=== PATIENT | female | born 1940 | race Hispanic/Latino ===

== ENCOUNTER 2017-06-11 18:11 | Inpatient (IN) | payer MEDICARE ==
[2017-06-11 18:55] LABS: #Lymphocytes 1.4 thou/uL (1.20-3.40); #Monocytes 0.9 thou/uL (0.11-0.59); #Neutrophils 16.3 thou/uL (1.40-6.50); %Eosinophils 0.1 % (0.0-10.0); %Lymphocytes 7.7 % (21.0-51.0); %Monocytes 4.8 % (0.0-10.0); Hematocrit 37.1 % (36.0-47.0); Mean Platelet Volume 7.3 fL (7.4-10.4); Red Blood Cell (RBC) Count 4.29 mill/uL (4.20-5.40); White Blood Cell (WBC) Count 18.6 thou/uL (4.8-10.8)
[2017-06-11 19:15] LABS: Bilirubin Negative (Negative); Blood, Urine Large (Negative); Glucose, Urine (Dipstick) Negative (Negative); Ketone, Urine 80 mg/dL (Negative); Nitrite Negative (Negative); Protein, Urine (Dipstick) 300 mg/dL (Neg-Trace)
[2017-06-11 19:15] LABS: ALT (SGPT) 15 U/L (8-55); AST (SGOT) 26 U/L (5-34); Alkaline Phosphatase 97 U/L (40-150); Anion Gap 20 mmol/L (10-20); BUN (Urea Nitrogen) 8 mg/dL (9.8-20.1); Bilirubin, Total 1.3 mg/dL (0.2-1.2); CK (CPK) 471 U/L (29-168); Calc. Creatinine Clearance 0 mL/min (70-130); Calcium 8.9 mg/dL (7.8-10.44); Carbon Dioxide 22 mmol/L (23-31); Chloride 80 mmol/L (98-107); Estimated GFR-MDRD Greater than 90; Globulin 3.6 g/dL (2.4-3.5); Protein, Total 7.6 g/dL (6.0-8.3)
[2017-06-11 19:18] LABS: Bacteria/HPF None Seen HPF (None Seen); Hyaline Casts/LPF 0-3 HYALINE CAST LPF (0-3 Hyaline); RBC/HPF GREATER THAN 50-TNTC HPF (0-3); Squamous Epithelial 0-3 HPF (0-3)
[2017-06-11 19:20] LABS: Renal Epithelial None Seen HPF (0-3); Transitional Epithelial NONE SEEN HPF (0-3)
[2017-06-11 19:22] LABS: Troponin I 0.015 ng/mL (< 0.028)
[2017-06-11] MEDS ORDERED: Ondansetron HCl/PF 4 MG/2 ML Vial ONE (19:48)
[2017-06-11 19:54] LABS: Osmolality, Serum 247 mOsm/kg (280-295)
--- NOTE | 2017-06-11 20:24 | RAD ---
ONE VIEW CHEST: History: Altered mental status. Comparison: 08-06-14 FINDINGS: Atherosclerosis of the aorta. Normal cardiac silhouette. The pulmonary vessels are slightly prominen t. Costophrenic angles are clear. No masses or consolidation. No pneumothorax or osseous abnormality . IMPRESSION: 1. Atherosclerosis. 2. Prominent pulmonary vasculature. Correlate for volume overload. POS: [facility]
[2017-06-11] MEDS ORDERED: HYDROcodone/Acetaminophen 5/325 mg Tablet ONE (21:04)
[2017-06-11 21:11] LABS: Anion Gap 15 mmol/L (10-20); BUN (Urea Nitrogen) 7 mg/dL (9.8-20.1); Calc. Creatinine Clearance 0 mL/min (70-130); Carbon Dioxide 20 mmol/L (23-31); Chloride 86 mmol/L (98-107); Estimated GFR-MDRD Greater than 90; Magnesium 1.7 mg/dL (1.6-2.6)
[2017-06-11] MEDS ORDERED: Gabapentin 300 MG CAP PO SCH (21:15)
--- NOTE | 2017-06-11 21:39 | CT ---
NONCONTRAST HEAD CT: History: Altered mental status. Comparison: 08-06-14 Technique: Noncontrast head CT is performed from skull base to skull vertex. FINDINGS: No parenchymal hemorrhage. No extraaxial hematoma. No midline shift. Basilar cisterns are patent. Ag e appropriate atrophy. Cortical powers white matter differentiation is preserved. Hypodensity in the right and left thalamus due to a remote lacunar infarct noted. Chronic small vess el ischemic change of the white matter identified. Hypoattenuation of the right lui radiata is al so unchanged. Calvarium is intact. Mucosal thickening of the paranasal sinuses is noted. Inferior right mastoid ai r cells are partially opacified. IMPRESSION: No acute intracranial process. POS: [facility]
[2017-06-11] MEDS ORDERED: Sodium Chloride 0.9% 1,000 ML IV SCH (21:45)
[2017-06-11] MEDS ORDERED: Dextrose 50% Abboject 50 ML SYRINGE SLOW IVP PRN (22:03)
[2017-06-11] MEDS ORDERED: Dextrose 5% in Water 1,000 ML IV PRN (22:03)
[2017-06-11] MEDS ORDERED: Loperamide HCl 2 MG CAP PO PRN (22:03)
[2017-06-11] MEDS ORDERED: Ondansetron ODT 4 MG TAB PO PRN (22:03)
[2017-06-11] MEDS ORDERED: Acetaminophen 325 MG TAB PO PRN (22:03)
--- NOTE | 2017-06-11 22:22 | HP ---
DATE OF ADMISSION/OBSERVATION: 06/11/2017 PRIMARY CARE PHYSICIAN: Fabien. CHIEF COMPLAINT: Altered mental status. HISTORY OF PRESENT ILLNESS: Ms. Manzano is a 77-year-old [place] female with history of per ipheral vascular disease, status post right AKA and left BKA, hypertension, diabetes, hyperlipidemia , and hypothyroidism who has had 1 week history of anorexia, nausea and vomiting that seemed to wors en over the last couple of days. Today and yesterday, she became incontinent of bowel and bladder. She seemed to be more forgetful a nd not her normal self and today just seemed outright more confused. She was brought to the Emergency Department for evaluation. They denied her having any fevers or ch ills. She had no chest pain and no complaints of shortness of breath. In the Emergency Department, she is somnolent, but arousable. She seems to be oriented x3 at presen t. Workup in the ER showed labs to be fairly normal except for electrolytes being low with a sodium of 119, potassium 3.0, chloride 80 and a bicarbonate of 22. CBC showed a white count of 18,600, but ot herwise CBC was normal. The patient has had problems like this before, but had UTI, on her urinalysis. No evidence of activ e UTI present. We were called for evaluation due to the hyponatremia. PAST MEDICAL HISTORY: 1. Diabetes mellitus type 2, on insulin. 2. Hyperlipidemia. 3. Peripheral vascular disease, status post bilateral amputations. 4. Hypertension. 5. Hypothyroidism. 6. Peripheral vascular disease. PAST SURGICAL HISTORY: Includes; 1. Bladder sling. 2. Right AKA. 3. Left BKA. HOME MEDICATIONS: (No actual list was given, no medicines). This is taken from the son's recollect ion. 1. Clonidine t.i.d., assuming 0.1 mg. 2. Amlodipine. He thinks 5 mg daily. 3. Metformin 500 mg b.i.d. 4. Lisinopril 10 mg daily. 5. Gabapentin, dose unknown. 6. Levothyroxine, dose unknown. 7. Glimepiride, dose unknown. 8. Zocor, dose unknown. 9. Hydrocodone as needed, but rarely takes. ALLERGIES: NKDA. FAMILY HISTORY: Negative for clotting or bleeding disorder. No immune dysfunction. SOCIAL HISTORY: Significant tobacco occasionally; will have a cigarette or two. A pack will last w ell over a month. No alcohol or drug use. She lives with family, including her son and [id number]. REVIEW OF SYSTEMS: A 10-point review of systems was performed. Negative for all systems except as stated as per HPI. Specifically, denies any diarrhea. Though her family states that she has had wa abiola stools today. PHYSICAL EXAMINATION: VITAL SIGNS: Temperature 98.3, pulse 83, blood pressure 171/98, respiratory rate 17 and satting 96% on room air. GENERAL: She is awake. She is alert. She is oriented x3. She knows she is in the hospital, knows her name, knows the year and the president. She appears sleepy, but in no acute distress. HEENT: Normocephalic, atraumatic. Her pupils are equal and round bilaterally, mucous membranes are moist. She has no visible lesions or thrush. She does have some conjunctival injection to the rig ht eye with some watering, but not to the left. NECK: Supple. There is no lymphadenopathy, no JVD, no thyromegaly. LUNGS: Clear to auscultation bilaterally. She has adequate air movement and symmetrical chest excu rsion. There is no prolonged expiratory phase and no wheezes. CARDIOVASCULAR: She has normal S1 and S2. She has no S3 or S4. I do not appreciate any murmurs. ABDOMEN: Soft, it is nontender and nondistended. She has normoactive bowel sounds present in all 4 quadrants. EXTREMITIES: Show no cyanosis or clubbing. She has no edema. She does have a right AKA and left B KA. Her stumps are intact. NEUROLOGIC: Her cranial nerves are II-XII to be grossly intact. Strength in the arms is 5/5. She has normal speech, though she mostly speaks in [place]. She has no focal deficits. Obviously, luciano ot test her lower extremity strength. Hip flexors appear to have normal strength. MUSCULOSKELETAL: Hips, shoulders, elbows appear normal to inspection. She has no inflammation and no palpable effusions. LABORATORY DATA: CMP shows a sodium of 119, potassium 3.0, chloride 80, bicarbonate 22, BUN 8, crea tinine 0.61 and glucose of 199 with a calcium of 8.7. Liver function normal except for a total bili galindo of 1.3. White blood cell count 18.6 with a normal differential, hemoglobin 13.2, hematocrit 3 7.1 and platelet count of 373,000. Urinalysis showed greater than 50 red cells, 4-6 white cells, no bacteria, negative nitrite, negative leukocyte esterase. X-RAY FINDINGS: Chest x-ray showed no acute cardiopulmonary disease. There is some mild opacificat ion of the bilateral bases that could be infiltrate, but recommend serial exams. ASSESSMENT AND PLAN: 1. Altered mental status: The patient is oriented x3, but somnolent. Certainly could be related t o electrolyte abnormalities. 2. Hyponatremia: Last labs here were 2 years ago with a normal sodium. She is currently at 119. We will start on normal saline, as she does not look hypervolemic. We will recheck her sodium in th e morning. 3. Hyperkalemia: A stat redraw was requested. She got a dose in the ER. We will continue to repl bridgette. 4. Diabetes mellitus type 2: She does take long-acting insulin, looks like Lantus maybe 50 units d aily; however, hold that for now. She is not eating well. We will use sliding scale insulin, Humal og. 5. Hyperlipidemia, on Zocor. We will hold for now. 6. Hypertension, on clonidine, lisinopril and amlodipine. The blood pressure is elevated right now . We will restart her home medications as we can best guess them. 7. Hypothyroidism, on levothyroxine. We will hold for today. Place the patient in observation with telemetry. We will reevaluate in the morning.
[2017-06-11] MEDS ORDERED: cloNIDine 0.2 MG TAB PO SCH (23:15)
[2017-06-11] MEDS ORDERED: cloNIDine 0.1 MG TAB PO PRN (23:17)
[2017-06-11] MEDS ORDERED: Sodium Chloride 0.9% 10 ML ONE (23:29)
[2017-06-11] MEDS ORDERED: Simvastatin 20 MG TAB PO SCH (23:30)
[2017-06-11] MEDS: Potassium Chloride 20 MEQ TAB PO SCH ×2 (23:32→23:34)
[2017-06-11] MEDS: Famotidine 20 MG TAB PO SCH (23:34)
[2017-06-11] MEDS: Sodium Chloride 0.9% 1,000 ML IV SCH (23:40)
[2017-06-12 03:00] VITALS: BMI 30.2
[2017-06-12] MEDS ORDERED: Potassium Chloride 20 MEQ TAB PO SCH (04:00)
[2017-06-12 05:46] LABS: #Basophils 0.1 thou/uL (0.0-0.2); #Lymphocytes 3.3 thou/uL (1.20-3.40); #Monocytes 1.6 thou/uL (0.11-0.59); #Neutrophils 10.6 thou/uL (1.40-6.50); %Basophils 0.3 % (0.0-1.0); %Eosinophils 0.1 % (0.0-10.0); %Monocytes 10.4 % (0.0-10.0); Hematocrit 37.5 % (36.0-47.0); Mean Platelet Volume 7.4 fL (7.4-10.4); Red Blood Cell (RBC) Count 4.29 mill/uL (4.20-5.40); White Blood Cell (WBC) Count 15.6 thou/uL (4.8-10.8)
[2017-06-12] MEDS: HYDROcodone/Acetaminophen 10/325 mg Tablet PO PRN (06:02)
[2017-06-12 06:06] LABS: Anion Gap 13 mmol/L (10-20); BUN (Urea Nitrogen) 7 mg/dL (9.8-20.1); Calc. Creatinine Clearance 80 mL/min (70-130); Calcium 8.5 mg/dL (7.8-10.44); Carbon Dioxide 25 mmol/L (23-31); Chloride 87 mmol/L (98-107); Estimated GFR-MDRD Greater than 90
[2017-06-12] MEDS ORDERED: cloNIDine 0.2 MG TAB PO SCH (09:00)
[2017-06-12] MEDS: Erythromycin Base 0.5% Oint 1 GM TUBE EA EYE SCH ×4 (09:14→21:00)
--- NOTE | 2017-06-12 11:47 | PDOC.PN ---
- Subjective Encounter Start Date: 06/12/17 Encounter Start Time: 10:15 Pt sleeping soundly. No acute events overnight. Still incontinent of urine, cassidy placed, complaints of bladder spasms. Son at bedside, reports MS still off but a little better today. No F/c, no N/V/ D/c, no CP, no SOB 10 point ROs performed and neg for all except as per HPI and the following: continues to feel globally weak - Objective Resuscitation Status: Resuscitation Status FULL:Full Resuscitation MAR Reviewed: Yes Vital Signs & Weight: Vital Signs (12 hours) Temp Pulse Resp BP BP Pulse Ox 06/12/17 09:14 150/65 H 06/12/17 08:00 98.6 F 80 18 150/65 H 93 L 06/12/17 04:00 98.8 F 71 16 153/69 H 92 L 06/12/17 00:57 97.9 F 74 20 133/56 L 94 L Weight Weight 139 lb 9.6 oz I&O: 06/11/17 06/12/17 06/13/17 06:59 06:59 06:59 Intake Total 1535 Output Total 2024 Balance -490 Result Diagrams: 06/12/17 04:39 06/12/17 04:39 Additional Labs: Accuchecks 06/12/17 06:54 POC Glucose 95 Radiology Reviewed by me: Yes EKG Reviewed by me: Yes Phys Exam - Physical Examination Constitutional: NAD HEENT: PERRLA, moist MMs, sclera anicteric, oral pharynx no lesions Neck: no nodes, no JVD, supple, full ROM Respiratory: no wheezing, no rales, no rhonchi, clear to auscultation bilateral Cardiovascular: RRR, no significant murmur, no rub Gastrointestinal: soft, non-tender, no distention, positive bowel sounds stumps intact, no stump edema Neurological: non-focal, normal sensation, moves all 4 limbs 4/5 strength. CN II-XII intact Lymphatic: no nodes Psychiatric: normal affect, A&O x 3 Deviation from normal: sleepy Skin: no rash, normal turgor, cap refill <2 seconds Dx/Plan (1) Metabolic encephalopathy Code(s): G93.41 - METABOLIC ENCEPHALOPATHY Status: Acute Comment: improved a little with increased sodium. monitor (2) Hyponatremia Code(s): E87.1 - HYPO-OSMOLALITY AND HYPONATREMIA Status: Acute Comment: slightly better overnight. continue NS, will add NaCl tabs tomorrow (3) Hypokalemia Code(s): E87.6 - HYPOKALEMIA Status: Resolved Comment: replaced orally overnight. repeat in ER better. watch due to shifts with fluids and sodium (4) DM2 (diabetes mellitus, type 2) Status: Chronic Qualifiers: Diabetes mellitus complication status: with circulatory complication Diabetes mellitus complication detail: with other circulatory complications Diabetes mellitus half-way insulin use: with half-way use Qualified Code(s) : E11.59 - Type 2 diabetes mellitus with other circulatory complications; Z79.4 - painter plate (current) use of insulin; Z79.4 - painter plate (current) use of insulin ; Z79.4 - painter plate (current) use of insulin; Z79.4 - long-term (current) use of insulin Comment: sigars okay. restart long acting when po intake stable (5) HLD (hyperlipidemia) Code(s): E78.5 - HYPERLIPIDEMIA, UNSPECIFIED Status: Chronic Qualifiers: Hyperlipidemia type: unspecified Qualified Code(s): E78.5 - Hyperlipidemia , unspecified (6) PVD (peripheral vascular disease) Code(s): I73.9 - PERIPHERAL VASCULAR DISEASE, UNSPECIFIED Status: Chronic (7) Hypothyroidism Code(s): E03.9 - HYPOTHYROIDISM, UNSPECIFIED Status: Chronic Qualifiers: Hypothyroidism type: acquired Qualified Code(s): E03.9 - Hypothyroidism, unspecified Comment: contoinue synthroid when son gets us the dose - Plan cont current plan of care, plan discussed w/ family, PT/OT * .
[2017-06-12] MEDS: HYDROcodone/Acetaminophen 5/325 mg Tablet PO PRN (12:03)
[2017-06-12] MEDS: Famotidine 20 MG TAB PO SCH ×2 (12:04→21:00)
[2017-06-12] MEDS: HumaLOG 300 UNITS/3 ML VIAL SC PRN ×2 (12:16→16:39)
[2017-06-12] MEDS: cloNIDine 0.2 MG TAB PO SCH ×2 (15:09→20:59)
[2017-06-12] MEDS: Simvastatin 20 MG TAB PO SCH (20:59)
[2017-06-12] MEDS: Sodium Chloride 0.9% 1,000 ML IV SCH (20:59)
[2017-06-12] MEDS: Gabapentin 300 MG CAP PO SCH (21:00)
[2017-06-12] MEDS ORDERED: Simvastatin 20 MG TAB PO SCH (21:00)
[2017-06-13 05:16] LABS: #Lymphocytes 2.3 thou/uL (1.20-3.40); #Monocytes 1.5 thou/uL (0.11-0.59); #Neutrophils 9.2 thou/uL (1.40-6.50); %Basophils 0.1 % (0.0-1.0); %Eosinophils 0.1 % (0.0-10.0); %Lymphocytes 17.7 % (21.0-51.0); %Monocytes 11.7 % (0.0-10.0); Hematocrit 38.9 % (36.0-47.0); Red Blood Cell (RBC) Count 4.33 mill/uL (4.20-5.40); White Blood Cell (WBC) Count 13.1 thou/uL (4.8-10.8)
[2017-06-13 05:35] LABS: Anion Gap 10 mmol/L (10-20); BUN (Urea Nitrogen) 6 mg/dL (9.8-20.1); Calc. Creatinine Clearance 69 mL/min (70-130); Calcium 8.5 mg/dL (7.8-10.44); Carbon Dioxide 23 mmol/L (23-31); Chloride 101 mmol/L (98-107); Estimated GFR-MDRD Greater than 90; Magnesium 1.9 mg/dL (1.6-2.6)
[2017-06-13] MEDS: Levothyroxine Sodium 100 MCG TAB PO SCH (05:48)
[2017-06-13] MEDS: Amlodipine 10 MG TAB PO SCH (08:16)
[2017-06-13] MEDS: Erythromycin Base 0.5% Oint 1 GM TUBE EA EYE SCH ×4 (08:16→20:52)
[2017-06-13] MEDS: Lisinopril 20 MG TAB PO SCH (08:16)
[2017-06-13] MEDS: Famotidine 20 MG TAB PO SCH ×2 (08:16→20:51)
[2017-06-13] MEDS: cloNIDine 0.2 MG TAB PO SCH ×3 (08:17→20:51)
[2017-06-13] MEDS ORDERED: guaiFENesin 100 MG/5 ML UDCUP PO PRN (10:23)
[2017-06-13] MEDS: HYDROcodone/Acetaminophen 5/325 mg Tablet PO PRN (11:14)
[2017-06-13] MEDS: Diabetic Tussin 200 MG/10 ML UDCUP PO PRN (11:15)
[2017-06-13] MEDS: Sodium Chloride 0.9% 1,000 ML IV SCH (11:27)
--- NOTE | 2017-06-13 14:05 | PDOC.PN ---
- Subjective Encounter Start Date: 06/13/17 Encounter Start Time: 13:55 Subjective: f/u encephalopathy from hyponatremia. Minimal improvement per daughter. -: No N/V. Appetite improving. BP labile per nsg. - Objective MAR Reviewed: Yes Vital Signs & Weight: Vital Signs (12 hours) Temp Pulse Resp BP BP BP Pulse Ox 06/13/17 13:49 197/80 H 06/13/17 10:50 98 F 89 14 180/73 H 96 06/13/17 08:16 87 203/84 H 06/13/17 08:00 97.8 F 87 18 98 06/13/17 04:00 97.8 F 67 18 164/71 H 93 L Weight Weight 131 lb 14.4 oz I&O: 06/12/17 06/13/17 06/14/17 06:59 06:59 06:59 Intake Total 2218 Output Total 4200 Result Diagrams: 06/13/17 04:18 06/13/17 04:18 Additional Labs: Accuchecks 06/13/17 06/13/17 06/12/17 10:54 06:00 20:50 POC Glucose 184 H 158 H 139 H 06/12/17 06/12/17 18:40 16:16 POC Glucose 202 H 285 H Microbiology 06/11/17 19:00 Urine Straight Catheter Urine Culture - Preliminary NO GROWTH AT 12 HOURS Laboratory Tests 06/11/17 06/11/17 06/11/17 18:46 18:46 20:46 WBC 18.6 H Plt Count Sodium 119 L* 117 L* Magnesium 06/12/17 06/12/17 06/13/17 04:39 04:39 04:18 WBC 15.6 H Plt Count 415 H Sodium 121 L Magnesium 1.9 Radiology Reviewed by me: Yes (PCXR - prominent pulm vasc) EKG Reviewed by me: Yes (Tele: SR in 70's) Phys Exam - Physical Examination Constitutional: NAD HEENT: PERRLA, oral pharynx no lesions Neck: no JVD, supple Respiratory: no wheezing Cardiovascular: RRR Gastrointestinal: soft, non-tender, no distention, positive bowel sounds Musculoskeletal: no edema, pulses present Neurological: normal sensation, moves all 4 limbs Skin: normal turgor, cap refill <2 seconds Dx/Plan (1) Hyponatremia Code(s): E87.1 - HYPO-OSMOLALITY AND HYPONATREMIA Status: Acute Comment: slightly better overnight. continue NS, will add NaCl tabs tomorrow (2) Metabolic encephalopathy Code(s): G93.41 - METABOLIC ENCEPHALOPATHY Status: Acute Comment: Minimal improvement, serial monitoring, contributing underlying dementia (3) DM2 (diabetes mellitus, type 2) Status: Chronic Qualifiers: Diabetes mellitus complication status: with circulatory complication Diabetes mellitus complication detail: with other circulatory complications Diabetes mellitus terminal block assembler insulin use: with terminal block assembler use Qualified Code(s) : E11.59 - Type 2 diabetes mellitus with other circulatory complications; Z79.4 - long term care phlebotomist (current) use of insulin; Z79.4 - long term care phlebotomist (current) use of insulin ; Z79.4 - intermediate (current) use of insulin; Z79.4 - long term care phlebotomist (current) use of insulin Comment: Restart Glargine and Amaryl, ISS, accuchecks (4) PVD (peripheral vascular disease) Code(s): I73.9 - PERIPHERAL VASCULAR DISEASE, UNSPECIFIED Status: Chronic (5) Hypokalemia Code(s): E87.6 - HYPOKALEMIA Status: Resolved Comment: replaced orally overnight. repeat in ER better. watch due to shifts with fluids and sodium (6) Nausea and vomiting Code(s): R11.2 - NAUSEA WITH VOMITING, UNSPECIFIED Status: Acute Comment: Resolved - Plan plan discussed w/ family, PT/OT, psychologist social Stable overall -: Continue low-volume IVF NS 50ml/h -: Resume Glargine and Amaryl -: Monitor BP trend, suspect component of elevation due to IVF's -: AM lab: BMP, Mg++ * Likely home in 24-48h
[2017-06-13] MEDS: Gabapentin 300 MG CAP PO SCH (20:51)
[2017-06-13] MEDS: Simvastatin 20 MG TAB PO SCH (20:51)
[2017-06-13] MEDS ORDERED: HumaLOG 300 UNITS/3 ML VIAL SC PRN (21:05)
[2017-06-13] MEDS: HYDROcodone/Acetaminophen 10/325 mg Tablet PO PRN (21:20)
[2017-06-13] MEDS: HumaLOG 300 UNITS/3 ML VIAL SC PRN (21:21)
[2017-06-13] MEDS: hydrALAZINE 20 MG/ML VIAL SLOW IVP PRN (22:38)
[2017-06-13] MEDS: Estrogens, Conjugated 30 GM TUBE VAG SCH (22:42)
[2017-06-14 05:08] LABS: #Basophils 0.1 thou/uL (0.0-0.2); #Eosinphils 0.1 thou/uL (0.0-0.7); #Lymphocytes 2.9 thou/uL (1.20-3.40); #Monocytes 1.4 thou/uL (0.11-0.59); #Neutrophils 9.5 thou/uL (1.40-6.50); %Basophils 0.5 % (0.0-1.0); %Eosinophils 0.9 % (0.0-10.0); %Lymphocytes 20.4 % (21.0-51.0); %Monocytes 10.3 % (0.0-10.0); Hematocrit 38.1 % (36.0-47.0); Mean Platelet Volume 6.7 fL (7.4-10.4); Red Blood Cell (RBC) Count 4.25 mill/uL (4.20-5.40)
[2017-06-14 05:33] LABS: Anion Gap 12 mmol/L (10-20); BUN (Urea Nitrogen) 5 mg/dL (9.8-20.1); Calc. Creatinine Clearance 72 mL/min (70-130); Calcium 8.4 mg/dL (7.8-10.44); Carbon Dioxide 23 mmol/L (23-31); Chloride 99 mmol/L (98-107); Estimated GFR-MDRD Greater than 90; Magnesium 1.9 mg/dL (1.6-2.6)
[2017-06-14] MEDS: Levothyroxine Sodium 100 MCG TAB PO SCH (05:35)
--- NOTE | 2017-06-14 06:17 | CON ---
DATE OF HOSPITAL ADMISSION: 06/11/2017 DATE OF CONSULTATION REQUEST AND REPORT: 06/13/2017 REASON FOR CONSULTATION: 1. Urinary retention. 2. Gross hematuria. 3. Postmenopausal, low estrogen status. HISTORY OF PRESENT ILLNESS: Ms. Shahana Manzano is a very pleasant 77-year-old [place]-speaking female with a history of diabetes mellitus and resulting peripheral vascular disease. She is status post a right above-knee amputation and a left below-knee amputation. She has hypertension , diabetes, hyperlipidemia, and hypothyroidism. Patient states she was admitted on 06/11/2017 with altered mental status, nausea, vomiting, as well as anorexia. Patient became incontinent of urine a nd stool, and was brought in through the emergency room secondary to altered mental status. She has very good support in family members at home. The patient had not had fever or chills, and had no c hest pain complaints or shortness of breath. The patient was evaluated in the emergency room, which did undergo straight catheterization there which did result in some blood. Patient's urine was rec overed. She did have an abnormal urinalysis with just a few white cells in it and too numerous to c ount red cells. The patient was admitted to the hospital and did undergo an on-floor catheter place ment after redevelopment of lower abdominal fullness. In this situation, a Cho catheter was place d and there was immediate return of about 1300 mL of urine and about 2 liters of fluid was recovered in the first hour or two. The patient has an indwelling Cho catheter at the present time. Ms. Manzano had altered mental status, but she is able to answer questions today. She reports that she has had some issues with 2 or 3 days' worth of constipation that has occurred in the past. She does not think constipation as part of her picture on this admission, however, but she has not had a bowel movement since Monday, which was almost 3 days ago at this point. She has full use of her b ilateral hands and has adequate manual dexterity to perform intermittent catheterization if needed a s well as performed estrogen application if needed. PAST MEDICAL HISTORY: 1. Diabetes mellitus type 2, currently on insulin. 2. Hyperlipidemia. 3. Peripheral vascular disease, status post bilateral amputations, right AKA and left BKA. 4. Hypertension. 5. Hypothyroidism. 6. Chronic pain secondary to peripheral vascular disease, neuropathic issues. PAST SURGICAL HISTORY: 1. History of suburethral sling, operation for a bladder, which is a potential obstruction in her s ystem. 2. Right above-knee operation. 3. Left below-knee amputation. HOME MEDICATION: Includes; 1. Clonidine 0.1 mg t.i.d. 2. Amlodipine 5 mg per day. 3. Metformin 500 mg twice daily. 4. Lisinopril 10 mg per day. 5. Gabapentin. 6. Levothyroxine. 7. Glyburide. 8. Zocor. 9. Hydrocodone is taken on a p.r.n. basis. ALLERGIES: No known drug allergies. FAMILY MEDICAL HISTORY: No history of disorders. SOCIAL HISTORY: The patient is currently an occasional tobacco smoker. She has a long-term history of cigarette smoking, however. Conservatively speaking, the patient has about 50 pack years worth of cigarette smoking consumption in her lifetime. The patient resides with family including her son and [id number] and her son who acts as a historian and is appears to be providing good care fo r her. REVIEW OF SYSTEMS: Negative x12 systems except for mental status which was altered at admission and genitourinary which includes apparent urinary retention episodes and hematuria. PHYSICAL EXAMINATION: VITAL SIGNS: Pulse is 79. The patient has normal sinus rhythm on cardiac monitoring. Blood pressu re is hypertensive with a current blood pressure of 193/74, respirations are 20, and O2 saturation i s 95%. HEAD, EYES, EARS, NOSE, AND THROAT: Extraocular movements are intact. Sclerae are anicteric. Orop harynx is clear. NECK: Supple. LUNGS: Clear to auscultation bilaterally. CARDIAC: There is a regular rate and rhythm. It appears to have a cardiac murmur, which is diastol ic in nature. ABDOMEN: Soft and nontender. It is not distended. There are no surgical scars present. PELVIC: The patient has low estrogen status with periurethral pallor and redness the urethral meatu s itself. A Cho catheter is in place. Urine which is draining appears relatively clear and appea rs to be of low gravity. I do not palpate any masses. I do not see evidence of current sling erosi on. There is no vaginal discharge. EXTREMITIES: Patient has a left below-knee amputation and right knee amputation. Stumps are intact . There are no bedsores present on those. NEUROLOGIC: Cranial nerves III through XI appear to be grossly intact. The patient has normal spee ch. She does speak in [place] and is capable, apparently, of speaking [place]uran as well. LABORATORY AND X-RAY FINDINGS: A urine culture is negative at 36 hours. A urinalysis obtained at a dmission showed 300 mg per deciliter protein, high ketones, large amount of blood, greater than 50 r ed cells per high power field and 4-6 white cells per high power field. There were no bacteria seen on the urinalysis. Serum chemistries on admission show hyperglycemia with a glucose of 199, a low serum potassium of 3, very low chloride level of 80 with a sodium level of 119 consistent with hypon atremia. The patient's CK-MB was elevated at 7. Most of these values have normalized over the mindi ent's hospitalization with current sodium of 130, potassium of 4.2, carbon dioxide of 23, blood urea nitrogen of 6 and creatinine of 0.62. Estimated GFR is currently at 90. Glucose remains elevated currently by a point of care testing at 298 and was 174 this morning. Hematologic profile shows the patient's white count decreasing from 18.6 to 13.1 this morning. Plat elet count has risen apparently with hemoconcentration. Patient's hematocrit is slightly increased over that time period as well. The previous left shift has resolved. ASSESSMENT AND PLAN: 1. Low estrogen state. Plan will be to proceed with Premarin cream application on the patient's ur ethra on a daily basis. The risk factors which would contraindicate application of Estrace or Etelvina rin cream, which has essentially no systemic absorption. This would decrease the risk for ascending urinary tract infection and ascending infection is not found in this setting. The patient has some periurethral bleeding, which would probably secondary to urethral caruncle and low estrogen status. The patient's incomplete bladder emptying is another issue which may be affected by normal urethra l estrogenization. 2. Urinary retention, most likely secondary to urethral cause. Low estrogen status is a primary co ntributor and probably urethral stricture disease, this could need to be established in clinic. Cheli braga has a history of a suburethral sling, sometimes release of a suburethral sling may allow better bladder emptying. At the present time, it is not clear which type of treatment the patient needs. I do note that she does have adequate manual dexterity could probably learn how to perform self-int ermittent catheterization on a rate of about 5 times per day, which will allow for adequate bladder emptying at home. At the present time, a voiding trial may be considered after use of estrogen crea m. With the patient's constant retention, self-intermittent catheterization would be an option. Al ternatively, the patient may need to undergo suburethral sling release in the future. 3. Hematuria. The patient is a current and long-term cigarette smoker. She has significant periph eral vascular disease which is probably likely due to combination of cigarette smoking and her diabe michelle mellitus and hypertension. At present time, patient should undergo lower urinary tract evaluati on, which would include cystoscopic assessment. Her renal function is adequate to allow for a CT-IV P study to be performed. Due to the patient's current illness I am not recommending that be perform ed right away. The patient has not had abdominal imaging during this hospitalization. 4. Concerns for urinary tract infection. Current urine culture does not support UTI as the cause o f the patient's presentation. Other infectious source should be considered. Over 80 minutes of initial consultation time was spent on evaluation and assessment for this patient today exclusive of any procedures performed.
[2017-06-14] MEDS: Insulin Detemir 100 UNITS/ML 50 UNITS in Pre-Filled Syringe 1 EACH SC SCH (08:48)
[2017-06-14] MEDS: Famotidine 20 MG TAB PO SCH ×2 (08:49→20:53)
[2017-06-14] MEDS: Sodium Chloride 0.9% 1,000 ML IV SCH (08:49)
[2017-06-14] MEDS: cloNIDine 0.2 MG TAB PO SCH ×3 (08:49→20:52)
[2017-06-14] MEDS: Glimepiride 2 MG TAB PO SCH (08:49)
[2017-06-14] MEDS: Amlodipine 10 MG TAB PO SCH (08:49)
[2017-06-14] MEDS: Lisinopril 20 MG TAB PO SCH (08:49)
[2017-06-14] MEDS: Erythromycin Base 0.5% Oint 1 GM TUBE EA EYE SCH ×4 (08:51→20:55)
[2017-06-14] MEDS ORDERED: INSULIN GLARGINE 50 UNIT SC SCH (09:00)
[2017-06-14] MEDS ORDERED: Sodium Chloride 0.9% 1,000 ML IV SCH (14:52)
--- NOTE | 2017-06-14 14:56 | PDOC.PN ---
- Subjective Encounter Start Date: 06/14/17 Encounter Start Time: 14:40 Subjective: f/u for hyponatremia and encephalopathy. Mentation improved but still -: has some confusion. Eating ok. Voiding currently after removal of Cho -: catheter. - Objective MAR Reviewed: Yes Vital Signs & Weight: Vital Signs (12 hours) Temp Pulse Resp BP Pulse Ox 06/14/17 12:00 98.3 F 84 18 156/70 H 94 L 06/14/17 08:49 82 06/14/17 08:00 98.4 F 82 18 94 L 06/14/17 07:43 98.4 F 82 18 183/77 H 94 L 06/14/17 04:00 97.8 F 77 18 159/70 H 95 Weight Weight 130 lb I&O: 06/13/17 06/14/17 06/15/17 06:59 06:59 06:59 Intake Total 2218 2110 Output Total 4200 4675 1100 Balance -1982 -2565 -1100 Result Diagrams: 06/14/17 04:24 06/14/17 04:24 Additional Labs: Accuchecks 06/14/17 06/14/17 06/13/17 12:04 06:03 20:45 POC Glucose 291 H 190 H 298 H 06/13/17 16:28 POC Glucose 265 H Microbiology 06/11/17 19:00 Urine Straight Catheter Urine Culture - Preliminary NO GROWTH AT 12 HOURS Laboratory Tests 06/11/17 06/11/17 06/11/17 18:46 18:46 20:46 WBC 18.6 H Plt Count Sodium 119 L* 117 L* Magnesium 06/12/17 06/12/17 06/13/17 04:39 04:39 04:18 WBC 15.6 H Plt Count 415 H Sodium 121 L 130 L Magnesium 1.9 EKG Reviewed by me: Yes (Tele - SR in 80's) Phys Exam - Physical Examination Constitutional: NAD HEENT: PERRLA, oral pharynx no lesions Neck: no JVD, supple Respiratory: no wheezing Cardiovascular: RRR Gastrointestinal: soft, non-tender, no distention, positive bowel sounds Musculoskeletal: no edema, pulses present Neurological: normal sensation, moves all 4 limbs Psychiatric: A&O x 3 Skin: normal turgor, cap refill <2 seconds Dx/Plan (1) Hyponatremia Code(s): E87.1 - HYPO-OSMOLALITY AND HYPONATREMIA Status: Acute Comment: slightly better overnight. continue NS at 30ml/h, will add NaCl tabs tomorrow (2) Metabolic encephalopathy Code(s): G93.41 - METABOLIC ENCEPHALOPATHY Status: Acute Comment: Mild improvement, serial monitoring, contributing underlying dementia (3) DM2 (diabetes mellitus, type 2) Status: Chronic Qualifiers: Diabetes mellitus complication status: with circulatory complication Diabetes mellitus complication detail: with other circulatory complications Diabetes mellitus skilled nursing insulin use: with extermination inspector use Qualified Code(s) : E11.59 - Type 2 diabetes mellitus with other circulatory complications; Z79.4 - halfway (current) use of insulin; Z79.4 - halfway (current) use of insulin ; Z79.4 - halfway (current) use of insulin; Z79.4 - continuous churn buttermaker (current) use of insulin Comment: Restart Glargine and Amaryl, ISS, accuchecks (4) PVD (peripheral vascular disease) Code(s): I73.9 - PERIPHERAL VASCULAR DISEASE, UNSPECIFIED Status: Chronic (5) Hypokalemia Code(s): E87.6 - HYPOKALEMIA Status: Resolved Comment: replaced orally overnight. repeat in ER better. watch due to shifts with fluids and sodium (6) Nausea and vomiting Code(s): R11.2 - NAUSEA WITH VOMITING, UNSPECIFIED Status: Acute Comment: Resolved - Plan plan discussed w/ family, PT/OT, social media developer Stable overall -: Continue IVF NS 30ml/h -: Premarin vaginal crm AAA HS -: D/C Cho -: AM lab: BMP, CBC * Likely home in 24h *
[2017-06-14] MEDS: Diabetic Tussin 200 MG/10 ML UDCUP PO PRN (15:23)
[2017-06-14] MEDS: Simvastatin 20 MG TAB PO SCH (20:53)
[2017-06-14] MEDS: Estrogens, Conjugated 30 GM TUBE VAG SCH (20:53)
[2017-06-14] MEDS: Gabapentin 300 MG CAP PO SCH (20:53)
[2017-06-14] MEDS: HumaLOG 300 UNITS/3 ML VIAL SC PRN (20:54)
[2017-06-15 04:09] VITALS: TEMP 98.5
[2017-06-15 04:58] LABS: #Basophils 0.1 thou/uL (0.0-0.2); #Eosinphils 0.3 thou/uL (0.0-0.7); #Monocytes 1.3 thou/uL (0.11-0.59); #Neutrophils 11.8 thou/uL (1.40-6.50); %Basophils 0.4 % (0.0-1.0); %Eosinophils 1.6 % (0.0-10.0); %Lymphocytes 18.3 % (21.0-51.0); Mean Platelet Volume 6.5 fL (7.4-10.4); Red Blood Cell (RBC) Count 4.11 mill/uL (4.20-5.40); White Blood Cell (WBC) Count 16.4 thou/uL (4.8-10.8)
[2017-06-15 05:20] LABS: Anion Gap 9 mmol/L (10-20); BUN (Urea Nitrogen) 5 mg/dL (9.8-20.1); Calc. Creatinine Clearance 65 mL/min (70-130); Calcium 8.6 mg/dL (7.8-10.44); Carbon Dioxide 26 mmol/L (23-31); Chloride 100 mmol/L (98-107); Estimated GFR-MDRD 88; Magnesium 1.8 mg/dL (1.6-2.6)
[2017-06-15] MEDS: Levothyroxine Sodium 100 MCG TAB PO SCH (06:34)
[2017-06-15] MEDS: Insulin Detemir 100 UNITS/ML 50 UNITS in Pre-Filled Syringe 1 EACH SC SCH (08:20)
[2017-06-15] MEDS: Glimepiride 2 MG TAB PO SCH (08:21)
[2017-06-15] MEDS: Famotidine 20 MG TAB PO SCH (08:21)
[2017-06-15] MEDS: Lisinopril 20 MG TAB PO SCH (08:21)
[2017-06-15] MEDS: Amlodipine 10 MG TAB PO SCH (08:21)
[2017-06-15] MEDS: cloNIDine 0.2 MG TAB PO SCH (08:21)
[2017-06-15] MEDS: Erythromycin Base 0.5% Oint 1 GM TUBE EA EYE SCH (08:21)
[2017-06-15] MEDS: hydrALAZINE 20 MG/ML VIAL SLOW IVP PRN (10:54)
[2017-06-15 10:55] VITALS: BP 188/77
[2017-06-15] MEDS: HumaLOG 300 UNITS/3 ML VIAL SC PRN (11:40)
--- NOTE | 2017-06-15 13:10 | DIS ---
DISCHARGE DIAGNOSES: 1. Acute metabolic encephalopathy secondarily to hyponatremia, improved. 2. Hyponatremia, multifactorial, improved. 3. Acute bronchitis. 4. Hypertension, labile. 5. Diabetes mellitus type 2, insulin requiring. 6. Hypokalemia, resolved. 7. Nausea and vomiting, resolved. 8. Urinary retention with hematuria secondarily to low estrogen state. CONSULTATIONS: Dr. Sparks with Urology Service. PERTINENT LAB AND X-RAY FINDINGS: Sodium ranged between 117-131, creatinine ranged between 0.57-0.65 , calcium 8.4, magnesium 1.9, albumin 4.0. TSH 0.57. CBC showed a white blood cell count ranging be tween 13.1-18.6, hemoglobin 12, hematocrit 37, platelet count ranged between 393-471. Urine culture dated 06/11/2017 showed no growth at 36 hours. Portable chest x-ray dated 06/11/2017 showed prominen t pulmonary vasculature. CT of the brain without contrast dated 06/11/2017 showed no acute intracran ial process. HOSPITAL COURSE: The patient was admitted to the telemetry unit after initially presenting with alte red mental status in the context of diabetes mellitus type 2, peripheral vascular disease, hypertensi on, and hypothyroidism. The patient was evaluated with metabolic survey showing severe hyponatremia with initial level of 117. The patient was given intravenous normal saline as well as potassium supp lementation for hypokalemia. The patient's presentation likely multifactorial due to poor p.o. intak e, nausea and vomiting. The patient clinically stabilized in the first 48 hours with slow return of sodium values to near normal levels by the time of discharge. The patient was evaluated after experi encing urinary retention by the Urology Service. The patient initially had a Cho catheter inserted which was subsequently removed. The patient was placed on Premarin vaginal preparation at bedtime. Overall the patient remained clinically stable through the remainder the hospital course, tolerating regular oral intake. The patient ready for discharge on 06/15/2017. DISCHARGE MEDICATIONS: 1. Omnicef 300 mg 1 tab p.o. b.i.d. x7 days. 2. Mucinex DM 600/30 mg 1 tab p.o. b.i.d. 3. Hydralazine 25 mg p.o. t.i.d. 4. Amlodipine 10 mg 1 tab p.o. daily. 5. Clonidine 0.2 mg p.o. t.i.d. 6. Erythromycin ointment applied to affected area q.i.d. p.r.n. 7. Premarin vaginal cream 1.5 grams vaginally at bedtime. 8. Neurontin 300 mg p.o. at bedtime. 9. Humalog 4-8 units subcutaneously t.i.d. with meals. 10. Lantus 50 units subcutaneously daily. 11. Levothyroxine 100 mcg p.o. daily. 12. Lisinopril 40 mg p.o. daily. 13. Metformin 1000 mg p.o. daily. 14. Zocor 20 mg p.o. at bedtime. FOLLOWUP: The patient will follow up with her primary care provider, Dr. Fierro within 7 days of discha rge. CONDITION ON DISCHARGE: Stable. ACTIVITY: Ad jeanne. DIET: ADA. CODE STATUS: Full. DISPOSITION: Home on 06/15/2017. Total time preparing and coordinating discharge is 35 minutes.
== END 2017-06-15 12:12 | disposition home or self-care (01) | DRG 640 ==
LOC: ERS 18:11 → 2NO 20:15 → OBSVTOIN 06-12 11:44
PROVIDERS: ADMIT Internal Medicine Infectious Disease; ATTEND Internal Medicine Infectious Disease
DX: E87.1 Hypo-osmolality and hyponatremia (principal); G93.41 Metabolic encephalopathy; E11.51 Type 2 diabetes mellitus with diabetic peripheral angiopathy without gangrene; Z89.611 Acquired absence of right leg above knee; J20.9 Acute bronchitis, unspecified; Z79.4 Long term (current) use of insulin; F17.210 Nicotine dependence, cigarettes, uncomplicated; E78.5 Hyperlipidemia, unspecified; E03.9 Hypothyroidism, unspecified; I10 Essential (primary) hypertension; Z89.512 Acquired absence of left leg below knee; R33.9 Retention of urine, unspecified; E87.6 Hypokalemia; R31.9 Hematuria, unspecified; Z78.0 Asymptomatic menopausal state; R32 Unspecified urinary incontinence; N32.89 Other specified disorders of bladder
CPT/HCPCS: 36415; 36416; 51701; 70450; 71010; 80048; 80053; 81003; 81015; 82553; 83735; 83930; 83935; 84300; 84443; 84484; 85025; 87086; 93005; 96361; 96374; A4216; A4353; J0360; J1815; J2405

== ENCOUNTER 2017-12-05 13:35 | Emergency (ER) | payer MEDICARE ==
--- NOTE | 2017-12-05 15:48 | RAD ---
FOUR VIEWS LEFT KNEE: 12/05/17 HISTORY: Patient had slow fall on the left knee yesterday evening. FINDINGS: There is a amputation of the distal left lower extremity at the level of the knee joint. There is a m ildly comminuted fracture involving the distal left femoral metaphysis with slight separation of frac ture fragments. There is diffuse osteopenia. There is vascular stents overlying the expected location of the superficial femoral and most proximal popliteal arteries. Surgical clips are seen medial to l eft knee. IMPRESSION: Mildly comminuted and slightly fracture involving the distal left femoral metaphysis and me tadiaphysis. POS: MARTI
== END 2017-12-05 15:12 | disposition home or self-care (01) ==
LOC: ERS 13:35
DX: S72.492A Other fracture of lower end of left femur, initial encounter for closed fracture (principal); E11.9 Type 2 diabetes mellitus without complications; E78.5 Hyperlipidemia, unspecified; E03.9 Hypothyroidism, unspecified; I10 Essential (primary) hypertension; F17.210 Nicotine dependence, cigarettes, uncomplicated; Z79.899 Other long term (current) drug therapy; Z79.4 Long term (current) use of insulin; W17.89XA Other fall from one level to another, initial encounter

== ENCOUNTER 2017-12-07 22:14 | Inpatient (IN) | payer MEDICARE ==
[2017-12-07 22:49] LABS: #Basophils 0.1 thou/uL (0.0-0.2); #Lymphocytes 2.8 thou/uL (1.20-3.40); #Monocytes 1.4 thou/uL (0.11-0.59); #Neutrophils 13.2 thou/uL (1.40-6.50); %Basophils 0.5 % (0.0-1.0); %Eosinophils 0.2 % (0.0-10.0); %Lymphocytes 15.9 % (21.0-51.0); %Monocytes 7.9 % (0.0-10.0); %Neutrophils 75.5 % (42.0-75.0); Hemoglobin 11.5 g/dL (12.0-16.0); Mean Corpuscular HGB CONC 35.6 g/dL (32.0-36.0); Mean Corpuscular Hemoglobin 30.6 pg (27.0-31.0); Mean Platelet Volume 6.9 fL (7.4-10.4); Platelet Count 342 thou/uL (130-400); RBC Distribution Width 12.2 % (11.5-14.5); Red Blood Cell (RBC) Count 3.75 mill/uL (4.20-5.40); White Blood Cell (WBC) Count 17.5 thou/uL (4.8-10.8)
[2017-12-07 23:09] LABS: Bilirubin Negative (Negative); Blood, Urine Trace (Negative); Clarity CLEAR (Clear); Glucose, Urine (Dipstick) Negative (Negative); Leukocyte Negative (Negative); Nitrite Negative (Negative); Protein, Urine (Dipstick) Trace mg/dL (Neg-Trace); Specific Gravity, Urine 1.006 (1.002-1.036)
[2017-12-07 23:10] LABS: ALT (SGPT) 20 U/L (8-55); AST (SGOT) 35 U/L (5-34); Albumin 3.8 g/dL (3.4-4.8); Alkaline Phosphatase 75 U/L (40-150); Anion Gap 15 mmol/L (10-20); BUN (Urea Nitrogen) 9 mg/dL (9.8-20.1); Bilirubin, Total 1.1 mg/dL (0.2-1.2); Calc. Creatinine Clearance 0 mL/min (70-130); Calcium 8.5 mg/dL (7.8-10.44); Carbon Dioxide 19 mmol/L (23-31); Chloride 84 mmol/L (98-107); Estimated GFR-MDRD Greater than 90; Globulin 3.2 g/dL (2.4-3.5); Glucose 98 mg/dL (83-110); Potassium 3.9 mmol/L (3.5-5.1)
[2017-12-07 23:11] LABS: Bacteria/HPF None Seen HPF (None Seen); Hyaline Casts/LPF 0-3 HYALINE CAST LPF (0-3 Hyaline); Pathc Cast-AUWi Flag 0.87 (0-2.49); Squamous Epithelial 0-3 HPF (0-3); WBC/HPF None Seen HPF (0-3)
[2017-12-07 23:15] LABS: Troponin I Less than 0.010 ng/mL (< 0.028)
[2017-12-07 23:16] LABS: Sodium 114 mmol/L (136-145)
[2017-12-07 23:18] LABS: CKMB 9.3 ng/mL (0-6.6)
[2017-12-07] MEDS ORDERED: Ondansetron ODT 4 MG TAB ONE (23:31)
[2017-12-08 00:22] LABS: Osmolality, Serum 241 mOsm/kg (280-295)
[2017-12-08] MEDS ORDERED: HYDROcodone/Acetaminophen 5/325 mg Tablet ONE (00:35)
[2017-12-08 00:39] LABS: Magnesium 1.9 mg/dL (1.6-2.6)
[2017-12-08 00:48] LABS: Phosphorus 1.9 mg/dL (2.3-4.7)
[2017-12-08] MEDS ORDERED: Ondansetron ODT 8 MG TAB ONE (02:03)
[2017-12-08] MEDS ORDERED: Sodium Chloride 0.9% 1,000 ML IV SCH ×2 (02:30→08:49)
[2017-12-08] MEDS ORDERED: Ondansetron HCl/PF 4 MG/2 ML Vial IVP SCH (04:00)
[2017-12-08 04:49] LABS: Anion Gap 16 mmol/L (10-20); BUN (Urea Nitrogen) 8 mg/dL (9.8-20.1); Calc. Creatinine Clearance 78 mL/min (70-130); Calcium 8.4 mg/dL (7.8-10.44); Carbon Dioxide 16 mmol/L (23-31); Chloride 83 mmol/L (98-107); Estimated GFR-MDRD Greater than 90; Glucose 131 mg/dL (83-110); Potassium 4.3 mmol/L (3.5-5.1); Sodium 111 mmol/L (136-145)
[2017-12-08] MEDS ORDERED: hydrALAZINE 20 MG/ML VIAL SLOW IVP PRN (08:49)
[2017-12-08] MEDS ORDERED: HumaLOG 300 UNITS/3 ML VIAL SC PRN (08:49)
[2017-12-08] MEDS ORDERED: Dextrose 5% in Water 1,000 ML IV PRN (08:49)
[2017-12-08] MEDS ORDERED: cloNIDine 0.1 MG TAB PO PRN (08:49)
[2017-12-08] MEDS ORDERED: Ondansetron ODT 4 MG TAB PO PRN (08:49)
[2017-12-08] MEDS ORDERED: Ondansetron HCl/PF 4 MG/2 ML Vial IVP PRN (08:49)
[2017-12-08] MEDS ORDERED: Dextrose 50% Abboject 50 ML SYRINGE SLOW IVP PRN (08:49)
[2017-12-08 08:55] LABS: Anion Gap 18 mmol/L (10-20); BUN (Urea Nitrogen) 8 mg/dL (9.8-20.1); Calc. Creatinine Clearance 84 mL/min (70-130); Calcium 8.6 mg/dL (7.8-10.44); Carbon Dioxide 14 mmol/L (23-31); Chloride 83 mmol/L (98-107); Estimated GFR-MDRD Greater than 90; Glucose 133 mg/dL (83-110); Potassium 3.7 mmol/L (3.5-5.1)
[2017-12-08] MEDS ORDERED: Prevnar 13-Val Conj/PF 0.5 ML SYRINGE IM ONE (09:00)
[2017-12-08 09:04] LABS: Sodium 111 mmol/L (136-145)
[2017-12-08] MEDS ORDERED: cefTRIAXone\\ROCEPHIN 1 GM in Sodium Chloride 0.9% 100 ML IVPB SCH (09:30)
--- NOTE | 2017-12-08 09:41 | HP ---
DATE OF ADMISSION: 12/08/2017 PRIMARY CARE PROVIDER: Dr. Girish Fierro. CHIEF COMPLAINT: Left knee pain and vomiting. HISTORY OF PRESENT ILLNESS: This is a 77-year-old female who presented to [facility] Emergency Department complaining of left knee pain as well as decreased oral intake, nausea and vo miting. History is obtained after review of electronic medical record from the emergency room as wel l as review of the patient's previous admission in 05/2017 as the patient presents with altered menta l status and there is no family available to interview regarding presentation. The patient had repor yamini as well as family members reported in the emergency room that patient had been noncompliant with taking some of her pain medications. The patient apparently sustained a fracture of her left femur p reviously undergoing radiographic analysis on 12/05/2017 confirming a mildly comminuted and slightly fracture of the distal left femoral metaphysis. The patient is nonambulatory status post l eft below the knee amputation as well as right [id number]-[id number] amputation. The patient requires adilene tance with all activities of daily living. The patient apparently had been exhibiting some nausea an d vomiting as well as decreased oral intake over the last several days prior to admission. Family re ports some symptoms similar in the past when she was experiencing urinary tract infection. No specif ic history of travel, sick contact exposure, recent fall or documented fever. In the emergency room, patient underwent evaluation including metabolic screening showing evidence of severe hyponatremia w ith initial sodium of 114 with repeat level of 111. The patient notably had similar presentation in 05/2017 with initial sodium of 117. The patient had multifactorial hyponatremia in the past treated with IV fluids as well as resumption of regular diet. In the emergency room, patient received Zofran and [place] and was placed on intravenous normal saline at 75 mL per hour. PAST MEDICAL HISTORY: 1. Recurrent hyponatremia, multifactorial. 2. Diabetes mellitus type 2, insulin requiring. 3. Hyperlipidemia. 4. Peripheral vascular disease, status post bilateral lower extremity amputations. 5. Hypertension. 6. Hypothyroidism. 7. Metabolic encephalopathy secondarily to electrolyte abnormalities. 8. Tobacco use. PAST SURGICAL HISTORY: 1. Status post bladder suspension. 2. Status post right fhuur-kfd-jjln amputation. 3. Status post left ymfkq-dol-mant amputation. CURRENT MEDICATIONS: Based on previous admission in 05/2017; 1. Amlodipine 10 mg 1 tab p.o. daily. 2. Clonidine 0.2 mg p.o. t.i.d. 3. Premarin vaginal cream 1.5 grams vaginally at bedtime. 4. Gabapentin 300 mg p.o. at bedtime. 5. Hydralazine 25 mg p.o. t.i.d. 6. [place] 5/325 mg 1 tab p.o. q.6 hours p.r.n. 7. Glargine insulin 50 units subcutaneously daily. 8. Levothyroxine 100 mcg 1 tab p.o. daily. 9. Lisinopril 40 mg 1 tab p.o. daily. 10. Metformin 1000 mg p.o. daily. 11. Zocor 20 mg p.o. at bedtime. List will need to be confirmed with family members. ALLERGIES: No known drug allergies. FAMILY HISTORY: No inheritable diseases. SOCIAL HISTORY: Patient resides in [place], [place] with her son and [id number]. Nonambulatory st atus. Smokes up to one to two cigarettes daily. No alcohol or illicit drug use. REVIEW OF SYSTEMS: Unobtainable due to patient's altered mental status and encephalopathy. PHYSICAL EXAMINATION: VITAL SIGNS: On admission, blood pressure 183/78, pulse 92, respiratory rate 18, temperature 97.9 de grees Fahrenheit and O2 saturation 99% on room air. GENERAL APPEARANCE: This is a 77-year-old female, alert and oriented x1, confused, and agit ated. HEENT: Pupils are equal, round, and reactive to light and accommodation. Extraocular muscles are in tact. No scleral icterus. Nares patent. OP with dry oral mucosa. NECK: Supple, no cervical adenopathy, no thyromegaly, no carotid bruits, no JVD noted. No meningeal signs appreciated. Cervical spine with full active and passive range of motion. CHEST: Lungs are clear to auscultation bilaterally. No rhonchi or wheezing. CARDIOVASCULAR: S1 and S2 without noted murmur, rub or gallop. ABDOMEN: Rounded, soft, nontender, and nondistended. Bowel sounds are positive in all four quadrant s. There is no hepatosplenomegaly, no rebound or guarding noted. No palpable mass. EXTREMITIES: Left xpbis-ulr-bcrf amputation noted with stump intact. Mild tenderness to palpation a t the distal femur. No asymmetric edema noted. Right vvnnz-thc-[id number] amputation noted. Stump intact . NEUROLOGIC: Alert and oriented x1 to person. Agitated. Somnolent. Answers questions briefly with 1-2 word phrases. PERTINENT LABORATORY DATA AND X-RAY FINDINGS: Initial basic metabolic profile; sodium 114, potassium 3.9, chloride 84, CO2 of 19, BUN 90, creatinine 0.59, glucose 98, calcium 8.5, AST 35, ALT 20, alkal ine phosphatase 75, CK 469. Troponin less than 0.010. Repeat sodium 12/08/2017, 111. Serum osmolal ity 241. Phosphorous 1.9, magnesium 1.9. CBC showed white blood cell count of 17.5, hemoglobin 12, hematocrit 32, platelet count of 342 with 76% neutrophils. Urine sodium 76. Four views of the left knee dated 12/05/2017 showed a mildly comminuted slightly fracture of the distal left femor al metaphysis and metadiaphysis. EKG dated 12/07/2017 by my interpretation shows a sinus mechanism w ith heart rate in the 80s. Normal R-wave progression noted in the precordial leads. Normal axis. N o acute ST-T wave changes noted. ASSESSMENT AND PLAN: 1. Acute metabolic encephalopathy. Suspect multifactorial including metabolic derangement with hypo natremia. We will continue general supportive measures and treat underlying hyponatremia. Continue general supportive care with sitter for 1 on [address] imaging of the brain to rule o ut acute intracranial process. 2. Severe hyponatremia. Multifactorial including poor p.o. intake, dehydration, and hyperglycemia. We will continue intravenous normal saline at 50 mL per hour and monitor serial sodium values. Slow ed correction to avoid complications. 3. Leukocytosis with neutrophilia. Exact etiology unclear. No focal evidence of infectious process . Questionable cystitis versus urinary tract infection. We will institute Rocephin 1 gram IV q.24 h ours and pending final urine culture results. 4. Distal left femur fracture. Questionable acute versus subacute versus chronic. Continue pain co ntrol as clinically indicated. Patient nonambulatory at baseline. 5. Diabetes mellitus type 2, insulin requiring. Insulin sliding scale for reflexive coverage. Hold long-acting insulin regimen due to poor p.o. intake. Serial Accu-Cheks before meals and at bedtime. ADA diet. 6. Nausea and vomiting. Suspect multifactorial. Continue intravenous normal saline as stated previ ously. Antiemetics with Zofran. 7. Prophylaxis. Heparin 5000 units subcutaneously b.i.d., Pepcid 20 mg p.o. b.i.d. General fall pr ecautions. 8. Code status is FULL. Surrogate medical decision maker is patient's son.
[2017-12-08] MEDS ORDERED: cefTRIAXone\\ROCEPHIN 1 GM, Syringe 0.4 ML in Sterile Water 9.6 ML SLOW IVP SCH (10:00)
[2017-12-08] MEDS: Acetaminophen 500 MG TAB PO PRN ×2 (11:39→17:12)
[2017-12-08] MEDS: Heparin 5,000 UNITS/ML VIAL SC SCH ×2 (11:39→22:34)
[2017-12-08] MEDS: Famotidine 20 MG TAB PO SCH ×2 (11:39→22:54)
--- NOTE | 2017-12-08 11:40 | CON ---
DATE OF CONSULTATION: 12/08/2017 NEPHROLOGY CONSULTATION REASON FOR CONSULTATION: Hyponatremia. HISTORY OF PRESENT ILLNESS: This is a 77-year-old female who presented to the hospital and was noted to have a sodium of 111, so I was consulted. The patient can give no further history. PAST MEDICAL HISTORY: Hyponatremia, diabetes mellitus, peripheral vascular disease, hypertension, hy pothyroidism, hyponatremia, metabolic encephalopathy, tobacco abuse, history of bladder suspension, r ight diecv-sru-mhqz amputation, and left below knee amputation. HOME MEDICATIONS: List reviewed. HOSPITAL MEDICATIONS: List reviewed. ALLERGIES: Reviewed. REVIEW OF SYSTEMS: Unobtainable. PHYSICAL EXAMINATION: GENERAL: Patient is resting. VITAL SIGNS: Afebrile, pulse 75, breathing 16, blood pressure 163/53. GENERAL APPEARANCE AND MENTAL STATUS: Fair. HEAD/NECK: Normocephalic. Atraumatic. EYES: EOMI. No deformity. EARS: Clear. No ulcers. NOSE: Intact. No lesions. MOUTH: Clear. No discharge. THROAT: Clear. No exudate. LUNGS: Clear. No crackles. CARDIAC: S1, S2. No rub. ABDOMEN: Benign. BS+. GENITALIA/RECTUM: Cho absent. BACK/EXTREMITIES: Edema 0+ Ulcer- NEUROLOGICAL: Alert and motor intact. SKIN: Rash- Bruise- LYMPHATICS: Edema- Ulcer- LABORATORY: Sodium 111, potassium 4.3, bicarbonate 14. ASSESSMENT AND RECOMMENDATIONS: 1. Hyponatremia, most likely because of syndrome of inappropriate antidiuretic hormone secretion. W e would recommend 800 mL fluid restriction. If the sodium does not improve, we will consider hyperto kenneth saline. No family member was available. Overall, prognosis is very poor because the patient has low protein intake that also causes exacerbation of the hyponatremia. 2. Metabolic acidosis. I would recommend a blood gas. 3. Anemia, stable. 4. Hypophosphatemia. Recommend high phosphorus diet. Once again, overall prognosis is very poor. I would recommend palliative care evaluation.
[2017-12-08 12:24] LABS: Sodium 113 mmol/L (136-145)
[2017-12-08] MEDS: Sodium Chloride 3% 500 ML IVPB SCH (13:23)
--- NOTE | 2017-12-08 13:31 | CT ---
CT OF BRAIN PERFORMED WITHOUT CONTRAST ENHANCEMENT: HISTORY: Altered mental status. The patient is combative. COMPARISON: 06/11/17 study. FINDINGS: There is generalized ventricular no active disease sulcal prominence with decreased attenuation of th e periventricular white matter consistent with chronic ischemic white matter change. There are no si gns of intracerebral hemorrhage or extraaxial fluid collections. 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 IMPRESSION: No acute intracranial abnormalities. POS: LYNNE
[2017-12-08 16:11] LABS: Sodium 114 mmol/L (136-145)
[2017-12-08] MEDS ORDERED: Lorazepam 2 MG/ML VIAL SLOW IVP PRN (17:03)
[2017-12-08] MEDS: Gabapentin 300 MG CAP PO SCH (17:27)
[2017-12-08] MEDS ORDERED: diphenhydrAMINE 50 MG/ML VIAL IVP PRN (18:10)
[2017-12-08 18:23] LABS: Sodium 115 mmol/L (136-145)
[2017-12-08] MEDS: HumaLOG 300 UNITS/3 ML VIAL SC PRN (19:03)
[2017-12-08 20:30] LABS: Sodium 120 mmol/L (136-145)
[2017-12-08] MEDS: cloNIDine 0.2 MG TAB PO SCH (22:34)
[2017-12-09] MEDS: Sodium Chloride 3% 500 ML IVPB SCH (00:53)
[2017-12-09 04:52] LABS: Band 8 % (5-11); Hemoglobin 11.5 g/dL (12.0-16.0); Lymphocytes 20 % (21-51); MDiff Complete? YES; Mean Corpuscular HGB CONC 35.7 g/dL (32.0-36.0); Mean Corpuscular Hemoglobin 30.8 pg (27.0-31.0); Mean Corpuscular Volume 86.2 fl (81.0-99.0); Mean Platelet Volume 6.6 fL (7.4-10.4); Monocytes 9 % (0-10); Neutrophil 61 % (42-75); Platelet Count 418 thou/uL (130-400); RBC Distribution Width 12.6 % (11.5-14.5); Red Blood Cell (RBC) Count 3.74 mill/uL (4.20-5.40)
[2017-12-09 05:06] LABS: BUN (Urea Nitrogen) 9 mg/dL (9.8-20.1); Calc. Creatinine Clearance 78 mL/min (70-130); Calcium 8.7 mg/dL (7.8-10.44); Carbon Dioxide 19 mmol/L (23-31); Chloride 93 mmol/L (98-107); Estimated GFR-MDRD Greater than 90; Glucose 138 mg/dL (83-110); Magnesium 1.8 mg/dL (1.6-2.6); Sodium 122 mmol/L (136-145)
[2017-12-09 05:09] LABS: Anion Gap 13 mmol/L (10-20)
[2017-12-09] MEDS: HumaLOG 300 UNITS/3 ML VIAL SC PRN ×3 (07:22→17:33)
[2017-12-09] MEDS: Heparin 5,000 UNITS/ML VIAL SC SCH ×2 (08:54→21:26)
[2017-12-09] MEDS: cloNIDine 0.2 MG TAB PO SCH ×3 (08:54→21:25)
[2017-12-09] MEDS: Famotidine 20 MG TAB PO SCH ×2 (08:54→21:25)
[2017-12-09] MEDS: cefTRIAXone\\ROCEPHIN 1 GM in Sodium Chloride 0.9% 100 ML IVPB SCH (08:55)
[2017-12-09] MEDS ORDERED: Lisinopril 20 MG TAB PO SCH (09:00)
[2017-12-09] MEDS ORDERED: Amlodipine 10 MG TAB PO SCH (09:00)
[2017-12-09 09:11] LABS: Sodium 121 mmol/L (136-145)
[2017-12-09] MEDS: Acetaminophen 500 MG TAB PO PRN (13:54)
[2017-12-09 13:56] LABS: Sodium 122 mmol/L (136-145)
--- NOTE | 2017-12-09 15:08 | PRG ---
DATE OF SERVICE: 12/09/2017 SUBJECTIVE: A 77-year-old female being seen for hyponatremia. The patient denies any nausea, vomiti ng, or chest pain. OBJECTIVE: See above. GENERAL: Patient is awake and alert. VITAL SIGNS: Afebrile, pulse 75, breathing at 16, blood pressure 150/58. GENERAL APPEARANCE AND MENTAL STATUS: Fair. HEAD/NECK: Normocephalic. Atraumatic. EYES: EOMI. No deformity. EARS: Clear. No ulcers. NOSE: Intact. No lesions. MOUTH: Clear. No discharge. THROAT: Clear. No exudate. LUNGS: Clear. No crackles. CARDIAC: S1, S2. No rub. ABDOMEN: Benign. BS+. GENITALIA/RECTUM: Cho absent. BACK/EXTREMITIES: Edema 0+, ulcer. NEUROLOGICAL: Alert and motor intact. SKIN: Rash - bruise. LYMPHATICS: Edema - ulcer. LABORATORY DATA: Labs show hemoglobin is 11.5, sodium 121. ASSESSMENT AND RECOMMENDATIONS: 1. Hyponatremia, most likely because of syndrome of inappropriate antidiuretic hormone secretion. C ontinue 1000 mL fluid restriction. 2. Hypertension. 3. Anemia, stable. 4. Medication list and glomerular filtration rate are appropriate.
[2017-12-09] MEDS: Levothyroxine Sodium 88 MCG TAB PO SCH (17:30)
[2017-12-09 18:03] LABS: Sodium 121 mmol/L (136-145)
[2017-12-09] MEDS: Gabapentin 300 MG CAP PO SCH (21:25)
--- NOTE | 2017-12-09 22:27 | PDOC.PN ---
- Subjective Encounter Start Date: 12/09/17 Encounter Start Time: 18:30 Patient seen and examined for Encephalopathy/Hyponatremia. No new complaints. No overnight events - Objective Resuscitation Status: Resuscitation Status FULL:Full Resuscitation MAR Reviewed: Yes Vital Signs & Weight: Vital Signs (12 hours) Temp Pulse Resp BP BP Pulse Ox 12/09/17 21:25 149/60 H 12/09/17 19:59 98.7 F 86 16 149/60 H 96 12/09/17 16:00 97.8 F 91 14 154/50 H 98 12/09/17 12:00 98.6 F 85 16 153/58 H 97 Weight Admit Weight 139 lb 1.6 oz Weight 140 lb 1.6 oz I&O: 12/08/17 12/09/17 12/10/17 06:59 06:59 06:59 Intake Total 170 820 Output Total 1100 Balance -930 820 Result Diagrams: 12/09/17 04:20 12/10/17 04:29 Additional Labs: Accuchecks 12/09/17 12/09/17 12/09/17 21:50 17:01 10:57 POC Glucose 189 H 237 H 211 H 12/09/17 06:19 POC Glucose 151 H EKG Reviewed by me: Yes (Tele SR) Phys Exam - Physical Examination Constitutional: NAD Neck: no nodes, no JVD, supple Respiratory: no wheezing, no rales, no rhonchi Cardiovascular: RRR, no rub no heaves, pulsations, S1S2 + Gastrointestinal: soft, non-tender, no distention, positive bowel sounds Musculoskeletal: no edema, pulses present Neurological: moves all 4 limbs On and off confusion, Detailed Neuro/Psych cannot done due to confusion Skin: no rash, normal turgor Dx/Plan (1) Metabolic encephalopathy Code(s): G93.41 - METABOLIC ENCEPHALOPATHY Status: Acute Plan: Mentation slowly improving (2) Hyponatremia Code(s): E87.1 - HYPO-OSMOLALITY AND HYPONATREMIA Status: Acute Plan: Monitor Sodium Q6h, Consider Tolvaptan (3) Hypophosphatemia Code(s): E83.39 - OTHER DISORDERS OF PHOSPHORUS METABOLISM Status: Acute Plan: Will replace (4) Hypokalemia Code(s): E87.6 - HYPOKALEMIA Status: Acute Plan: Will replace (5) HTN (hypertension) Code(s): I10 - ESSENTIAL (PRIMARY) HYPERTENSION Status: Chronic Plan: Add Holding parameters. Reduce Lisinopril dose. Cont Amlodipine/Clonidine (6) DM2 (diabetes mellitus, type 2) Status: Chronic Plan: Cont sliding scale. Levemir on hold due to poor appetite (7) HLD (hyperlipidemia) Code(s): E78.5 - HYPERLIPIDEMIA, UNSPECIFIED Status: Chronic Plan: cont Statins (8) Hypothyroidism Code(s): E03.9 - HYPOTHYROIDISM, UNSPECIFIED Status: Chronic Plan: Cont Levothyroxine - Plan plan discussed w/ family, DVT proph w/heparin, DVT proph w/SCDs Review of Systems - Review of Systems Other: Cannot reliably obtain due to current mentation - Medications/Allergies Allergies/Adverse Reactions: Allergies Allergy/AdvReac Type Severity Reaction Status Date / Time No Known Allergies Allergy Verified 06/11/17 22:56 Medications: Current Medications Acetaminophen (Tylenol) 1,000 mg PO Q6H PRN PRN Reason: Headache/Fever or Mild Pain Last Admin: 12/09/17 13:54 Dose: 1,000 mg Hydrocodone Bitart/Acetaminophen ([place] 5/325) 1 tab PO Q4HR PRN PRN Reason: Pain Amlodipine Besylate (Norvasc) 10 mg PO DAILY [facility] Last Admin: 12/09/17 08:49 Dose: 10 mg Clonidine (Catapres) 0.1 mg PO Q4H PRN PRN Reason: Systolic BP > 180 Last Admin: 12/08/17 17:12 Dose: 0.1 mg Clonidine (Catapres) 0.2 mg PO TID [facility] Last Admin: 12/09/17 21:25 Dose: 0.2 mg Dextrose/Water (Dextrose 50%) 25 gm SLOW IVP PRN PRN PRN Reason: Hypoglycemia Diphenhydramine HCl (Benadryl) 25 mg IVP Q6H PRN PRN Reason: Itching & Insomnia Last Admin: 12/08/17 19:03 Dose: 25 mg Famotidine (Pepcid) 20 mg PO BID [facility] Last Admin: 12/09/17 21:25 Dose: 20 mg Gabapentin (Neurontin) 300 mg PO HS [facility] Last Admin: 12/09/17 21:25 Dose: 300 mg Glucagon (Glucagon) 1 mg IM PRN PRN PRN Reason: Hypoglycemia Heparin Sodium (Porcine) (Heparin) 5,000 units SC BID [facility] Last Admin: 12/09/17 21:26 Dose: 5,000 units Hydralazine HCl (Apresoline) 10 mg SLOW IVP Q4H PRN PRN Reason: Systolic BP > 180 Dextrose/Water (D5w) 1,000 mls @ 0 mls/hr IV .Q0M PRN; As Directed PRN Reason: Hypoglycemia Ceftriaxone Sodium 1 gm/ (Sodium Chloride) 100 mls @ 200 mls/hr IVPB 1000 [facility] Last Admin: 12/09/17 08:55 Dose: 100 mls Insulin Human Lispro (Humalog) 0 units SC .MILD SLIDING SCALE PRN PRN Reason: Mild Correctional Scale Last Admin: 12/09/17 17:33 Dose: 3 unit Insulin Human Lispro (Humalog) 0 units SC .BEDTIME SLIDING SC PRN PRN Reason: Bedtime Correctional Scale Levothyroxine Sodium (Synthroid) 88 mcg PO 1700 [facility] Last Admin: 12/09/17 17:30 Dose: 88 mcg Lisinopril (Zestril) 40 mg PO DAILY [facility] Last Admin: 12/09/17 08:53 Dose: 40 mg Lorazepam (Ativan) 1 mg SLOW IVP Q6H PRN PRN Reason: Anxiety/Agitation Last Admin: 12/08/17 17:27 Dose: 1 mg Ondansetron HCl (Zofran Odt) 4 mg PO Q6H PRN PRN Reason: Nausea/Vomiting Ondansetron HCl (Zofran) 4 mg IVP Q6H PRN PRN Reason: Nausea/Vomiting Sodium Chloride (Flush - Normal Saline) 10 ml IVF Q12HR [facility] Last Admin: 12/09/17 21:26 Dose: 10 ml Sodium Chloride (Flush - Normal Saline) 10 ml IVF PRN PRN PRN Reason: Saline Flush
[2017-12-10 06:14] LABS: Anion Gap 11 mmol/L (10-20); BUN (Urea Nitrogen) 8 mg/dL (9.8-20.1); Calc. Creatinine Clearance 72 mL/min (70-130); Calcium 8.9 mg/dL (7.8-10.44); Carbon Dioxide 20 mmol/L (23-31); Chloride 94 mmol/L (98-107); Estimated GFR-MDRD 90; Glucose 243 mg/dL (83-110); Magnesium 1.9 mg/dL (1.6-2.6); Potassium 3.9 mmol/L (3.5-5.1)
[2017-12-10 06:18] LABS: Phosphorus 1.6 mg/dL (2.3-4.7); Sodium 121 mmol/L (136-145)
[2017-12-10] MEDS: HumaLOG 300 UNITS/3 ML VIAL SC PRN ×3 (06:20→17:11)
[2017-12-10] MEDS: Famotidine 20 MG TAB PO SCH ×2 (07:59→22:11)
[2017-12-10] MEDS: cloNIDine 0.2 MG TAB PO SCH ×3 (07:59→22:12)
[2017-12-10] MEDS: Lisinopril 10 MG TAB PO SCH ×2 (08:00→22:12)
[2017-12-10] MEDS: Amlodipine 5 MG TAB PO SCH ×2 (08:00→22:12)
[2017-12-10] MEDS: Heparin 5,000 UNITS/ML VIAL SC SCH ×2 (08:00→22:12)
[2017-12-10] MEDS: Senokot S 8.6-50 MG TAB PO SCH ×2 (08:05→22:12)
[2017-12-10] MEDS: Polyethylene Glycol 3350 17 GM Packet PO SCH (08:05)
[2017-12-10] MEDS: Acetaminophen 500 MG TAB PO PRN (08:19)
[2017-12-10] MEDS: cefTRIAXone\\ROCEPHIN 1 GM in Sodium Chloride 0.9% 100 ML IVPB SCH (10:07)
[2017-12-10] MEDS: K-Phos Neutral 250 MG TAB PO SCH ×2 (10:07→15:12)
--- NOTE | 2017-12-10 11:01 | RAD ---
CHEST 1 VIEW: History Shortness of breath. Pneumonia. COMPARISON: 06/11/17. FINDINGS: Normal cardiac silhouette. Pulmonary vessels and hilum are normal. Minimal blunting of the left cos tophrenic angle. Minimal parenchymal changes in the left lung base. Adequate aeration of the upper lungs. No pneumothorax. IMPRESSION: Parenchymal changes in the left lung base. Findings are presumed to be chronic; however, an infiltra te cannot be excluded. Continued surveillance. POS: [facility]
[2017-12-10 11:28] LABS: Sodium 119 mmol/L (136-145)
[2017-12-10] MEDS ORDERED: NPH, Human Insulin Isophane 300 UNIT/3 ML VIAL SC SCH (12:15)
[2017-12-10] MEDS ORDERED: Mag-Al Plus 1200 MG/1200 MG/120 MG/30 ML UDCUP PO PRN (12:58)
[2017-12-10] MEDS ORDERED: Simethicone Chewable 80 MG TAB PO PRN (12:58)
[2017-12-10] MEDS ORDERED: Calcium Carbonate 500 MG ChewTAB PO PRN (12:58)
--- NOTE | 2017-12-10 13:13 | PRG ---
DATE OF SERVICE: 12/10/2017 SUBJECTIVE: This is a 77-year-old female being seen for hyponatremia. The patient denies any nausea , vomiting or chest pain. PHYSICAL EXAMINATION: GENERAL: Patient is awake, alert. VITAL SIGNS: Afebrile, pulse 82, breathing at 16, blood pressure 149/60. GENERAL APPEARANCE AND MENTAL STATUS: Fair. HEAD/NECK: Normocephalic, atraumatic. EYES: EOMI. No deformity. EARS: Clear. No ulcers. NOSE: Intact. No lesions. MOUTH: Clear. No discharge. THROAT: Clear. No exudate. LUNGS: Clear. No crackles. CARDIAC: S1, S2. No rub. ABDOMEN: Benign. BS+. GENITALIA/RECTUM: Cho absent. BACK/EXTREMITIES: Edema 0+ Ulcer-. NEUROLOGICAL: Alert and motor intact. SKIN: Rash- Bruise- LYMPHATICS: Edema- Ulcer-. LABORATORY DATA: Show hemoglobin 11.5, sodium is 121. ASSESSMENT AND RECOMMENDATIONS: 1. Hyponatremia, most likely because of syndrome of inappropriate antidiuretic hormone secretion and low protein intake. I would recommend 800 mL fluid restriction. Recheck sodium at 5:00 p.m. 2. Hypophosphatemia. Recommend high phosphorus diet. 3. Anemia, stable. 4. Medication based on glomerular filtration rate are appropriate.
[2017-12-10 16:47] LABS: Sodium 121 mmol/L (136-145)
[2017-12-10 16:49] LABS: Anion Gap 13 mmol/L (10-20); BUN (Urea Nitrogen) 9 mg/dL (9.8-20.1); Calc. Creatinine Clearance 64 mL/min (70-130); Carbon Dioxide 22 mmol/L (23-31); Chloride 92 mmol/L (98-107); Estimated GFR-MDRD 86; Glucose 299 mg/dL (83-110); Potassium 4.3 mmol/L (3.5-5.1); Sodium 123 mmol/L (136-145)
[2017-12-10] MEDS: Levothyroxine Sodium 88 MCG TAB PO SCH (17:12)
[2017-12-10] MEDS: NPH, Human Insulin Isophane 300 UNIT/3 ML VIAL SC SCH (22:10)
[2017-12-10] MEDS: Gabapentin 300 MG CAP PO SCH (22:11)
[2017-12-10] MEDS: Doxycycline 100 MG CAP PO SCH (22:11)
--- NOTE | 2017-12-10 22:55 | PDOC.PN ---
- Subjective Encounter Start Date: 12/10/17 Encounter Start Time: 10:30 Patient seen and examined for Hyponatremia. Mentation improving. No new complaints. No overnight events - Objective Resuscitation Status: Resuscitation Status FULL:Full Resuscitation MAR Reviewed: Yes Vital Signs & Weight: Vital Signs (12 hours) Temp Pulse Resp BP BP BP Pulse Ox 12/10/17 22:12 84 149/60 H 12/10/17 21:43 98.2 F 84 16 133/54 L 100 12/10/17 15:58 97.9 F 91 18 166/70 H 95 12/10/17 15:25 149/60 H 12/10/17 12:00 97.2 F L 82 16 157/67 H 99 Weight Admit Weight 139 lb 1.6 oz Weight 129 lb 4.8 oz I&O: 12/09/17 12/10/17 12/11/17 06:59 06:59 06:59 Intake Total 170 1310 1200 Output Total 1100 Balance -930 1310 1200 Result Diagrams: 12/09/17 04:20 12/10/17 16:22 Additional Labs: Accuchecks 12/10/17 12/10/17 12/10/17 16:34 11:06 06:21 POC Glucose 277 H 379 H 231 H Radiology Reviewed by me: Yes (CXR - no infiltrates) EKG Reviewed by me: Yes (Tele SR) Phys Exam - Physical Examination Constitutional: NAD Respiratory: no wheezing, no rhonchi Cardiovascular: RRR, no rub Gastrointestinal: soft, non-tender, positive bowel sounds Neurological: moves all 4 limbs Dx/Plan (1) Metabolic encephalopathy Code(s): G93.41 - METABOLIC ENCEPHALOPATHY Status: Acute Comment: improving (2) Hyponatremia Code(s): E87.1 - HYPO-OSMOLALITY AND HYPONATREMIA Status: Acute (3) Hypophosphatemia Code(s): E83.39 - OTHER DISORDERS OF PHOSPHORUS METABOLISM Status: Acute (4) Hypokalemia Code(s): E87.6 - HYPOKALEMIA Status: Acute (5) HTN (hypertension) Code(s): I10 - ESSENTIAL (PRIMARY) HYPERTENSION Status: Chronic (6) DM2 (diabetes mellitus, type 2) Status: Chronic (7) HLD (hyperlipidemia) Code(s): E78.5 - HYPERLIPIDEMIA, UNSPECIFIED Status: Chronic (8) Hypothyroidism Code(s): E03.9 - HYPOTHYROIDISM, UNSPECIFIED Status: Chronic - Plan DVT proph w/heparin, DVT proph w/SCDs Monitor Sodium Q6h -: 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 -: Repalce electrolytes -: Cont fluid rest -: NPH started Review of Systems - Review of Systems Respiratory: negative: Cough, Dry, Shortness of Breath, Hemoptysis, SOB with Excertion, Pleuritic Pain, Sputum, Wheezing Cardiovascular: negative: chest pain, palpitations, orthopnea, paroxysmal nocturnal dyspnea, edema, light headedness, other - Medications/Allergies Allergies/Adverse Reactions: Allergies Allergy/AdvReac Type Severity Reaction Status Date / Time No Known Allergies Allergy Verified 06/11/17 22:56 Medications: Current Medications Acetaminophen (Tylenol) 1,000 mg PO Q6H PRN PRN Reason: Headache/Fever or Mild Pain Last Admin: 12/10/17 08:19 Dose: 1,000 mg Hydrocodone Bitart/Acetaminophen ([place] 5/325) 1 tab PO Q4HR PRN PRN Reason: Pain Al Hydroxide/Mg Hydroxide (Maalox Plus) 30 ml PO DAILY PRN PRN Reason: Dyspepsia Amlodipine Besylate (Norvasc) 5 mg PO BID [facility] Last Admin: 12/10/17 22:12 Dose: 5 mg Calcium Carbonate (Tums) 1,000 mg PO Q4H PRN PRN Reason: Heartburn or Indigestion Clonidine (Catapres) 0.1 mg PO Q4H PRN PRN Reason: Systolic BP > 180 Last Admin: 12/08/17 17:12 Dose: 0.1 mg Clonidine (Catapres) 0.2 mg PO TID [facility] Last Admin: 12/10/17 22:12 Dose: 0.2 mg Dextrose/Water (Dextrose 50%) 25 gm SLOW IVP PRN PRN PRN Reason: Hypoglycemia Diphenhydramine HCl (Benadryl) 25 mg IVP Q6H PRN PRN Reason: Itching & Insomnia Last Admin: 12/08/17 19:03 Dose: 25 mg Doxycycline Hyclate (Vibramycin) 100 mg PO BID [facility] Last Admin: 12/10/17 22:11 Dose: 100 mg Famotidine (Pepcid) 20 mg PO BID [facility] Last Admin: 12/10/17 22:11 Dose: 20 mg Gabapentin (Neurontin) 300 mg PO HS [facility] Last Admin: 12/10/17 22:11 Dose: 300 mg Glucagon (Glucagon) 1 mg IM PRN PRN PRN Reason: Hypoglycemia Heparin Sodium (Porcine) (Heparin) 5,000 units SC BID [facility] Last Admin: 12/10/17 22:12 Dose: 5,000 units Hydralazine HCl (Apresoline) 10 mg SLOW IVP Q4H PRN PRN Reason: Systolic BP > 180 Dextrose/Water (D5w) 1,000 mls @ 0 mls/hr IV .Q0M PRN; As Directed PRN Reason: Hypoglycemia Insulin Human Lispro (Humalog) 0 units SC .MILD SLIDING SCALE PRN PRN Reason: Mild Correctional Scale Last Admin: 12/10/17 17:11 Dose: 4 unit Insulin Human Lispro (Humalog) 0 units SC .BEDTIME SLIDING SC PRN PRN Reason: Bedtime Correctional Scale Insulin Human NPH (Humulin N) 10 unit SC BID [facility] Last Admin: 12/10/17 22:10 Dose: 10 unit Levothyroxine Sodium (Synthroid) 88 mcg PO 1700 [facility] Last Admin: 12/10/17 17:12 Dose: 88 mcg Lisinopril (Zestril) 10 mg PO BID [facility] Last Admin: 12/10/17 22:12 Dose: 10 mg Lorazepam (Ativan) 1 mg SLOW IVP Q6H PRN PRN Reason: Anxiety/Agitation Last Admin: 12/08/17 17:27 Dose: 1 mg Miscellaneous Medication (Phos-Nak) 1 pkt PO BID[facility] Last Admin: 12/10/17 17:12 Dose: 1 pkt Ondansetron HCl (Zofran Odt) 4 mg PO Q6H PRN PRN Reason: Nausea/Vomiting Ondansetron HCl (Zofran) 4 mg IVP Q6H PRN PRN Reason: Nausea/Vomiting Polyethylene Glycol (Miralax) 17 gm PO DAILY [facility] Last Admin: 12/10/17 08:05 Dose: 17 gm Senna/Docusate Sodium (Senokot S) 1 tab PO BID [facility] Last Admin: 12/10/17 22:12 Dose: 1 tab Simethicone (Mylicon Chewable) 80 mg PO PCHS PRN PRN Reason: Gas Pain Sodium Chloride (Flush - Normal Saline) 10 ml IVF Q12HR [facility] Last Admin: 12/10/17 22:13 Dose: 10 ml Sodium Chloride (Flush - Normal Saline) 10 ml IVF PRN PRN PRN Reason: Saline Flush
[2017-12-11 05:35] LABS: #Basophils 0.1 thou/uL (0.0-0.2); #Eosinphils 0.4 thou/uL (0.0-0.7); #Lymphocytes 4.5 thou/uL (1.20-3.40); #Monocytes 1.6 thou/uL (0.11-0.59); #Neutrophils 9.4 thou/uL (1.40-6.50); %Basophils 0.7 % (0.0-1.0); %Eosinophils 2.6 % (0.0-10.0); %Lymphocytes 27.9 % (21.0-51.0); %Monocytes 10.2 % (0.0-10.0); %Neutrophils 58.7 % (42.0-75.0); Hemoglobin 11.5 g/dL (12.0-16.0); Mean Corpuscular HGB CONC 35.1 g/dL (32.0-36.0); Mean Corpuscular Volume 88.3 fl (81.0-99.0); Mean Platelet Volume 6.4 fL (7.4-10.4); Platelet Count 518 thou/uL (130-400); RBC Distribution Width 13.2 % (11.5-14.5); Red Blood Cell (RBC) Count 3.72 mill/uL (4.20-5.40)
[2017-12-11 05:53] LABS: Anion Gap 13 mmol/L (10-20); BUN (Urea Nitrogen) 9 mg/dL (9.8-20.1); Calc. Creatinine Clearance 65 mL/min (70-130); Calcium 8.8 mg/dL (7.8-10.44); Carbon Dioxide 21 mmol/L (23-31); Chloride 94 mmol/L (98-107); Estimated GFR-MDRD 88; Glucose 197 mg/dL (83-110); Magnesium 1.8 mg/dL (1.6-2.6); Phosphorus 2.6 mg/dL (2.3-4.7); Potassium 3.9 mmol/L (3.5-5.1); Sodium 124 mmol/L (136-145)
[2017-12-11] MEDS: HumaLOG 300 UNITS/3 ML VIAL SC PRN ×3 (06:19→17:49)
[2017-12-11] MEDS: Doxycycline 100 MG CAP PO SCH ×2 (09:18→20:41)
[2017-12-11] MEDS: Famotidine 20 MG TAB PO SCH (09:20)
[2017-12-11] MEDS: cloNIDine 0.2 MG TAB PO SCH ×3 (09:20→20:42)
[2017-12-11] MEDS: Lisinopril 10 MG TAB PO SCH ×2 (09:21→20:42)
[2017-12-11] MEDS: Senokot S 8.6-50 MG TAB PO SCH ×2 (09:21→20:41)
[2017-12-11] MEDS: Amlodipine 5 MG TAB PO SCH ×2 (09:21→20:41)
[2017-12-11] MEDS: Heparin 5,000 UNITS/ML VIAL SC SCH ×2 (09:22→20:42)
[2017-12-11] MEDS: Polyethylene Glycol 3350 17 GM Packet PO SCH (09:23)
[2017-12-11] MEDS: NPH, Human Insulin Isophane 300 UNIT/3 ML VIAL SC SCH ×2 (10:13→20:43)
[2017-12-11] MEDS ORDERED: Pantoprazole 40 MG VIAL IVP SCH (11:00)
--- NOTE | 2017-12-11 11:02 | PRG ---
DATE OF SERVICE: 12/11/2017. SUBJECTIVE: The patient was seen and examined at bedside. Her son was at the bedside. The patient is still having issues with swallowing and speech therapy was also trying. The patient is still havi ng some dysphagia, especially pain in her upper chest on swallowing. No fever or chills. No nausea, vomiting. Appetite is better, but she is not able to eat better. OBJECTIVE: GENERAL: Stable, well-built female, in mild distress. VITAL SIGNS: Temperature 98.4, pulse 70, respirations 18, blood pressure 150/59. HEENT: Atraumatic, normocephalic. Oral mucosa is dry. NECK: Supple. CARDIOVASCULAR: S1, S2 heard. Rate and rhythm regular. RESPIRATORY: Clear. ABDOMEN: Soft. MUSCULOSKELETAL: No tenderness, no edema. DERMATOLOGIC: No rash. NEUROLOGIC: Alert, awake. PSYCHIATRIC: Mood and affect normal. LABORATORY DATA: Sodium is 121, potassium is 3.9, BUN 9, creatinine 0.6. ASSESSMENT AND PLAN: 1. Hyponatremia, multifactorial, most likely tea and toast type from low intake. She did improve wi th some fluid restriction, but I will attempt some mild IV fluids to ____. 2. Hypophosphatemia. Replace and monitor. 3. Anemia. Monitor hemoglobin. 4. Edema, controlled. We will continue on IV fluids, monitor sodium closely. We will follow.
[2017-12-11] MEDS: Sodium Chloride 0.9% 1,000 ML IV SCH (12:45)
[2017-12-11] MEDS: Levothyroxine Sodium 88 MCG TAB PO SCH (17:48)
[2017-12-11 18:30] LABS: Magnesium 1.9 mg/dL (1.6-2.6); Phosphorus 3.1 mg/dL (2.3-4.7); Potassium 4.3 mmol/L (3.5-5.1)
[2017-12-11] MEDS: Gabapentin 300 MG CAP PO SCH (20:42)
[2017-12-11] MEDS: Pantoprazole 40 MG VIAL IVP SCH (20:44)
--- NOTE | 2017-12-11 22:13 | PDOC.PN ---
- Subjective Encounter Start Date: 12/11/17 Encounter Start Time: 16:00 Patient seen and examined for Encephalopathy/Hyponatremia. Intermittent confusion. No new complaints. No overnight events - Objective Resuscitation Status: Resuscitation Status FULL:Full Resuscitation MAR Reviewed: Yes Vital Signs & Weight: Vital Signs (12 hours) Temp Pulse Resp BP BP BP Pulse Ox 12/11/17 20:42 177/57 H 12/11/17 20:41 82 12/11/17 20:37 97.5 F L 82 16 160/59 H 96 12/11/17 16:04 177/57 H 12/11/17 15:49 97.9 F 80 16 177/57 H 93 L 12/11/17 11:21 97.4 F L 82 16 125/59 L 98 Weight Admit Weight 139 lb 1.6 oz Weight 131 lb I&O: 12/10/17 12/11/17 12/12/17 06:59 06:59 06:59 Intake Total 1310 1600 850 Output Total 500 Balance 1310 1600 350 Result Diagrams: 12/11/17 04:41 12/12/17 05:12 Additional Labs: Accuchecks 12/11/17 12/11/17 12/11/17 20:53 16:48 10:55 POC Glucose 260 H 203 H 395 H 12/11/17 12/10/17 06:03 22:10 POC Glucose 191 H 296 H EKG Reviewed by me: Yes (Tele SR) Phys Exam - Physical Examination Constitutional: NAD Respiratory: no wheezing, no rhonchi Cardiovascular: RRR, no rub Gastrointestinal: soft, non-tender, positive bowel sounds Musculoskeletal: no edema Neurological: moves all 4 limbs Dx/Plan (1) Metabolic encephalopathy Code(s): G93.41 - METABOLIC ENCEPHALOPATHY Status: Acute Comment: improving (2) Hyponatremia Code(s): E87.1 - HYPO-OSMOLALITY AND HYPONATREMIA Status: Acute Plan: Monitor Sodium, Consider Vaptans, Cont fluid rest, AM labs Comment: 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 (3) Swallowing dysfunction Code(s): R13.10 - DYSPHAGIA, UNSPECIFIED Status: Acute Plan: Consult GI due to persistent dysphagia, 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 (4) HTN (hypertension) Code(s): I10 - ESSENTIAL (PRIMARY) HYPERTENSION Status: Chronic Plan: Cont current anti htn meds (5) DM2 (diabetes mellitus, type 2) Status: Chronic Qualifiers: Diabetes mellitus complication detail: with chronic kidney disease Chronic kidney disease stage: stage 2 (mild) Plan: Cont current dose of NPH with sliding scale - Plan plan discussed w/ family, DVT proph w/heparin, DVT proph w/SCDs Review of Systems - Review of Systems Respiratory: negative: Cough, Dry, Shortness of Breath, Hemoptysis, SOB with Excertion, Pleuritic Pain, Sputum, Wheezing Cardiovascular: negative: chest pain, palpitations, orthopnea, paroxysmal nocturnal dyspnea, edema, light headedness, other - Medications/Allergies Allergies/Adverse Reactions: Allergies Allergy/AdvReac Type Severity Reaction Status Date / Time No Known Allergies Allergy Verified 06/11/17 22:56 Medications: Current Medications Acetaminophen (Tylenol) 1,000 mg PO Q6H PRN PRN Reason: Headache/Fever or Mild Pain Last Admin: 12/10/17 08:19 Dose: 1,000 mg Hydrocodone Bitart/Acetaminophen ([place] 5/325) 1 tab PO Q4HR PRN PRN Reason: Pain Al Hydroxide/Mg Hydroxide (Maalox Plus) 30 ml PO DAILY PRN PRN Reason: Dyspepsia Amlodipine Besylate (Norvasc) 5 mg PO BID [facility] Last Admin: 12/11/17 20:41 Dose: 5 mg Calcium Carbonate (Tums) 1,000 mg PO Q4H PRN PRN Reason: Heartburn or Indigestion Last Admin: 12/11/17 09:17 Dose: 1,000 mg Clonidine (Catapres) 0.1 mg PO Q4H PRN PRN Reason: Systolic BP > 180 Last Admin: 12/08/17 17:12 Dose: 0.1 mg Clonidine (Catapres) 0.2 mg PO TID [facility] Last Admin: 12/11/17 20:42 Dose: 0.2 mg Dextrose/Water (Dextrose 50%) 25 gm SLOW IVP PRN PRN PRN Reason: Hypoglycemia Diphenhydramine HCl (Benadryl) 25 mg IVP Q6H PRN PRN Reason: Itching & Insomnia Last Admin: 12/08/17 19:03 Dose: 25 mg Doxycycline Hyclate (Vibramycin) 100 mg PO BID [facility] Last Admin: 12/11/17 20:41 Dose: 100 mg Gabapentin (Neurontin) 300 mg PO HS [facility] Last Admin: 12/11/17 20:42 Dose: 300 mg Glucagon (Glucagon) 1 mg IM PRN PRN PRN Reason: Hypoglycemia Heparin Sodium (Porcine) (Heparin) 5,000 units SC BID [facility] Last Admin: 12/11/17 20:42 Dose: 5,000 units Hydralazine HCl (Apresoline) 10 mg SLOW IVP Q4H PRN PRN Reason: Systolic BP > 180 Dextrose/Water (D5w) 1,000 mls @ 0 mls/hr IV .Q0M PRN; As Directed PRN Reason: Hypoglycemia Sodium Chloride (Normal Saline 0.9%) 1,000 mls @ 75 mls/hr IV .[id number] [facility] Last Admin: 12/11/17 12:45 Dose: Not Given Insulin Human Lispro (Humalog) 0 units SC .MILD SLIDING SCALE PRN PRN Reason: Mild Correctional Scale Last Admin: 12/11/17 17:49 Dose: 3 unit Insulin Human Lispro (Humalog) 0 units SC .BEDTIME SLIDING SC PRN PRN Reason: Bedtime Correctional Scale Insulin Human NPH (Humulin N) 10 unit SC BID [facility] Last Admin: 12/11/17 20:43 Dose: 10 unit Levothyroxine Sodium (Synthroid) 88 mcg PO 1700 [facility] Last Admin: 12/11/17 17:48 Dose: 88 mcg Lisinopril (Zestril) 10 mg PO BID [facility] Last Admin: 12/11/17 20:42 Dose: 10 mg Lorazepam (Ativan) 1 mg SLOW IVP Q6H PRN PRN Reason: Anxiety/Agitation Last Admin: 12/08/17 17:27 Dose: 1 mg Miscellaneous Medication (Phos-Nak) 1 pkt PO BID-[facility] Last Admin: 12/11/17 17:49 Dose: 1 pkt Ondansetron HCl (Zofran Odt) 4 mg PO Q6H PRN PRN Reason: Nausea/Vomiting Ondansetron HCl (Zofran) 4 mg IVP Q6H PRN PRN Reason: Nausea/Vomiting Pantoprazole Sodium (Protonix) 40 mg IVP Q12HR [facility] Last Admin: 12/11/17 20:44 Dose: Not Given Polyethylene Glycol (Miralax) 17 gm PO DAILY [facility] Last Admin: 12/11/17 09:23 Dose: 17 gm Senna/Docusate Sodium (Senokot S) 1 tab PO BID [facility] Last Admin: 12/11/17 20:41 Dose: 1 tab Simethicone (Mylicon Chewable) 80 mg PO PCHS PRN PRN Reason: Gas Pain Sodium Chloride (Flush - Normal Saline) 10 ml IVF Q12HR [facility] Last Admin: 12/11/17 20:44 Dose: Not Given Sodium Chloride (Flush - Normal Saline) 10 ml IVF PRN PRN PRN Reason: Saline Flush
[2017-12-12] MEDS: Sodium Chloride 0.9% 1,000 ML IV SCH (01:35)
[2017-12-12 06:18] LABS: Anion Gap 15 mmol/L (10-20); BUN (Urea Nitrogen) 12 mg/dL (9.8-20.1); Calc. Creatinine Clearance 59 mL/min (70-130); Calcium 8.7 mg/dL (7.8-10.44); Carbon Dioxide 18 mmol/L (23-31); Chloride 92 mmol/L (98-107); Estimated GFR-MDRD 78; Glucose 244 mg/dL (83-110); Potassium 4.6 mmol/L (3.5-5.1); Sodium 120 mmol/L (136-145)
--- NOTE | 2017-12-12 07:05 | CON ---
DATE OF CONSULTATION: 12/11/2017 REFERRING PHYSICIAN: Dr. Cruz Garcia, [facility]. REASON FOR CONSULTATION: Painful swallowing, dysphagia. HISTORY OF PRESENT ILLNESS: Ms. Shahana Manzano is a very pleasant 77-year-old Latin-[place]adian fem emmett, hospitalized 3 days ago with left knee pain and also some vomiting. The patient is known to hav e hyperlipidemia, type 2 diabetes, hypertension, and hypothyroidism. She also has positive metabolic encephalopathy. The patient apparently has fallen out a week ago at a hospital here and readmitted again. The patient actually fell down on her knee 2 weeks ago. The patient is not a very good histo tammie. The patient was seen in the room along with the patient's son, Daniel, who is actually not able to give a too much history. The bottom line is she is having difficulty swallowing last several days. She tells me the food hangs up in the lower part of the esophagus and also causes some pain. She has some vomiting during the admission, but since the admission she has no vomiting. She denies abdominal pain. The patient had similar episodes in the past. The patient denies any h eartburn, indigestion or any acid reflux symptoms at the present time. She has no history of antibio tic intake. The patient had no similar episodes in the past. Her bowel movements are fairly regular . She has no relevant history. MEDICAL ILLNESSES: 1. Hypertension. 2. Type 2 diabetes. 3. Hyperlipidemia. 4. Hypothyroidism. 5. Recurrent hyponatremia. 6. Metabolic encephalopathy due to electrolyte abnormalities. 7. Tobacco use. 8. History of recent fall with fracture of the left femur on 12/05/2017. SURGERIES: 1. Bladder suspension. 2. Status post right above-knee amputation. 3. Status post left below-knee amputation. MEDICATIONS: 1. Amlodipine 10 mg once a day. 2. Clonidine 0.2 mg 3 times a day. 3. Premarin vaginal cream. 4. Gabapentin 300 mg p.o. at bedtime. 5. Hydralazine 25 mg p.o. 3 times a day. 6. [place] 5/325 one p.o. q.6 hours p.r.n. 7. Levothyroxine 100 mcg once a day. 8. Lisinopril 40 once a day. 9. Metformin 1000 mg p.o. daily. 10. Zocor 20 mg once a day. 11. She is also on insulin 50 units subcu once a day. ALLERGIES: None. SOCIAL HISTORY: The patient lives with her older son and [id number] who is smoked 1-2 cig arettes daily. No alcohol intake. FAMILY HISTORY: No family history of any cancer, stroke, heart disease. REVIEW OF SYSTEMS: A 10-point system reviewed. 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 Respiratory system: No history of chronic cough, hemoptysis, dyspnea. Cardiovascul ar system: No chest pain, no palpitation, no orthopnea or PND. Gastrointestinal: As in history of present illness. Genitourinary: No dysuria, hematuria or frequent urination. Musculoskeletal: His tory of back pain and arthralgias. Neuroendocrine: Unremarkable. Psychiatric: No depression, no a nxiety. PHYSICAL EXAMINATION: GENERAL: She is a very fragile looking, elderly Latin-[place] female, appears very comfortable, in no distress. VITAL SIGNS: Afebrile. Her pulse is 90, blood pressure 180/70. HEENT: Conjunctivae clear. NECK: Supple. No adenitis or thyromegaly noted. CARDIOVASCULAR SYSTEM: First and second heart sounds normal. LUNGS: Clear to auscultation. ABDOMEN: Abdomen is soft to palpate. Abdomen is nondistended. Abdomen is nontender. There is no o rganomegaly or masses. Bowel sounds normal. LABORATORY DATA: On 12/11/2017, WBC has gone up to 16,000, hemoglobin 11.5, hematocrit 32.8, MCV 88. 3, platelet count 519,000, polymorphs 58, lymphocytes 27, monocytes 10. Serum chemistries: Sodium i s 124, potassium 3.9, chloride 94, bicarbonate is 21, BUN is 9, creatinine is 0.65, glucose is 197, c alcium 8.8, phosphorus 2.6, magnesium 1.8. CLINICAL IMPRESSION AND PLAN: A 77-year-old [place] female with dysphagia, painful swallowing . These are recent onset. The etiology is unclear at the present time. she really does not feel like eating because of the pain and also food sticking to the esophagus. I spoke to her son and explained about the need for EGD. I explained to the patient and the patient's son about the EGD, t he procedure, risks, and benefits. The patient understood and agreeable. I will plan for EGD tomorr ow and make further recommendations.
[2017-12-12] MEDS ORDERED: Conivaptan 20 MG in Premix Bag 1 BAG IVPB SCH (08:45)
[2017-12-12] MEDS ORDERED: Meperidine HCl/PF 25 MG/ML VIAL SLOW IVP PRN (11:26)
[2017-12-12] MEDS ORDERED: Ondansetron HCl/PF 4 MG/2 ML Vial IVP PRN (11:26)
[2017-12-12] MEDS ORDERED: Promethazine HCl 25 MG/ML VIAL IM PRN (11:26)
[2017-12-12] MEDS ORDERED: Morphine Sulfate 2 MG/ML SYRINGE SLOW IVP PRN (11:26)
[2017-12-12] MEDS ORDERED: Promethazine HCl 25 MG/ML VIAL SLOW IVP PRN (11:26)
[2017-12-12] MEDS ORDERED: Morphine 4 MG/ML VIAL ONE (11:34)
[2017-12-12] MEDS ORDERED: Promethazine HCl 25 MG/ML VIAL ONE (11:41)
[2017-12-12] MEDS: Lisinopril 10 MG TAB PO SCH ×2 (12:36→21:21)
[2017-12-12] MEDS: Senokot S 8.6-50 MG TAB PO SCH ×2 (12:36→21:21)
[2017-12-12] MEDS: cloNIDine 0.2 MG TAB PO SCH ×3 (12:37→21:22)
[2017-12-12] MEDS: Amlodipine 5 MG TAB PO SCH ×2 (12:37→21:21)
[2017-12-12] MEDS: Heparin 5,000 UNITS/ML VIAL SC SCH ×2 (12:37→21:21)
[2017-12-12] MEDS: Doxycycline 100 MG CAP PO SCH ×2 (12:37→21:22)
[2017-12-12] MEDS: Pantoprazole 40 MG VIAL IVP SCH (12:38)
[2017-12-12] MEDS: Polyethylene Glycol 3350 17 GM Packet PO SCH (12:38)
[2017-12-12] MEDS: NPH, Human Insulin Isophane 300 UNIT/3 ML VIAL SC SCH ×2 (12:38→21:20)
[2017-12-12] MEDS: Acetaminophen 500 MG TAB PO PRN (12:43)
--- NOTE | 2017-12-12 12:58 | PRG ---
DATE OF SERVICE: 12/12/2017 SUBJECTIVE: Patient was seen and examined at bedside and overnight events noted. Patient denies any shortness of breath or chest pain or palpitation. No history of nausea or vomiting or diarrhea or fever or chills or cramps. OBJECTIVE: GENERAL: This is an elderly female, in no apparent distress. VITAL SIGNS: Temperature 98.5, pulse 74, respiratory rate 14, blood pressure 114/70. HEENT: Atraumatic, normocephalic. Oral mucosa is moist NECK: Supple CARDIOVASCULAR: S1S2 heard, Rate and rhythm regular. RESPIRATORY: Clear to auscultation. GASTROINTESTINAL: Abdomen is soft. MUSCULOSKELETAL: No tenderness. No edema. DERMATOLOGIC: No skin rash. NEUROLOGIC: Alert and awake and oriented x3. No focal neurologic deficits. Moving all the extremit ies. PSYCHIATRIC: Mood and affect normal. LABORATORY DATA: Sodium is 120, potassium 4.6, BUN 12, creatinine 0.7. ASSESSMENT AND PLAN: 1. Hyponatremia, most likely syndrome of inappropriate antidiuretic hormone secretion. Patient was getting worse with IV fluids. Plan is to stop IV fluids and start on vaptan. 2. Hypophosphatemia, monitor and replace. 3. Edema, controlled. 4. Hypertension, stable. 5. Anemia. 6. We will start on vaptan and monitor sodium. We will follow.
[2017-12-12] MEDS ORDERED: Lidocaine 1% PF 5 ML VIAL ONE (14:03)
[2017-12-12] MEDS ORDERED: PROPOFOL 200 MG/20 ML VIAL ONE (14:03)
--- NOTE | 2017-12-12 16:27 | PDOC.PN ---
- Subjective Encounter Start Date: 12/12/17 Encounter Start Time: 13:00 Patient seen and examined for hyponatremia/Encephalopathy. s/p EGD. No new complaints. No overnight events - Objective Resuscitation Status: Resuscitation Status FULL:Full Resuscitation MAR Reviewed: Yes Vital Signs & Weight: Vital Signs (12 hours) Temp Pulse Resp BP BP Pulse Ox 12/12/17 15:48 97.7 F 95 14 138/52 L 95 12/12/17 12:37 96 12/12/17 12:36 186/72 H 12/12/17 12:00 97.4 F L 96 16 95 12/12/17 07:43 98.5 F 74 14 140/70 96 Weight Admit Weight 139 lb 1.6 oz Weight 129 lb 12.8 oz I&O: 12/11/17 12/12/17 12/13/17 06:59 06:59 06:59 Intake Total 1600 850 Output Total 500 Balance 1600 350 Result Diagrams: 12/11/17 04:41 12/12/17 05:12 Additional Labs: Accuchecks 12/12/17 12/11/17 12/11/17 06:36 20:53 16:48 POC Glucose 240 H 260 H 203 H EKG Reviewed by me: Yes (Tele SR) Phys Exam - Physical Examination Constitutional: NAD Respiratory: no wheezing, no rhonchi Cardiovascular: RRR, no rub Gastrointestinal: soft, non-tender, positive bowel sounds Musculoskeletal: no edema Neurological: moves all 4 limbs Dx/Plan (1) Metabolic encephalopathy Code(s): G93.41 - METABOLIC ENCEPHALOPATHY Status: Acute Comment: improving (2) Hyponatremia Code(s): E87.1 - HYPO-OSMOLALITY AND HYPONATREMIA Status: Acute Comment: 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, on Conivaptan (3) Swallowing dysfunction Code(s): R13.10 - DYSPHAGIA, UNSPECIFIED Status: Acute Comment: s/p EGD today (4) HTN (hypertension) Code(s): I10 - ESSENTIAL (PRIMARY) HYPERTENSION Status: Chronic (5) DM2 (diabetes mellitus, type 2) Status: Chronic Qualifiers: Diabetes mellitus complication detail: with chronic kidney disease Chronic kidney disease stage: stage 2 (mild) Comment: sugars elevated - Plan 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, 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, DVT proph w/heparin, DVT proph w/SCDs Await EGD report -: Monitor Sodium level, AM labs -: Cont current meds as below, Change PPI to PO -: DC planning -: Change NPH to 15 units BID Review of Systems - Review of Systems Respiratory: negative: Cough, Dry, Shortness of Breath, Hemoptysis, SOB with Excertion, Pleuritic Pain, Sputum, Wheezing Cardiovascular: negative: chest pain, palpitations, orthopnea, paroxysmal nocturnal dyspnea, edema, light headedness, other - Medications/Allergies Allergies/Adverse Reactions: Allergies Allergy/AdvReac Type Severity Reaction Status Date / Time No Known Allergies Allergy Verified 06/11/17 22:56 Medications: Current Medications Acetaminophen (Tylenol) 1,000 mg PO Q6H PRN PRN Reason: Headache/Fever or Mild Pain Last Admin: 12/12/17 12:43 Dose: 1,000 mg Hydrocodone Bitart/Acetaminophen ([place] 5/325) 1 tab PO Q4HR PRN PRN Reason: Pain Al Hydroxide/Mg Hydroxide (Maalox Plus) 30 ml PO DAILY PRN PRN Reason: Dyspepsia Amlodipine Besylate (Norvasc) 5 mg PO BID [facility] Last Admin: 12/12/17 12:37 Dose: 5 mg Calcium Carbonate (Tums) 1,000 mg PO Q4H PRN PRN Reason: Heartburn or Indigestion Last Admin: 12/11/17 09:17 Dose: 1,000 mg Clonidine (Catapres) 0.1 mg PO Q4H PRN PRN Reason: Systolic BP > 180 Last Admin: 12/08/17 17:12 Dose: 0.1 mg Clonidine (Catapres) 0.2 mg PO TID [facility] Last Admin: 12/12/17 12:37 Dose: 0.2 mg Dextrose/Water (Dextrose 50%) 25 gm SLOW IVP PRN PRN PRN Reason: Hypoglycemia Diphenhydramine HCl (Benadryl) 25 mg IVP Q6H PRN PRN Reason: Itching & Insomnia Last Admin: 12/08/17 19:03 Dose: 25 mg Doxycycline Hyclate (Vibramycin) 100 mg PO BID [facility] Last Admin: 12/12/17 12:37 Dose: 100 mg Gabapentin (Neurontin) 300 mg PO [facility] Last Admin: 12/11/17 20:42 Dose: 300 mg Glucagon (Glucagon) 1 mg IM PRN PRN PRN Reason: Hypoglycemia Heparin Sodium (Porcine) (Heparin) 5,000 units SC BID [facility] Last Admin: 12/12/17 12:37 Dose: Not Given Hydralazine HCl (Apresoline) 10 mg SLOW IVP Q4H PRN PRN Reason: Systolic BP > 180 Dextrose/Water (D5w) 1,000 mls @ 0 mls/hr IV .Q0M PRN; As Directed PRN Reason: Hypoglycemia Conivaptan HCl 20 mg/ Device 100 mls @ 4.16 mls/hr IVPB INF [facility] Insulin Human Lispro (Humalog) 0 units SC .MILD SLIDING SCALE PRN PRN Reason: Mild Correctional Scale Last Admin: 12/11/17 17:49 Dose: 3 unit Insulin Human Lispro (Humalog) 0 units SC .BEDTIME SLIDING SC PRN PRN Reason: Bedtime Correctional Scale Insulin Human NPH (Humulin N) 10 unit SC BID [facility] Last Admin: 12/12/17 12:38 Dose: Not Given Levothyroxine Sodium (Synthroid) 88 mcg PO 1700 [facility] Last Admin: 12/11/17 17:48 Dose: 88 mcg Lisinopril (Zestril) 10 mg PO BID [facility] Last Admin: 12/12/17 12:36 Dose: 10 mg Lorazepam (Ativan) 1 mg SLOW IVP Q6H PRN PRN Reason: Anxiety/Agitation Last Admin: 12/08/17 17:27 Dose: 1 mg Miscellaneous Medication (Phos-Nak) 1 pkt PO BID[facility] Last Admin: 12/12/17 12:36 Dose: 1 pkt Ondansetron HCl (Zofran Odt) 4 mg PO Q6H PRN PRN Reason: Nausea/Vomiting Ondansetron HCl (Zofran) 4 mg IVP Q6H PRN PRN Reason: Nausea/Vomiting Pantoprazole Sodium (Protonix) 40 mg IVP Q12HR [facility] Last Admin: 12/12/17 12:38 Dose: 40 mg Polyethylene Glycol (Miralax) 17 gm PO DAILY [facility] Last Admin: 12/12/17 12:38 Dose: 17 gm Senna/Docusate Sodium (Senokot S) 1 tab PO BID [facility] Last Admin: 12/12/17 12:36 Dose: 1 tab Simethicone (Mylicon Chewable) 80 mg PO [facility] PRN PRN Reason: Gas Pain Sodium Chloride (Flush - Normal Saline) 10 ml IVF Q12HR [facility] Last Admin: 12/12/17 12:39 Dose: 10 ml Sodium Chloride (Flush - Normal Saline) 10 ml IVF PRN PRN PRN Reason: Saline Flush
[2017-12-12] MEDS: Levothyroxine Sodium 88 MCG TAB PO SCH (17:54)
[2017-12-12] MEDS: Conivaptan 20 MG in Premix Bag 1 BAG IVPB SCH (17:56)
[2017-12-12] MEDS: HumaLOG 300 UNITS/3 ML VIAL SC PRN (18:00)
[2017-12-12] MEDS: HYDROcodone/Acetaminophen 5/325 mg Tablet PO PRN (18:10)
--- NOTE | 2017-12-12 20:01 | OP ---
DATE OF PROCEDURE: 12/12/2017 SURGEON: Grant Call M.D. OPERATIVE PROCEDURES: 1. Esophagogastroduodenoscopy with biopsy. 2. Esophageal dilation with 50-Vincentian Bonilla dilator. PREOPERATIVE DIAGNOSES: Dysphagia and painful swallowing. POSTOPERATIVE DIAGNOSES: 1. Distal esophageal ulceration, esophagitis, Donley grade IV. 2. Distal esophageal ring. 3. Multiple gastric polyps. 4. Ulcer in the duodenal bulb. PROCEDURE IN DETAIL: The patient was placed on her left lateral position and was given sedation by A nesthesia Department. Also, the throat was anesthetized with Cetacaine spray. Then, [employer] video ga stroscope under direct vision was passed down the oropharynx, past the upper sternal sphincter into t he stomach. Over the distal esophagus, the patient ulceration and esophagitis. The lumen appe ars to be not narrowed. She has a distal esophageal ring which was nonobstructing. The scope was __ ___ which was easily advanced into stomach without difficulty. Retroflexion failed to show any patho logy in the fundus or cardia. The patient has multiple gastric polyps over the stomach. The gastric body and gastric antrum, no pathology seen. The patient has an ulcer in the duodenal bulb. The larisa cending duodenum, no pathology seen. Biopsy of the gastric antrum and gastric body. Also biopsy of the distal esophagus, the scope was removed. A 50-Vincentian Bonilla dilator passed down with no resista nce. RECOMMENDATIONS: 1. Diet as tolerated. 2. Protonix 40 once a day. 3. Await the result HIV biopsy and make further recommendations after biopsy.
[2017-12-12 20:29] LABS: Anion Gap 9 mmol/L (10-20); BUN (Urea Nitrogen) 13 mg/dL (9.8-20.1); Calc. Creatinine Clearance 54 mL/min (70-130); Calcium 9.1 mg/dL (7.8-10.44); Carbon Dioxide 29 mmol/L (23-31); Chloride 96 mmol/L (98-107); Estimated GFR-MDRD 70; Glucose 355 mg/dL (83-110); Potassium 5.5 mmol/L (3.5-5.1); Sodium 128 mmol/L (136-145)
[2017-12-12] MEDS: Gabapentin 300 MG CAP PO SCH (21:21)
[2017-12-13 05:42] LABS: Anion Gap 13 mmol/L (10-20); BUN (Urea Nitrogen) 15 mg/dL (9.8-20.1); Calc. Creatinine Clearance 48 mL/min (70-130); Calcium 9.2 mg/dL (7.8-10.44); Carbon Dioxide 24 mmol/L (23-31); Chloride 95 mmol/L (98-107); Estimated GFR-MDRD 61; Glucose 198 mg/dL (83-110); Potassium 5.1 mmol/L (3.5-5.1); Sodium 127 mmol/L (136-145)
[2017-12-13] MEDS: HumaLOG 300 UNITS/3 ML VIAL SC PRN ×3 (06:31→17:12)
[2017-12-13] MEDS: Amlodipine 5 MG TAB PO SCH ×2 (09:54→22:36)
[2017-12-13] MEDS: Doxycycline 100 MG CAP PO SCH (09:54)
[2017-12-13] MEDS: cloNIDine 0.2 MG TAB PO SCH ×3 (09:54→22:38)
[2017-12-13] MEDS: Polyethylene Glycol 3350 17 GM Packet PO SCH (09:54)
[2017-12-13] MEDS: Lisinopril 10 MG TAB PO SCH (09:54)
[2017-12-13] MEDS: Senokot S 8.6-50 MG TAB PO SCH ×2 (09:54→22:39)
[2017-12-13] MEDS: Heparin 5,000 UNITS/ML VIAL SC SCH ×2 (09:55→22:40)
[2017-12-13] MEDS: NPH, Human Insulin Isophane 300 UNIT/3 ML VIAL SC SCH (10:58)
[2017-12-13] MEDS ORDERED: Dextrose 5% in Water 1,000 ML IV PRN (11:38)
[2017-12-13 13:30] VITALS: BMI 24.2
[2017-12-13 15:11] LABS: Anion Gap 11 mmol/L (10-20); BUN (Urea Nitrogen) 15 mg/dL (9.8-20.1); Calc. Creatinine Clearance 50 mL/min (70-130); Calcium 8.7 mg/dL (7.8-10.44); Carbon Dioxide 22 mmol/L (23-31); Chloride 97 mmol/L (98-107); Estimated GFR-MDRD 63; Glucose 315 mg/dL (83-110); Sodium 125 mmol/L (136-145)
[2017-12-13] MEDS ORDERED: Conivaptan 20 MG in Premix Bag 1 BAG IVPB SCH (15:30)
--- NOTE | 2017-12-13 16:18 | PRG ---
DATE OF SERVICE: 12/13/2017 SUBJECTIVE: Patient was seen and examined at bedside and overnight events noted. Patient denies any shortness of breath or chest pain or palpitation. No history of nausea or vomiting or diarrhea or fever or chills or cramps. OBJECTIVE: GENERAL: This is a well-built female, in no apparent distress VITAL SIGNS: Temperature 98.7, pulse 80, respiratory rate 18, blood pressure 154/67. HEENT: Atraumatic, normocephalic. Oral mucosa is moist NECK: Supple CARDIOVASCULAR: S1S2 heard, Rate and rhythm regular. RESPIRATORY: Clear to auscultation. GASTROINTESTINAL: Abdomen is soft. MUSCULOSKELETAL: No tenderness. No edema. DERMATOLOGIC: No skin rash. NEUROLOGIC: Alert and awake and oriented x3. No focal neurologic deficits. Moving all the extremit ies. PSYCHIATRIC: Mood and affect normal. LABORATORY DATA: Potassium is 5.0, BUN 15, creatinine 0.8. Sodium is 125. ASSESSMENT AND PLAN: 1. Hyponatremia, most likely syndrome of inappropriate antidiuretic hormone secretion and polydipsia , limit fluid intake and sodium level is better with vaptans but it is dropping. We will continue va ptan for 48 hours. Continue on fluid restriction. We will continue on 1 liter fluid restriction. 2. Hypophosphatemia. Monitor and replace as needed. 3. Edema. 4. Hypertension. Plan is to continue on vaptan as tolerated.
[2017-12-13] MEDS ORDERED: NPH, Human Insulin Isophane 300 UNIT/3 ML VIAL SC SCH (19:30)
--- NOTE | 2017-12-13 20:19 | PDOC.PN ---
- Subjective Encounter Start Date: 12/13/17 Encounter Start Time: 19:30 Patient seen and examined for Encephalopathy/Hyponatremia. Mentation improving. No new complaints. No overnight events - Objective Resuscitation Status: Resuscitation Status FULL:Full Resuscitation MAR Reviewed: Yes Vital Signs & Weight: Vital Signs (12 hours) Temp Pulse Resp BP Pulse Ox 12/13/17 16:16 98.7 F 90 16 146/65 H 96 12/13/17 12:58 97.8 F 89 17 154/67 H 98 12/13/17 09:54 84 12/13/17 09:52 98.7 F 90 16 148/63 H 98 Weight Admit Weight 139 lb 1.6 oz Weight 132 lb 4 oz I&O: 12/12/17 12/13/17 12/14/17 06:59 06:59 06:59 Intake Total 850 840 Output Total 500 2 Balance 350 838 Result Diagrams: 12/11/17 04:41 12/13/17 14:30 Additional Labs: Accuchecks 12/13/17 12/13/17 12/13/17 16:49 10:51 05:47 POC Glucose 323 H 436 H 200 H 12/12/17 21:20 POC Glucose 317 H EKG Reviewed by me: Yes (Tele SR) Phys Exam - Physical Examination Constitutional: NAD Respiratory: no wheezing, no rhonchi Cardiovascular: RRR, no rub Gastrointestinal: soft, non-tender, positive bowel sounds Musculoskeletal: no edema Dx/Plan (1) Metabolic encephalopathy Code(s): G93.41 - METABOLIC ENCEPHALOPATHY Status: Acute Comment: improving (2) Hyponatremia Code(s): E87.1 - HYPO-OSMOLALITY AND HYPONATREMIA Status: Acute Comment: 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 - Plan DVT proph w/heparin, DVT proph w/SCDs Change NPH to 25 QAM and 20 HS -: Cont PPI -: Cont current meds as below -: DC Phosphorus sup -: AM labs Review of Systems - Review of Systems Cardiovascular: negative: chest pain, palpitations, orthopnea, paroxysmal nocturnal dyspnea, edema, light headedness, other Gastrointestinal: negative: Nausea, Vomiting, Abdominal Pain, Diarrhea, Constipation, Melena, Hematochezia, Other - Medications/Allergies Allergies/Adverse Reactions: Allergies Allergy/AdvReac Type Severity Reaction Status Date / Time No Known Allergies Allergy Verified 06/11/17 22:56 Medications: Current Medications Acetaminophen (Tylenol) 1,000 mg PO Q6H PRN PRN Reason: Headache/Fever or Mild Pain Last Admin: 12/12/17 12:43 Dose: 1,000 mg Hydrocodone Bitart/Acetaminophen ([place] 5/325) 1 tab PO Q4HR PRN PRN Reason: Pain Last Admin: 12/12/17 18:10 Dose: 1 tab Al Hydroxide/Mg Hydroxide (Maalox Plus) 30 ml PO DAILY PRN PRN Reason: Dyspepsia Amlodipine Besylate (Norvasc) 5 mg PO BID [facility] Last Admin: 12/13/17 09:54 Dose: 5 mg Calcium Carbonate (Tums) 1,000 mg PO Q4H PRN PRN Reason: Heartburn or Indigestion Last Admin: 12/11/17 09:17 Dose: 1,000 mg Clonidine (Catapres) 0.1 mg PO Q4H PRN PRN Reason: Systolic BP > 180 Last Admin: 12/08/17 17:12 Dose: 0.1 mg Clonidine (Catapres) 0.2 mg PO TID [facility] Last Admin: 12/13/17 16:18 Dose: 0.2 mg Dextrose/Water (Dextrose 50%) 25 gm SLOW IVP PRN PRN PRN Reason: Hypoglycemia Diphenhydramine HCl (Benadryl) 25 mg IVP Q6H PRN PRN Reason: Itching & Insomnia Last Admin: 12/08/17 19:03 Dose: 25 mg Doxycycline Hyclate (Vibramycin) 100 mg PO BID [facility] Last Admin: 12/13/17 09:54 Dose: 100 mg Gabapentin (Neurontin) 300 mg PO [facility] Last Admin: 12/12/17 21:21 Dose: 300 mg Glucagon (Glucagon) 1 mg IM PRN PRN PRN Reason: Hypoglycemia Heparin Sodium (Porcine) (Heparin) 5,000 units SC BID [facility] Last Admin: 12/13/17 09:55 Dose: 5,000 units Hydralazine HCl (Apresoline) 10 mg SLOW IVP Q4H PRN PRN Reason: Systolic BP > 180 Conivaptan HCl 20 mg/ Device 100 mls @ 4.16 mls/hr IVPB INF [facility] Last Admin: 12/12/17 17:56 Dose: 100 mls Dextrose/Water (D5w) 1,000 mls @ 0 mls/hr IV .Q0M PRN; As Directed PRN Reason: Hypoglycemia Conivaptan HCl 20 mg/ Device 100 mls @ 4.16 mls/hr IVPB INF [facility] Stop: 12/15/17 15:29 Insulin Human Lispro (Humalog) 0 units SC .BEDTIME SLIDING SC PRN PRN Reason: Bedtime Correctional Scale Insulin Human Lispro (Humalog) 0 units SC .MODERATE SLIDING SC PRN PRN Reason: Moderate Correctional Scale Last Admin: 12/13/17 17:12 Dose: 8 unit Insulin Human NPH (Humulin N) 20 unit SC BID [facility] Levothyroxine Sodium (Synthroid) 88 mcg PO 0600 [facility] Lisinopril (Zestril) 10 mg PO BID [facility] Last Admin: 12/13/17 09:54 Dose: 10 mg Lorazepam (Ativan) 1 mg SLOW IVP Q6H PRN PRN Reason: Anxiety/Agitation Last Admin: 12/08/17 17:27 Dose: 1 mg Ondansetron HCl (Zofran Odt) 4 mg PO Q6H PRN PRN Reason: Nausea/Vomiting Ondansetron HCl (Zofran) 4 mg IVP Q6H PRN PRN Reason: Nausea/Vomiting Pantoprazole Sodium (Protonix) 40 mg PO BID [facility] Last Admin: 12/13/17 09:54 Dose: 40 mg Polyethylene Glycol (Miralax) 17 gm PO DAILY [facility] Last Admin: 12/13/17 09:54 Dose: 17 gm Senna/Docusate Sodium (Senokot S) 1 tab PO BID [facility] Last Admin: 12/13/17 09:54 Dose: 1 tab Simethicone (Mylicon Chewable) 80 mg PO [facility] PRN PRN Reason: Gas Pain Sodium Chloride (Flush - Normal Saline) 10 ml IVF Q12HR [facility] Last Admin: 12/13/17 09:53 Dose: 10 ml Sodium Chloride (Flush - Normal Saline) 10 ml IVF PRN PRN PRN Reason: Saline Flush
[2017-12-13] MEDS: Gabapentin 300 MG CAP PO SCH (22:39)
[2017-12-13] MEDS: HYDROcodone/Acetaminophen 5/325 mg Tablet PO PRN (22:57)
[2017-12-13] MEDS: Conivaptan 20 MG in Premix Bag 1 BAG IVPB SCH (22:59)
[2017-12-14 05:23] LABS: #Basophils 0.1 thou/uL (0.0-0.2); #Eosinphils 0.7 thou/uL (0.0-0.7); #Lymphocytes 3.3 thou/uL (1.20-3.40); #Monocytes 1.9 thou/uL (0.11-0.59); #Neutrophils 6.6 thou/uL (1.40-6.50); %Basophils 0.9 % (0.0-1.0); %Eosinophils 5.9 % (0.0-10.0); %Lymphocytes 26.1 % (21.0-51.0); %Monocytes 14.8 % (0.0-10.0); %Neutrophils 52.3 % (42.0-75.0); Hemoglobin 11.4 g/dL (12.0-16.0); Mean Corpuscular HGB CONC 33.8 g/dL (32.0-36.0); Mean Corpuscular Hemoglobin 31.1 pg (27.0-31.0); Mean Corpuscular Volume 92.3 fl (81.0-99.0); Mean Platelet Volume 6.3 fL (7.4-10.4); Platelet Count 508 thou/uL (130-400); RBC Distribution Width 14.3 % (11.5-14.5); Red Blood Cell (RBC) Count 3.67 mill/uL (4.20-5.40); White Blood Cell (WBC) Count 12.7 thou/uL (4.8-10.8)
[2017-12-14 05:37] LABS: Anion Gap 12 mmol/L (10-20); BUN (Urea Nitrogen) 15 mg/dL (9.8-20.1); Calc. Creatinine Clearance 52 mL/min (70-130); Calcium 8.7 mg/dL (7.8-10.44); Carbon Dioxide 24 mmol/L (23-31); Chloride 97 mmol/L (98-107); Estimated GFR-MDRD 66; Glucose 251 mg/dL (83-110); Magnesium 1.8 mg/dL (1.6-2.6); Potassium 4.9 mmol/L (3.5-5.1); Sodium 128 mmol/L (136-145)
[2017-12-14] MEDS: Diabetic Tussin 200 MG/10 ML UDCUP PO PRN ×2 (06:45→21:19)
[2017-12-14] MEDS: Levothyroxine Sodium 88 MCG TAB PO SCH (06:46)
[2017-12-14] MEDS ORDERED: NPH, Human Insulin Isophane 300 UNIT/3 ML VIAL SC SCH ×2 (09:00→21:00)
[2017-12-14] MEDS: Amlodipine 5 MG TAB PO SCH ×2 (09:59→21:09)
[2017-12-14] MEDS: cloNIDine 0.2 MG TAB PO SCH ×3 (10:00→21:10)
[2017-12-14] MEDS: Senokot S 8.6-50 MG TAB PO SCH ×2 (10:00→21:08)
[2017-12-14] MEDS: Lisinopril 10 MG TAB PO SCH ×2 (10:00→21:08)
[2017-12-14] MEDS: Polyethylene Glycol 3350 17 GM Packet PO SCH (10:00)
[2017-12-14] MEDS: Heparin 5,000 UNITS/ML VIAL SC SCH ×2 (10:02→21:09)
[2017-12-14] MEDS ORDERED: Doxycycline 100 MG CAP PO SCH (12:15)
[2017-12-14] MEDS ORDERED: Insulin Glargine 20 UNITS in Pre-Filled Syringe 1 EACH SC SCH (12:15)
--- NOTE | 2017-12-14 13:42 | PDOC.PN ---
- Subjective Encounter Start Date: 12/14/17 Encounter Start Time: 13:00 Patient seen and examined for hyponatremia. No new complaints. No overnight events - Objective Resuscitation Status: Resuscitation Status FULL:Full Resuscitation MAR Reviewed: Yes Vital Signs & Weight: Vital Signs (12 hours) Temp Pulse Resp BP Pulse Ox 12/14/17 08:00 97.7 F 71 17 12/14/17 03:16 97.7 F 71 17 145/63 H 99 Weight Admit Weight 139 lb 1.6 oz Weight 129 lb I&O: 12/13/17 12/14/17 12/15/17 06:59 06:59 06:59 Intake Total 840 1037.2 Output Total 2 Balance 838 1037.2 Result Diagrams: 12/14/17 04:27 12/14/17 04:27 Additional Labs: Accuchecks 12/14/17 12/14/17 12/13/17 10:56 06:08 20:50 POC Glucose 352 H 236 H 262 H 12/13/17 16:49 POC Glucose 323 H EKG Reviewed by me: Yes (Tele SR) Phys Exam - Physical Examination Constitutional: NAD Respiratory: no wheezing, no rhonchi Cardiovascular: RRR, no rub Gastrointestinal: soft, non-tender, positive bowel sounds Musculoskeletal: no edema erythema/swelling Rt arm Neurological: moves all 4 limbs Dx/Plan (1) Metabolic encephalopathy Code(s): G93.41 - METABOLIC ENCEPHALOPATHY Status: Acute Comment: improving (2) Hyponatremia Code(s): E87.1 - HYPO-OSMOLALITY AND HYPONATREMIA Status: Acute Comment: 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 (5) Superficial thrombophlebitis Code(s): I80.9 - PHLEBITIS AND THROMBOPHLEBITIS OF UNSPECIFIED SITE Status: Acute Qualifiers: Superficial thrombophlebitis-Involved body area: upper extremity Laterality : right Qualified Code(s): I80.8 - Phlebitis and thrombophlebitis of other sites Comment: ?Cellulitis (6) Esophagitis Code(s): K20.9 - ESOPHAGITIS, UNSPECIFIED Status: Chronic Comment: on PPI - Plan plan discussed w/ family, DVT proph w/heparin, DVT proph w/SCDs On Vaprisol, BMP at 1400 and AM -: Cold compresses on Rt arm, Add Doxycycline for possible cellulitis -: Cont current meds as below -: DC in AM if sodium improves -: Start Lantus 25 AM and 20 PM, One dose 20 units x 1 Review of Systems - Review of Systems Cardiovascular: negative: chest pain, palpitations, orthopnea, paroxysmal nocturnal dyspnea, edema, light headedness, other Gastrointestinal: negative: Nausea, Vomiting, Abdominal Pain, Diarrhea, Constipation, Melena, Hematochezia, Other - Medications/Allergies Allergies/Adverse Reactions: Allergies Allergy/AdvReac Type Severity Reaction Status Date / Time No Known Allergies Allergy Verified 06/11/17 22:56 Medications: Current Medications Acetaminophen (Tylenol) 1,000 mg PO Q6H PRN PRN Reason: Headache/Fever or Mild Pain Last Admin: 12/12/17 12:43 Dose: 1,000 mg Hydrocodone Bitart/Acetaminophen ([place] 5/325) 1 tab PO Q4HR PRN PRN Reason: Pain Last Admin: 12/13/17 22:57 Dose: 1 tab Al Hydroxide/Mg Hydroxide (Maalox Plus) 30 ml PO DAILY PRN PRN Reason: Dyspepsia Amlodipine Besylate (Norvasc) 5 mg PO BID [facility] Last Admin: 12/14/17 09:59 Dose: 5 mg Calcium Carbonate (Tums) 1,000 mg PO Q4H PRN PRN Reason: Heartburn or Indigestion Last Admin: 12/11/17 09:17 Dose: 1,000 mg Clonidine (Catapres) 0.1 mg PO Q4H PRN PRN Reason: Systolic BP > 180 Last Admin: 12/08/17 17:12 Dose: 0.1 mg Clonidine (Catapres) 0.2 mg PO TID [facility] Last Admin: 12/14/17 10:00 Dose: 0.2 mg Dextrose/Water (Dextrose 50%) 25 gm SLOW IVP PRN PRN PRN Reason: Hypoglycemia Diphenhydramine HCl (Benadryl) 25 mg IVP Q6H PRN PRN Reason: Itching & Insomnia Last Admin: 12/08/17 19:03 Dose: 25 mg Doxycycline Hyclate (Vibramycin) 100 mg PO BID [facility] Doxycycline Hyclate (Vibramycin) 100 mg PO ONE [facility] Stop: 12/14/17 14:00 Gabapentin (Neurontin) 300 mg PO [facility] Last Admin: 12/13/17 22:39 Dose: 300 mg Glucagon (Glucagon) 1 mg IM PRN PRN PRN Reason: Hypoglycemia Guaifenesin (Robitussin Sf) 100 mg PO Q8H PRN PRN Reason: Cough Last Admin: 12/14/17 06:45 Dose: 100 mg Heparin Sodium (Porcine) (Heparin) 5,000 units SC BID [facility] Last Admin: 12/14/17 10:02 Dose: 5,000 units Hydralazine HCl (Apresoline) 10 mg SLOW IVP Q4H PRN PRN Reason: Systolic BP > 180 Conivaptan HCl 20 mg/ Device 100 mls @ 4.16 mls/hr IVPB INF [facility] Last Admin: 12/13/17 22:59 Dose: 100 mls Dextrose/Water (D5w) 1,000 mls @ 0 mls/hr IV .Q0M PRN; As Directed PRN Reason: Hypoglycemia Conivaptan HCl 20 mg/ Device 100 mls @ 4.16 mls/hr IVPB INF [facility] Stop: 12/15/17 15:29 Insulin Glargine 20 units/ (Miscellaneous Medication) 0.2 mls @ 0 mls/hr SC HS [facility] Insulin Glargine 25 units/ (Miscellaneous Medication) 0.25 mls @ 0 mls/hr SC QAM [facility] Insulin Glargine 20 units/ (Miscellaneous Medication) 0.2 mls @ 0 mls/hr SC ONE [facility] Stop: 12/14/17 14:00 Insulin Human Lispro (Humalog) 0 units SC .BEDTIME SLIDING SC PRN PRN Reason: Bedtime Correctional Scale Insulin Human Lispro (Humalog) 0 units SC .MODERATE SLIDING SC PRN PRN Reason: Moderate Correctional Scale Last Admin: 12/13/17 17:12 Dose: 8 unit Levothyroxine Sodium (Synthroid) 88 mcg PO 0600 [facility] Last Admin: 12/14/17 06:46 Dose: 88 mcg Lisinopril (Zestril) 10 mg PO BID [facility] Last Admin: 12/14/17 10:00 Dose: 10 mg Lorazepam (Ativan) 1 mg SLOW IVP Q6H PRN PRN Reason: Anxiety/Agitation Last Admin: 12/08/17 17:27 Dose: 1 mg Ondansetron HCl (Zofran Odt) 4 mg PO Q6H PRN PRN Reason: Nausea/Vomiting Ondansetron HCl (Zofran) 4 mg IVP Q6H PRN PRN Reason: Nausea/Vomiting Pantoprazole Sodium (Protonix) 40 mg PO BID [facility] Last Admin: 12/14/17 10:00 Dose: 40 mg Polyethylene Glycol (Miralax) 17 gm PO DAILY [facility] Last Admin: 12/14/17 10:00 Dose: 17 gm Senna/Docusate Sodium (Senokot S) 1 tab PO BID [facility] Last Admin: 12/14/17 10:00 Dose: 1 tab Simethicone (Mylicon Chewable) 80 mg PO [facility] PRN PRN Reason: Gas Pain Sodium Chloride (Flush - Normal Saline) 10 ml IVF Q12HR [facility] Last Admin: 12/14/17 10:04 Dose: 10 ml Sodium Chloride (Flush - Normal Saline) 10 ml IVF PRN PRN PRN Reason: Saline Flush
--- NOTE | 2017-12-14 14:01 | PRG ---
DATE OF SERVICE: 12/14/2017 SUBJECTIVE: Patient was seen and examined at bedside and overnight events noted. Patient denies any shortness of breath or chest pain or palpitation. No history of nausea or vomiting or diarrhea or f ever or chills or cramps. PHYSICAL EXAMINATION: GENERAL: This is a thin well-built female in no apparent distress. VITAL SIGNS: Temperature 97.7, pulse 71, respirations 16, blood pressure 145/63. HEENT: Atraumatic, normocephalic. Oral mucosa is moist. NECK: Supple. CARDIOVASCULAR: S1, S2 heard. Rate and rhythm regular. RESPIRATORY: Clear to auscultation. GASTROINTESTINAL: Abdomen is soft. MUSCULOSKELETAL: No tenderness. No edema. DERMATOLOGIC: No skin rash. NEUROLOGIC: Alert and awake and oriented x3. No focal neurologic deficits. Moving all the extremit ies. PSYCHIATRIC: Mood and affect normal. LABORATORY DATA: Potassium is 4.9, sodium is 128, BUN is 15, creatinine is 0.8. ASSESSMENT AND PLAN: 1. Hyponatremia, most likely from polydipsia and possible syndrome of inappropriate antidiuretic hor solange secretion. Sodium getting better with the vaptan. Continue fluid restriction. Repeat labs at 2:00 and continue 1 liter fluid restriction. Family and patient was advised to limit fluid intake. We would recommend to have age-appropriate cancer screening to rule out any malignancy. 2. Hyperkalemia, better. 3. Hyperphosphatemia, monitor. 4. Edema, controlled. 5. Hypertension, stable. 6. Continue fluid restriction and finished vaptan and recheck labs. Monitor labs. We will follow.
[2017-12-14 14:32] LABS: Anion Gap 10 mmol/L (10-20); BUN (Urea Nitrogen) 14 mg/dL (9.8-20.1); Calc. Creatinine Clearance 51 mL/min (70-130); Calcium 8.8 mg/dL (7.8-10.44); Carbon Dioxide 26 mmol/L (23-31); Chloride 96 mmol/L (98-107); Estimated GFR-MDRD 67; Glucose 327 mg/dL (83-110); Potassium 5.1 mmol/L (3.5-5.1); Sodium 127 mmol/L (136-145)
[2017-12-14] MEDS: HumaLOG 300 UNITS/3 ML VIAL SC PRN (18:00)
[2017-12-14] MEDS: Doxycycline 100 MG CAP PO SCH (21:08)
[2017-12-14] MEDS: Gabapentin 300 MG CAP PO SCH (21:10)
[2017-12-14] MEDS: Insulin Glargine 20 UNITS in Pre-Filled Syringe 1 EACH SC SCH (21:19)
[2017-12-14] MEDS: HYDROcodone/Acetaminophen 5/325 mg Tablet PO PRN (23:59)
[2017-12-15] MEDS: HYDROcodone/Acetaminophen 5/325 mg Tablet PO PRN (04:06)
[2017-12-15 05:40] LABS: Anion Gap 12 mmol/L (10-20); BUN (Urea Nitrogen) 18 mg/dL (9.8-20.1); Calc. Creatinine Clearance 57 mL/min (70-130); Calcium 8.8 mg/dL (7.8-10.44); Carbon Dioxide 22 mmol/L (23-31); Chloride 97 mmol/L (98-107); Estimated GFR-MDRD 76; Glucose 115 mg/dL (83-110); Potassium 4.7 mmol/L (3.5-5.1); Sodium 126 mmol/L (136-145)
[2017-12-15] MEDS: Levothyroxine Sodium 88 MCG TAB PO SCH (06:18)
[2017-12-15] MEDS: Lisinopril 10 MG TAB PO SCH ×2 (08:43→21:27)
[2017-12-15] MEDS: Senokot S 8.6-50 MG TAB PO SCH ×2 (08:43→21:27)
[2017-12-15] MEDS: Doxycycline 100 MG CAP PO SCH ×2 (08:43→21:27)
[2017-12-15] MEDS: Amlodipine 5 MG TAB PO SCH ×2 (08:43→21:26)
[2017-12-15] MEDS: Insulin Glargine 25 UNITS in Pre-Filled Syringe 1 EACH SC SCH (08:44)
[2017-12-15] MEDS: cloNIDine 0.2 MG TAB PO SCH ×3 (08:44→21:27)
[2017-12-15] MEDS: Heparin 5,000 UNITS/ML VIAL SC SCH ×2 (08:45→21:28)
[2017-12-15] MEDS: Polyethylene Glycol 3350 17 GM Packet PO SCH (08:45)
[2017-12-15] MEDS ORDERED: ISOVUE-370 76%-LOCM 1 ML ONE (11:28)
[2017-12-15] MEDS: HumaLOG 300 UNITS/3 ML VIAL SC PRN (11:53)
--- NOTE | 2017-12-15 14:25 | PRG ---
DATE OF SERVICE: 12/15/2017 SUBJECTIVE: Patient was seen and examined at bedside and overnight events noted. Patient denies any shortness of breath or chest pain or palpitation. No history of nausea or vomiting or diarrhea or fever or chill s or cramps. OBJECTIVE: GENERAL: This is a well-built female in no apparent distress. VITAL SIGNS: Temperature 97, pulse 77, respiratory rate 18, blood pressure 129/60. HEENT: Atraumatic, normocephalic. Oral mucosa is moist. NECK: Supple CARDIOVASCULAR: S1, S2 heard. Rate and rhythm regular. RESPIRATORY: Clear to auscultation. GASTROINTESTINAL: Abdomen is soft. MUSCULOSKELETAL: No tenderness. No edema. DERMATOLOGIC: No skin rash. NEUROLOGIC: Alert and awake and oriented x3. No focal neurologic deficits. Moving all the extremit ies. PSYCHIATRIC: Mood and affect normal. LABORATORY DATA: Potassium is 4.7, sodium is 126, BUN is 18, creatinine is 0.7. ASSESSMENT AND PLAN: 1. Hyponatremia, improved with vaptan, but dropping after vaptan is stopped. Continue on fluid rest riction. I will add demeclocycline. Prognosis guarded. Agree with ruling out malignancy. 2. Hyperkalemia. 3. Edema, controlled. 4. Hypertension, stable. 5. Continue fluid restriction. Add demeclocycline as tolerated and follow.
--- NOTE | 2017-12-15 15:17 | CT ---
CT CHEST WITH IV CONTRAST CT ABDOMEN WITH ORAL AND IV CONTRAST CT PELVIS WITH ORAL AND IV CONTRAST: Date: 12/15/17 HISTORY: Persistent SIADH. FINDINGS: Comparison made with CT abdomen/pelvis dated 12/19/13. No evidence of mediastinal, hilar, or axillary mass or lymphadenopathy seen. No pleural or pericardia l effusions are noted. No pneumothoraces, lobar consolidation, lung masses, or pulmonary nodules are seen. The liver, spleen, pancreas, adrenal glands, and right kidney are normal. A small cyst in the left re nal cortex is again seen. No calcified gallstones are identified. No free air, free fluid, or lymphad enopathy noted in the abdomen or pelvis. The small bowel loops are not abnormally dilated. A normal a ppearing appendix is seen. The uterus and ovaries are present. A 2.0 cm calcification in the nondependent portion of the right side of the urinary bladder is stable . There are vascular calcifications without evidence of aneurysmal dilatation of the abdominal aorta. There are degenerative changes in the spine. IMPRESSION: No evidence of malignancy or metastatic disease. POS: [facility]
[2017-12-15] MEDS: Sodium Chloride 1 GM TAB PO SCH ×2 (16:09→21:27)
[2017-12-15] MEDS ORDERED: Sodium Chloride 0.9% 500 ML IV SCH (18:45)
[2017-12-15] MEDS: Gabapentin 300 MG CAP PO SCH (21:27)
[2017-12-15] MEDS: Insulin Glargine 20 UNITS in Pre-Filled Syringe 1 EACH SC SCH (21:37)
--- NOTE | 2017-12-15 22:37 | PDOC.PN ---
- Subjective Encounter Start Date: 12/15/17 Encounter Start Time: 19:00 Patient seen and examined for Hyponatremia/Encephalopathy. No new complaints. No overnight events - Objective Resuscitation Status: Resuscitation Status FULL:Full Resuscitation MAR Reviewed: Yes Vital Signs & Weight: Vital Signs (12 hours) Temp Pulse Resp BP BP BP Pulse Ox 12/15/17 21:27 122/57 L 12/15/17 21:26 75 122/57 L 12/15/17 20:14 100.5 F H 75 16 122/57 L 96 12/15/17 16:11 99.0 F 76 16 130/60 95 12/15/17 16:09 145/60 H 12/15/17 11:50 99.7 F H 78 17 128/57 L 96 Weight Admit Weight 139 lb 1.6 oz Weight 124 lb 8 oz I&O: 12/14/17 12/15/17 12/16/17 06:59 06:59 06:59 Intake Total 1037.2 1140 1000 Output Total 500 Balance 1037.2 1140 500 Result Diagrams: 12/14/17 04:27 12/16/17 04:22 Additional Labs: Accuchecks 12/15/17 12/15/17 12/15/17 20:56 16:18 11:02 POC Glucose 170 H 152 H 256 H 12/15/17 12/15/17 12/14/17 06:17 02:44 16:08 POC Glucose 123 H 133 H 276 H EKG Reviewed by me: Yes (Tele SR) Phys Exam - Physical Examination Constitutional: NAD Respiratory: no wheezing, no rhonchi Cardiovascular: RRR, no rub Gastrointestinal: soft, non-tender, positive bowel sounds Musculoskeletal: no edema Neurological: moves all 4 limbs Dx/Plan (1) Metabolic encephalopathy Code(s): G93.41 - METABOLIC ENCEPHALOPATHY Status: Acute Comment: improving (2) Hyponatremia Code(s): E87.1 - HYPO-OSMOLALITY AND HYPONATREMIA Status: Acute Comment: 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 (5) Superficial thrombophlebitis Code(s): I80.9 - PHLEBITIS AND THROMBOPHLEBITIS OF UNSPECIFIED SITE Status: Acute Qualifiers: Superficial thrombophlebitis-Involved body area: upper extremity Laterality : right Qualified Code(s): I80.8 - Phlebitis and thrombophlebitis of other sites Comment: ?Cellulitis - improving (6) Esophagitis Code(s): K20.9 - ESOPHAGITIS, UNSPECIFIED Status: Chronic Comment: on PPI - Plan DVT proph w/SCDs Started on Salt tabs -: No Demeclocycline available -: Cont to monitor -: AM labs -: DC in AM if stable Review of Systems - Review of Systems Respiratory: negative: Cough, Dry, Shortness of Breath, Hemoptysis, SOB with Excertion, Pleuritic Pain, Sputum, Wheezing Cardiovascular: negative: chest pain, palpitations, orthopnea, paroxysmal nocturnal dyspnea, edema, light headedness, other - Medications/Allergies Allergies/Adverse Reactions: Allergies Allergy/AdvReac Type Severity Reaction Status Date / Time No Known Allergies Allergy Verified 06/11/17 22:56 Medications: Current Medications Acetaminophen (Tylenol) 1,000 mg PO Q6H PRN PRN Reason: Headache/Fever or Mild Pain Last Admin: 12/12/17 12:43 Dose: 1,000 mg Hydrocodone Bitart/Acetaminophen (Warren 5/325) 1 tab PO Q4HR PRN PRN Reason: Pain Last Admin: 12/15/17 04:06 Dose: 1 tab Al Hydroxide/Mg Hydroxide (Maalox Plus) 30 ml PO DAILY PRN PRN Reason: Dyspepsia Amlodipine Besylate (Norvasc) 5 mg PO BID [facility] Last Admin: 12/15/17 21:26 Dose: 5 mg Calcium Carbonate (Tums) 1,000 mg PO Q4H PRN PRN Reason: Heartburn or Indigestion Last Admin: 12/11/17 09:17 Dose: 1,000 mg Clonidine (Catapres) 0.1 mg PO Q4H PRN PRN Reason: Systolic BP > 180 Last Admin: 12/08/17 17:12 Dose: 0.1 mg Clonidine (Catapres) 0.2 mg PO TID [facility] Last Admin: 12/15/17 21:27 Dose: 0.2 mg Dextrose/Water (Dextrose 50%) 25 gm SLOW IVP PRN PRN PRN Reason: Hypoglycemia Diphenhydramine HCl (Benadryl) 25 mg IVP Q6H PRN PRN Reason: Itching & Insomnia Last Admin: 12/08/17 19:03 Dose: 25 mg Doxycycline Hyclate (Vibramycin) 100 mg PO BID [facility] Last Admin: 12/15/17 21:27 Dose: 100 mg Gabapentin (Neurontin) 300 mg PO [facility] Last Admin: 12/15/17 21:27 Dose: 300 mg Glucagon (Glucagon) 1 mg IM PRN PRN PRN Reason: Hypoglycemia Guaifenesin (Robitussin Sf) 100 mg PO Q8H PRN PRN Reason: Cough Last Admin: 12/14/17 21:19 Dose: 100 mg Heparin Sodium (Porcine) (Heparin) 5,000 units SC BID [facility] Last Admin: 12/15/17 21:28 Dose: 5,000 units Hydralazine HCl (Apresoline) 10 mg SLOW IVP Q4H PRN PRN Reason: Systolic BP > 180 Conivaptan HCl 20 mg/ Device 100 mls @ 4.16 mls/hr IVPB INF [facility] Last Admin: 12/13/17 22:59 Dose: 100 mls Dextrose/Water (D5w) 1,000 mls @ 0 mls/hr IV .Q0M PRN; As Directed PRN Reason: Hypoglycemia Insulin Glargine 20 units/ (Miscellaneous Medication) 0.2 mls @ 0 mls/hr SC [facility] Last Admin: 12/15/17 21:37 Dose: 0.2 mls Insulin Glargine 25 units/ (Miscellaneous Medication) 0.25 mls @ 0 mls/hr SC [facility] Last Admin: 12/15/17 08:44 Dose: 0.25 mls Sodium Chloride (Normal Saline 0.9%) 500 mls @ 50 mls/hr IV .Q10H [facility] Stop: 12/16/17 04:44 Last Admin: 12/15/17 21:26 Dose: 500 mls Insulin Human Lispro (Humalog) 0 units SC .BEDTIME SLIDING SC PRN PRN Reason: Bedtime Correctional Scale Last Admin: 12/14/17 21:17 Dose: 3 unit Insulin Human Lispro (Humalog) 0 units SC .MODERATE SLIDING SC PRN PRN Reason: Moderate Correctional Scale Last Admin: 12/15/17 11:53 Dose: 6 unit Levothyroxine Sodium (Synthroid) 88 mcg PO 0600 [facility] Last Admin: 12/15/17 06:18 Dose: 88 mcg Lisinopril (Zestril) 10 mg PO BID [facility] Last Admin: 12/15/17 21:27 Dose: 10 mg Lorazepam (Ativan) 1 mg SLOW IVP Q6H PRN PRN Reason: Anxiety/Agitation Last Admin: 12/08/17 17:27 Dose: 1 mg Ondansetron HCl (Zofran Odt) 4 mg PO Q6H PRN PRN Reason: Nausea/Vomiting Ondansetron HCl (Zofran) 4 mg IVP Q6H PRN PRN Reason: Nausea/Vomiting Pantoprazole Sodium (Protonix) 40 mg PO BID [facility] Last Admin: 12/15/17 21:27 Dose: 40 mg Polyethylene Glycol (Miralax) 17 gm PO DAILY [facility] Last Admin: 12/15/17 08:45 Dose: 17 gm Senna/Docusate Sodium (Senokot S) 1 tab PO BID [facility] Last Admin: 12/15/17 21:27 Dose: 1 tab Simethicone (Mylicon Chewable) 80 mg PO P[facility]S PRN PRN Reason: Gas Pain Sodium Chloride (Flush - Normal Saline) 10 ml IVF Q12HR [facility] Last Admin: 12/15/17 21:28 Dose: 10 ml Sodium Chloride (Flush - Normal Saline) 10 ml IVF PRN PRN PRN Reason: Saline Flush Sodium Chloride (Sodium Chloride) 2 gm PO TID [facility] Last Admin: 12/15/17 21:27 Dose: 2 gm
[2017-12-16 05:30] LABS: Albumin 3.1 g/dL (3.4-4.8); Anion Gap 8 mmol/L (10-20); BUN (Urea Nitrogen) 16 mg/dL (9.8-20.1); BUN/Creatinine Ratio 20.78; Calc. Creatinine Clearance 53 mL/min (70-130); Calcium 8.3 mg/dL (7.8-10.44); Carbon Dioxide 24 mmol/L (23-31); Chloride 100 mmol/L (98-107); Estimated GFR-MDRD 72; Glucose 87 mg/dL (83-110); Phosphorus 3.6 mg/dL (2.3-4.7); Potassium 4.6 mmol/L (3.5-5.1); Sodium 127 mmol/L (136-145)
[2017-12-16] MEDS: Levothyroxine Sodium 88 MCG TAB PO SCH (05:33)
[2017-12-16] MEDS: Amlodipine 5 MG TAB PO SCH (09:51)
[2017-12-16] MEDS: Sodium Chloride 1 GM TAB PO SCH (09:52)
[2017-12-16] MEDS: Heparin 5,000 UNITS/ML VIAL SC SCH (09:52)
[2017-12-16] MEDS: Doxycycline 100 MG CAP PO SCH (09:52)
[2017-12-16] MEDS: Insulin Glargine 25 UNITS in Pre-Filled Syringe 1 EACH SC SCH (09:52)
[2017-12-16] MEDS: Lisinopril 10 MG TAB PO SCH (09:52)
[2017-12-16] MEDS: cloNIDine 0.2 MG TAB PO SCH (09:52)
[2017-12-16] MEDS: Senokot S 8.6-50 MG TAB PO SCH (09:53)
[2017-12-16] MEDS: Polyethylene Glycol 3350 17 GM Packet PO SCH (09:53)
--- NOTE | 2017-12-16 11:32 | PRG ---
DATE OF SERVICE: 12/16/2017 SUBJECTIVE: A 77-year-old female being seen for hyponatremia. The patient denies any nausea, vomiti ng or chest pain. PHYSICAL EXAMINATION: GENERAL: Patient is awake, alert. VITAL SIGNS: Afebrile, pulse 60, breathing 16, blood pressure 120/58. HEAD/NECK: Normocephalic. Atraumatic. EYES: EOMI. No deformity. EARS: Clear. No ulcers. NOSE: Intact. No lesions. MOUTH: Clear. No discharge. THROAT: Clear. No exudate. LUNGS: Clear. No crackles. CARDIAC: S1, S2. No rub. ABDOMEN: Benign. BS+. GENITALIA/RECTUM: Cho absent. BACK/EXTREMITIES: Edema 0+ Ulcer- NEUROLOGICAL: Alert and motor intact. SKIN: Rash- Bruise- LYMPHATICS: Edema- Ulcer- LABORATORY DATA: Show hemoglobin 9.4, sodium 127. ASSESSMENT AND RECOMMENDATIONS: 1. Hyponatremia, stable. 2. Chronic kidney disease stage 2, stable. 3. Hypertension, stable.
[2017-12-16] MEDS: HumaLOG 300 UNITS/3 ML VIAL SC PRN (13:01)
[2017-12-16 14:45] VITALS: BP 124/60; TEMP 98.9
--- NOTE | 2017-12-16 17:02 | EKG ---
Test Reason : AMS Blood Pressure : / mmHG Vent. Rate : 081 BPM Atrial Rate : 081 BPM P-R Int : 200 ms QRS Dur : 080 ms QT Int : 408 ms P-R-T Axes : 021 023 063 degrees QTc Int : 473 ms Normal sinus rhythm Nonspecific T wave abnormality Prolonged QT Abnormal ECG Confirmed by GRISEL GIRARD, ANTONIO ([id number]), supervising film or videotape editor DANIEL BRAY ([id number]) on 12/16/2017 5:02:43 PM Referred By: Confirmed By:ANTONIO RECINOS MD
--- NOTE | 2017-12-17 11:14 | DIS ---
DATE OF DISCHARGE: 12/16/2017 DISCHARGE DISPOSITION: Home with [facility] Patient was seen and examined on the day of discharge. Denies any new complaints. No chest pain, sh ortness of breath, palpitations. DISCHARGE MEDICATIONS: 1. Doxycycline 100 mg twice a day for 1 week. 2. Lisinopril 10 mg twice a day. 3. Protonix 40 mg daily. 4. Sodium chloride tablet 2 grams 3 times daily for next 3-4 days. All other home medications were resumed. Base met in 2 days is recommended. Primary care physician to follow. BRIEF HOSPITAL COURSE: Patient is 77-year-old female with recurrent hyponatremia, diabetes mellitus type 2, peripheral vascular disease, status post bilateral lower extremity amputation presented to [facility] with confusion. Please refer to the history and physical dated 12/08/2017 for further det ails. The patient was admitted to the hospital with a diagnosis of hypotonic hyponatremia. Sodium on admis tommy was 111/114. Patient was seen by nephrology, Dr. Magdaleno. Serum osmolarity on admission was 241 w ith urine osmolarity of 253, and urine sodium of 76. Cortisol level was 18.6. TSH was normal. She was started on fluid restriction with minimal response. Later on, she was started on conivaptan. He r sodium has stabilized around 126, 127. Demeclocycline was recommended by Nephrology. However, dem eclocycline was not available in the hospital formulary. Patient will be discharged home on salt tab lets. She will follow up with Nephrology as outpatient. Patient had persistent swallowing difficulty, for which she was evaluated by Speech Therapy. There w as no swallowing difficulty noted at the upper level. She was seen by GI. She underwent EGD on the 12/12/2017 that showed distal esophageal ulceration with esophagitis grade 4 with multiple gastric po lyps ulcer in the duodenal bulb and distal esophageal ring. Protonix was recommended. Biopsy was ne gative for H. pylori. She will follow up with Gastroenterology as outpatient. Her mentation is back to normal. Plan of care was discussed with the patient and the family. They will follow up with [facility] PCP next week. FINAL DIAGNOSES: 1. Metabolic encephalopathy secondary to hyponatremia, improved. 2. Swallowing difficulty secondary to grade 4 esophagitis. 3. Hypertension. 4. Diabetes mellitus, type 2. 5. Superficial thrombophlebitis versus cellulitis of the right upper extremity. Patient was started on doxycycline. 6. Recent left femur fracture. 7. Peripheral vascular disease. 8. Hypertension. 9. Hypothyroidism. 10. Tobacco dependence. DIAGNOSTIC TESTS: CT of the chest, abdomen, and pelvis with contrast for malignancy workup was negat be. CT scan of the brain on admission was negative. Total time coordinating the discharge of this patient was 37 minutes.
--- NOTE | 2017-12-18 13:17 | PQF ---
TATE FELICIANO MALIK MD [id number] [facility] [id number] [id number] CLINICAL DOCUMENTATION CLARIFICATION FORM: POST DISCHARGE Addendum to original discharge summary date: 12/17/2017 DATE: 12/18/2017 ATTN: Dr. Garcia Please exercise your independent, professional judgment in responding to the clarification form. Clinical indicators are provided on the bottom of this form for your review Please check appropriate box(s): [ ] Hyponatremia please specify etiology, if known [ x ] Hyponatremia due to SIADH (Syndrome of Inappropriate Secretion of Antidiuretic Hormone) [ ] Other diagnosis (please specify) [ ] Unable to determine In addition, please specify: Present on Admission (POA): [ x ] Yes [ ] No [ ] Unable to determine CLINICAL INDICATORS - SIGNS / SYMPTOMS / LABS (per H&P) Initial sodium 114. Repeat 111. Altered mental status/acute metabolic encephalopathy. . RISK FACTORS (per H&P) Poor po intake. Dehydration Diabetes Mellitus type 2 with hyperglycemia. TREATMENTS: (per H&P) IV fluids Series of electrolyte labs (This form is maintained as a part of the permanent medical record) 2014 [employer] All Rights Reserved Denisha [email or web address] [phone] MTDShannon
== END 2017-12-16 15:15 | disposition home or self-care (01) | DRG 643 ==
LOC: ERS 22:14 → 2SE 12-08 00:56 → 2NO 12-13 00:49
PROVIDERS: ADMIT Internal Medicine; ATTEND Internal Medicine
PROC: 0DB38ZX Excision of Lower Esophagus, Via Natural or Artificial Opening Endoscopic, Diagnostic (ICD-10-PCS; principal; 2017-12-12)
PROC: 0DB68ZX Excision of Stomach, Via Natural or Artificial Opening Endoscopic, Diagnostic (ICD-10-PCS; 2017-12-12)
DX: E22.2 Syndrome of inappropriate secretion of antidiuretic hormone (principal); G93.41 Metabolic encephalopathy; K22.10 Ulcer of esophagus without bleeding; L03.113 Cellulitis of right upper limb; E78.5 Hyperlipidemia, unspecified; E03.9 Hypothyroidism, unspecified; F17.210 Nicotine dependence, cigarettes, uncomplicated; K31.7 Polyp of stomach and duodenum; K26.9 Duodenal ulcer, unspecified as acute or chronic, without hemorrhage or perforation; I12.9 Hypertensive chronic kidney disease with stage 1 through stage 4 chronic kidney disease, or unspecified chronic kidney disease; E11.22 Type 2 diabetes mellitus with diabetic chronic kidney disease; N18.2 Chronic kidney disease, stage 2 (mild); E87.5 Hyperkalemia; E83.39 Other disorders of phosphorus metabolism; I80.9 Phlebitis and thrombophlebitis of unspecified site; Z79.4 Long term (current) use of insulin; Z79.899 Other long term (current) drug therapy; Z89.512 Acquired absence of left leg below knee; Z89.611 Acquired absence of right leg above knee
CPT/HCPCS: 36415; 36416; 51701; 70450; 71045; 71260; 74177; 80048; 80053; 80069; 81003; 81015; 82533; 82553; 83735; 83930; 83935; 84100; 84300; 84443; 84484; 85007; 85025; 85027; 88305; 88312; 88313; 90471; 90670; 93005; 99406; A4216; C9113; G0009; G8996-GN-CI; G8997-GN-CI; J0360; J0696; J1200; J1644; J1815; J2001; J2060; J2270; J2550; J2704; J7050; J7131; Q0162

== ENCOUNTER 2018-04-12 21:39 | Emergency (ER) | payer MEDICARE ==
--- NOTE | 2018-04-12 22:35 | RAD ---
TWO VIEWS OF THE LEFT KNEE 04/12/18 COMPARISON: 12/05/17 HISTORY: Fall from wheelchair with bruising on the right side of the head. FINDINGS: Two views of the right knee shows a stable fracture of the distal aspect of the femoral metaphysis. T here is a small amount of surrounding callus suggesting healing. Surrounding soft tissue swelling is seen. Vascular stents are seen in the left leg. IMPRESSION: Healing fracture of the distal femur. POS: [facility]
--- NOTE | 2018-04-12 23:35 | CT ---
CT OF THE BRAIN WITHOUT CONTRAST: 04/12/18 COMPARISON: 12/08/17. HISTORY: Fall from a wheelchair ramp with bruising on the right side of the head. TECHNIQUE: Multiple contiguous axial images were obtained in a CT of the brain without contrast. FINDINGS: There is scattered hypodensities in the subcortical and periventricular white matter, likely secondar y to small vessel ischemic disease. No large confluent infarction is seen. There is no evidence of hy drocephalus, intracranial hemorrhage or extra-axial fluid collection. The calvarium is unremarkable. There is soft tissue swelling in the right periorbital region. IMPRESSION: No evidence of acute intracranial abnormality. POS: [facility]
--- NOTE | 2018-04-12 23:38 | CT ---
CT OF THE FACE WITHOUT CONTRAST: 04/12/18 COMPARISON: None. HISTORY: Fell out of a wheelchair and hit right side of head with right facial swelling. TECHNIQUE: Multiple contiguous axial images were obtained in a CT of the face without contrast. Sagittal and cor onal reformats were performed. FINDINGS: There is moderate right periorbital soft tissue swelling. The globes and retrobulbar soft tissues are unremarkable. No facial fractures are identified. The visualized paranasal sinuses and mastoid air cells are well a erated. IMPRESSION: No evidence of facial fracture. POS: [facility]
--- NOTE | 2018-04-12 23:42 | CT ---
CT OF THE CERVICAL SPINE WITHOUT CONTRAST: 04/12/18 COMPARISON: 07/30/14. HISTORY: Patient fell out of a wheelchair and hit her face. Neck pain. TECHNIQUE: Multiple contiguous axial images were obtained in a CT of the cervical spine without contrast. Sagitt al and coronal reformats were performed. FINDINGS: The vertebral bodies demonstrate normal height and alignment without fracture or subluxation. Mild de generative changes are seen. No prevertebral soft tissue swelling is present. The posterior facets are well aligned. Normal alignment of the skull base with the cervical spine is seen. IMPRESSION: No evidence of acute osseous abnormality of the cervical spine. POS: [facility]
== END 2018-04-13 00:18 | disposition home or self-care (01) ==
LOC: ERS 21:39
DX: S00.83XA Contusion of other part of head, initial encounter (principal); M25.562 Pain in left knee; E11.9 Type 2 diabetes mellitus without complications; Z79.4 Long term (current) use of insulin; E78.5 Hyperlipidemia, unspecified; E03.9 Hypothyroidism, unspecified; F17.210 Nicotine dependence, cigarettes, uncomplicated; Z79.899 Other long term (current) drug therapy; W05.0XXA Fall from non-moving wheelchair, initial encounter; W10.2XXA Fall (on)(from) incline, initial encounter
CPT/HCPCS: 70450; 70486; 72125

== ENCOUNTER 2019-08-02 06:04 | Inpatient (IN) | payer MEDICARE ==
[2019-08-02 06:38] LABS: #Lymphocytes 1.9 thou/uL (1.20-3.40); #Monocytes 0.8 thou/uL (0.11-0.59); #Neutrophils 15.3 thou/uL (1.40-6.50); %Basophils 0.3 % (0.0-1.0); %Eosinophils 0.1 % (0.0-10.0); %Lymphocytes 10.4 % (21.0-51.0); %Monocytes 4.2 % (0.0-10.0); %Neutrophils 85.1 % (42.0-75.0); Hemoglobin 14.7 g/dL (12.0-16.0); Mean Corpuscular HGB CONC 34.2 g/dL (32.0-36.0); Mean Corpuscular Hemoglobin 28.8 pg (27.0-31.0); Mean Corpuscular Volume 84.4 fL (78.0-98.0); Mean Platelet Volume 7.1 fL (7.4-10.4); Platelet Count 423 thou/uL (130-400); White Blood Cell (WBC) Count 17.9 thou/uL (4.8-10.8)
[2019-08-02] MEDS ORDERED: Ondansetron PF 4 MG/2 ML Vial ONE (06:40)
[2019-08-02 07:01] LABS: ALT (SGPT) 12 U/L (8-55); AST (SGOT) 18 U/L (5-34); Albumin 4.6 g/dL (3.4-4.8); Alkaline Phosphatase 99 U/L (40-110); Anion Gap 16 mmol/L (10-20); BUN (Urea Nitrogen) 5 mg/dL (9.8-20.1); Calc. Creatinine Clearance 0 mL/min (70-130); Calcium 9.1 mg/dL (7.8-10.44); Carbon Dioxide 25 mmol/L (23-31); Chloride 78 mmol/L (98-107); Estimated GFR-MDRD 83; Globulin 3.4 g/dL (2.4-3.5); Glucose 170 mg/dL (83-110); Lipase 7 U/L (8-78); Potassium 3.2 mmol/L (3.5-5.1)
[2019-08-02 07:04] LABS: Sodium 116 mmol/L (136-145)
--- NOTE | 2019-08-02 08:37 | RAD ---
CHEST ONE VIEW: INDICATIONS: History of altered mental status. COMPARISON: Prior exam dated 12/10/2017. FINDINGS: There is stable mild cardiomegaly and chronic osseous changes. No acute air space opacity, pleural ef fusion or pneumothorax is evident. Chronic osseous changes are stable appearing. IMPRESSION: No acute abnormality. POS: [facility]
[2019-08-02 09:06] LABS: Bacteria/HPF None Seen HPF (None Seen); Bilirubin Negative (Negative); Blood, Urine 1+ (Negative); Clarity Clear (Clear); Glucose, Urine (Dipstick) 200 mg/dL (Negative); Leukocyte Negative Leu/uL (Negative); Nitrite Negative (Negative); Protein, Urine (Dipstick) Greater than 600 mg/dL (Neg-Trace); RBC/HPF 21-50 HPF (0-3); Squamous Epithelial None Seen HPF (0-3); Urobilinogen Normal mg/dL (Less than 2); WBC/HPF 0-3 HPF (0-3)
[2019-08-02] MEDS ORDERED: Dextrose 5% in Water 1,000 ML IV PRN (10:31)
[2019-08-02] MEDS ORDERED: Dextrose 50% Abboject 50 ML SYRINGE SLOW IVP PRN (10:31)
[2019-08-02] MEDS ORDERED: Acetaminophen 325 MG TAB PO PRN (10:31)
[2019-08-02] MEDS ORDERED: Sodium Chloride 0.9% 1,000 ML IV SCH (11:00)
[2019-08-02] MEDS ORDERED: Potassium Chloride 20 MEQ TAB PO SCH ×2 (11:00→15:00)
--- NOTE | 2019-08-02 11:35 | HP ---
PRIMARY CARE PROVIDER: Dr. Mackay. CHIEF COMPLAINT: Altered mental status. HISTORY OF PRESENT ILLNESS: Ms. Manzano is a pleasant 79-year-old lady who was seen at [facility] on August 02, 2019. The patient is unable to provide any significant history. Collateral history was obtained from her son by the bedside, review of medical records and discussion with emergency room physician. She was hospitalized at this facility in November 2017 for acute metabolic encephalopathy, severe hyponatremia, and leukocytosis with neutrophilia. According to her son, she was doing relatively well until a couple of days ago. She has on and off episodes of confusion, which her son attributes to . Over the last 2-1/2 days, the patient has not been eating food. She has been drinking a lot of free water. Today morning, she urinated on herself. The patient's son denies that she had any seizure. He noticed that the patient's face and extremities were erythematous. He, therefore, brought her to the emergency room. REVIEW OF SYSTEMS: Could not be completed because of the patient's cognitive status. PAST MEDICAL HISTORY: Recurrent hyponatremia, diabetes mellitus type 2, dyslipidemia, peripheral vascular disease, hypertension, hypothyroidism, tobacco use, esophagitis, distal esophageal ring, multiple gastric polyps, and duodenal bulb ulcer. PAST SURGICAL HISTORY: Status post bladder suspension, status post right above-knee amputation, and status post left below-knee amputation. FAMILY HISTORY: No family history of premature coronary artery disease. SOCIAL HISTORY: The patient smokes cigarettes occasionally. She has alcohol occasionally. No history of recreational drug use. ALLERGIES: NO KNOWN DRUG ALLERGIES. CURRENT MEDICATIONS: 1. Amlodipine 5 mg daily. 2. Gabapentin 300 mg at bedtime. 3. Lantus insulin 40 units in the morning. 4. Lisinopril 20 mg two times a day. 5. Metformin 1000 mg daily. 6. Lenore 5/325 mg as needed. 7. Synthroid 125 mcg daily. 8. Clonidine 0.1 mg three times a day. 9. Humalog insulin by sliding scale. 10. Glimepiride 1 mg daily. 11. Zocor 10 mg daily. PHYSICAL EXAMINATION: GENERAL: On examination, Ms. Manzano is awake, alert, not in acute distress. VITAL SIGNS: Blood pressure is 198/69, pulse 95, respiratory rate 20, and oxygen saturation 96% on room air. She is afebrile. EYES: No scleral icterus. No conjunctival pallor. ENT: Moist mucosal membranes. No oropharyngeal erythema or exudates. NECK: Supple and nontender. Trachea is midline. RESPIRATORY: Accessory muscles of breathing are not active. Chest wall movements are symmetric bilaterally. Lungs are clear to auscultation without wheeze, rhonchi, or crepitations. CARDIOVASCULAR: S1 and S2 are heard, regular. No pericardial rub. ABDOMEN: Soft and nontender. Bowel sounds heard. NEUROLOGIC: Cranial nerves 2 through 12 are intact. MUSCULOSKELETAL: Status post right above-knee amputation and left below-knee amputation. SKIN: No rashes. LYMPHATIC: No cervical lymphadenopathy. PSYCHIATRIC: Normal mood and normal affect. The patient is oriented to person only, not to place or time. LABORATORY DATA: Ms. Manzano's labs and investigations were reviewed. I reviewed her electrocardiogram, which shows normal sinus rhythm, no ST changes to suggest an acute coronary syndrome. I also reviewed her chest x-ray, which does not show any pulmonary infiltrates. She has elevated white count of 17,900, of which 85% are neutrophils. Hemoglobin is normal. Platelet count is elevated at 423,000. It was 508,000 on December 14, 2017. Sodium is decreased at 116, potassium is decreased at 3.2, creatinine is normal at 0.68, LFTs are unremarkable. Serum osmolality is decreased at 248. Lactic acid is normal at 1.1. Urinalysis is negative for nitrite and leukocyte esterase. Urine osmolality is 353 milliosmoles per kg. ASSESSMENT AND PLAN: Ms. Manzano is a pleasant 79-year-old lady, who was seen at [facility] on August 02, 2019. Her problem list includes: 1. Hyponatremia: Ms. Manzano is presenting with hyponatremia in the context of excessive free fluid intake. She will be admitted to the hospital for further management. Nephrology Service has been consulted. We will await opinion. 2. Leukocytosis: Etiology is unclear. There is no evidence of infection in the urine or on chest x-ray. We will recheck a CBC. If the patient spikes fever, we will start empiric antibiotics. 3. Diabetes mellitus, type 2: We will start the patient on Accu-Cheks and insulin sliding scale. 4. Hypothyroidism: Continue Synthroid. Check TSH. 5. Hypertension: Resume home medications. 6. Dyslipidemia: Continue statin. Many thanks for allowing me to participate in your patient's care. Please feel free to contact me with any questions or concerns. LEVEL OF RISK: High. LEVEL OF COMPLEXITY: High. Job ID: [id number]
[2019-08-02] MEDS ORDERED: HumaLOG 300 UNITS/3 ML VIAL ONE (12:56)
[2019-08-02] MEDS ORDERED: Potassium Chloride 20 MEQ TAB ONE ×2 (12:58→15:24)
[2019-08-02] MEDS: HumaLOG 300 UNITS/3 ML VIAL SC PRN (13:04)
[2019-08-02] MEDS ORDERED: hydrALAZINE 20 MG/ML VIAL ONE (14:27)
[2019-08-02] MEDS: hydrALAZINE 20 MG/ML VIAL SLOW IVP PRN ×2 (14:31→23:49)
[2019-08-02 14:42] LABS: Anion Gap 17 mmol/L (10-20); Carbon Dioxide 21 mmol/L (23-31); Chloride 80 mmol/L (98-107); Potassium 3.4 mmol/L (3.5-5.1)
[2019-08-02 14:45] LABS: Sodium 115 mmol/L (136-145)
[2019-08-02] MEDS ORDERED: Sodium Chloride 3% 100 ML IVPB SCH ×2 (15:00→20:00)
[2019-08-02] MEDS ORDERED: Labetalol HCl 100 MG/20 ML VIAL SLOW IVP PRN (15:14)
--- NOTE | 2019-08-02 17:36 | CON ---
DATE OF CONSULTATION: 08/02/2019 CONSULTING PHYSICIAN: Freddie Lebron MD REASON FOR CONSULTATION: Hyponatremia. REASON FOR ADMISSION: Altered mentation. HISTORY OF PRESENT ILLNESS: This is an 79-year-old female with history of hyponatremia, hypertension, hyperlipidemia, type 2 diabetes, peripheral vascular disease, came to the hospital with altered mentation and was found to have hyponatremia. The patient was not eating very well, she was just drinking water per the family and her son. No chest pain palpitation. No fever or chills. No skin rashes. PAST MEDICAL HISTORY: Positive for hyponatremia, type 2 diabetes, hyperlipidemia, peripheral vascular disease, hypertension, hypothyroidism, and tobacco use. PAST SURGICAL HISTORY: Bladder suspension, right above-knee amputation. FAMILY HISTORY: No history of kidney disease. SOCIAL HISTORY: No smoking, alcohol, or illicit drug use. ALLERGIES: NO KNOWN DRUG ALLERGIES. HOME MEDICATIONS: Reviewed. REVIEW OF SYSTEMS: CONSTITUTIONAL: Negative for weight loss or gain, ability to conduct usual activities. SKIN: Negative for rash, itching. EYES: Negative for double vision, pain. ENT/MOUTH: Negative for nose bleeding, neck stiffness, pain, tenderness. CARDIOVASCULAR: Negative for palpitations, dyspnea on exertion, orthopnea. RESPIRATORY: Negative for shortness of breath, wheezing, cough, hemoptysis, fever or night sweats. GASTROINTESTINAL: Negative for poor appetite, abdominal pain, heartburn, nausea, vomiting, constipation, or diarrhea. GENITOURINARY: Negative for urgency, frequency, dysuria, nocturia. MUSCULOSKELETAL: Negative for pain, swelling. NEUROLOGIC/PSYCHIATRIC: Negative for anxiety, depression. ALLERGY/IMMUNOLOGIC: Negative for skin rash, bleeding tendency. PHYSICAL EXAMINATION: GENERAL: This is an elderly female, in no apparent distress. VITAL SIGNS: Temperature 98.2, pulse 78, respiratory rate 18, blood pressure 134/84. HEENT: Atraumatic and normocephalic. Oral mucosa is moist. NECK: Supple. CV: S1 and S2. Rate and rhythm regular. RESPIRATORY: Clear. GASTROINTESTINAL: Abdomen is soft. MUSCULOSKELETAL: 1+ edema. DERMATOLOGIC: No skin rash. NEUROLOGIC: Awake and alert. PSYCHIATRIC: Mood and affect are normal. LABORATORY DATA: Hemoglobin is 14.7. Sodium is 116, potassium 3.2, bicarb 25, and creatinine 0.6. ASSESSMENT AND PLAN: 1. Hyponatremia. Sodium dropped with NS. Plan is to stop NS and start hypertonic saline 100 mL for over 3 hours and recheck the sodium. 2. Edema, controlled. 3. History of hypertension. 4. Leukocytosis. 5. Hypokalemia, replace potassium. Plan is to monitor sodium closely. Avoid nephrotoxins and we will follow. Job ID: [id number]
[2019-08-02 19:12] LABS: Anion Gap 17 mmol/L (10-20); Carbon Dioxide 18 mmol/L (23-31); Chloride 87 mmol/L (98-107); Potassium 4.2 mmol/L (3.5-5.1)
[2019-08-02 19:15] LABS: Sodium 118 mmol/L (136-145)
[2019-08-02] MEDS: cloNIDine 0.2 MG TAB PO SCH (20:27)
[2019-08-02] MEDS: Gabapentin 300 MG CAP PO PRN (20:28)
[2019-08-02] MEDS: Atorvastatin Calcium 10 MG TAB PO SCH (20:28)
[2019-08-02] MEDS: Lisinopril 10 MG TAB PO SCH (20:28)
[2019-08-02 22:52] VITALS: BMI 56.5
[2019-08-03] MEDS ORDERED: Ondansetron PF 4 MG/2 ML Vial IVP PRN (01:49)
[2019-08-03] MEDS: cloNIDine 0.2 MG TAB PO SCH ×4 (03:05→20:37)
[2019-08-03 04:42] LABS: #Lymphocytes 1.2 thou/uL (1.20-3.40); #Monocytes 0.9 thou/uL (0.11-0.59); #Neutrophils 17.7 thou/uL (1.40-6.50); %Basophils 0.1 % (0.0-1.0); %Eosinophils 0.1 % (0.0-10.0); %Lymphocytes 6.3 % (21.0-51.0); %Monocytes 4.3 % (0.0-10.0); %Neutrophils 89.3 % (42.0-75.0); Hemoglobin 14.2 g/dL (12.0-16.0); Mean Corpuscular HGB CONC 34.5 g/dL (32.0-36.0); Mean Corpuscular Hemoglobin 29.3 pg (27.0-31.0); Mean Platelet Volume 7.3 fL (7.4-10.4); Platelet Count 439 thou/uL (130-400); RBC Distribution Width 12.2 % (11.5-14.5); Red Blood Cell (RBC) Count 4.84 mill/uL (4.20-5.40); White Blood Cell (WBC) Count 19.8 thou/uL (4.8-10.8)
[2019-08-03 05:15] LABS: Calcium 8.8 mg/dL (7.8-10.44); Chloride 91 mmol/L (98-107); Potassium 3.9 mmol/L (3.5-5.1)
[2019-08-03 05:16] LABS: Glucose 262 mg/dL (83-110)
[2019-08-03 05:17] LABS: Anion Gap 20 mmol/L (10-20); Carbon Dioxide 12 mmol/L (23-31)
[2019-08-03 05:19] LABS: Calc. Creatinine Clearance 66 mL/min (70-130); Estimated GFR-MDRD 83; Sodium 119 mmol/L (136-145)
[2019-08-03 05:20] LABS: BUN (Urea Nitrogen) 10 mg/dL (9.8-20.1)
[2019-08-03] MEDS ORDERED: HYDROcodone/Acetaminophen 5/325 mg Tablet PO PRN (07:23)
[2019-08-03] MEDS ORDERED: Cepastat Lozenges 1 LOZ PO PRN (07:24)
[2019-08-03] MEDS ORDERED: Loratadine 10 MG TAB PO PRN (07:24)
[2019-08-03] MEDS ORDERED: Ondansetron ODT 4 MG TAB PO PRN (07:24)
[2019-08-03] MEDS ORDERED: Zolpidem Tartrate 5 MG TAB PO PRN (07:24)
[2019-08-03] MEDS ORDERED: Sodium Chloride 0.65% Nasal 44 ML BOT EA NARE PRN (07:24)
[2019-08-03] MEDS ORDERED: Bisacodyl 10 MG SUPP PR PRN (07:24)
[2019-08-03] MEDS ORDERED: Loperamide HCl 2 MG CAP PO PRN (07:24)
[2019-08-03] MEDS ORDERED: Senokot S 8.6-50 MG TAB PO PRN (07:24)
[2019-08-03] MEDS ORDERED: Diabetic Tussin 200 MG/10 ML UDCUP PO PRN (07:24)
[2019-08-03] MEDS ORDERED: Tolvaptan 15 MG TAB PO SCH (08:08)
[2019-08-03] MEDS: Amlodipine 10 MG TAB PO SCH (09:23)
[2019-08-03] MEDS: Insulin Glargine 40 UNITS in Pre-Filled Syringe 1 EACH SC SCH (09:23)
[2019-08-03] MEDS: metFORMIN 500 MG TAB PO SCH (09:23)
[2019-08-03] MEDS: Lisinopril 10 MG TAB PO SCH ×2 (09:23→20:39)
[2019-08-03] MEDS: Enoxaparin Sodium 40 MG/0.4 ML SYRINGE SC SCH (09:24)
--- NOTE | 2019-08-03 10:10 | PDOC.HOSPP ---
- Subjective Encounter Date: 08/03/19 Encounter Time: 08:00 Subjective: pt has vomiting, no improvement in sodium - Objective Vital Signs & Weight: Vital Signs (12 hours) Temp Pulse Resp BP BP Pulse Ox 08/03/19 09:23 83 197/78 H 08/03/19 07:19 96 08/03/19 07:13 98.3 F 83 20 185/74 H 96 08/03/19 04:23 98.2 F 67 16 199/80 H 97 08/03/19 03:06 197/78 H 08/03/19 03:05 197/78 H 08/02/19 23:59 83 163/72 H 08/02/19 23:54 213/91 H 08/02/19 23:49 93 213/96 H Weight Weight 142 lb I&O: 08/02/19 08/03/19 08/04/19 06:59 06:59 06:59 Intake Total 460 Output Total 150 Balance 310 Result Diagrams: 08/03/19 04:27 08/03/19 04:27 Additional Labs: Accuchecks 08/03/19 08/02/19 08/02/19 05:56 20:50 11:58 POC Glucose 251 H 226 H 260 H EKG Reviewed by me: Yes Hospitalist ROS - Review of Systems Eyes: denies: pain, vision change, conjunctivae inflammation, eyelid inflammation, redness, other ENT: denies: ear pain, ear discharge, nose pain, nose discharge, nose congestion , mouth pain, mouth swelling, throat pain, throat swelling, other Respiratory: denies: cough, dry, shortness of breath, hemoptysis, SOB with excertion, pleuritic pain, sputum, wheezing, other Cardiovascular: denies: chest pain, palpitations, orthopnea, paroxysmal noc. dyspnea, edema, light headedness, other Gastrointestinal: reports: nausea, vomiting. denies: abdominal pain, diarrhea, constipation, melena, hematochezia, other Genitourinary: denies: dysuria, frequency, incontinence, hematuria, retention, other Musculoskeletal: denies: neck pain, shoulder pain, arm pain, back pain, hand pain, leg pain, foot pain, other - Medication Medications: Active Medications Generic Name Dose Route Start Last Admin Trade Name Freq PRN Reason Stop Dose Admin Amlodipine Besylate 10 mg 08/03/19 09:00 08/03/19 09:23 Norvasc PO 10 mg DAILY SAUL Administration Atorvastatin Calcium 10 mg 08/02/19 21:00 08/02/19 20:28 Lipitor PO 10 mg HS SAUL Administration Clonidine 0.2 mg 08/02/19 21:00 08/03/19 03:06 Catapres PO Not Given TID SAUL Enoxaparin Sodium 40 mg 08/03/19 09:00 08/03/19 09:24 Lovenox SC 40 mg 0900 SAUL Administration Gabapentin 300 mg 08/02/19 15:03 08/02/19 20:28 Neurontin PO 300 mg HSPRN PRN Administration pain Hydralazine HCl 10 mg 08/02/19 10:38 08/02/19 23:49 Apresoline SLOW IVP 10 mg Q6H PRN Administration SBP Greater Than 170 Insulin Glargine 40 units/ 0.4 mls @ 0 mls/hr 08/03/19 09:00 08/03/19 09:23 Miscellaneous Medication SC 0.4 mls QAM SAUL Administration Insulin Human Lispro 0 units 08/02/19 10:34 08/02/19 13:04 Humalog SC 4 unit .MILD SLIDING SCALE PRN Administration Mild Correctional Scale Labetalol HCl 10 mg 08/02/19 15:14 08/02/19 20:57 Normodyne SLOW IVP 10 mg Q8H PRN Administration SBP Greater Than 180 Lisinopril 10 mg 08/02/19 21:00 08/03/19 09:23 Zestril PO 10 mg BID SAUL Administration Metformin HCl 1,000 mg 08/03/19 08:00 08/03/19 09:23 Glucophage PO 1,000 mg QAM-WM SAUL Administration Ondansetron HCl 4 mg 08/03/19 01:49 08/03/19 02:06 Zofran IVP 4 mg Q6H PRN Administration Nausea/Vomiting Pantoprazole Sodium 40 mg 08/03/19 09:00 08/03/19 09:23 Protonix PO 40 mg DAILY SAUL Administration - Exam General Appearance: NAD, awake alert Eye: PERRL, anicteric sclera ENT: normocephalic atraumatic, no oropharyngeal lesions Neck: supple, symmetric, no JVD Heart: RRR, no murmur, no gallops Respiratory: CTAB, no wheezes, no rales Gastrointestinal: soft, non-tender, non-distended Extremities - other findings: bilateral LE amputee Skin: normal turgor, no lesions Neurological: no focal deficits Musculoskeletal: normal tone, normal strength Psychiatric: normal affect, normal behavior Hosp A/P (1) Leucocytosis Code(s): D72.829 - ELEVATED WHITE BLOOD CELL COUNT, UNSPECIFIED Status: Acute (2) Hyponatremia Code(s): E87.1 - HYPO-OSMOLALITY AND HYPONATREMIA Status: Acute (3) Nausea and vomiting Code(s): R11.2 - NAUSEA WITH VOMITING, UNSPECIFIED Status: Acute (4) DM2 (diabetes mellitus, type 2) Status: Chronic (5) HTN (hypertension) Code(s): I10 - ESSENTIAL (PRIMARY) HYPERTENSION Status: Chronic (6) PVD (peripheral vascular disease) Code(s): I73.9 - PERIPHERAL VASCULAR DISEASE, UNSPECIFIED Status: Chronic - Plan old records reviewed/req tolveptan given today, nephrology following, medication reviewed and continue to provide symptomatic treatment and supportive care discussed with son, monitor sodium
[2019-08-03] MEDS: Levothyroxine Sodium 88 MCG TAB PO SCH (11:55)
[2019-08-03] MEDS: Glimepiride 2 MG TAB PO SCH (11:55)
[2019-08-03] MEDS: HumaLOG 300 UNITS/3 ML VIAL SC PRN ×2 (11:58→17:39)
--- NOTE | 2019-08-03 15:04 | PRG ---
DATE OF SERVICE: 08/03/2019 SUBJECTIVE: Patient was seen and examined at bedside and overnight events noted. Patient denies any shortness of breath or chest pain or palpitation. No history of nausea or vomiting or diarrhea or fever or chills or cramps. OBJECTIVE: GENERAL: This is an obese female, in no acute distress. VITAL SIGNS: Temperature 98.3. Heart rate 83. Respiratory rate Blood pressure 197/78. HEENT: Atraumatic, normocephalic. Oral mucosa is moist NECK: Supple. CARDIOVASCULAR: S1, S2 heard. Rate and rhythm regular. RESPIRATORY: Clear to auscultation. GASTROINTESTINAL: Abdomen is soft. MUSCULOSKELETAL: No tenderness. No edema. DERMATOLOGIC: No skin rash. NEUROLOGIC: Alert and awake and oriented X3. No focal neurologic deficits. Moving all the extremities. PSYCHIATRIC: Mood and affect normal. LABORATORY DATA: Sodium 119, creatinine is 0.6. ASSESSMENT AND PLAN: 1. Hyponatremia, not much better. Plan is to give tolvaptan. Urine studies . 2. Edema, controlled. 3. History of hypertension. 4. Leukocytosis. 5. Hypokalemia, replace potassium. Plan is to give tolvaptan and monitor sodium closely. Job ID: [id number]
[2019-08-03] MEDS: Sodium Chloride 1 GM TAB PO SCH ×2 (16:54→20:40)
[2019-08-03 18:44] LABS: Potassium 3.4 mmol/L (3.5-5.1)
[2019-08-03] MEDS ORDERED: Potassium Chloride 20 MEQ TAB PO SCH (19:15)
[2019-08-03] MEDS: Atorvastatin Calcium 10 MG TAB PO SCH (20:40)
[2019-08-04 07:11] LABS: #Lymphocytes 2.1 thou/uL (1.20-3.40); #Monocytes 2.1 thou/uL (0.11-0.59); #Neutrophils 15.1 thou/uL (1.40-6.50); %Basophils 0.1 % (0.0-1.0); %Eosinophils 0.1 % (0.0-10.0); %Lymphocytes 10.7 % (21.0-51.0); %Monocytes 10.8 % (0.0-10.0); %Neutrophils 78.5 % (42.0-75.0); Hemoglobin 14.9 g/dL (12.0-16.0); Mean Corpuscular HGB CONC 33.5 g/dL (32.0-36.0); Mean Corpuscular Hemoglobin 28.8 pg (27.0-31.0); Mean Corpuscular Volume 86.1 fL (78.0-98.0); Mean Platelet Volume 7.2 fL (7.4-10.4); Platelet Count 472 thou/uL (130-400); RBC Distribution Width 12.7 % (11.5-14.5); Red Blood Cell (RBC) Count 5.16 mill/uL (4.20-5.40); White Blood Cell (WBC) Count 19.2 thou/uL (4.8-10.8)
[2019-08-04 07:19] LABS: ALT (SGPT) 13 U/L (8-55); AST (SGOT) 17 U/L (5-34); Albumin 4.1 g/dL (3.4-4.8); Alkaline Phosphatase 89 U/L (40-110); Anion Gap 14 mmol/L (10-20); BUN (Urea Nitrogen) 14 mg/dL (9.8-20.1); Bilirubin, Total 0.7 mg/dL (0.2-1.2); Calc. Creatinine Clearance 58 mL/min (70-130); Calcium 9.6 mg/dL (7.8-10.44); Carbon Dioxide 22 mmol/L (23-31); Chloride 99 mmol/L (98-107); Estimated GFR-MDRD 72; Globulin 3.2 g/dL (2.4-3.5); Glucose 110 mg/dL (83-110); Magnesium 2.1 mg/dL (1.6-2.6); Potassium 3.9 mmol/L (3.5-5.1); Protein, Total 7.3 g/dL (6.0-8.3); Sodium 131 mmol/L (136-145)
[2019-08-04] MEDS: Sodium Chloride 1 GM TAB PO SCH ×3 (08:35→20:32)
[2019-08-04] MEDS: Enoxaparin Sodium 40 MG/0.4 ML SYRINGE SC SCH (08:35)
[2019-08-04] MEDS: cloNIDine 0.2 MG TAB PO SCH ×3 (08:35→20:31)
[2019-08-04] MEDS: Insulin Glargine 40 UNITS in Pre-Filled Syringe 1 EACH SC SCH (08:35)
[2019-08-04] MEDS: Lisinopril 10 MG TAB PO SCH ×2 (08:35→20:31)
[2019-08-04] MEDS: cefTRIAXone\\ROCEPHIN 1 GM in Sodium Chloride 0.9% 100 ML IVPB SCH (08:36)
[2019-08-04] MEDS: metFORMIN 500 MG TAB PO SCH (08:36)
[2019-08-04] MEDS: Amlodipine 10 MG TAB PO SCH (08:36)
--- NOTE | 2019-08-04 09:58 | RAD ---
XR Pelvis AP STANDARD HISTORY: Left hip pain FINDINGS: No fracture or dislocation is identified. There is a 2.2 cm right-sided bladder calculus.
--- NOTE | 2019-08-04 11:30 | PDOC.HOSPP ---
- Subjective Encounter Date: 08/04/19 Encounter Time: 07:45 Subjective: pt has left side hip and back pain, no fever, Patient seen and examined. No overnight events - Objective Vital Signs & Weight: Vital Signs (12 hours) Temp Pulse Resp BP BP BP BP 08/04/19 08:36 81 08/04/19 08:35 184/79 H 08/04/19 08:30 97.8 F 81 20 211/82 H 08/04/19 03:08 99 F 81 16 158/67 H 08/03/19 23:32 141/65 H Pulse Ox 08/04/19 08:36 08/04/19 08:35 08/04/19 08:30 96 08/04/19 03:08 94 L 08/03/19 23:32 Weight Admit Weight 142 lb Weight 141 lb I&O: 08/03/19 08/04/19 08/05/19 06:59 06:59 06:59 Intake Total 460 480 Output Total 150 800 Balance 310 -320 Result Diagrams: 08/04/19 06:56 08/04/19 06:56 Additional Labs: Accuchecks 08/04/19 08/03/19 08/03/19 05:50 20:05 17:03 POC Glucose 103 213 H 247 H 08/03/19 10:58 POC Glucose 369 H EKG Reviewed by me: Yes Hospitalist ROS - Review of Systems Constitutional: denies: fever, chills, sweats, weakness, malaise, other Eyes: denies: pain, vision change, conjunctivae inflammation, eyelid inflammation, redness, other ENT: denies: ear pain, ear discharge, nose pain, nose discharge, nose congestion , mouth pain, mouth swelling, throat pain, throat swelling, other Respiratory: denies: cough, dry, shortness of breath, hemoptysis, SOB with excertion, pleuritic pain, sputum, wheezing, other Cardiovascular: denies: chest pain, palpitations, orthopnea, paroxysmal noc. dyspnea, edema, light headedness, other Gastrointestinal: denies: nausea, vomiting, abdominal pain, diarrhea, constipation, melena, hematochezia, other Genitourinary: denies: dysuria, frequency, incontinence, hematuria, retention, other - Medication Medications: Active Medications Generic Name Dose Route Start Last Admin Trade Name Freq PRN Reason Stop Dose Admin Amlodipine Besylate 10 mg 08/03/19 09:00 08/04/19 08:36 Norvasc PO 10 mg DAILY SAUL Administration Atorvastatin Calcium 10 mg 08/02/19 21:00 08/03/19 20:40 Lipitor PO 10 mg HS SAUL Administration Clonidine 0.2 mg 08/02/19 21:00 08/04/19 08:35 Catapres PO 0.2 mg TID SAUL Administration Enoxaparin Sodium 40 mg 08/03/19 09:00 08/04/19 08:35 Lovenox SC 40 mg 0900 SAUL Administration Gabapentin 300 mg 08/02/19 15:03 08/02/19 20:28 Neurontin PO 300 mg HSPRN PRN Administration pain Glimepiride 2 mg 08/03/19 11:00 08/03/19 11:55 Amaryl PO 2 mg 1100 SAUL Administration Hydralazine HCl 10 mg 08/02/19 10:38 08/02/19 23:49 Apresoline SLOW IVP 10 mg Q6H PRN Administration SBP Greater Than 170 Insulin Glargine 40 units/ 0.4 mls @ 0 mls/hr 08/03/19 09:00 08/04/19 08:35 Miscellaneous Medication SC 0.4 mls QAM SAUL Administration Ceftriaxone Sodium 1 gm/ 100 mls @ 200 mls/hr 08/04/19 08:00 08/04/19 08:36 Sodium Chloride IVPB 100 mls Q24HR SAUL Administration Insulin Human Lispro 0 units 08/02/19 10:34 08/03/19 17:39 Humalog SC 3 unit .MILD SLIDING SCALE PRN Administration Mild Correctional Scale Labetalol HCl 10 mg 08/02/19 15:14 08/02/19 20:57 Normodyne SLOW IVP 10 mg Q8H PRN Administration SBP Greater Than 180 Levothyroxine Sodium 88 mcg 08/03/19 11:00 08/03/19 11:55 Synthroid PO 88 mcg 1100 SAUL Administration Lisinopril 10 mg 08/02/19 21:00 08/04/19 08:35 Zestril PO 10 mg BID SAUL Administration Metformin HCl 1,000 mg 08/03/19 08:00 08/04/19 08:36 Glucophage PO 1,000 mg QAM-WM ASUL Administration Ondansetron HCl 4 mg 08/03/19 01:49 08/03/19 02:06 Zofran IVP 4 mg Q6H PRN Administration Nausea/Vomiting Pantoprazole Sodium 40 mg 08/03/19 09:00 08/04/19 08:35 Protonix PO 40 mg DAILY SAUL Administration Sodium Chloride 2 gm 08/03/19 15:00 08/04/19 08:35 Sodium Chloride PO 2 gm TID SAUL Administration - Exam General Appearance: NAD, awake alert Eye: PERRL, anicteric sclera ENT: normocephalic atraumatic, no oropharyngeal lesions Neck: supple, symmetric, no JVD Heart: RRR, no murmur, no gallops, no rubs Respiratory: CTAB, no wheezes, no rales Gastrointestinal: soft, non-tender, non-distended, normal bowel sounds Extremities - other findings: bilateral amputee Skin: normal turgor, no lesions Neurological: no focal deficits Musculoskeletal: normal tone, normal strength Psychiatric: normal affect, normal behavior Hosp A/P (1) Leucocytosis Code(s): D72.829 - ELEVATED WHITE BLOOD CELL COUNT, UNSPECIFIED Status: Acute (2) Hyponatremia Code(s): E87.1 - HYPO-OSMOLALITY AND HYPONATREMIA Status: Acute (3) Nausea and vomiting Code(s): R11.2 - NAUSEA WITH VOMITING, UNSPECIFIED Status: Acute (4) DM2 (diabetes mellitus, type 2) Status: Chronic (5) HTN (hypertension) Code(s): I10 - ESSENTIAL (PRIMARY) HYPERTENSION Status: Chronic (6) PVD (peripheral vascular disease) Code(s): I73.9 - PERIPHERAL VASCULAR DISEASE, UNSPECIFIED Status: Chronic - Plan old records reviewed/req, plan discussed w/ family, continue antibiotics tolveptan given today, nephrology following, medication reviewed and continue to provide symptomatic treatment and supportive care discussed with son, monitor sodium 08/04/19, xray pelvis is OK, her sodium has improvement, wbc remains high but cause is not found, will monitor one day and start empiric rocephin, discussed with son
[2019-08-04] MEDS: Gabapentin 300 MG CAP PO PRN (11:39)
[2019-08-04] MEDS: Glimepiride 2 MG TAB PO SCH (11:39)
[2019-08-04] MEDS: Levothyroxine Sodium 88 MCG TAB PO SCH (11:39)
--- NOTE | 2019-08-04 16:28 | PRG ---
DATE OF SERVICE: 08/04/2019 SUBJECTIVE: Patient was seen and examined at bedside and overnight events noted. Patient denies any shortness of breath or chest pain or palpitation. No history of nausea or vomiting or diarrhea or fever or chills or cramps. OBJECTIVE: GENERAL: This is a well-built female, in no apparent distress. VITAL SIGNS: Temperature 98.0. Heart rate 74. Respiratory rate 18. Blood pressure 153/70. HEENT: Atraumatic, normocephalic. Oral mucosa is moist. NECK: Supple. CARDIOVASCULAR: S1, S2 heard. Rate and rhythm regular. RESPIRATORY: Clear to auscultation. GASTROINTESTINAL: Abdomen is soft. MUSCULOSKELETAL: No tenderness. No edema. DERMATOLOGIC: No skin rash. NEUROLOGIC: Alert and awake and oriented x3. No focal neurologic deficits. Moving all the extremities. PSYCHIATRIC: Mood and affect normal. LABORATORY DATA: Sodium 131, potassium is 3.9, BUN is 14, and creatinine 0.7. ASSESSMENT AND PLAN: 1. Hyponatremia, better. Limit fluid intake. 2. Edema, controlled. 3. History of hypertension. 4. Leukocytosis. 5. Hypokalemia, replaced. Sodium level is better. We will continue to monitor. Job ID: [id number]
[2019-08-04] MEDS: Atorvastatin Calcium 10 MG TAB PO SCH (20:31)
[2019-08-05 05:01] LABS: Anion Gap 11 mmol/L (10-20); BUN (Urea Nitrogen) 15 mg/dL (9.8-20.1); Calc. Creatinine Clearance 64 mL/min (70-130); Carbon Dioxide 24 mmol/L (23-31); Chloride 104 mmol/L (98-107); Estimated GFR-MDRD 80; Potassium 3.7 mmol/L (3.5-5.1); Sodium 135 mmol/L (136-145)
[2019-08-05 05:07] LABS: Glucose 46 mg/dL (83-110)
[2019-08-05] MEDS: hydrALAZINE 20 MG/ML VIAL SLOW IVP PRN (08:14)
[2019-08-05] MEDS: metFORMIN 500 MG TAB PO SCH (09:19)
[2019-08-05] MEDS: Amlodipine 10 MG TAB PO SCH (09:21)
[2019-08-05] MEDS: Sodium Chloride 1 GM TAB PO SCH (09:21)
[2019-08-05] MEDS: cloNIDine 0.2 MG TAB PO SCH (09:21)
[2019-08-05] MEDS: Lisinopril 10 MG TAB PO SCH (09:22)
[2019-08-05] MEDS: Enoxaparin Sodium 40 MG/0.4 ML SYRINGE SC SCH (09:22)
[2019-08-05] MEDS: cefTRIAXone\\ROCEPHIN 1 GM in Sodium Chloride 0.9% 100 ML IVPB SCH (09:24)
[2019-08-05] MEDS: Insulin Glargine 40 UNITS in Pre-Filled Syringe 1 EACH SC SCH (09:25)
--- NOTE | 2019-08-05 10:48 | DIS ---
DATE OF ADMISSION: 08/02/2019 DATE OF DISCHARGE: 08/05/2019 PRIMARY CARE PHYSICIAN: [facility] DISCHARGE DISPOSITION: Home. PRIMARY DISCHARGE DIAGNOSES: 1. Symptomatic hyponatremia, improved. 2. Leukocytosis, unclear etiology. 3. Nausea and vomiting, resolved. SECONDARY DISCHARGE DIAGNOSES: Peripheral vascular disease with bilateral lower extremity amputee, hypertension, diabetes type 2, PRIMARY PROCEDURE/OPERATION: None. RADIOLOGIST INVESTIGATION: Chest x-ray normal. Pelvis x-ray unremarkable. SIGNIFICANT LABORATORY DATA: WBC 19.2, hemoglobin 14.9, platelet 472. BMP; sodium 135, potassium 3.7, BUN 15, creatinine 0.70, calcium 9.0, and glucose 169. Urinalysis unremarkable. Blood culture negative. DISCHARGE MEDICATIONS: 1. [place] 5 one tablet q.4 hourly p.r.n. 2. Amlodipine 10 mg daily. 3. Clonidine 0.2 mg p.o. t.i.d. 4. Neurontin 300 mg p.o. at bedtime. 5. Amaryl 2 mg p.o. daily. 6. Humalog insulin as per sliding scale. 7. Lantus 45 units subcu daily. 8. Synthroid 88 mcg daily. 9. Metformin 1000 mg p.o. daily. 10. Zocor 20 mg p.o. at bedtime. 11. Lisinopril 10 mg b.i.d. 12. Protonix 40 mg p.o. daily. 13. Sodium chloride 1 g p.o. t.i.d. as directed. 14. Omnicef 300 mg p.o. b.i.d. for 5 days. CONTRAINDICATION: None. CODE STATUS: Full code. INPATIENT IMPRESSION PRINTER: Dr. Partida was following while in hospital. TEST RESULT PENDING ON DISCHARGE: None. ALLERGIES: NO KNOWN DRUG ALLERGY. DISCHARGE PLAN: Posthospital, the patient will follow up with primary care physician in 1 week. The patient is instructed to follow up with Nephrology for monitoring of sodium. HOSPITAL COURSE: An 79-year-old female with above-mentioned medical problem, who was admitted by Dr. Rogers. Please see his H and P for further details. The patient was having nausea and vomiting, and she was found with altered mental status that was related with symptomatic hyponatremia. Her sodium was 119 on admission and she was treated with hypertonic saline. The patient's sodium did not improve and that is why the patient was treated with tolvaptan therapy, with that the patient's sodium significantly improved. The patient had elevated WBC count, but unclear etiology. Her chest x-ray was normal and her urinalysis unremarkable and she did not have any fever while in hospital. We treated her with Rocephin while in hospital and on discharge, we empirically continued to finish course of therapy with Omnicef for 5 more days. Her cultures are negative. The patient's blood pressure was fluctuating while in hospital as well as blood sugar. Based on her p.o. intake and medication timing, but that was not any problem for the patient. The patient's son is taking care of her very well and he does not have any new request and he is okay to let her go home with current medication. The patient is seen and examined at bedside today. The patient's nausea and vomiting completely resolved. She is asymptomatic. PHYSICAL EXAMINATION: VITAL SIGNS: Currently, temperature 98.0, pulse 75, respiratory rate 16, saturation 97% on room air, and blood pressure 149/67. Weight 140 pounds. GENERAL: The patient is currently alert and awake. No acute distress. HEENT: Head; normocephalic and atraumatic. Eyes; pupils round and reactive to light. Extraocular muscle intact. ENT; oropharynx within normal limits. Moist mucous membranes. No oral lesion. No pharyngeal erythema. No exudate. NECK: Supple. No JVD. No thyromegaly. No carotid bruit. LUNGS: Clear to auscultation without any rhonchi or rales. CARDIAC: S1 and S2, regular. No murmur. No gallop. No rub. ABDOMEN: Soft, bowel sounds present, nontender, and nondistended. No organomegaly. No mass. EXTREMITIES: Bilateral amputee noted. NEUROLOGIC: Nonfocal examination. The patient is overall medically stable for discharge. All new medication prescription is sent to pharmacy and plan of care discussed with the patient and son including fluid, water restriction, as well as salt tablet. Job ID: [id number] [facility]
[2019-08-05] MEDS: Glimepiride 2 MG TAB PO SCH (11:11)
[2019-08-05] MEDS: Levothyroxine Sodium 88 MCG TAB PO SCH (11:11)
[2019-08-05 11:29] LABS: Hemoglobin 13.1 g/dL (12.0-16.0); Mean Corpuscular Volume 88.2 fL (78.0-98.0); Mean Platelet Volume 7.2 fL (7.4-10.4); Platelet Count 405 thou/uL (130-400); RBC Distribution Width 12.9 % (11.5-14.5); Red Blood Cell (RBC) Count 4.36 mill/uL (4.20-5.40); White Blood Cell (WBC) Count 20.5 thou/uL (4.8-10.8)
[2019-08-05 12:06] VITALS: BP 123/60; TEMP 98.6
[2019-08-05] MEDS: HumaLOG 300 UNITS/3 ML VIAL SC PRN (12:08)
[2019-08-05 12:36] LABS: Band 6 % (5-11); Lymphocytes 7 % (21-51); MDiff Complete? YES; Monocytes 13 % (0-10); Neutrophil 74 % (42-75); RBC Morphology Normal
--- NOTE | 2019-08-05 13:31 | PQF ---
TATE FELICIANO SALIM NOORJIBHAI MD [id number] [address] [place] [address] [id number] CLINICAL DOCUMENTATION IMPROVEMENT CLARIFICATION FORM: ICD-10 Updated PLEASE DO AN ADDENDUM TO THE PROGRESS NOTE WITH ANY DOCUMENTATION UPDATES OR ADDITIONS AND CARRY THROUGH TO DC SUMMARY. THANK YOU. DATE: 08/05/19 ATTN: Dr. Slater Please exercise your independent, professional judgment in responding to the clarification form. Clinical indicators are provided on the bottom of this form for your review Please check appropriate box(s): [ x] Encephalopathy: Type: [ x] Acute [ ] Subacute [ ] Chronic Etiology: [ x ] Metabolic [ ] Unspecified [ ] in the setting of underlying dementia [ ] Other (please specify) [ ] Transient Alteration of Awareness [ ] Other diagnosis [ ] Unable to determine In addition, please specify: Present on Admission (POA): [ x ] Yes [ ] No [ ] Unable to determine For continuity of documentation, please document condition throughout progress notes and discharge summary. Thank You. CLINICAL INDICATORS - SIGNS / SYMPTOMS / LABS / RESULTS AND LOCATION IN EMR Altered mental status / confusion--> 1/3 H&P(Ken): "Altered mental status"; "the patient is oriented to person only" 1/ Na116--->1/ Na 119-125--> 1/ Na 131--> 1/6 Na 135 per lab RISK FACTORS / RESULTS AND LOCATION IN EMR Electrolyte imbalance--> "Hyponatremia" per 1/3 H&P(Ken) TREATMENTS / RESULTS AND LOCATION IN EMR IV fluids-->NS 500ml bolus x1 08/02 then 3% sodium chloride at 33 ml/hr 1/3 per orders 08/03-1/6 sodium chloride 2gm PO per orders 1 Tolvaptan 15mg po per orders (This form is maintained as a part of the permanent medical record) 2014 [employer]. All Rights Reserved Angie Allred, RN, BSN, CCDS [email or web address]
--- NOTE | 2019-08-05 17:03 | PRG ---
DATE OF SERVICE: 08/05/2019 SUBJECTIVE: Patient was seen and examined at bedside and overnight events noted. Patient denies any shortness of breath or chest pain or palpitation. No history of nausea or vomiting or diarrhea or fever or chills or cramps. OBJECTIVE: GENERAL: This is a well-built female, in no apparent distress. VITAL SIGNS: Temperature 98.6. Heart rate 82. Respiratory rate 15. Blood pressure 123/60. HEENT: Atraumatic, normocephalic. Oral mucosa is moist NECK: Supple. CARDIOVASCULAR: S1, S2 heard. Rate and rhythm regular. RESPIRATORY: Clear to auscultation. GASTROINTESTINAL: Abdomen is soft. MUSCULOSKELETAL: No tenderness. No edema. DERMATOLOGIC: No skin rash. NEUROLOGIC: Alert and awake and oriented X3. No focal neurologic deficits. Moving all the extremities. PSYCHIATRIC: Mood and affect normal. LABORATORY DATA: Potassium 3.7, BUN is 15, creatinine is 0.7, sodium is 135. ASSESSMENT AND PLAN: 1. Hyponatremia, much better and stable, appropriately corrected within 48 hours. 2. Edema, controlled. 3. Hypertension. 4. Leukocytosis. 5. Hypokalemia, stable. Sodium is stable. Follow up with the clinic in 1 to 2 weeks. Job ID: [id number]
== END 2019-08-05 14:26 | disposition home or self-care (01) | DRG 640 ==
LOC: ERS 06:04 → ERHOLD 09:22 → 2NO 19:52
PROVIDERS: ADMIT Internal Medicine; ATTEND Internal Medicine
DX: E87.1 Hypo-osmolality and hyponatremia (principal); G93.41 Metabolic encephalopathy; E87.6 Hypokalemia; I10 Essential (primary) hypertension; E11.9 Type 2 diabetes mellitus without complications; E78.5 Hyperlipidemia, unspecified; E03.9 Hypothyroidism, unspecified; F17.210 Nicotine dependence, cigarettes, uncomplicated; D72.829 Elevated white blood cell count, unspecified; Z89.612 Acquired absence of left leg above knee; Z89.611 Acquired absence of right leg above knee
CPT/HCPCS: 36415; 36416; 71045; 72170; 80048; 80053; 81003; 81015; 83605; 83690; 83735; 83930; 83935; 84300; 84443; 85025; 87040; 93005; 94760; A4353; J0360; J0696; J1650; J1815; J2405; J3490; J7131

== ENCOUNTER 2020-08-27 15:56 | Inpatient (IN) | payer MEDICARE ==
[2020-08-27 16:39] LABS: #Basophils 0.1 thou/uL (0.0-0.2); #Lymphocytes 1.9 thou/uL (1.20-3.40); #Monocytes 0.8 thou/uL (0.11-0.59); #Neutrophils 14.4 thou/uL (1.40-6.50); %Basophils 0.3 % (0.0-1.0); %Eosinophils 0.2 % (0.0-10.0); %Monocytes 4.4 % (0.0-10.0); %Neutrophils 84.1 % (42.0-75.0); Hemoglobin 15.3 g/dL (12.0-16.0); Mean Corpuscular HGB CONC 33.6 g/dL (32.0-36.0); Mean Corpuscular Hemoglobin 28.6 pg (27.0-31.0); Mean Corpuscular Volume 85.1 fL (78.0-98.0); Mean Platelet Volume 6.5 fL (7.4-10.4); Platelet Count 507 thou/uL (130-400); RBC Distribution Width 12.4 % (11.5-14.5); Red Blood Cell (RBC) Count 5.36 mill/uL (4.20-5.40); White Blood Cell (WBC) Count 17.1 thou/uL (4.8-10.8)
[2020-08-27 16:59] LABS: ALT (SGPT) 9 U/L (8-55); AST (SGOT) 15 U/L (5-34); Albumin 4.3 g/dL (3.4-4.8); Alkaline Phosphatase 99 U/L (40-110); Anion Gap 18 mmol/L (10-20); BUN (Urea Nitrogen) 10 mg/dL (9.8-20.1); Bilirubin, Total 0.9 mg/dL (0.2-1.2); Calc. Creatinine Clearance 0 mL/min (70-130); Calcium 9.1 mg/dL (7.8-10.44); Carbon Dioxide 15 mmol/L (23-31); Chloride 87 mmol/L (98-107); Globulin 3.7 g/dL (2.4-3.5); Glucose 327 mg/dL (83-110); Potassium 5.2 mmol/L (3.5-5.1)
[2020-08-27 17:03] LABS: Sodium 115 mmol/L (136-145)
[2020-08-27 17:55] LABS: Bilirubin Negative (Negative); Blood, Urine 1+ (Negative); Clarity Clear (Clear); Glucose, Urine (Dipstick) Greater than 1000 mg/dL (Negative); Ketone, Urine 10 mg/dL (Negative); Leukocyte 250 Leu/uL (Negative); Nitrite Negative (Negative); Protein, Urine (Dipstick) 70 mg/dL (Neg-Trace); RBC/HPF 0-3 HPF (0-3); Specific Gravity, Urine 1.011 (1.002-1.036); Squamous Epithelial 0-3 HPF (0-3); Urobilinogen Normal mg/dL (Less than 2); WBC/HPF 21-50 HPF (0-3)
--- NOTE | 2020-08-27 18:02 | RAD ---
RADIOGRAPH CHEST 1 VIEW: 08/27/20 HISTORY: 80-year-old female with altered mental status. Concern for aspiration. FINDINGS: There are no air space densities, pulmonary edema, pneumothorax, or cardiomegaly. The lateral costop hrenic angles are sharp. IMPRESSION: No acute cardiopulmonary findings. jn [] POS: JIN
[2020-08-27 18:12] LABS: Bacteria/HPF 1+ HPF (None Seen)
[2020-08-27] MEDS ORDERED: Cefepime 2 GM VIAL ONE (18:16)
[2020-08-27 18:18] LABS: Creatinine, Urine 21.12 mg/dL (47-110)
[2020-08-27] MEDS ORDERED: Ondansetron ODT 4 MG TAB PO PRN (18:25)
[2020-08-27] MEDS ORDERED: Ondansetron PF 4 MG/2 ML Vial IVP PRN (18:25)
--- NOTE | 2020-08-27 18:35 | PDOC.HHP ---
Hospitalist HPI Altered mental status History of Present Illness: This patient is an 80 yo female with bilateral BKA's and a history of recurrent hyponatremia. Her son reports this has typically been related to a UTI. He noticed that she has not been acting normally for a few days. She has not been drinking her morning coffee, not been eating much. She does tend to drink a lot of water. He has been trying to give her electrolyte containing drinks. She has taken a little of that. Today she took two hours to complete her shower because she was altered. He recognized that this was probably the sodium issue again, so he brought her to the ED. He reports that he has been trying to ensure she takes a shower every couple of days, although she doesn't like to. He says he was told by a physician that keeping her out of her WC and bathed would help reduce the risks of UTI's. Allergies/Adverse Reactions: Allergy/AdvReac Type Severity Reaction Status Date / Time No Known Allergies Allergy Verified 06/11/17 22:56 Home Medications: Medication Instructions Recorded Confirmed Type Amlodipine Besylate [amLODIPine 10 mg PO DAILY 12/19/13 08/02/19 History Besylate] Gabapentin [Neurontin] 300 mg PO HS 12/19/13 08/02/19 History Insulin Glargine [Lantus Vial] 45 units SC DAILY 12/19/13 08/02/19 History Simvastatin [Zocor] 20 mg PO HS 12/19/13 08/02/19 History HYDROcodone Bit/APAP 5/325 [[place]] 1 tab PO Q4HR PRN 07/30/14 08/02/19 History HumaLOG [HumaLOG Vial] 0 units SC TID-WM PRN 07/30/14 08/03/19 History metFORMIN HCl 1,000 mg PO DAILY 07/30/14 08/02/19 History Clonidine HCl 0.2 mg PO TID 06/11/17 08/02/19 History Glimepiride [Amaryl] 2 mg PO 1700 12/08/17 08/02/19 History Levothyroxine Sodium 88 mcg PO 1700 12/08/17 08/02/19 History Lisinopril [Zestril] 10 mg PO BID #60 tab 12/16/17 08/02/19 Rx Pantoprazole [Protonix] 40 mg PO DAILY #30 tab 12/16/17 08/02/19 Rx Sodium Chloride 2 gm PO TID #20 tab 12/16/17 08/02/19 Rx Cefdinir [Omnicef] 300 mg PO Q12HR #10 cap 08/05/19 Rx Past History: PMHx: Recurrent hyponatremia, DM type 2, HLD, PVD, HTN, Hypothyroidism, Duodenal bulb ulcer, distal esophageal ring PSHx: Bladder suspension, right AKA, left BKA FHx: Noncontributory Social: Patient smokes cigarettes but 1 pack will last for about 4 months. Rare alcohol. No drugs. Her son is her primary caregiver. Hospitalist HPI ROS ROS unobtainable: due to mental status Hospitalist Exam General Appearance: NAD General - other findings: Somnolent Heart: RRR, no murmur, no gallops, no rubs, normal peripheral pulses Respiratory: CTAB, no wheezes, no rales, no ronchi, normal chest expansion, no tachypnea, normal percussion Gastrointestinal: soft, non-tender, non-distended, normal bowel sounds, no palpable masses, no hepatomegaly, no splenomegaly, no bruit Extremities: no cyanosis, no clubbing, no edema Skin: normal turgor Neurological: no focal deficits Musculoskeletal: generalized weakness Psychiatric: somnolent, lethargic Hospitalist Results Result Diagrams: 08/27/20 16:31 08/27/20 16:31 Lab results: Laboratory Last Values WBC 17.1 thou/uL (4.8-10.8) H 08/27/20 16: RBC 5.36 mill/uL (4.20-5.40) 08/27/20 16:31 Hgb 15.3 g/dL (12.0-16.0) 08/27/20 16: Hct 45.7 % (36.0-47.0) 08/27/20 16: MCV 85.1 fL (78.0-98.0) 08/27/20 16: MCH 28.6 pg (27.0-31.0) 08/27/20 16: MCHC 33.6 g/dL (32.0-36.0) 08/27/20 16: RDW 12.4 % (11.5-14.5) 08/27/20 16:31 Plt Count 507 thou/uL (130-400) H 08/27/20 16:31 MPV 6.5 fL (7.4-10.4) L 08/27/20 16:31 Neutrophils % 84.1 % (42.0-75.0) H 08/27/20 16:31 Lymphocytes % 11.0 % (21.0-51.0) L 08/27/20 16:31 Monocytes % 4.4 % (0.0-10.0) 08/27/20 16:31 Eosinophils % 0.2 % (0.0-10.0) 08/27/20 16: Basophils % 0.3 % (0.0-1.0) 08/27/20 16: Neutrophils # 14.4 thou/uL (1.40-6.50) H 08/27/20 16:31 Lymphocytes # 1.9 thou/uL (1.20-3.40) 08/27/20 16:31 Monocytes # 0.8 thou/uL (0.11-0.59) H 08/27/20 16:31 Eosinophils # 0.0 thou/uL (0.0-0.7) 08/27/20 16:31 Basophils # 0.1 thou/uL (0.0-0.2) 08/27/20 16:31 Sodium 115 mmol/L (136-145) L* 08/27/20 16:31 Potassium 5.2 mmol/L (3.5-5.1) H 08/27/20 16:31 Chloride 87 mmol/L (98-107) L 08/27/20 16:31 Carbon Dioxide 15 mmol/L (23-31) L 08/27/20 16:31 Anion Gap 18 mmol/L (10-20) 08/27/20 16:31 BUN 10 mg/dL (9.8-20.1) 08/27/20 16:31 Creatinine 0.69 mg/dL (0.6-1.1) 08/27/20 16:31 Estimated GFR (MDRD) 81 08/27/20 16:31 Glucose 327 mg/dL (83-110) H 08/27/20 16:31 Lactic Acid 2.1 mmol/L (0.5-2.2) 08/27/20 17:21 Calcium 9.1 mg/dL (7.8-10.44) 08/27/20 16:31 Total Bilirubin 0.9 mg/dL (0.2-1.2) 08/27/20 16:31 AST 15 U/L (5-34) 08/27/20 16:31 ALT 9 U/L (8-55) 08/27/20 16:31 Alkaline Phosphatase 99 U/L (40-110) 08/27/20 16:31 Creatine Kinase 105 U/L (29-168) 08/27/20 17:21 Troponin I 0.014 ng/mL (< 0.028) 08/27/20 17:21 Serum Total Protein 8.0 g/dL (5.8-8.1) 08/27/20 16:31 Albumin 4.3 g/dL (3.4-4.8) 08/27/20 16:31 Globulin 3.7 g/dL (2.4-3.5) H 08/27/20 16:31 Albumin/Globulin Ratio 1.2 g/dL (1.2-2.2) 08/27/20 16:31 Urine Color Light-Yellow (Yellow) 08/27/20 17:41 Urine Clarity Clear (Clear) 08/27/20 17:41 Urine pH 7.0 (5.0-9.0) 08/27/20 17:41 Ur Specific [place] 1.011 (1.002-1.036) 08/27/20 17:41 Urine Protein 70 mg/dL (Neg-Trace) A 08/27/20 17:41 Urine Glucose (UA) Greater than 1000 mg/dL (Negative) A 08/27/20 17:41 Urine Ketones 10 mg/dL (Negative) A 08/27/20 17:41 Urine Blood 1+ (Negative) A 08/27/20 17:41 Urine Nitrite Negative (Negative) 08/27/20 17: Urine Bilirubin Negative (Negative) 08/27/20 17:41 Urine Urobilinogen Normal mg/dL (Less than 2) 08/27/20 17:41 Ur Leukocyte Esterase 250 Ly/uL (Negative) A 08/27/20 17:41 Urine RBC 0-3 HPF (0-3) 08/27/20 17:41 Urine WBC 21-50 HPF (0-3) A 08/27/20 17:41 Ur Squamous Epith Cells 0-3 HPF (0-3) 08/27/20 17:41 Urine Bacteria 1+ HPF (None Seen) A 08/27/20 17:41 Urine Osmolality 323 mOsm/kg (300-900) 08/27/20 17:41 Urine Creatinine 21.12 mg/dL (47-110) L 08/27/20 17:41 Urine Sodium 46 mmol/L (Not Available) 08/27/20 17:41 Hospitalist H&P A/P (1) Hyponatremia Code(s): E87.1 - HYPO-OSMOLALITY AND HYPONATREMIA Status: Acute (2) Leucocytosis Code(s): D72.829 - ELEVATED WHITE BLOOD CELL COUNT, UNSPECIFIED Status: Acute (3) Metabolic encephalopathy Code(s): G93.41 - METABOLIC ENCEPHALOPATHY Status: Acute (4) DM2 (diabetes mellitus, type 2) Status: Chronic (5) HTN (hypertension) Code(s): I10 - ESSENTIAL (PRIMARY) HYPERTENSION Status: Chronic (6) PVD (peripheral vascular disease) Code(s): I73.9 - PERIPHERAL VASCULAR DISEASE, UNSPECIFIED Status: Chronic (7) Metabolic acidosis Code(s): E87.2 - ACIDOSIS Status: Acute (8) Metabolic acidosis due to diabetes mellitus Code(s): E11.69 - TYPE 2 DIABETES MELLITUS WITH OTHER SPECIFIED COMPLICATION; E87.2 - ACIDOSIS Status: Acute Plan: Hyponatremia: Fairly severe and symptomatic. Discussed with nephrology. We will initiate hypertonic saline per his direction. Suspect the patient is not having much of the p.o. protein intake and has a fair amount of water intake. Likely exacerbated by some hyperglycemia. Defer to nephrology. Leukocytosis: Possibility of urinary tract infection does exist. Looking back at her previous cultures she is not really grown much in her urine or blood cultures to suggest true infections. We will cover with Rocephin until we are able to get final culture results. Diabetes mellitus: Appears to have significant hyperglycemia. This could be contributing to her potomania/polydipsia. Sliding scale insulin. Check A1c in the morning. Hypertension: Continue home meds.
[2020-08-27] MEDS ORDERED: VANCOMYCIN 1.25 GM/250 ML BAG 1.25 GM in Premix Bag 1 BAG IVPB SCH (18:45)
--- NOTE | 2020-08-27 19:07 | CT ---
CT BRAIN NONCONTRAST: 08/27/20 HISTORY: 80-year-old female with altered mental status. FINDINGS: There is no midline shift or any other mass effect. There is no evidence of acute intracranial hemor rhage, large cortical infarct, obstructive hydrocephalus, or extraaxial fluid collection. The calvar ium is intact. There is diffuse parenchymal volume loss. There are low attenuation areas in the whi te matter. These are nonspecific, but in a patient of this age, they are probably chronic ischemic w jeri matter changes due to microvascular atherosclerosis. Some of the upper image slices are very deg raded by patient motion. There are multiple tiny old lacunar infarctions in the bilateral ganglia and bilateral thalami. IMPRESSION: 1) No acute intracranial findings. 2) Involutional changes and chronic ischemic white matter changes. 3) Multiple tiny old lacunar infarctions in bilateral basal ganglia and bilateral thalami. kajal lozano POS: JIN
[2020-08-27] MEDS ORDERED: Dextrose 50% Abboject 50 ML SYRINGE SLOW IVP PRN (19:08)
[2020-08-27] MEDS ORDERED: Dextrose 5% in Water 1,000 ML IV PRN (19:08)
[2020-08-27 20:52] LABS: Lactic Acid 2.4 mmol/L (0.5-2.2)
--- NOTE | 2020-08-27 23:37 | CON ---
DATE OF CONSULTATION: This is a nephrology consult. REASON FOR CONSULTATION: Hyponatremia. HISTORY OF PRESENT ILLNESS: This is an 80-year-old female, who presented to the hospital with altered mentation with baseline dementia. Her baseline creatinine was 0.69. The patient does drink excessive amount of fluids in excess of 1.5 L, mostly includes coffee as well as some electrolyte drinks. The patient has a very poor appetite and eats very little protein. Her protein intake is absolutely poor according to the son, who was present during the interview. The patient denies any nausea, vomiting, or chest pain. PAST MEDICAL HISTORY: Significant for dementia, hypertension, hyponatremia, history of diabetes mellitus, peripheral vascular disease, hypothyroidism, history of dialysis . FAMILY HISTORY: Negative for ESRD. ALLERGIES: REVIEWED. HOME MEDICATIONS: List reviewed. HOSPITAL MEDICATIONS: List reviewed. SOCIAL HISTORY: No alcohol or drug use. REVIEW OF SYSTEMS: Unobtainable. PHYSICAL EXAMINATION: VITAL SIGNS: Afebrile, pulse 75, breathing 16, blood pressure 130/75. General: The patient is awake and alert. HEENT: Head normocephalic and atraumatic. Eyes intact, no ulcers. Nose intact, no ulcers. Ears intact, no ulcers. Neck: Supple. No JVD. Chest: Symmetrical and clear. Cardiovascular: Shows S1 and S2, no rub, no murmur. Gastrointestinal: Abdomen is soft, bowel sounds positive. Extremities: Show no edema or ulcers. Skin: Shows no rash or petechiae. Musculoskeletal: Shows no joint swelling or stiffness. Genitourinary: Shows no Cho or CVA tenderness. Neurologic: The patient is resting. LABORATORY DATA: Labs show sodium 115, potassium is 5.2, bicarb 15. ASSESSMENT: 1. Chronic kidney disease, stage 2, stable. 2. 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 We will start hypertonic saline for 2 hours and recheck sodium again. 3. Hyperkalemia with mild metabolic acidosis. I would recommend giving sodium bicarbonate. Please rule out GI causes. No indication for dialysis. Job ID: [id number]
[2020-08-27 23:42] LABS: Anion Gap 12 mmol/L (10-20); BUN (Urea Nitrogen) 10 mg/dL (9.8-20.1); Calc. Creatinine Clearance 0 mL/min (70-130); Calcium 9.2 mg/dL (7.8-10.44); Carbon Dioxide 18 mmol/L (23-31); Chloride 89 mmol/L (98-107); Glucose 195 mg/dL (83-110); Potassium 4.6 mmol/L (3.5-5.1)
[2020-08-27 23:47] LABS: Sodium 114 mmol/L (136-145)
[2020-08-28] MEDS: cefTRIAXone\\ROCEPHIN 1 GM in Sodium Chloride 0.9% 100 ML IVPB SCH ×2 (00:19→20:53)
[2020-08-28] MEDS: Famotidine/PF 20 mg/2ml Vial SLOW IVP SCH ×3 (00:19→22:46)
[2020-08-28] MEDS: ADMIXTURE FEE IVPB SCH ×4 (01:05→09:35)
[2020-08-28] MEDS: SODIUM CHLORIDE 3% IVPB SCH ×4 (01:05→09:35)
[2020-08-28 04:45] LABS: #Basophils 0.1 thou/uL (0.0-0.2); #Lymphocytes 2.4 thou/uL (1.20-3.40); #Neutrophils 13.6 thou/uL (1.40-6.50); %Basophils 0.3 % (0.0-1.0); %Eosinophils 0.3 % (0.0-10.0); %Lymphocytes 14.1 % (21.0-51.0); %Monocytes 5.9 % (0.0-10.0); %Neutrophils 79.4 % (42.0-75.0); Hemoglobin 15.2 g/dL (12.0-16.0); Mean Corpuscular HGB CONC 34.2 g/dL (32.0-36.0); Mean Corpuscular Hemoglobin 29.1 pg (27.0-31.0); Mean Corpuscular Volume 85.2 fL (78.0-98.0); Mean Platelet Volume 6.7 fL (7.4-10.4); Platelet Count 525 thou/uL (130-400); RBC Distribution Width 12.4 % (11.5-14.5); Red Blood Cell (RBC) Count 5.21 mill/uL (4.20-5.40); White Blood Cell (WBC) Count 17.1 thou/uL (4.8-10.8)
[2020-08-28 05:09] LABS: Anion Gap 11 mmol/L (10-20); BUN (Urea Nitrogen) 9 mg/dL (9.8-20.1); Calc. Creatinine Clearance 67 mL/min (70-130); Calcium 9.2 mg/dL (7.8-10.44); Carbon Dioxide 18 mmol/L (23-31); Chloride 92 mmol/L (98-107); Glucose 198 mg/dL (83-110); Potassium 4.3 mmol/L (3.5-5.1)
[2020-08-28] MEDS ORDERED: hydrALAZINE 20 MG/ML VIAL SLOW IVP SCH (05:15)
[2020-08-28 05:17] LABS: Sodium 117 mmol/L (136-145)
[2020-08-28] MEDS: HumaLOG 300 UNITS/3 ML VIAL SC PRN ×2 (06:03→17:49)
[2020-08-28] MEDS: Enoxaparin Sodium 40 MG/0.4 ML SYRINGE SC SCH (09:22)
[2020-08-28] MEDS ORDERED: hydrALAZINE 20 MG/ML VIAL SLOW IVP PRN (09:26)
[2020-08-28 10:08] LABS: Anion Gap 19 mmol/L (10-20); BUN (Urea Nitrogen) 10 mg/dL (9.8-20.1); Calc. Creatinine Clearance 69 mL/min (70-130); Calcium 9.3 mg/dL (7.8-10.44); Carbon Dioxide 17 mmol/L (23-31); Chloride 92 mmol/L (98-107); Glucose 166 mg/dL (83-110); Magnesium 1.8 mg/dL (1.6-2.6); Potassium 4.8 mmol/L (3.5-5.1); Sodium 123 mmol/L (136-145)
--- NOTE | 2020-08-28 10:22 | PRG ---
DATE OF SERVICE: 08/28/2020 SUBJECTIVE: An 80-year-old female being seen for hyponatremia. The patient is much more awake and alert today. Denies any nausea, vomiting, or chest pain. PHYSICAL EXAMINATION: General: The patient is awake and alert. Vital Signs: Afebrile, pulse 90, breathing at 16, blood pressure 187/77. HEENT: Head normocephalic and atraumatic. Eyes intact, no ulcers. Nose intact, no ulcers. Ears intact, no ulcers. Neck: Supple. No JVD. Chest: Symmetrical and clear. Cardiovascular: Shows S1 and S2, no rub, no murmur. Gastrointestinal: Abdomen is soft, bowel sounds positive. Extremities: Show no edema or ulcers. Skin: Shows no rash or petechiae. Musculoskeletal: Shows no joint swelling or stiffness. Genitourinary: Shows no Cho or CVA tenderness. Neurologic: Motor intact. Cranial nerves intact. LABORATORY DATA: Labs show hemoglobin is 15. Sodium is 117, creatinine 0.5. ASSESSMENT: 1. CKD, stage 1, stable. 2. Hyponatremia, improved. Recommend fluid restriction. 3. Hypertension. Titrate home medication. 4. Medication based on GFR appropriate. No indication for dialysis. Job ID: [id number]
--- NOTE | 2020-08-28 12:45 | PDOC.HOSPP ---
- Subjective Encounter Date: 08/28/20 Encounter Time: 12:43 Subjective: patient seen on f/u for hyponatremia and uti, seems to be more awake and alert, is only oriented to person is able to follow simple commmands. son states she is not at her base yet - Objective Vital Signs & Weight: Vital Signs (12 hours) Temp Pulse Resp BP Pulse Ox 08/28/20 12:00 98.7 F 105 H 16 192/76 H 96 08/28/20 10:39 90 08/28/20 08:00 97.3 F L 90 12 209/79 H 99 08/28/20 06:03 97 08/28/20 04:00 98.4 F 97 14 187/77 H 98 Weight Weight 127 lb I&O: 08/27/20 08/28/20 08/29/20 06:59 06:59 06:59 Intake Total 120 Balance 120 Result Diagrams: 08/28/20 04:15 08/28/20 09:41 Additional Labs: Accuchecks 08/28/20 05:54 POC Glucose 191 H Hospitalist ROS - Review of Systems ROS unobtainable: due to mental status - Medication Medications: Active Medications Generic Name Dose Route Start Last Admin Trade Name Freq PRN Reason Stop Dose Admin Enoxaparin Sodium 40 mg 08/28/20 09:00 08/28/20 09:22 Enoxaparin Sodium 40 Mg/0.4 Ml Syringe SC 40 mg 0900 SAUL Administration Famotidine 20 mg 08/27/20 21:00 08/28/20 09:22 Famotidine/Pf 20 Mg/2ml Vial SLOW IVP 20 mg Q12HR SAUL Administration Hydralazine HCl 10 mg 08/28/20 09:26 08/28/20 10:39 Hydralazine 20 Mg/Ml Vial SLOW IVP 10 mg Q4H PRN Administration SBP Greater Than 170 Ceftriaxone Sodium 1 gm/ 100 mls @ 200 mls/hr 08/27/20 20:00 08/28/20 00:19 Sodium Chloride IVPB Not Given Q24HR [facility] Insulin Human Lispro 0 units 08/27/20 19:08 08/28/20 06:03 Humalog 300 Units/3 Ml Vial SC 2 unit .MILD SLIDING SCALE PRN Administration Mild Correctional Scale Ondansetron HCl 4 mg 08/27/20 18:25 08/28/20 10:39 Ondansetron Pf 4 Mg/2 Ml Vial IVP 4 mg Q6H PRN Administration Nausea/Vomiting Hospitalist Exam Vitals: Vital Signs (12 hours) Temp Pulse Resp BP Pulse Ox 08/28/20 12:00 98.7 F 105 H 16 192/76 H 96 08/28/20 10:39 90 08/28/20 08:00 97.3 F L 90 12 209/79 H 99 08/28/20 06:03 97 08/28/20 04:00 98.4 F 97 14 187/77 H 98 Weight Weight 127 lb General Appearance: NAD, awake alert Eye: PERRL, anicteric sclera ENT: normocephalic atraumatic, no oropharyngeal lesions Neck: supple, symmetric, no JVD Heart: RRR, no murmur, no gallops, no rubs Respiratory: CTAB, no wheezes, no rales Gastrointestinal: soft, non-tender, non-distended Extremities: no cyanosis, no clubbing, no edema Skin: normal turgor, no lesions, no rashes Neurological: cranial nerve grossly intact, normal sensation to touch, no weakness Musculoskeletal: normal tone, normal strength, no muscle wasting Psychiatric: normal affect, normal behavior, A&O x 3 Hosp A/P (1) Hyponatremia Code(s): E87.1 - HYPO-OSMOLALITY AND HYPONATREMIA Status: Acute (2) Metabolic acidosis Code(s): E87.2 - ACIDOSIS Status: Acute (3) Leucocytosis Code(s): D72.829 - ELEVATED WHITE BLOOD CELL COUNT, UNSPECIFIED Status: Acute (4) Metabolic encephalopathy Code(s): G93.41 - METABOLIC ENCEPHALOPATHY Status: Acute (5) Nausea and vomiting Code(s): R11.2 - NAUSEA WITH VOMITING, UNSPECIFIED Status: Acute (6) Urinary tract infection Status: Acute (7) DM2 (diabetes mellitus, type 2) Status: Chronic (8) HTN (hypertension) Code(s): I10 - ESSENTIAL (PRIMARY) HYPERTENSION Status: Chronic - Plan Hyponatremia - improved, now on 117 from 114, goal less than 8meq/d - nephrology on case following recommendations - on fluid restrictions - s/p hypertonic administration Leukocytosis - likely secondary to uti - on rocephin - prelim blood cultures negative Diabetes mellitus: - Sliding scale insulin. Hypertension - Continue home meds.
[2020-08-28 14:41] VITALS: BMI 38.7
[2020-08-28] MEDS ORDERED: Labetalol HCl 100 MG/20 ML VIAL IVPB PRN (15:07)
[2020-08-28] MEDS ORDERED: cloNIDine 0.2 MG TAB PO SCH (21:45)
[2020-08-28] MEDS ORDERED: Lisinopril 10 MG TAB PO SCH (21:45)
[2020-08-28] MEDS ORDERED: Famotidine 20 MG TAB PO SCH (22:45)
[2020-08-29 02:37] LABS: SARS-CoV-2 PCR by NAA Not Detected (NotDetected)
[2020-08-29] MEDS: HumaLOG 300 UNITS/3 ML VIAL SC PRN ×3 (06:30→18:06)
[2020-08-29] MEDS ORDERED: Amlodipine 10 MG TAB PO SCH (09:00)
[2020-08-29 09:25] LABS: Anion Gap 10 mmol/L (10-20); BUN (Urea Nitrogen) 9 mg/dL (9.8-20.1); Calc. Creatinine Clearance 64 mL/min (70-130); Calcium 9.4 mg/dL (7.8-10.44); Carbon Dioxide 24 mmol/L (23-31); Chloride 92 mmol/L (98-107); Glucose 152 mg/dL (83-110); Potassium 4.3 mmol/L (3.5-5.1); Sodium 122 mmol/L (136-145)
[2020-08-29] MEDS: Enoxaparin Sodium 40 MG/0.4 ML SYRINGE SC SCH (09:57)
[2020-08-29] MEDS: cloNIDine 0.2 MG TAB PO SCH ×3 (09:57→20:47)
[2020-08-29] MEDS: Lisinopril 10 MG TAB PO SCH ×2 (09:57→20:47)
[2020-08-29] MEDS: Levothyroxine Sodium 88 MCG TAB PO SCH (11:43)
--- NOTE | 2020-08-29 12:40 | PDOC.HOSPP ---
- Subjective Encounter Date: 08/29/20 Encounter Time: 12:39 Subjective: Ms. Manzano was seen today in follow-up of hyponatremia. She is resting. Her son is at the bedside,and says she is doing some better. - Objective Vital Signs & Weight: Vital Signs (12 hours) Temp Pulse Resp BP BP Pulse Ox 08/29/20 09:57 84 178/60 H 08/29/20 03:24 98.8 F 84 19 162/72 H 99 Weight Weight 126 lb I&O: 08/28/20 08/29/20 08/30/20 06:59 06:59 06:59 Intake Total 384.5 Output Total 400 Balance -15.5 Result Diagrams: 08/28/20 04:15 08/29/20 08:50 Additional Labs: Accuchecks 08/29/20 08/29/20 08/28/20 10:46 05:27 21:07 POC Glucose 360 H 188 H 281 H 08/28/20 16:54 POC Glucose 294 H Hospitalist ROS - Medication Medications: Active Medications Generic Name Dose Route Start Last Admin Trade Name Freq PRN Reason Stop Dose Admin Amlodipine Besylate 10 mg 08/29/20 09:00 08/29/20 09:57 Amlodipine 10 Mg Tab PO 10 mg DAILY SAUL Administration Clonidine 0.2 mg 08/29/20 09:00 08/29/20 09:57 Clonidine 0.2 Mg Tab PO 0.2 mg TID SAUL Administration Enoxaparin Sodium 40 mg 08/28/20 09:00 08/29/20 09:57 Enoxaparin Sodium 40 Mg/0.4 Ml Syringe SC 40 mg 0900 SAUL Administration Hydralazine HCl 10 mg 08/28/20 09:26 08/28/20 10:39 Hydralazine 20 Mg/Ml Vial SLOW IVP 10 mg Q4H PRN Administration SBP Greater Than 170 Ceftriaxone Sodium 1 gm/ 100 mls @ 200 mls/hr 08/27/20 20:00 08/28/20 20:53 Sodium Chloride IVPB 100 mls Q24HR SAUL Administration Insulin Human Lispro 0 units 08/27/20 19:08 08/29/20 11:42 Humalog 300 Units/3 Ml Vial SC 6 unit .MILD SLIDING SCALE PRN Administration Mild Correctional Scale Labetalol HCl 20 mg 08/28/20 15:07 08/28/20 16:20 Labetalol Hcl 100 Mg/20 Ml Vial IVPB 20 mg Q4H PRN Administration FOR SBP >170 Levothyroxine Sodium 88 mcg 08/29/20 12:00 08/29/20 11:43 Levothyroxine Sodium 88 Mcg Tab PO 88 mcg 1200 SAUL Administration Lisinopril 10 mg 08/29/20 09:00 08/29/20 09:57 Lisinopril 10 Mg Tab PO 10 mg BID SAUL Administration Ondansetron HCl 4 mg 08/27/20 18:25 08/28/20 10:39 Ondansetron Pf 4 Mg/2 Ml Vial IVP 4 mg Q6H PRN Administration Nausea/Vomiting Hospitalist Exam Vitals: Vital Signs (12 hours) Temp Pulse Resp BP BP Pulse Ox 08/29/20 09:57 84 178/60 H 08/29/20 03:24 98.8 F 84 19 162/72 H 99 Weight Weight 126 lb General Appearance: NAD, awake alert Eye: PERRL, anicteric sclera Heart: RRR, no murmur, no gallops, no rubs, normal peripheral pulses Respiratory: CTAB, no wheezes, no rales, no ronchi, normal chest expansion, no tachypnea Gastrointestinal: soft, non-tender, non-distended, normal bowel sounds Extremities: no cyanosis (bilateral amputations, no skin lesions or skin b reakdown), no edema Hosp A/P (1) Hyponatremia Code(s): E87.1 - HYPO-OSMOLALITY AND HYPONATREMIA Status: Acute (2) Metabolic encephalopathy Code(s): G93.41 - METABOLIC ENCEPHALOPATHY Status: Acute (3) DM2 (diabetes mellitus, type 2) Status: Chronic (4) Esophagitis Code(s): K20.9 - ESOPHAGITIS, UNSPECIFIED * DO NOT USE * Status: Chronic (5) HTN (hypertension) Code(s): I10 - ESSENTIAL (PRIMARY) HYPERTENSION Status: Chronic (6) Urinary tract infection Status: Acute - Plan * Hyponatremia due to SIADH-continue fluid restriction, and increased dietary intake * HTN- blood pressure is elevated- will monitor for now, continue Lisinopril and Clonidine nd Amlodipine * DM- blood glucose is elevated- will re-start Amaryl, and Metformin * Metabolic encephalopathy- due to hyponatremia- resolving * UTI- continue Rocephin, and urine culture noted
--- NOTE | 2020-08-29 14:16 | PDOC.BPN ---
- Brief Progress Note Encounter Date: 08/29/20 Encounter Time: 14:13 Subjective: Patient is seen and examined in the room. Patient's son was present at the time of examination. She currently does not have new complaints. Review of systems Gen.: No fever, no chills All the 14 systems reviewed except for the ones mentioned above are negative Physical examination Vital Signs Temp 98.2 F 08/29/20 08:00 Pulse 84 08/29/20 09:57 Resp 19 08/29/20 08:00 BP 178/60 H 08/29/20 09:57 Pulse Ox 100 08/29/20 08:00 Intake & Output 08/28/20 08/29/20 08/29/20 18:59 06:59 18:59 Intake Total 384.5 Output Total 400 Balance -15.5 Weight 126 lb Intake: Intake, IV Amount 24.5 Oral 360 Output: Urine 400 Other: Voiding Method Diaper Toilet # Measured Voids 1 # Urine Diapers 1 Constitutional: comfortable, not in pain HEENT: Mucous membranes moist, no icterus Neck: Trachea midline, no lymphadenopathy Heart: Regular rate and rhythm; no murmurs Lungs: Air entry equal bilateral; no wheezes Abdomen: Soft; non-tender; no guarding/tenderness/rebound Extremities: B/L AKA Neurological: Patient is awake, following commands Skin: No rash, no ulcers Psychological: Not agitated Labs and Imaging reviewed Laboratory Results - last 24 hr 08/28/20 08/28/20 08/28/20 16:54 18:17 21:07 Sodium Potassium Chloride Carbon Dioxide Anion Gap BUN Creatinine Estimated GFR (MDRD) Glucose POC Glucose 294 H 281 H Calcium SARS CoV-2 Rapid Source Nasopharyngeal Swab SARS-CoV-2 RNA (MEGAN) Not Detected 08/29/20 08/29/20 08/29/20 05:27 08:50 10:46 Sodium 122 L Potassium 4.3 Chloride 92 L Carbon Dioxide 24 Anion Gap 10 BUN 9 L Creatinine 0.61 Estimated GFR (MDRD) Greater than 90 Glucose 152 H POC Glucose 188 H 360 H Calcium 9.4 SARS CoV-2 Rapid Source SARS-CoV-2 RNA (MEGAN) Active Medications Generic Name Dose Route Start Last Admin Trade Name Freq PRN Reason Stop Dose Admin Amlodipine Besylate 10 mg 08/30/20 09:00 Amlodipine 10 Mg Tab PO DAILY SAUL Atorvastatin Calcium 10 mg 08/29/20 21:00 Atorvastatin Calcium 10 Mg Tab PO HS SAUL Clonidine 0.2 mg 08/29/20 09:00 08/29/20 09:57 Clonidine 0.2 Mg Tab PO 0.2 mg TID SAUL Administration Dextrose/Water 25 gm 08/27/20 19:08 Dextrose 50% Abboject 50 Ml Syringe SLOW IVP PRN PRN Hypoglycemia Enoxaparin Sodium 40 mg 08/28/20 09:00 08/29/20 09:57 Enoxaparin Sodium 40 Mg/0.4 Ml Syringe SC 40 mg 0900 SAUL Administration Famotidine 20 mg 08/29/20 21:00 Famotidine 20 Mg Tab PO HS SAUL Gabapentin 300 mg 08/29/20 21:00 Gabapentin 300 Mg Cap PO HS SAUL Glimepiride 2 mg 08/30/20 12:00 Glimepiride 2 Mg Tab PO 1200 SAUL Glucagon 1 mg 08/27/20 19:08 Glucagon 1 Mg/Ml Vial IM PRN PRN Hypoglycemia Hydralazine HCl 10 mg 08/28/20 09:26 08/28/20 10:39 Hydralazine 20 Mg/Ml Vial SLOW IVP 10 mg Q4H PRN Administration SBP Greater Than 170 Ceftriaxone Sodium 1 gm/ 100 mls @ 200 mls/hr 08/27/20 20:00 08/28/20 20:53 Sodium Chloride IVPB 100 mls Q24HR SAUL Administration Dextrose/Water 1,000 mls @ 0 mls/hr 08/27/20 19:08 D5w IV .Q0M PRN Hypoglycemia As Directed Insulin Human Lispro 0 units 08/27/20 19:08 08/29/20 11:42 Humalog 300 Units/3 Ml Vial SC 6 unit .MILD SLIDING SCALE PRN Administration Mild Correctional Scale Labetalol HCl 20 mg 08/28/20 15:07 08/28/20 16:20 Labetalol Hcl 100 Mg/20 Ml Vial IVPB 20 mg Q4H PRN Administration FOR SBP >170 Levothyroxine Sodium 88 mcg 08/29/20 12:00 08/29/20 11:43 Levothyroxine Sodium 88 Mcg Tab PO 88 mcg 1200 SAUL Administration Lisinopril 10 mg 08/29/20 09:00 08/29/20 09:57 Lisinopril 10 Mg Tab PO 10 mg BID SAUL Administration Metformin HCl 1,000 mg 08/30/20 08:00 Metformin 500 Mg Tab PO QAM-WM SAUL Ondansetron HCl 4 mg 08/27/20 18:25 Ondansetron Odt 4 Mg Tab PO Q6H PRN Nausea/Vomiting Ondansetron HCl 4 mg 08/27/20 18:25 08/28/20 10:39 Ondansetron Pf 4 Mg/2 Ml Vial IVP 4 mg Q6H PRN Administration Nausea/Vomiting Assessment and plan Hyponatremia CKD stage 1 Hypertension Diabetes mellitus Patient's sodium level is stable. She is currently on fluid restriction. Will check urine studies. Check TSH, hypothyroidism can contribute to hyponatremia. Pt is already on Levothyroxine. Patient was started on amlodipine, 1st dose in a.m. Expect amlodipine to take few days to affect BP. D/ RN and pt's son at the bed side
[2020-08-29] MEDS: cefTRIAXone\\ROCEPHIN 1 GM in Sodium Chloride 0.9% 100 ML IVPB SCH (20:44)
[2020-08-29] MEDS: Gabapentin 300 MG CAP PO SCH (20:46)
[2020-08-29] MEDS: Atorvastatin Calcium 10 MG TAB PO SCH (20:46)
[2020-08-29] MEDS: Famotidine 20 MG TAB PO SCH (20:47)
[2020-08-30 05:24] LABS: Anion Gap 13 mmol/L (10-20); BUN (Urea Nitrogen) 12 mg/dL (9.8-20.1); Calc. Creatinine Clearance 43 mL/min (70-130); Calcium 8.3 mg/dL (7.8-10.44); Carbon Dioxide 21 mmol/L (23-31); Chloride 90 mmol/L (98-107); Glucose 206 mg/dL (83-110); Potassium 4.9 mmol/L (3.5-5.1)
[2020-08-30 05:35] LABS: Sodium 119 mmol/L (136-145)
[2020-08-30] MEDS: HumaLOG 300 UNITS/3 ML VIAL SC PRN ×3 (06:31→17:42)
[2020-08-30] MEDS: metFORMIN 500 MG TAB PO SCH (09:35)
[2020-08-30] MEDS: Lisinopril 10 MG TAB PO SCH ×2 (09:36→20:48)
[2020-08-30] MEDS: cloNIDine 0.2 MG TAB PO SCH ×3 (09:37→20:48)
[2020-08-30] MEDS: Enoxaparin Sodium 40 MG/0.4 ML SYRINGE SC SCH (09:39)
[2020-08-30] MEDS: Amlodipine 10 MG TAB PO SCH (09:41)
[2020-08-30 10:07] LABS: Sodium 122 mmol/L (136-145)
--- NOTE | 2020-08-30 11:45 | PDOC.HOSPP ---
- Subjective Encounter Date: 08/30/20 Encounter Time: 11:43 Subjective: Ms. Manzano was seen today in follow-up of hyponatremia, and encephalopathy. She is still confused, but awake and alert. Her son is at the bedside. - Objective Vital Signs & Weight: Vital Signs (12 hours) Temp Pulse Resp BP BP Pulse Ox 08/30/20 09:41 64 167/69 H 08/30/20 09:37 154/72 H 08/30/20 09:36 154/72 H 08/30/20 07:41 98.1 F 64 19 167/69 H 97 08/30/20 04:00 97.6 F 62 16 122/56 L 94 L Weight Weight 127 lb 14.4 oz I&O: 08/29/20 08/30/20 08/31/20 06:59 06:59 06:59 Intake Total 384.5 580 Output Total 400 700 Balance -15.5 -120 Result Diagrams: 08/28/20 04:15 08/30/20 09:19 Additional Labs: Accuchecks 08/30/20 08/29/20 08/29/20 05:43 20:24 16:38 POC Glucose 195 H 165 H 239 H Hospitalist ROS - Medication Medications: Active Medications Generic Name Dose Route Start Last Admin Trade Name Freq PRN Reason Stop Dose Admin Amlodipine Besylate 10 mg 08/30/20 09:00 08/30/20 09:41 Amlodipine 10 Mg Tab PO 10 mg DAILY SAUL Administration Atorvastatin Calcium 10 mg 08/29/20 21:00 08/29/20 20:46 Atorvastatin Calcium 10 Mg Tab PO 10 mg HS SAUL Administration Clonidine 0.2 mg 08/29/20 09:00 08/30/20 09:37 Clonidine 0.2 Mg Tab PO 0.2 mg TID SAUL Administration Enoxaparin Sodium 40 mg 08/28/20 09:00 08/30/20 09:39 Enoxaparin Sodium 40 Mg/0.4 Ml Syringe SC 40 mg 0900 SAUL Administration Famotidine 20 mg 08/29/20 21:00 08/29/20 20:47 Famotidine 20 Mg Tab PO 20 mg HS SAUL Administration Gabapentin 300 mg 08/29/20 21:00 08/29/20 20:46 Gabapentin 300 Mg Cap PO 300 mg HS SAUL Administration Hydralazine HCl 10 mg 08/28/20 09:26 08/28/20 10:39 Hydralazine 20 Mg/Ml Vial SLOW IVP 10 mg Q4H PRN Administration SBP Greater Than 170 Ceftriaxone Sodium 1 gm/ 100 mls @ 200 mls/hr 08/27/20 20:00 08/29/20 20:44 Sodium Chloride IVPB 100 mls Q24HR SAUL Administration Insulin Human Lispro 0 units 08/27/20 19:08 08/30/20 06:31 Humalog 300 Units/3 Ml Vial SC 2 unit .MILD SLIDING SCALE PRN Administration Mild Correctional Scale Labetalol HCl 20 mg 08/28/20 15:07 08/28/20 16:20 Labetalol Hcl 100 Mg/20 Ml Vial IVPB 20 mg Q4H PRN Administration FOR SBP >170 Levothyroxine Sodium 88 mcg 08/29/20 12:00 08/29/20 11:43 Levothyroxine Sodium 88 Mcg Tab PO 88 mcg 1200 SAUL Administration Lisinopril 10 mg 08/29/20 09:00 08/30/20 09:36 Lisinopril 10 Mg Tab PO 10 mg BID SAUL Administration Metformin HCl 1,000 mg 08/30/20 08:00 08/30/20 09:35 Metformin 500 Mg Tab PO 1,000 mg QAM-WM SAUL Administration Ondansetron HCl 4 mg 08/27/20 18:25 08/28/20 10:39 Ondansetron Pf 4 Mg/2 Ml Vial IVP 4 mg Q6H PRN Administration Nausea/Vomiting Hospitalist Exam Vitals: Vital Signs (12 hours) Temp Pulse Resp BP BP Pulse Ox 08/30/20 09:41 64 167/69 H 08/30/20 09:37 154/72 H 08/30/20 09:36 154/72 H 08/30/20 07:41 98.1 F 64 19 167/69 H 97 08/30/20 04:00 97.6 F 62 16 122/56 L 94 L Weight Weight 127 lb 14.4 oz General Appearance: NAD, awake alert Eye: PERRL, anicteric sclera Heart: RRR, no murmur, no gallops, no rubs, normal peripheral pulses Respiratory: CTAB, no wheezes, no rales, no ronchi, normal chest expansion Gastrointestinal: soft, non-tender, non-distended, normal bowel sounds, no palpable masses, no hepatomegaly Extremities: no cyanosis, no edema (bilateral AKA, stump site ok) Hosp A/P (1) Hyponatremia Code(s): E87.1 - HYPO-OSMOLALITY AND HYPONATREMIA Status: Acute (2) Metabolic encephalopathy Code(s): G93.41 - METABOLIC ENCEPHALOPATHY Status: Acute (3) DM2 (diabetes mellitus, type 2) Status: Chronic (4) Esophagitis Code(s): K20.9 - ESOPHAGITIS, UNSPECIFIED * DO NOT USE * Status: Chronic (5) HTN (hypertension) Code(s): I10 - ESSENTIAL (PRIMARY) HYPERTENSION Status: Chronic (6) Urinary tract infection Status: Acute (7) Hypothyroidism Code(s): E03.9 - HYPOTHYROIDISM, UNSPECIFIED Status: Chronic - Plan * 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
[2020-08-30] MEDS: Levothyroxine Sodium 88 MCG TAB PO SCH (12:04)
[2020-08-30] MEDS: Glimepiride 2 MG TAB PO SCH (12:04)
--- NOTE | 2020-08-30 13:19 | PDOC.BPN ---
- Brief Progress Note Encounter Date: 08/30/20 Encounter Time: 13:19 Subjective: Patient is seen and examined in the room. No acute overnight events Review of systems Gen.: No fever, no chills All the 14 systems reviewed except for the ones mentioned above are negative Physical examination Vital Signs Temp 97.3 F L 08/30/20 12:40 Pulse 64 08/30/20 12:40 Resp 15 08/30/20 12:40 BP 167/69 H 08/30/20 15:33 Pulse Ox 96 08/30/20 12:40 Intake & Output 08/29/20 08/30/20 08/30/20 18:59 06:59 18:59 Intake Total 580 Output Total 700 Balance -120 Weight 127 lb 14.4 oz Intake: Oral 580 Output: Urine 700 Other: Voiding Method Toilet Diaper Bedside Commode # Unmeasured Voids 2 # Urine Diapers 2 Constitutional: Patient is not in pain or discomfort HEENT: Mucous membranes moist, no icterus Neck: Trachea midline, no lymphadenopathy Heart: Regular rate and rhythm; no murmurs Lungs: Air entry equal bilateral; no wheezes Abdomen: Soft; non-tender; no guarding/tenderness/rebound Extremities: B/L BKA Neurological: Patient is awake, following commands Skin: No rash, no ulcers Psychological: Not agitated Labs and Imaging reviewed Laboratory Results - last 24 hr 08/29/20 08/29/20 08/30/20 16:38 20:24 04:05 Sodium 119 L* Potassium 4.9 Chloride 90 L Carbon Dioxide 21 L Anion Gap 13 BUN 12 Creatinine 0.91 Estimated GFR (MDRD) 59 Glucose 206 H POC Glucose 239 H 165 H Calcium 8.3 Free T4 TSH 3rd Generation 08/30/20 08/30/20 08/30/20 04:05 05:43 09:19 Sodium Potassium Chloride Carbon Dioxide Anion Gap BUN Creatinine Estimated GFR (MDRD) Glucose POC Glucose 195 H Calcium Free T4 1.19 TSH 3rd Generation 5.2328 H 08/30/20 08/30/20 09:19 11:54 Sodium 122 L Potassium Chloride Carbon Dioxide Anion Gap BUN Creatinine Estimated GFR (MDRD) Glucose POC Glucose 273 H Calcium Free T4 TSH 3rd Generation Active Medications Generic Name Dose Route Start Last Admin Trade Name Freq PRN Reason Stop Dose Admin Amlodipine Besylate 10 mg 08/30/20 09:00 08/30/20 09:41 Amlodipine 10 Mg Tab PO 10 mg DAILY SAUL Administration Atorvastatin Calcium 10 mg 08/29/20 21:00 08/29/20 20:46 Atorvastatin Calcium 10 Mg Tab PO 10 mg HS SAUL Administration Clonidine 0.2 mg 08/29/20 09:00 08/30/20 15:33 Clonidine 0.2 Mg Tab PO 0.2 mg TID SAUL Administration Dextrose/Water 25 gm 08/27/20 19:08 Dextrose 50% Abboject 50 Ml Syringe SLOW IVP PRN PRN Hypoglycemia Enoxaparin Sodium 40 mg 08/28/20 09:00 08/30/20 09:39 Enoxaparin Sodium 40 Mg/0.4 Ml Syringe SC 40 mg 0900 SAUL Administration Famotidine 20 mg 08/29/20 21:00 08/29/20 20:47 Famotidine 20 Mg Tab PO 20 mg HS SAUL Administration Gabapentin 300 mg 08/29/20 21:00 08/29/20 20:46 Gabapentin 300 Mg Cap PO 300 mg HS SAUL Administration Glimepiride 2 mg 08/30/20 12:00 08/30/20 12:04 Glimepiride 2 Mg Tab PO 2 mg 1200 SAUL Administration Glucagon 1 mg 08/27/20 19:08 Glucagon 1 Mg/Ml Vial IM PRN PRN Hypoglycemia Hydralazine HCl 10 mg 08/28/20 09:26 08/28/20 10:39 Hydralazine 20 Mg/Ml Vial SLOW IVP 10 mg Q4H PRN Administration SBP Greater Than 170 Ceftriaxone Sodium 1 gm/ 100 mls @ 200 mls/hr 08/27/20 20:00 08/29/20 20:44 Sodium Chloride IVPB 100 mls Q24HR SAUL Administration Dextrose/Water 1,000 mls @ 0 mls/hr 08/27/20 19:08 D5w IV .Q0M PRN Hypoglycemia As Directed Insulin Human Lispro 0 units 08/27/20 19:08 08/30/20 12:05 Humalog 300 Units/3 Ml Vial SC 4 unit .MILD SLIDING SCALE PRN Administration Mild Correctional Scale Labetalol HCl 20 mg 08/28/20 15:07 08/28/20 16:20 Labetalol Hcl 100 Mg/20 Ml Vial IVPB 20 mg Q4H PRN Administration FOR SBP >170 Levothyroxine Sodium 88 mcg 08/29/20 12:00 08/30/20 12:04 Levothyroxine Sodium 88 Mcg Tab PO 88 mcg 1200 SAUL Administration Lisinopril 10 mg 08/29/20 09:00 08/30/20 09:36 Lisinopril 10 Mg Tab PO 10 mg BID SAUL Administration Metformin HCl 1,000 mg 08/30/20 08:00 08/30/20 09:35 Metformin 500 Mg Tab PO 1,000 mg QAM-WM SAUL Administration Ondansetron HCl 4 mg 08/27/20 18:25 Ondansetron Odt 4 Mg Tab PO Q6H PRN Nausea/Vomiting Ondansetron HCl 4 mg 08/27/20 18:25 08/28/20 10:39 Ondansetron Pf 4 Mg/2 Ml Vial IVP 4 mg Q6H PRN Administration Nausea/Vomiting Assessment and plan Hyponatremia CKD stage 1 Hypertension Diabetes mellitus Patient sodium level this morning is 122. Unable to do urine studies as patient is incontinent. Patient apparently uses commode occasionally. Will attempt to check urine studies. Continue with fluid restriction for now. Etiology for hyponatremia could be multifactorial including SIADH, hypothyroidism although diagnosis of SIADH requires normal thyroid function. Medications reviewed. Discussed with RAVINDRA
[2020-08-30] MEDS: cefTRIAXone\\ROCEPHIN 1 GM in Sodium Chloride 0.9% 100 ML IVPB SCH (20:39)
[2020-08-30] MEDS: Famotidine 20 MG TAB PO SCH (20:48)
[2020-08-30] MEDS: Atorvastatin Calcium 10 MG TAB PO SCH (20:49)
[2020-08-30] MEDS: Gabapentin 300 MG CAP PO SCH (21:53)
[2020-08-30] MEDS ORDERED: HumaLOG 300 UNITS/3 ML VIAL SC PRN (22:39)
[2020-08-31 05:28] LABS: Anion Gap 13 mmol/L (10-20); BUN (Urea Nitrogen) 18 mg/dL (9.8-20.1); Calc. Creatinine Clearance 53 mL/min (70-130); Calcium 9.2 mg/dL (7.8-10.44); Carbon Dioxide 24 mmol/L (23-31); Chloride 93 mmol/L (98-107); Glucose 137 mg/dL (83-110); Potassium 4.5 mmol/L (3.5-5.1); Sodium 125 mmol/L (136-145)
[2020-08-31] MEDS ORDERED: Levothyroxine Sodium 88 MCG TAB PO SCH (07:46)
[2020-08-31] MEDS: cloNIDine 0.2 MG TAB PO SCH ×3 (08:50→20:45)
[2020-08-31] MEDS: metFORMIN 500 MG TAB PO SCH (08:51)
[2020-08-31] MEDS: Lisinopril 10 MG TAB PO SCH ×2 (08:51→20:45)
[2020-08-31] MEDS: Amlodipine 10 MG TAB PO SCH (08:51)
[2020-08-31] MEDS: Enoxaparin Sodium 40 MG/0.4 ML SYRINGE SC SCH (08:52)
--- NOTE | 2020-08-31 11:24 | PDOC.HOSPP ---
- Subjective Encounter Date: 08/31/20 Encounter Time: 11:23 Subjective: Ms. Manzano was seen today in follow-up of hyponatremia. She is better today. She was able to tell me it was August,but she siad the year is 2019. - Objective Vital Signs & Weight: Vital Signs (12 hours) Pulse Resp BP BP Pulse Ox 08/31/20 08:51 77 156/67 H 08/31/20 08:50 156/67 H 08/31/20 08:19 96 08/31/20 04:00 71 16 150/72 H 96 08/31/20 00:00 67 149/63 H Weight Weight 128 lb 12.8 oz I&O: 08/30/20 08/31/20 09/01/20 06:59 06:59 06:59 Intake Total 580 1020 Output Total 700 300 Balance -120 720 Result Diagrams: 08/28/20 04:15 08/31/20 04:37 Additional Labs: Accuchecks 08/31/20 08/30/20 08/30/20 10:43 20:39 16:53 POC Glucose 322 H 289 H 231 H 08/30/20 11:54 POC Glucose 273 H Hospitalist ROS - Medication Medications: Active Medications Generic Name Dose Route Start Last Admin Trade Name Freq PRN Reason Stop Dose Admin Amlodipine Besylate 10 mg 08/30/20 09:00 08/31/20 08:51 Amlodipine 10 Mg Tab PO 10 mg DAILY SAUL Administration Atorvastatin Calcium 10 mg 08/29/20 21:00 08/30/20 20:49 Atorvastatin Calcium 10 Mg Tab PO 10 mg HS SAUL Administration Clonidine 0.2 mg 08/29/20 09:00 08/31/20 08:50 Clonidine 0.2 Mg Tab PO 0.2 mg TID SAUL Administration Enoxaparin Sodium 40 mg 08/28/20 09:00 08/31/20 08:52 Enoxaparin Sodium 40 Mg/0.4 Ml Syringe SC 40 mg 09 SAUL Administration Famotidine 20 mg 08/29/20 21:00 08/30/20 20:48 Famotidine 20 Mg Tab PO 20 mg HS SAUL Administration Gabapentin 300 mg 08/29/20 21:00 08/30/20 21:53 Gabapentin 300 Mg Cap PO Not Given HS SAUL Glimepiride 2 mg 08/30/20 12:00 08/30/20 12:04 Glimepiride 2 Mg Tab PO 2 mg 1200 SAUL Administration Hydralazine HCl 10 mg 08/28/20 09:26 08/28/20 10:39 Hydralazine 20 Mg/Ml Vial SLOW IVP 10 mg Q4H PRN Administration SBP Greater Than 170 Ceftriaxone Sodium 1 gm/ 100 mls @ 200 mls/hr 08/27/20 20:00 08/30/20 20:39 Sodium Chloride IVPB 100 mls Q24HR SAUL Administration Insulin Human Lispro 0 units 08/27/20 19:08 08/30/20 17:42 Humalog 300 Units/3 Ml Vial SC 3 unit .MILD SLIDING SCALE PRN Administration Mild Correctional Scale Insulin Human Lispro 0 units 08/30/20 22:39 08/30/20 22:57 Humalog 300 Units/3 Ml Vial SC 3 unit .BEDTIME SLIDING SC PRN Administration Bedtime Correctional Scale Labetalol HCl 20 mg 08/28/20 15:07 08/28/20 16:20 Labetalol Hcl 100 Mg/20 Ml Vial IVPB 20 mg Q4H PRN Administration FOR SBP >170 Lisinopril 10 mg 08/29/20 09:00 08/31/20 08:51 Lisinopril 10 Mg Tab PO 10 mg BID SAUL Administration Metformin HCl 1,000 mg 08/30/20 08:00 08/31/20 08:51 Metformin 500 Mg Tab PO 1,000 mg QAM-WM SAUL Administration Ondansetron HCl 4 mg 08/27/20 18:25 08/28/20 10:39 Ondansetron Pf 4 Mg/2 Ml Vial IVP 4 mg Q6H PRN Administration Nausea/Vomiting Hospitalist Exam Vitals: Vital Signs (12 hours) Pulse Resp BP BP Pulse Ox 08/31/20 08:51 77 156/67 H 08/31/20 08:50 156/67 H 08/31/20 08:19 96 08/31/20 04:00 71 16 150/72 H 96 08/31/20 00:00 67 149/63 H Weight Weight 128 lb 12.8 oz Eye: PERRL, anicteric sclera Heart: RRR, no murmur, no gallops, no rubs, normal peripheral pulses Respiratory: CTAB, no wheezes, no rales, no ronchi, normal chest expansion Gastrointestinal: soft, non-tender, non-distended, normal bowel sounds, no palpable masses, no hepatomegaly Hosp A/P (1) Hyponatremia Code(s): E87.1 - HYPO-OSMOLALITY AND HYPONATREMIA Status: Acute (2) Metabolic encephalopathy Code(s): G93.41 - METABOLIC ENCEPHALOPATHY Status: Acute (3) DM2 (diabetes mellitus, type 2) Status: Chronic (4) Esophagitis Code(s): K20.9 - ESOPHAGITIS, UNSPECIFIED * DO NOT USE * Status: Chronic (5) HTN (hypertension) Code(s): I10 - ESSENTIAL (PRIMARY) HYPERTENSION Status: Chronic (6) Urinary tract infection Status: Acute (7) Hypothyroidism Code(s): E03.9 - HYPOTHYROIDISM, UNSPECIFIED Status: Chronic - Plan * 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 her serum sodium is now 125. This may be close to her new baseline- Will defer to Nephrology * HTN- blood pressure is a bit better * DM- blood glucose is still elevated- she has not been receiving her usual dose of Lantus- she is eating a little better- will re-start this * Metabolic encephalopathy- due to hyponatremia * UTI- continue Rocephin, and urine culture is negative * Hypothyroidism-will go ahead and increase her dose of Synthroid, given the setting of Hyponatremia
[2020-08-31] MEDS: Levothyroxine Sodium 100 MCG TAB PO SCH (12:59)
[2020-08-31] MEDS: Glimepiride 2 MG TAB PO SCH (12:59)
[2020-08-31] MEDS: Insulin Glargine 45 UNITS in Pre-Filled Syringe 1 EACH SC SCH (14:27)
--- NOTE | 2020-08-31 16:11 | PRG ---
DATE OF SERVICE: 08/31/2020 SUBJECTIVE: Patient was seen and examined at bedside and overnight events noted. Patient denies any shortness of breath or chest pain or palpitation. No history of nausea or vomiting or diarrhea or fever or chills or cramps. OBJECTIVE: GENERAL: This is well-developed female in no apparent distress. VITAL SIGNS: Temperature 98.4. Heart Rate 84. Respiratory rate 18. Blood pressure 140/60. HEENT: Atraumatic, normocephalic. Oral mucosa is moist. NECK: Supple. CARDIOVASCULAR: S1, S2 heard. Rate and rhythm regular. RESPIRATORY: Clear to auscultation. GASTROINTESTINAL: Abdomen is soft. MUSCULOSKELETAL: No tenderness. No edema. DERMATOLOGIC: No skin rash. NEUROLOGIC: Alert and awake and oriented x3. No focal neurologic deficits. Moving all the extremities. PSYCHIATRIC: Mood and affect normal. LABORATORY DATA: Sodium 135, potassium 4.5, BUN 18, creatinine 0.7. ASSESSMENT AND PLAN: 1. Hyponatremia, seems to be hypovolemic given the history. Patient responding to current management. Agree with adjusting the thyroid medications. We will follow. 2. Edema. 3. History of hypertension. 4. Chronic kidney disease stage 1. Plan is to monitor labs. Currently on fluid restriction and sodium level getting better. We will follow. Job ID: [id number]
[2020-08-31] MEDS: HumaLOG 300 UNITS/3 ML VIAL SC PRN (17:54)
[2020-08-31] MEDS: Gabapentin 300 MG CAP PO SCH (19:21)
[2020-08-31] MEDS: cefTRIAXone\\ROCEPHIN 1 GM in Sodium Chloride 0.9% 100 ML IVPB SCH (20:21)
[2020-08-31] MEDS: Famotidine 20 MG TAB PO SCH (20:36)
[2020-08-31] MEDS: Atorvastatin Calcium 10 MG TAB PO SCH (20:43)
[2020-09-01 06:07] LABS: Anion Gap 13 mmol/L (10-20); BUN (Urea Nitrogen) 16 mg/dL (9.8-20.1); Calc. Creatinine Clearance 63 mL/min (70-130); Carbon Dioxide 23 mmol/L (23-31); Chloride 99 mmol/L (98-107); Glucose 100 mg/dL (83-110); Potassium 4.6 mmol/L (3.5-5.1); Sodium 130 mmol/L (136-145)
--- NOTE | 2020-09-01 08:08 | PDOC.HOSPP ---
- Subjective Encounter Date: 09/01/20 Encounter Time: 08:15 non-verbal Subjective: Ms. Manzano is an 80 year old female admitted for acute metabolic encephalopathy secondary to hyponatremia. - Objective Vital Signs & Weight: Vital Signs (12 hours) Temp Pulse Resp BP BP Pulse Ox 09/01/20 04:00 98.5 F 73 16 156/65 H 98 09/01/20 00:00 97.3 F L 84 16 147/55 H 97 08/31/20 20:45 156/67 H 08/31/20 20:42 151/64 H Weight Weight 58.423 kg I&O: 08/31/20 09/01/20 09/02/20 06:59 06:59 06:59 Intake Total 1020 460 Output Total 300 Balance 720 460 Result Diagrams: 08/28/20 04:15 09/01/20 05:17 Additional Labs: Accuchecks 09/01/20 08/31/20 08/31/20 04:55 19:52 16:04 POC Glucose 105 H 139 H 294 H 08/31/20 08/30/20 10:43 20:39 POC Glucose 322 H 289 H Hospitalist ROS - Review of Systems Constitutional: denies: fever Gastrointestinal: denies: nausea, vomiting - Medication Medications: Active Medications Generic Name Dose Route Start Last Admin Trade Name Freq PRN Reason Stop Dose Admin Amlodipine Besylate 10 mg 08/30/20 09:00 08/31/20 08:51 Amlodipine 10 Mg Tab PO 10 mg DAILY ASUL Administration Atorvastatin Calcium 10 mg 08/29/20 21:00 08/31/20 20:43 Atorvastatin Calcium 10 Mg Tab PO 10 mg HS SAUL Administration Clonidine 0.2 mg 08/29/20 09:00 08/31/20 20:45 Clonidine 0.2 Mg Tab PO 0.2 mg TID SAUL Administration Enoxaparin Sodium 40 mg 08/28/20 09:00 08/31/20 08:52 Enoxaparin Sodium 40 Mg/0.4 Ml Syringe SC 40 mg 0900 SAUL Administration Famotidine 20 mg 08/29/20 21:00 08/31/20 20:36 Famotidine 20 Mg Tab PO Not Given HS SAUL Gabapentin 300 mg 08/29/20 21:00 08/31/20 19:21 Gabapentin 300 Mg Cap PO Not Given HS SAUL Glimepiride 2 mg 08/30/20 12:00 08/31/20 12:59 Glimepiride 2 Mg Tab PO 2 mg 1200 SAUL Administration Hydralazine HCl 10 mg 08/28/20 09:26 08/28/20 10:39 Hydralazine 20 Mg/Ml Vial SLOW IVP 10 mg Q4H PRN Administration SBP Greater Than 170 Ceftriaxone Sodium 1 gm/ 100 mls @ 200 mls/hr 08/27/20 20:00 08/31/20 20:21 Sodium Chloride IVPB 100 mls Q24HR SAUL Administration Insulin Glargine 45 units/ 0.45 mls @ 0 mls/hr 08/31/20 12:00 08/31/20 14:27 Miscellaneous Medication SC 0.45 mls QAM SAUL Administration Insulin Human Lispro 0 units 08/27/20 19:08 08/31/20 17:54 Humalog 300 Units/3 Ml Vial SC 4 unit .MILD SLIDING SCALE PRN Administration Mild Correctional Scale Insulin Human Lispro 0 units 08/30/20 22:39 08/30/20 22:57 Humalog 300 Units/3 Ml Vial SC 3 unit .BEDTIME SLIDING SC PRN Administration Bedtime Correctional Scale Labetalol HCl 20 mg 08/28/20 15:07 08/28/20 16:20 Labetalol Hcl 100 Mg/20 Ml Vial IVPB 20 mg Q4H PRN Administration FOR SBP >170 Levothyroxine Sodium 100 mcg 08/31/20 12:00 08/31/20 12:59 Levothyroxine Sodium 100 Mcg Tab PO 100 mcg 1200 SAUL Administration Lisinopril 10 mg 08/29/20 09:00 08/31/20 20:45 Lisinopril 10 Mg Tab PO 10 mg BID SAUL Administration Metformin HCl 1,000 mg 08/30/20 08:00 08/31/20 08:51 Metformin 500 Mg Tab PO 1,000 mg QAM-WM SAUL Administration Ondansetron HCl 4 mg 08/27/20 18:25 08/28/20 10:39 Ondansetron Pf 4 Mg/2 Ml Vial IVP 4 mg Q6H PRN Administration Nausea/Vomiting Sodium Chloride 10 ml 08/31/20 09:00 08/31/20 20:43 Flush - Normal Saline 10 Ml Syringe IVF 10 ml Q12HR SAUL Administration Hospitalist Exam Vitals: Vital Signs (12 hours) Temp Pulse Resp BP BP Pulse Ox 09/01/20 04:00 98.5 F 73 16 156/65 H 98 09/01/20 00:00 97.3 F L 84 16 147/55 H 97 08/31/20 20:45 156/67 H 08/31/20 20:42 151/64 H Weight Weight 58.423 kg General Appearance: awake alert Eye: PERRL, anicteric sclera ENT: normocephalic atraumatic Neck: supple Heart: RRR, no murmur, no gallops, no rubs, normal peripheral pulses Respiratory: CTAB, normal chest expansion Extremities: no cyanosis, no clubbing Neurological: no new deficit Psychiatric: oriented to person, oriented to time Psychiatric - other findings: unable to tell me where she was Hosp A/P (1) Hyponatremia Code(s): E87.1 - HYPO-OSMOLALITY AND HYPONATREMIA Status: Acute Plan: Fluid restriction. Hyponatremia has improved to 130. (2) Metabolic acidosis due to diabetes mellitus Code(s): E11.69 - TYPE 2 DIABETES MELLITUS WITH OTHER SPECIFIED COMPLICATION; E87.2 - ACIDOSIS Status: Acute Plan: Glucose has reduced to 105. continue Lantus. (3) Hypothyroidism Code(s): E03.9 - HYPOTHYROIDISM, UNSPECIFIED Status: Chronic Plan: Synthyroid is being administered. (4) Metabolic encephalopathy Code(s): G93.41 - METABOLIC ENCEPHALOPATHY Status: Acute Plan: Continue to correct hyponatremia.
[2020-09-01] MEDS: cloNIDine 0.2 MG TAB PO SCH ×3 (09:01→22:00)
[2020-09-01] MEDS: metFORMIN 500 MG TAB PO SCH (09:02)
[2020-09-01] MEDS: Amlodipine 10 MG TAB PO SCH (09:04)
[2020-09-01] MEDS: Lisinopril 10 MG TAB PO SCH ×2 (09:06→22:00)
[2020-09-01] MEDS: Enoxaparin Sodium 40 MG/0.4 ML SYRINGE SC SCH (09:07)
[2020-09-01] MEDS: Insulin Glargine 45 UNITS in Pre-Filled Syringe 1 EACH SC SCH (09:11)
[2020-09-01] MEDS: Levothyroxine Sodium 100 MCG TAB PO SCH (11:44)
[2020-09-01] MEDS: Glimepiride 2 MG TAB PO SCH (11:44)
[2020-09-01 11:51] LABS: Bilirubin Negative (Negative); Blood, Urine Negative (Negative); Clarity Clear (Clear); Glucose, Urine (Dipstick) 200 mg/dL (Negative); Ketone, Urine Negative (Negative); Leukocyte 25 Leu/uL (Negative); Nitrite Negative (Negative); Protein, Urine (Dipstick) Negative (Neg-Trace); RBC/HPF 0-3 HPF (0-3); Specific Gravity, Urine 1.008 (1.002-1.036); Squamous Epithelial 0-3 HPF (0-3); Urobilinogen Normal mg/dL (Less than 2)
[2020-09-01 11:58] LABS: Bacteria/HPF 1+ HPF (None Seen)
[2020-09-01 12:00] LABS: Urine Culture Reflex Yes Yes
--- NOTE | 2020-09-01 15:19 | PDOC.HOSPP ---
- Subjective Encounter Date: 09/01/20 Encounter Time: 15:17 Subjective: Ms. Manzano was seem today in follow-up of Hyponatremia. She is still a bit confused. Her son is at the bedside, and says she is not at her baseline. - Objective Vital Signs & Weight: Vital Signs (12 hours) Temp Pulse Resp BP BP Pulse Ox 09/01/20 08:00 98.3 F 74 14 154/61 H 97 09/01/20 04:00 98.5 F 73 16 156/65 H 98 Weight Weight 128 lb 12.8 oz I&O: 08/31/20 09/01/20 09/02/20 06:59 06:59 06:59 Intake Total 1020 460 Output Total 300 Balance 720 460 Result Diagrams: 08/28/20 04:15 09/01/20 05:17 Additional Labs: Accuchecks 09/01/20 09/01/20 08/31/20 12:04 04:55 19:52 POC Glucose 161 H 105 H 139 H 08/31/20 16:04 POC Glucose 294 H Hospitalist ROS - Medication Medications: Active Medications Generic Name Dose Route Start Last Admin Trade Name Freq PRN Reason Stop Dose Admin Amlodipine Besylate 10 mg 08/30/20 09:00 09/01/20 09:04 Amlodipine 10 Mg Tab PO 10 mg DAILY SAUL Administration Atorvastatin Calcium 10 mg 08/29/20 21:00 08/31/20 20:43 Atorvastatin Calcium 10 Mg Tab PO 10 mg HS SAUL Administration Clonidine 0.2 mg 08/29/20 09:00 09/01/20 09:01 Clonidine 0.2 Mg Tab PO 0.2 mg TID SAUL Administration Enoxaparin Sodium 40 mg 08/28/20 09:00 09/01/20 09:07 Enoxaparin Sodium 40 Mg/0.4 Ml Syringe SC 40 mg 0900 SAUL Administration Famotidine 20 mg 08/29/20 21:00 08/31/20 20:36 Famotidine 20 Mg Tab PO Not Given HS SAUL Gabapentin 300 mg 08/29/20 21:00 08/31/20 19:21 Gabapentin 300 Mg Cap PO Not Given HS SAUL Glimepiride 2 mg 08/30/20 12:00 09/01/20 11:44 Glimepiride 2 Mg Tab PO 2 mg 1200 SAUL Administration Hydralazine HCl 10 mg 08/28/20 09:26 08/28/20 10:39 Hydralazine 20 Mg/Ml Vial SLOW IVP 10 mg Q4H PRN Administration SBP Greater Than 170 Insulin Glargine 45 units/ 0.45 mls @ 0 mls/hr 08/31/20 12:00 09/01/20 09:11 Miscellaneous Medication SC 0.45 mls QAM SAUL Administration Insulin Human Lispro 0 units 08/27/20 19:08 08/31/20 17:54 Humalog 300 Units/3 Ml Vial SC 4 unit .MILD SLIDING SCALE PRN Administration Mild Correctional Scale Insulin Human Lispro 0 units 08/30/20 22:39 08/30/20 22:57 Humalog 300 Units/3 Ml Vial SC 3 unit .BEDTIME SLIDING SC PRN Administration Bedtime Correctional Scale Labetalol HCl 20 mg 08/28/20 15:07 08/28/20 16:20 Labetalol Hcl 100 Mg/20 Ml Vial IVPB 20 mg Q4H PRN Administration FOR SBP >170 Levothyroxine Sodium 100 mcg 08/31/20 12:00 09/01/20 11:44 Levothyroxine Sodium 100 Mcg Tab PO 100 mcg 1200 SAUL Administration Lisinopril 10 mg 08/29/20 09:00 09/01/20 09:06 Lisinopril 10 Mg Tab PO 10 mg BID SAUL Administration Metformin HCl 1,000 mg 08/30/20 08:00 09/01/20 09:02 Metformin 500 Mg Tab PO 1,000 mg QAM-WM SAUL Administration Ondansetron HCl 4 mg 08/27/20 18:25 08/28/20 10:39 Ondansetron Pf 4 Mg/2 Ml Vial IVP 4 mg Q6H PRN Administration Nausea/Vomiting Sodium Chloride 10 ml 08/31/20 09:00 09/01/20 09:15 Flush - Normal Saline 10 Ml Syringe IVF 10 ml Q12HR SAUL Administration Hospitalist Exam Vitals: Vital Signs (12 hours) Temp Pulse Resp BP BP Pulse Ox 09/01/20 08:00 98.3 F 74 14 154/61 H 97 09/01/20 04:00 98.5 F 73 16 156/65 H 98 Weight Weight 128 lb 12.8 oz General Appearance: NAD, awake alert Eye: PERRL, anicteric sclera Heart: RRR, no murmur, no gallops, no rubs, normal peripheral pulses Respiratory: CTAB, no wheezes, no rales, no ronchi, normal chest expansion, no tachypnea, normal percussion Gastrointestinal: soft, non-tender, non-distended, normal bowel sounds Extremities: no edema (bilateral AKA) Hosp A/P (1) Hyponatremia Code(s): E87.1 - HYPO-OSMOLALITY AND HYPONATREMIA Status: Acute (2) Metabolic encephalopathy Code(s): G93.41 - METABOLIC ENCEPHALOPATHY Status: Acute (3) DM2 (diabetes mellitus, type 2) Status: Chronic (4) Esophagitis Code(s): K20.9 - ESOPHAGITIS, UNSPECIFIED * DO NOT USE * Status: Chronic (5) HTN (hypertension) Code(s): I10 - ESSENTIAL (PRIMARY) HYPERTENSION Status: Chronic (6) Urinary tract infection Status: Acute (7) Hypothyroidism Code(s): E03.9 - HYPOTHYROIDISM, UNSPECIFIED Status: Chronic - Plan * 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 her serum sodium is now 130. She is still a bit confused, but her sensorium may lag a bit * HTN- blood pressure is a bit better- continue with the current regimen * DM- continue Lantus and Metformin * Metabolic encephalopathy- due to hyponatremia- slowly resolving * UTI-will change to Nitrofurantoin, and she can be discharged with a few days of treatment * Hypothyroidism- continue with the current dose of Synthroid
--- NOTE | 2020-09-01 16:04 | PRG ---
DATE OF SERVICE: 09/01/2020 SUBJECTIVE: Patient was seen and examined at bedside and overnight events noted. Patient denies any shortness of breath or chest pain or palpitation. No history of nausea or vomiting or diarrhea or fever or chills or cramps. OBJECTIVE: GENERAL: This is a well-built female, in no apparent distress. VITAL SIGNS: Temperature 98.3. Heart rate 74. Respiratory rate 14. Blood pressure 154/61. HEENT: Atraumatic, normocephalic. Oral mucosa is moist NECK: Supple. CARDIOVASCULAR: S1, S2 heard. Rate and rhythm regular. RESPIRATORY: Clear to auscultation. GASTROINTESTINAL: Abdomen is soft. MUSCULOSKELETAL: No tenderness. No edema. DERMATOLOGIC: No skin rash. NEUROLOGIC: Alert and awake and oriented X3. No focal neurologic deficits. Moving all the extremities. PSYCHIATRIC: Mood and affect normal. LABORATORY DATA: Sodium 130, potassium 4.6, creatinine 0.6. ASSESSMENT AND PLAN: 1. Hyponatremia, getting better. Continue current management. Continue on fluid restriction. Increase p.o. intake. 2. Edema. 3. History of hypertension. 4. Chronic kidney disease, stage 1. Sodium is getting better. Encourage p.o. intake and limit fluid intake. We will follow. Job ID: [id number]
[2020-09-01] MEDS: Famotidine 20 MG TAB PO SCH (22:00)
[2020-09-01] MEDS: Atorvastatin Calcium 10 MG TAB PO SCH (22:00)
[2020-09-01] MEDS: Nitrofurantoin Macrocrystal 50 MG CAP PO SCH (22:00)
--- NOTE | 2020-09-02 00:05 | PDOC.HHP ---
Hospitalist HPI syncope Allergies/Adverse Reactions: Allergy/AdvReac Type Severity Reaction Status Date / Time No Known Allergies Allergy Verified 06/11/17 22:56 Home Medications: Medication Instructions Recorded Confirmed Type Amlodipine Besylate [amLODIPine 10 mg PO DAILY 12/19/13 08/28/20 History Besylate] Gabapentin [Neurontin] 300 mg PO HS 12/19/13 08/28/20 History Insulin Glargine [Lantus Vial] 45 units SC DAILY 12/19/13 08/28/20 History Simvastatin [Zocor] 20 mg PO HS 12/19/13 08/28/20 History HumaLOG [HumaLOG Vial] 0 units SC TID-WM PRN 07/30/14 08/28/20 History metFORMIN HCl 1,000 mg PO DAILY 07/30/14 08/28/20 History Clonidine HCl 0.2 mg PO TID 06/11/17 08/28/20 History Glimepiride [Amaryl] 2 mg PO 1200 12/08/17 08/28/20 History Levothyroxine Sodium 88 mcg PO 1200 12/08/17 08/28/20 History Lisinopril [Zestril] 10 mg PO BID #60 tab 12/16/17 08/28/20 Rx Past History: PMHx: PSHx: FHx: Social: Hospitalist Exam Vitals: Vital Signs (12 hours) Temp Pulse Resp BP BP Pulse Ox 09/01/20 21:23 98.3 F 71 20 128/68 99 09/01/20 16:04 73 18 152/67 H 97 Weight Weight 128 lb 12.8 oz Hospitalist Results Result Diagrams: 08/28/20 04:15 09/01/20 05:17 Lab results: Laboratory Last Values WBC 17.1 thou/uL (4.8-10.8) H 08/28/20 04:15 RBC 5.21 mill/uL (4.20-5.40) 08/28/20 04:15 Hgb 15.2 g/dL (12.0-16.0) 08/28/20 04:15 Hct 44.4 % (36.0-47.0) 08/28/20 04:15 MCV 85.2 fL (78.0-98.0) 08/28/20 04:15 MCH 29.1 pg (27.0-31.0) 08/28/20 04:15 MCHC 34.2 g/dL (32.0-36.0) 08/28/20 04:15 RDW 12.4 % (11.5-14.5) 08/28/20 04:15 Plt Count 525 thou/uL (130-400) H 08/28/20 04:15 MPV 6.7 fL (7.4-10.4) L 08/28/20 04:15 Neutrophils % 79.4 % (42.0-75.0) H 08/28/20 04:15 Lymphocytes % 14.1 % (21.0-51.0) L 08/28/20 04:15 Monocytes % 5.9 % (0.0-10.0) 08/28/20 04:15 Eosinophils % 0.3 % (0.0-10.0) 08/28/20 04:15 Basophils % 0.3 % (0.0-1.0) 08/28/20 04:15 Neutrophils # 13.6 thou/uL (1.40-6.50) H 08/28/20 04:15 Lymphocytes # 2.4 thou/uL (1.20-3.40) 08/28/20 04:15 Monocytes # 1.0 thou/uL (0.11-0.59) H 08/28/20 04:15 Eosinophils # 0.0 thou/uL (0.0-0.7) 08/28/20 04:15 Basophils # 0.1 thou/uL (0.0-0.2) 08/28/20 04:15 Sodium 130 mmol/L (136-145) L 09/01/20 05:17 Potassium 4.6 mmol/L (3.5-5.1) 09/01/20 05:17 Chloride 99 mmol/L (98-107) 09/01/20 05:17 Carbon Dioxide 23 mmol/L (23-31) 09/01/20 05:17 Anion Gap 13 mmol/L (10-20) 09/01/20 05:17 BUN 16 mg/dL (9.8-20.1) 09/01/20 05:17 Creatinine 0.64 mg/dL (0.6-1.1) 09/01/20 05:17 Estimated GFR (MDRD) 89 09/01/20 05:17 Glucose 100 mg/dL (83-110) 09/01/20 05:17 POC Glucose 100 mg/dL (70-100) 09/01/20 20:18 Serum Osmolality 256 mOsm/kg (280-295) L 08/27/20 18:27 Lactic Acid 2.4 mmol/L (0.5-2.2) H 08/27/20 20:23 Calcium 9.0 mg/dL (7.8-10.44) 09/01/20 05:17 Magnesium 1.8 mg/dL (1.6-2.6) 08/28/20 09:41 Total Bilirubin 0.9 mg/dL (0.2-1.2) 08/27/20 16:31 AST 15 U/L (5-34) 08/27/20 16:31 ALT 9 U/L (8-55) 08/27/20 16:31 Alkaline Phosphatase 99 U/L (40-110) 08/27/20 16:31 Creatine Kinase 105 U/L (29-168) 08/27/20 17:21 Troponin I 0.014 ng/mL (< 0.028) 08/27/20 17:21 Serum Total Protein 8.0 g/dL (5.8-8.1) 08/27/20 16:31 Albumin 4.3 g/dL (3.4-4.8) 08/27/20 16:31 Globulin 3.7 g/dL (2.4-3.5) H 08/27/20 16:31 Albumin/Globulin Ratio 1.2 g/dL (1.2-2.2) 08/27/20 16:31 Free T4 1.19 ng/dL (0.70-1.48) 08/30/20 09:19 TSH 3rd Generation 5.2328 uIU/mL (0.35-4.94) H 08/30/20 04:05 Urine Color Light-Yellow (Yellow) 09/01/20 10:50 Urine Clarity Clear (Clear) 09/01/20 10:50 Urine pH 7.0 (5.0-9.0) 09/01/20 10:50 Ur Specific [place] 1.008 (1.002-1.036) 09/01/20 10:50 Urine Protein Negative mg/dL (Neg-Trace) 09/01/20 10:50 Urine Glucose (UA) 200 mg/dL (Negative) A 09/01/20 10:50 Urine Ketones Negative mg/dL (Negative) 09/01/20 10:50 Urine Blood Negative (Negative) 09/01/20 10:50 Urine Nitrite Negative (Negative) 09/01/20 10:50 Urine Bilirubin Negative (Negative) 09/01/20 10:50 Urine Urobilinogen Normal mg/dL (Less than 2) 09/01/20 10:50 Ur Leukocyte Esterase 25 Ly/uL (Negative) A 09/01/20 10:50 Urine RBC 0-3 HPF (0-3) 09/01/20 10:50 Urine WBC 11-20 HPF (0-3) A 09/01/20 10:50 Ur Squamous Epith Cells 0-3 HPF (0-3) 09/01/20 10:50 Urine Bacteria 1+ HPF (None Seen) A 09/01/20 10:50 Urine Culture Reflexed Yes A 09/01/20 10:50 Urine Osmolality 265 mOsm/kg (300-900) L 09/01/20 10:50 Urine Creatinine 21.12 mg/dL (47-110) L 08/27/20 17:41 Urine Sodium 57 mmol/L (Not Available) 09/01/20 10:50 SARS CoV-2 Rapid Source Nasopharyngeal Swab 08/28/20 18:17 SARS-CoV-2 RNA (MEGAN) Not Detected (NotDetected) 08/28/20 18:17
[2020-09-02] MEDS: Gabapentin 300 MG CAP PO SCH ×2 (00:21→22:00)
[2020-09-02 07:25] LABS: Anion Gap 17 mmol/L (10-20); BUN (Urea Nitrogen) 13 mg/dL (9.8-20.1); Calc. Creatinine Clearance 60 mL/min (70-130); Calcium 9.1 mg/dL (7.8-10.44); Carbon Dioxide 18 mmol/L (23-31); Chloride 98 mmol/L (98-107); Glucose 139 mg/dL (83-110); Potassium 4.6 mmol/L (3.5-5.1); Sodium 128 mmol/L (136-145)
--- NOTE | 2020-09-02 07:47 | PDOC.HOSPP ---
- Subjective Encounter Date: 09/02/20 Encounter Time: 08:00 Subjective: Ms. 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 She is being monitored and will likely be discharged today. - Objective Vital Signs & Weight: Vital Signs (12 hours) Temp Pulse Resp BP Pulse Ox 09/01/20 21:23 98.3 F 71 20 128/68 99 09/01/20 20:00 99 Weight Weight 58.423 kg I&O: 09/01/20 09/02/20 09/03/20 06:59 06:59 06:59 Intake Total 460 350 Balance 460 350 Result Diagrams: 08/28/20 04:15 09/02/20 05:50 Additional Labs: Accuchecks 09/02/20 09/01/20 09/01/20 06:29 20:18 17:13 POC Glucose 289 H 100 103 H 09/01/20 08/31/20 12:04 19:52 POC Glucose 161 H 139 H Hospitalist ROS - Review of Systems Constitutional: denies: fever, chills, sweats Eyes: denies: vision change Respiratory: denies: shortness of breath Cardiovascular: denies: chest pain, palpitations, light headedness Gastrointestinal: reports: abdominal pain (complained of abdominal pain when I entered the room. Relieved in the time I was there. ATtributed to gas.). denies: nausea, vomiting, diarrhea, constipation - Medication Medications: Active Medications Generic Name Dose Route Start Last Admin Trade Name Freq PRN Reason Stop Dose Admin Amlodipine Besylate 10 mg 08/30/20 09:00 09/01/20 09:04 Amlodipine 10 Mg Tab PO 10 mg DAILY SAUL Administration Atorvastatin Calcium 10 mg 08/29/20 21:00 09/01/20 22:00 Atorvastatin Calcium 10 Mg Tab PO 10 mg HS SAUL Administration Clonidine 0.2 mg 08/29/20 09:00 09/01/20 22:00 Clonidine 0.2 Mg Tab PO 0.2 mg TID SAUL Administration Enoxaparin Sodium 40 mg 08/28/20 09:00 09/01/20 09:07 Enoxaparin Sodium 40 Mg/0.4 Ml Syringe SC 40 mg 0900 SAUL Administration Famotidine 20 mg 08/29/20 21:00 09/01/20 22:00 Famotidine 20 Mg Tab PO 20 mg HS SAUL Administration Gabapentin 300 mg 08/29/20 21:00 09/02/20 00:21 Gabapentin 300 Mg Cap PO Not Given HS SAUL Glimepiride 2 mg 08/30/20 12:00 09/01/20 11:44 Glimepiride 2 Mg Tab PO 2 mg 1200 SAUL Administration Hydralazine HCl 10 mg 08/28/20 09:26 08/28/20 10:39 Hydralazine 20 Mg/Ml Vial SLOW IVP 10 mg Q4H PRN Administration SBP Greater Than 170 Insulin Glargine 45 units/ 0.45 mls @ 0 mls/hr 08/31/20 12:00 09/01/20 09:11 Miscellaneous Medication SC 0.45 mls QAM SAUL Administration Insulin Human Lispro 0 units 08/27/20 19:08 08/31/20 17:54 Humalog 300 Units/3 Ml Vial SC 4 unit .MILD SLIDING SCALE PRN Administration Mild Correctional Scale Insulin Human Lispro 0 units 08/30/20 22:39 08/30/20 22:57 Humalog 300 Units/3 Ml Vial SC 3 unit .BEDTIME SLIDING SC PRN Administration Bedtime Correctional Scale Labetalol HCl 20 mg 08/28/20 15:07 08/28/20 16:20 Labetalol Hcl 100 Mg/20 Ml Vial IVPB 20 mg Q4H PRN Administration FOR SBP >170 Levothyroxine Sodium 100 mcg 08/31/20 12:00 09/01/20 11:44 Levothyroxine Sodium 100 Mcg Tab PO 100 mcg 1200 SAUL Administration Lisinopril 10 mg 08/29/20 09:00 09/01/20 22:00 Lisinopril 10 Mg Tab PO 10 mg BID SAUL Administration Metformin HCl 1,000 mg 08/30/20 08:00 09/01/20 09:02 Metformin 500 Mg Tab PO 1,000 mg QAM-WM SAUL Administration Nitrofurantoin Macrocrystals 100 mg 09/01/20 21:00 09/01/20 22:00 Nitrofurantoin Macrocrystal 50 Mg Cap PO 100 mg HS SAUL Administration Ondansetron HCl 4 mg 08/27/20 18:25 08/28/20 10:39 Ondansetron Pf 4 Mg/2 Ml Vial IVP 4 mg Q6H PRN Administration Nausea/Vomiting Sodium Chloride 10 ml 08/31/20 09:00 09/01/20 22:00 Flush - Normal Saline 10 Ml Syringe IVF 10 ml Q12HR SAUL Administration Hospitalist Exam Vitals: Vital Signs (12 hours) Temp Pulse Resp BP Pulse Ox 09/01/20 21:23 98.3 F 71 20 128/68 99 09/01/20 20:00 99 Weight Weight 58.423 kg General - other findings: She was asleep when I enterred the room. Woke up and was aware. Eye: PERRL ENT: normocephalic atraumatic Neck: supple, symmetric Heart: RRR, no murmur, no gallops, no rubs, normal peripheral pulses Respiratory: CTAB, no wheezes, no rales, no ronchi, normal chest expansion, no tachypnea Gastrointestinal: soft, non-tender, normal bowel sounds, no palpable masses Extremities: no cyanosis, no clubbing, no edema Psychiatric: normal affect, oriented to person, oriented to time Psychiatric - other findings: thought she was in her kitchen. Hosp A/P (1) Hyponatremia Code(s): E87.1 - HYPO-OSMOLALITY AND HYPONATREMIA Status: Acute Plan: limit fluid to 1200 mL a day. Take daily salt tablets. (2) Metabolic acidosis due to diabetes mellitus Code(s): E11.69 - TYPE 2 DIABETES MELLITUS WITH OTHER SPECIFIED COMPLICATION; E87.2 - ACIDOSIS Status: Acute Plan: continue insulin, metformin, and glimepiride. (3) Hypothyroidism Code(s): E03.9 - HYPOTHYROIDISM, UNSPECIFIED Status: Chronic Plan: continue Levothyroxine. (4) Metabolic encephalopathy Code(s): G93.41 - METABOLIC ENCEPHALOPATHY Status: Acute Plan: will improve with improvement of hyponatremia.
[2020-09-02] MEDS: metFORMIN 500 MG TAB PO SCH (08:45)
[2020-09-02] MEDS: Amlodipine 10 MG TAB PO SCH (08:45)
[2020-09-02] MEDS: Lisinopril 10 MG TAB PO SCH ×2 (08:45→22:00)
[2020-09-02] MEDS: cloNIDine 0.2 MG TAB PO SCH ×3 (08:45→22:00)
[2020-09-02] MEDS: Sodium Chloride 1 GM TAB PO SCH ×2 (08:45→22:00)
[2020-09-02] MEDS: Enoxaparin Sodium 40 MG/0.4 ML SYRINGE SC SCH (08:46)
[2020-09-02] MEDS: Insulin Glargine 45 UNITS in Pre-Filled Syringe 1 EACH SC SCH (08:46)
[2020-09-02] MEDS: Glimepiride 2 MG TAB PO SCH (12:11)
[2020-09-02] MEDS: Levothyroxine Sodium 100 MCG TAB PO SCH (12:11)
[2020-09-02] MEDS: Sodium Chloride 0.9% 1,000 ML IV SCH (12:11)
[2020-09-02] MEDS: HumaLOG 300 UNITS/3 ML VIAL SC PRN (12:12)
--- NOTE | 2020-09-02 15:17 | PRG ---
DATE OF SERVICE: 09/02/2020 SUBJECTIVE: Patient was seen and examined at bedside and overnight events noted. Patient denies any shortness of breath or chest pain or palpitation. No history of nausea or vomiting or diarrhea or fever or chills or cramps. OBJECTIVE: GENERAL: This is a well-built female, in no apparent distress. VITAL SIGNS: Temperature 97.9. Heart rate 71. Respiratory rate 18. Blood pressure 147/54. HEENT: Atraumatic, normocephalic. Oral mucosa is moist NECK: Supple. CARDIOVASCULAR: S1, S2 heard. Rate and rhythm regular. RESPIRATORY: Clear to auscultation. GASTROINTESTINAL: Abdomen is soft. MUSCULOSKELETAL: No tenderness. No edema. DERMATOLOGIC: No skin rash. NEUROLOGIC: Alert and awake and oriented X3. No focal neurologic deficits. Moving all the extremities. PSYCHIATRIC: Mood and affect normal. LABORATORY DATA: Sodium . ASSESSMENT AND PLAN: 1. Hyponatremia. The patient has not been eating very well. We will start on IV fluids. Okay with salt tablets. We will monitor sodium. 2. Edema. 3. History of hypertension. 4. Chronic kidney disease, stage 1. We will give IV fluids fluid restriction, and we will follow. Job ID: [id number]
--- NOTE | 2020-09-02 16:06 | PDOC.HOSPP ---
- Subjective Encounter Date: 09/02/20 Encounter Time: 16:04 Subjective: Ms. Manzano was seen today in follow-up of encephalopathy and hyponatremia. She is still somewhat confused. She does not know where she is, but knows it is 2020, and that the month is August. Her son says she is eating better. - Objective Vital Signs & Weight: Vital Signs (12 hours) Temp Pulse Resp BP Pulse Ox 09/02/20 08:00 97.9 F 71 18 147/54 H 99 Weight Weight 128 lb 12.8 oz I&O: 09/01/20 09/02/20 09/03/20 06:59 06:59 06:59 Intake Total 460 350 Balance 460 350 Result Diagrams: 08/28/20 04:15 09/02/20 05:50 Additional Labs: Accuchecks 09/02/20 09/02/20 09/02/20 11:04 06:29 04:59 POC Glucose 191 H 289 H 50 L* 09/01/20 09/01/20 20:18 17:13 POC Glucose 100 103 H Hospitalist ROS - Medication Medications: Active Medications Generic Name Dose Route Start Last Admin Trade Name Freq PRN Reason Stop Dose Admin Amlodipine Besylate 10 mg 08/30/20 09:00 09/02/20 08:45 Amlodipine 10 Mg Tab PO 10 mg DAILY SAUL Administration Atorvastatin Calcium 10 mg 08/29/20 21:00 09/01/20 22:00 Atorvastatin Calcium 10 Mg Tab PO 10 mg HS SAUL Administration Clonidine 0.2 mg 08/29/20 09:00 09/02/20 08:45 Clonidine 0.2 Mg Tab PO 0.2 mg TID SAUL Administration Enoxaparin Sodium 40 mg 08/28/20 09:00 09/02/20 08:46 Enoxaparin Sodium 40 Mg/0.4 Ml Syringe SC 40 mg 0900 SAUL Administration Famotidine 20 mg 08/29/20 21:00 09/01/20 22:00 Famotidine 20 Mg Tab PO 20 mg HS SAUL Administration Gabapentin 300 mg 08/29/20 21:00 09/02/20 00:21 Gabapentin 300 Mg Cap PO Not Given HS SAUL Glimepiride 2 mg 08/30/20 12:00 09/02/20 12:11 Glimepiride 2 Mg Tab PO 2 mg 1200 SAUL Administration Hydralazine HCl 10 mg 08/28/20 09:26 08/28/20 10:39 Hydralazine 20 Mg/Ml Vial SLOW IVP 10 mg Q4H PRN Administration SBP Greater Than 170 Insulin Glargine 45 units/ 0.45 mls @ 0 mls/hr 08/31/20 12:00 09/02/20 08:46 Miscellaneous Medication SC 0.45 mls QAM SAUL Administration Sodium Chloride 1,000 mls @ 50 mls/hr 09/02/20 10:45 09/02/20 12:11 Normal Saline 0.9% IV 1,000 mls .Q20H SAUL Administration Insulin Human Lispro 0 units 08/27/20 19:08 09/02/20 12:12 Humalog 300 Units/3 Ml Vial SC 2 unit .MILD SLIDING SCALE PRN Administration Mild Correctional Scale Insulin Human Lispro 0 units 08/30/20 22:39 08/30/20 22:57 Humalog 300 Units/3 Ml Vial SC 3 unit .BEDTIME SLIDING SC PRN Administration Bedtime Correctional Scale Labetalol HCl 20 mg 08/28/20 15:07 08/28/20 16:20 Labetalol Hcl 100 Mg/20 Ml Vial IVPB 20 mg Q4H PRN Administration FOR SBP >170 Levothyroxine Sodium 100 mcg 08/31/20 12:00 09/02/20 12:11 Levothyroxine Sodium 100 Mcg Tab PO 100 mcg 1200 SAUL Administration Lisinopril 10 mg 08/29/20 09:00 09/02/20 08:45 Lisinopril 10 Mg Tab PO 10 mg BID SAUL Administration Metformin HCl 1,000 mg 08/30/20 08:00 09/02/20 08:45 Metformin 500 Mg Tab PO 1,000 mg QAM-WM SAUL Administration Nitrofurantoin Macrocrystals 100 mg 09/01/20 21:00 09/01/20 22:00 Nitrofurantoin Macrocrystal 50 Mg Cap PO 100 mg HS SAUL Administration Ondansetron HCl 4 mg 08/27/20 18:25 08/28/20 10:39 Ondansetron Pf 4 Mg/2 Ml Vial IVP 4 mg Q6H PRN Administration Nausea/Vomiting Sodium Chloride 10 ml 08/31/20 09:00 09/02/20 08:46 Flush - Normal Saline 10 Ml Syringe IVF 10 ml Q12HR SAUL Administration Sodium Chloride 1 gm 09/02/20 09:00 09/02/20 08:45 Sodium Chloride 1 Gm Tab PO 1 gm BID SAUL Administration Hospitalist Exam Vitals: Vital Signs (12 hours) Temp Pulse Resp BP Pulse Ox 09/02/20 08:00 97.9 F 71 18 147/54 H 99 Weight Weight 128 lb 12.8 oz General Appearance: NAD Eye: PERRL Heart: RRR, no murmur, no gallops, no rubs, normal peripheral pulses Respiratory: CTAB, no wheezes, no rales, no ronchi, normal chest expansion, no tachypnea Gastrointestinal: soft, non-tender, non-distended, normal bowel sounds, no palpable masses Extremities: no cyanosis, no edema Hosp A/P (1) Hyponatremia Code(s): E87.1 - HYPO-OSMOLALITY AND HYPONATREMIA Status: Acute (2) Metabolic encephalopathy Code(s): G93.41 - METABOLIC ENCEPHALOPATHY Status: Acute (3) DM2 (diabetes mellitus, type 2) Status: Chronic (4) Esophagitis Code(s): K20.9 - ESOPHAGITIS, UNSPECIFIED * DO NOT USE * Status: Chronic (5) HTN (hypertension) Code(s): I10 - ESSENTIAL (PRIMARY) HYPERTENSION Status: Chronic (6) Urinary tract infection Status: Acute (7) Hypothyroidism Code(s): E03.9 - HYPOTHYROIDISM, UNSPECIFIED Status: Chronic - Plan * 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 her serum sodium fell some to 128. She is still confused, and I am beginning to think she may have some underlying dementia. * HTN- blood pressure is stable * DM- continue Lantus and Metformin * Metabolic encephalopathy- due to hyponatremia- slowly resolving * UTI-will change to Nitrofurantoin, and she can be discharged with a few days of treatment * Hypothyroidism- continue with the current dose of Synthroid
[2020-09-02] MEDS: Nitrofurantoin Macrocrystal 50 MG CAP PO SCH (22:00)
[2020-09-02] MEDS: Famotidine 20 MG TAB PO SCH (22:00)
[2020-09-02] MEDS: Atorvastatin Calcium 10 MG TAB PO SCH (22:00)
[2020-09-03] MEDS ORDERED: Dextrose 5 %-0.45 % NaCl 1,000 ML IV SCH (00:15)
[2020-09-03] MEDS: Sodium Chloride 0.9% 1,000 ML IV SCH (04:11)
--- NOTE | 2020-09-03 08:04 | PDOC.HOSPP ---
- Subjective Encounter Date: 09/03/20 Encounter Time: 08:02 Subjective: Ms. 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 This morning she was coherent. Oriented to person, place, and time (new that this was where patients were and medicine was administered, though did not say hospital). She had no current requests and is awaiting D/C. - Objective Vital Signs & Weight: Vital Signs (12 hours) Temp Pulse Resp BP BP BP Pulse Ox 09/03/20 07:22 98.1 F 66 16 185/65 H 98 09/03/20 04:00 165/75 H 09/03/20 00:00 18 138/72 98 09/02/20 22:00 156/67 H Weight Weight 58.423 kg I&O: 09/02/20 09/03/20 09/04/20 06:59 06:59 06:59 Intake Total 1250 Balance 1250 Result Diagrams: 08/28/20 04:15 09/02/20 05:50 Additional Labs: Accuchecks 09/03/20 09/03/20 09/03/20 05:12 03:37 02:54 POC Glucose 85 95 101 H 09/03/20 09/03/20 09/02/20 01:37 00:11 11:04 POC Glucose 117 H 200 H 191 H 09/02/20 04:59 POC Glucose 50 L* Hospitalist ROS - Review of Systems Constitutional: denies: fever, chills Eyes: denies: vision change Respiratory: denies: shortness of breath Cardiovascular: denies: chest pain Gastrointestinal: denies: nausea, vomiting, abdominal pain Skin: denies: rash, lesions - Medication Medications: Active Medications Generic Name Dose Route Start Last Admin Trade Name Freq PRN Reason Stop Dose Admin Amlodipine Besylate 10 mg 08/30/20 09:00 09/02/20 08:45 Amlodipine 10 Mg Tab PO 10 mg DAILY SAUL Administration Atorvastatin Calcium 10 mg 08/29/20 21:00 09/02/20 22:00 Atorvastatin Calcium 10 Mg Tab PO 10 mg HS SAUL Administration Clonidine 0.2 mg 08/29/20 09:00 09/02/20 22:00 Clonidine 0.2 Mg Tab PO 0.2 mg TID SAUL Administration Dextrose/Water 25 gm 08/27/20 19:08 09/02/20 23:49 Dextrose 50% Abboject 50 Ml Syringe SLOW IVP 25 gm PRN PRN Administration Hypoglycemia Enoxaparin Sodium 40 mg 08/28/20 09:00 09/02/20 08:46 Enoxaparin Sodium 40 Mg/0.4 Ml Syringe SC 40 mg 0900 SAUL Administration Famotidine 20 mg 08/29/20 21:00 09/02/20 22:00 Famotidine 20 Mg Tab PO 20 mg HS SAUL Administration Gabapentin 300 mg 08/29/20 21:00 09/02/20 22:00 Gabapentin 300 Mg Cap PO Not Given HS SAUL Glimepiride 2 mg 08/30/20 12:00 09/02/20 12:11 Glimepiride 2 Mg Tab PO 2 mg 1200 SAUL Administration Hydralazine HCl 10 mg 08/28/20 09:26 08/28/20 10:39 Hydralazine 20 Mg/Ml Vial SLOW IVP 10 mg Q4H PRN Administration SBP Greater Than 170 Insulin Glargine 45 units/ 0.45 mls @ 0 mls/hr 08/31/20 12:00 09/02/20 08:46 Miscellaneous Medication SC 0.45 mls QAM SAUL Administration Dextrose/Sodium Chloride 1,000 mls @ 50 mls/hr 09/03/20 00:15 09/03/20 00:35 D5 1/2 Ns IV 1,000 mls .Q20H SAUL Administration Insulin Human Lispro 0 units 08/27/20 19:08 09/02/20 12:12 Humalog 300 Units/3 Ml Vial SC 2 unit .MILD SLIDING SCALE PRN Administration Mild Correctional Scale Insulin Human Lispro 0 units 08/30/20 22:39 08/30/20 22:57 Humalog 300 Units/3 Ml Vial SC 3 unit .BEDTIME SLIDING SC PRN Administration Bedtime Correctional Scale Labetalol HCl 20 mg 08/28/20 15:07 08/28/20 16:20 Labetalol Hcl 100 Mg/20 Ml Vial IVPB 20 mg Q4H PRN Administration FOR SBP >170 Levothyroxine Sodium 100 mcg 08/31/20 12:00 09/02/20 12:11 Levothyroxine Sodium 100 Mcg Tab PO 100 mcg 1200 SAUL Administration Lisinopril 10 mg 08/29/20 09:00 09/02/20 22:00 Lisinopril 10 Mg Tab PO 10 mg BID SAUL Administration Metformin HCl 1,000 mg 08/30/20 08:00 09/02/20 08:45 Metformin 500 Mg Tab PO 1,000 mg QAM-WM SAUL Administration Nitrofurantoin Macrocrystals 100 mg 09/01/20 21:00 09/02/20 22:00 Nitrofurantoin Macrocrystal 50 Mg Cap PO 100 mg HS SAUL Administration Ondansetron HCl 4 mg 08/27/20 18:25 08/28/20 10:39 Ondansetron Pf 4 Mg/2 Ml Vial IVP 4 mg Q6H PRN Administration Nausea/Vomiting Sodium Chloride 10 ml 08/31/20 09:00 09/02/20 22:00 Flush - Normal Saline 10 Ml Syringe IVF 10 ml Q12HR SAUL Administration Sodium Chloride 1 gm 09/02/20 09:00 09/02/20 22:00 Sodium Chloride 1 Gm Tab PO 1 gm BID SAUL Administration Hospitalist Exam Vitals: Vital Signs (12 hours) Temp Pulse Resp BP BP BP Pulse Ox 09/03/20 07:22 98.1 F 66 16 185/65 H 98 09/03/20 04:00 165/75 H 09/03/20 00:00 18 138/72 98 09/02/20 22:00 156/67 H Weight Weight 58.423 kg General Appearance: NAD, awake alert Eye: PERRL ENT: normocephalic atraumatic Neck: supple Heart: RRR, no murmur, no gallops, no rubs, normal peripheral pulses Respiratory: CTAB, no wheezes, no rales, no ronchi, normal chest expansion, no tachypnea Gastrointestinal: soft, non-tender, non-distended, normal bowel sounds Extremities: no cyanosis Psychiatric: normal affect, normal behavior, oriented to person, oriented to time Hosp A/P (1) Hyponatremia Code(s): E87.1 - HYPO-OSMOLALITY AND HYPONATREMIA Status: Acute Plan: continue with D/C plan of salt tablets and limited liquid intake to 1200mL/day. (2) Metabolic acidosis due to diabetes mellitus Code(s): E11.69 - TYPE 2 DIABETES MELLITUS WITH OTHER SPECIFIED COMPLICATION; E87.2 - ACIDOSIS Status: Acute Plan: Continue insulin, metformin glimepiride. (3) Hypothyroidism Code(s): E03.9 - HYPOTHYROIDISM, UNSPECIFIED Status: Chronic Plan: Continue Levothyroxine. (4) Metabolic encephalopathy Code(s): G93.41 - METABOLIC ENCEPHALOPATHY Status: Acute Plan: Should resolve with resolution of Hyponatremia. Other cognitive decline may be due to dementia.
[2020-09-03] MEDS: cloNIDine 0.2 MG TAB PO SCH (08:16)
[2020-09-03] MEDS: Insulin Glargine 45 UNITS in Pre-Filled Syringe 1 EACH SC SCH ×2 (08:16→11:22)
[2020-09-03] MEDS: Amlodipine 10 MG TAB PO SCH (08:16)
[2020-09-03] MEDS: Lisinopril 10 MG TAB PO SCH (08:16)
[2020-09-03] MEDS: metFORMIN 500 MG TAB PO SCH ×2 (08:16→11:22)
[2020-09-03] MEDS: Sodium Chloride 1 GM TAB PO SCH (08:16)
[2020-09-03] MEDS: Enoxaparin Sodium 40 MG/0.4 ML SYRINGE SC SCH (08:17)
[2020-09-03 08:59] LABS: Anion Gap 14 mmol/L (10-20); BUN (Urea Nitrogen) 10 mg/dL (9.8-20.1); Calc. Creatinine Clearance 65 mL/min (70-130); Calcium 8.9 mg/dL (7.8-10.44); Carbon Dioxide 19 mmol/L (23-31); Chloride 102 mmol/L (98-107); Glucose 99 mg/dL (83-110); Potassium 4.8 mmol/L (3.5-5.1); Sodium 130 mmol/L (136-145)
--- NOTE | 2020-09-03 10:43 | PDOC.HOSPP ---
- Subjective Encounter Date: 09/03/20 Encounter Time: 10:41 Subjective: Ms. Manzano was seen today in follow-up of Hyponatremia. She is about baseline. - Objective Vital Signs & Weight: Vital Signs (12 hours) Temp Pulse Resp BP BP Pulse Ox 09/03/20 07:22 98.1 F 66 16 185/65 H 98 09/03/20 04:00 165/75 H 09/03/20 00:00 18 138/72 98 Weight Weight 128 lb 12.8 oz I&O: 09/02/20 09/03/20 09/04/20 06:59 06:59 06:59 Intake Total 1250 Balance 1250 Result Diagrams: 08/28/20 04:15 09/03/20 08:20 Additional Labs: Accuchecks 09/03/20 09/03/20 09/03/20 05:12 03:37 02:54 POC Glucose 85 95 101 H 09/03/20 09/03/20 09/02/20 01:37 00:11 11:04 POC Glucose 117 H 200 H 191 H Hospitalist ROS - Medication Medications: Active Medications Generic Name Dose Route Start Last Admin Trade Name Freq PRN Reason Stop Dose Admin Amlodipine Besylate 10 mg 08/30/20 09:00 09/03/20 08:16 Amlodipine 10 Mg Tab PO 10 mg DAILY SAUL Administration Atorvastatin Calcium 10 mg 08/29/20 21:00 09/02/20 22:00 Atorvastatin Calcium 10 Mg Tab PO 10 mg HS SAUL Administration Clonidine 0.2 mg 08/29/20 09:00 09/03/20 08:16 Clonidine 0.2 Mg Tab PO 0.2 mg TID SAUL Administration Dextrose/Water 25 gm 08/27/20 19:08 09/02/20 23:49 Dextrose 50% Abboject 50 Ml Syringe SLOW IVP 25 gm PRN PRN Administration Hypoglycemia Enoxaparin Sodium 40 mg 08/28/20 09:00 09/03/20 08:17 Enoxaparin Sodium 40 Mg/0.4 Ml Syringe SC 40 mg 0900 SAUL Administration Famotidine 20 mg 08/29/20 21:00 09/02/20 22:00 Famotidine 20 Mg Tab PO 20 mg HS SAUL Administration Gabapentin 300 mg 08/29/20 21:00 09/02/20 22:00 Gabapentin 300 Mg Cap PO Not Given HS SAUL Glimepiride 2 mg 08/30/20 12:00 09/02/20 12:11 Glimepiride 2 Mg Tab PO 2 mg 1200 SAUL Administration Hydralazine HCl 10 mg 08/28/20 09:26 08/28/20 10:39 Hydralazine 20 Mg/Ml Vial SLOW IVP 10 mg Q4H PRN Administration SBP Greater Than 170 Insulin Glargine 45 units/ 0.45 mls @ 0 mls/hr 08/31/20 12:00 09/03/20 08:16 Miscellaneous Medication SC Not Given QAM SAUL Dextrose/Sodium Chloride 1,000 mls @ 50 mls/hr 09/03/20 00:15 09/03/20 00:35 D5 1/2 Ns IV 1,000 mls .Q20H SAUL Administration Insulin Human Lispro 0 units 08/27/20 19:08 09/02/20 12:12 Humalog 300 Units/3 Ml Vial SC 2 unit .MILD SLIDING SCALE PRN Administration Mild Correctional Scale Insulin Human Lispro 0 units 08/30/20 22:39 08/30/20 22:57 Humalog 300 Units/3 Ml Vial SC 3 unit .BEDTIME SLIDING SC PRN Administration Bedtime Correctional Scale Labetalol HCl 20 mg 08/28/20 15:07 08/28/20 16:20 Labetalol Hcl 100 Mg/20 Ml Vial IVPB 20 mg Q4H PRN Administration FOR SBP >170 Levothyroxine Sodium 100 mcg 08/31/20 12:00 09/02/20 12:11 Levothyroxine Sodium 100 Mcg Tab PO 100 mcg 1200 SAUL Administration Lisinopril 10 mg 08/29/20 09:00 09/03/20 08:16 Lisinopril 10 Mg Tab PO 10 mg BID SALU Administration Metformin HCl 1,000 mg 08/30/20 08:00 09/03/20 08:16 Metformin 500 Mg Tab PO Not Given QAM-WM SAUL Nitrofurantoin Macrocrystals 100 mg 09/01/20 21:00 09/02/20 22:00 Nitrofurantoin Macrocrystal 50 Mg Cap PO 100 mg HS SAUL Administration Ondansetron HCl 4 mg 08/27/20 18:25 08/28/20 10:39 Ondansetron Pf 4 Mg/2 Ml Vial IVP 4 mg Q6H PRN Administration Nausea/Vomiting Sodium Chloride 10 ml 08/31/20 09:00 09/03/20 08:17 Flush - Normal Saline 10 Ml Syringe IVF Not Given Q12HR SAUL Sodium Chloride 1 gm 09/02/20 09:00 09/03/20 08:16 Sodium Chloride 1 Gm Tab PO 1 gm BID SAUL Administration Hospitalist Exam Vitals: Vital Signs (12 hours) Temp Pulse Resp BP BP Pulse Ox 09/03/20 07:22 98.1 F 66 16 185/65 H 98 09/03/20 04:00 165/75 H 09/03/20 00:00 18 138/72 98 Weight Weight 128 lb 12.8 oz Eye: PERRL, anicteric sclera Heart: RRR, no murmur, no gallops, no rubs, normal peripheral pulses Respiratory: CTAB, no wheezes, no rales, no ronchi, normal chest expansion, no tachypnea, normal percussion Gastrointestinal: soft, non-tender, non-distended, normal bowel sounds, no palpable masses, no hepatomegaly Extremities: no cyanosis, no edema Hosp A/P (1) Hyponatremia Code(s): E87.1 - HYPO-OSMOLALITY AND HYPONATREMIA Status: Acute (2) Metabolic encephalopathy Code(s): G93.41 - METABOLIC ENCEPHALOPATHY Status: Acute (3) DM2 (diabetes mellitus, type 2) Status: Chronic (4) Esophagitis Code(s): K20.9 - ESOPHAGITIS, UNSPECIFIED * DO NOT USE * Status: Chronic (5) HTN (hypertension) Code(s): I10 - ESSENTIAL (PRIMARY) HYPERTENSION Status: Chronic (6) Urinary tract infection Status: Acute (7) Hypothyroidism Code(s): E03.9 - HYPOTHYROIDISM, UNSPECIFIED Status: Chronic - Plan * 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 her serum sodium fell some to 130. I suspect she has some underlying dementia * HTN- blood pressure is stable * DM- continue Lantus and Metformin * She is stable for discharge home
[2020-09-03 11:28] VITALS: BP 182/63; TEMP 97.4
--- NOTE | 2020-09-03 18:05 | PDOC.DS.DS ---
Provider Date of Admission: 08/27/20 17:39 Date of Discharge: 09/03/20 Admitting Provider: Chong Siegel MD Primary Care Physician: BREE ABDALLA MD Course Hospital Course: Ms. Manzano is a pleasant 80-year-old female that has a history of peripheral vascular disease. She also had bilateral below the knee amputations in the past. She presented to the emergency room with altered mental status. Her son brought her to the hospital he was concerned that she may have a urinary tract infection. Urinalysis was done and showed some bacteria as well as white cells in the urine. It was also found that she had significant hyponatremia. She has a history of chronic hyponatremia due to SIADH. She was seen by nephrology and placed on a fluid restriction. Her serum sodium went from a low of 114 back to 130. She was also treated presumptively for urinary tract infection with Rocephin. And also would be discharged on a low dose of nitrofurantoin. Unfortunately her sensorium never fully recovered and it is possible that she could be experiencing the early signs of dementia. This was discussed with the patient's son who did not seem to be very happy with that idea. However he can take this up with his primary care physician in the future. She is at very high risk of readmission due to her generalized debilitated state poor oral intake and history of chronic hyponatremia. Pertinent Studies: CT scan of the brain Lab Results: 08/28/20 04:15 09/03/20 08:20 Abnormal Lab Results - Last 48 hrs 09/02/20 05:50: Sodium 128 L, Carbon Dioxide 18 L 09/03/20 08:20: Sodium 130 L, Carbon Dioxide 19 L Microbiology - Entire Visit 09/01/20 11:59 Urine clean catch Urine Culture - Final NO GROWTH AT 48 HOURS 08/27/20 17:34 Venous blood - Right Arm Blood Culture - Final NO GROWTH IN 5 DAYS 08/27/20 17:25 Venous blood - Left Hand Blood Culture - Final NO GROWTH IN 5 DAYS 08/27/20 17:41 Urine clean catch Urine Culture - Final NO GROWTH AT 48 HOURS Vitals: Vital Signs (12 hours) Temp Pulse Resp BP BP Pulse Ox 09/03/20 11:26 97.4 F L 66 16 182/63 H 98 09/03/20 08:00 98 09/03/20 07:22 98.1 F 66 16 185/65 H 98 Weight Weight 128 lb 12.8 oz Physical Exam: The patient was seen and examined on the day of discharge. Problem (1) Hyponatremia Code(s): E87.1 - HYPO-OSMOLALITY AND HYPONATREMIA Status: Acute (2) Metabolic encephalopathy Code(s): G93.41 - METABOLIC ENCEPHALOPATHY Status: Acute (3) DM2 (diabetes mellitus, type 2) Status: Chronic (4) Esophagitis Code(s): K20.9 - ESOPHAGITIS, UNSPECIFIED * DO NOT USE * Status: Chronic (5) HTN (hypertension) Code(s): I10 - ESSENTIAL (PRIMARY) HYPERTENSION Status: Chronic (6) Urinary tract infection Status: Acute (7) Hypothyroidism Code(s): E03.9 - HYPOTHYROIDISM, UNSPECIFIED Status: Chronic Plan Prescriptions: Nitrofurantoin Macrocrystal [Macrodantin] 100 mg PO HS #7 cap Home Medications: Medication Instructions Recorded Confirmed Type Amlodipine Besylate [amLODIPine 10 mg PO DAILY 12/19/13 08/28/20 History Besylate] Gabapentin [Neurontin] 300 mg PO HS 12/19/13 08/28/20 History Insulin Glargine [Lantus Vial] 45 units SC DAILY 12/19/13 08/28/20 History Simvastatin [Zocor] 20 mg PO HS 12/19/13 08/28/20 History HumaLOG [HumaLOG Vial] 0 units SC TID-WM PRN 07/30/14 08/28/20 History metFORMIN HCl 1,000 mg PO DAILY 07/30/14 08/28/20 History Clonidine HCl 0.2 mg PO TID 06/11/17 08/28/20 History Glimepiride [Amaryl] 2 mg PO 1200 12/08/17 08/28/20 History Levothyroxine Sodium 88 mcg PO 1200 12/08/17 08/28/20 History Lisinopril [Zestril] 10 mg PO BID #60 tab 12/16/17 08/28/20 Rx Nitrofurantoin Macrocrystal 100 mg PO HS #7 cap 09/03/20 Rx [Macrodantin] Allergies: No Known Allergies Allergy (Verified 06/11/17 22:56) Activity:: Activity as Tolerated Nourishment:: Heart Healthy Diet Referrals: BREE ABDALLA MD [Primary Care Provider] - Disposition: HOME Quality CORE MEASURES:: N/A
--- NOTE | 2020-09-03 19:38 | PRG ---
DATE OF SERVICE: 09/03/2020 SUBJECTIVE: Patient was seen and examined at bedside and overnight events noted. Patient denies any shortness of breath or chest pain or palpitation. No history of nausea or vomiting or diarrhea or fever or chills or cramps. OBJECTIVE: General: This is a well-built female, in no apparent distress. Vital Signs: Temperature 97.4. Heart Rate . Respiratory rate . Blood pressure 182/63. HEENT: Atraumatic, normocephalic. Oral mucosa is moist. Neck: Supple. Cardiovascular: S1, S2 heard. Rate and rhythm regular. Respiratory: Clear to auscultation. Gastrointestinal: Abdomen is soft. Musculoskeletal: No tenderness. No edema. Dermatologic: No skin rash. Neurologic: Alert and awake and oriented x3. No focal neurologic deficits. Moving all the extremities. Psychiatric: Mood and affect normal. LABORATORY DATA: Sodium 130. ASSESSMENT AND PLAN: 1. Hyponatremia, most likely secondary to volume depletion. Sodium level is better with IV fluids. 2. Edema. 3. History of hypertension. 4. Chronic kidney disease, stage 1. Sodium level is stable. Advised the patient probably going home today. Advised to follow up with the clinic in 1-2 weeks. Son was at the bedside. Job ID: [id number]
--- NOTE | 2020-09-05 19:14 | EKG ---
Test Reason : Blood Pressure : / mmHG Vent. Rate : 089 BPM Atrial Rate : 089 BPM P-R Int : 228 ms QRS Dur : 078 ms QT Int : 344 ms P-R-T Axes : 028 012 049 degrees QTc Int : 418 ms Sinus rhythm with 1st degree A-V block Otherwise normal ECG Confirmed by ALVINO CONTRERAS DO ([id number]), movie editor DANIEL BRAY ([id number]) on 09/05/2020 7:13:49 PM Referred By: Confirmed By:ALVINO CONTRERAS DO
== END 2020-09-03 11:34 | disposition home or self-care (01) | DRG 643 ==
LOC: ERS 15:56 → 2NO 17:39 → T4-B 08-31 14:53
PROVIDERS: ADMIT Internal Medicine; ATTEND Internal Medicine
DX: E22.2 Syndrome of inappropriate secretion of antidiuretic hormone (principal); G93.41 Metabolic encephalopathy; N39.0 Urinary tract infection, site not specified; E87.2 Acidosis; Z20.822 Contact with and (suspected) exposure to COVID-19; K20.90 Esophagitis, unspecified without bleeding; E03.9 Hypothyroidism, unspecified; E11.22 Type 2 diabetes mellitus with diabetic chronic kidney disease; I12.9 Hypertensive chronic kidney disease with stage 1 through stage 4 chronic kidney disease, or unspecified chronic kidney disease; E87.5 Hyperkalemia; E11.51 Type 2 diabetes mellitus with diabetic peripheral angiopathy without gangrene; E78.5 Hyperlipidemia, unspecified; E11.69 Type 2 diabetes mellitus with other specified complication; N18.2 Chronic kidney disease, stage 2 (mild); F17.210 Nicotine dependence, cigarettes, uncomplicated; Z89.512 Acquired absence of left leg below knee; Z89.511 Acquired absence of right leg below knee; Z79.4 Long term (current) use of insulin; Z79.899 Other long term (current) drug therapy; Z79.890 Hormone replacement therapy
CPT/HCPCS: 36415; 36416; 70450; 71045; 80048; 80053; 81001; 81003; 81015; 82550; 82570; 83605; 83735; 83930; 83935; 84300; 84439; 84443; 84484; 85025; 87040; 87086; 87635; 93005; 96365; 96366; J0360; J0692; J0696; J1650; J1815; J2405; J3370; J3490; J7131; S0028; U0003; U0005

== ENCOUNTER 2020-10-02 22:53 | Inpatient (IN) | payer MEDICARE ==
[2020-10-02] MEDS ORDERED: Ondansetron PF 4 MG/2 ML Vial ONE (23:14)
[2020-10-02 23:31] LABS: Hemoglobin 14.1 g/dL (12.0-16.0); Mean Corpuscular HGB CONC 34.7 g/dL (32.0-36.0); Mean Corpuscular Hemoglobin 29.9 pg (27.0-31.0); Mean Corpuscular Volume 86.2 fL (78.0-98.0); Mean Platelet Volume 7.5 fL (7.4-10.4); Platelet Count 454 thou/uL (130-400); RBC Distribution Width 12.5 % (11.5-14.5); Red Blood Cell (RBC) Count 4.72 mill/uL (4.20-5.40); White Blood Cell (WBC) Count 24.5 thou/uL (4.8-10.8)
[2020-10-02 23:42] LABS: ALT (SGPT) 10 U/L (8-55); AST (SGOT) 14 U/L (5-34); Albumin 4.6 g/dL (3.4-4.8); Alkaline Phosphatase 108 U/L (40-110); Anion Gap 21 mmol/L (10-20); BUN (Urea Nitrogen) 8 mg/dL (9.8-20.1); Bilirubin, Total 0.9 mg/dL (0.2-1.2); Calc. Creatinine Clearance 0 mL/min (70-130); Calcium 8.7 mg/dL (7.8-10.44); Carbon Dioxide 19 mmol/L (23-31); Chloride 84 mmol/L (98-107); Glucose 189 mg/dL (83-110); Potassium 3.9 mmol/L (3.5-5.1); Protein, Total 7.6 g/dL (5.8-8.1); Sodium 120 mmol/L (136-145)
[2020-10-02 23:46] LABS: Band 6 % (5-11); Lymphocytes 16 % (21-51); MDiff Complete? YES; Monocytes 4 % (0-10); Neutrophil 74 % (42-75); Platelet Morphology Comment Appears Increased; RBC Morphology Normal
[2020-10-03 00:04] LABS: CKMB 2.6 ng/mL (0-6.6)
[2020-10-03 00:04] LABS: Bacteria/HPF None Seen HPF (None Seen); Bilirubin Negative (Negative); Blood, Urine 1+ (Negative); Clarity Clear (Clear); Glucose, Urine (Dipstick) 70 mg/dL (Negative); Ketone, Urine 40 mg/dL (Negative); Leukocyte Negative Leu/uL (Negative); Nitrite Negative (Negative); Protein, Urine (Dipstick) 300 mg/dL (Neg-Trace); Specific Gravity, Urine 1.012 (1.002-1.036); Squamous Epithelial 0-3 HPF (0-3); Urobilinogen Normal mg/dL (Less than 2)
[2020-10-03] MEDS ORDERED: HumaLOG 300 UNITS/3 ML VIAL SC PRN (02:19)
[2020-10-03] MEDS ORDERED: Dextrose 5% in Water 1,000 ML IV PRN (02:19)
[2020-10-03] MEDS ORDERED: Ondansetron PF 4 MG/2 ML Vial IVP PRN ×2 (02:19→03:20)
[2020-10-03] MEDS ORDERED: Dextrose 50% Abboject 50 ML SYRINGE SLOW IVP PRN (02:19)
[2020-10-03] MEDS ORDERED: Ondansetron ODT 4 MG TAB PO PRN ×2 (02:19→03:20)
[2020-10-03 02:53] LABS: Lactic Acid 0.9 mmol/L (0.5-2.2)
[2020-10-03] MEDS ORDERED: Acetaminophen 325 MG TAB PO PRN (03:20)
[2020-10-03] MEDS ORDERED: Senokot S 8.6-50 MG TAB PO PRN (03:20)
[2020-10-03] MEDS: Piperacillin/Tazobactam 3.375 GM in Sodium Chloride 0.9% 100 ML IVPB SCH ×4 (03:45→21:01)
[2020-10-03] MEDS ORDERED: Vancomycin 1 GM in Premix Bag 1 BAG IVPB SCH (04:00)
[2020-10-03 05:57] LABS: Anion Gap 13 mmol/L (10-20); BUN (Urea Nitrogen) 7 mg/dL (9.8-20.1); Calc. Creatinine Clearance 71 mL/min (70-130); Calcium 8.1 mg/dL (7.8-10.44); Carbon Dioxide 22 mmol/L (23-31); Chloride 90 mmol/L (98-107); Glucose 121 mg/dL (83-110); Potassium 3.5 mmol/L (3.5-5.1); Sodium 121 mmol/L (136-145)
[2020-10-03 08:03] LABS: Troponin I 0.055 ng/mL (< 0.028)
[2020-10-03 08:26] LABS: #Basophils 0.1 thou/uL (0.0-0.2); #Monocytes 0.9 thou/uL (0.11-0.59); #Neutrophils 12.4 thou/uL (1.40-6.50); %Basophils 0.4 % (0.0-1.0); %Eosinophils 0.2 % (0.0-10.0); %Lymphocytes 18.4 % (21.0-51.0); %Monocytes 5.5 % (0.0-10.0); %Neutrophils 75.6 % (42.0-75.0); Mean Corpuscular HGB CONC 34.9 g/dL (32.0-36.0); Mean Corpuscular Hemoglobin 30.3 pg (27.0-31.0); Mean Corpuscular Volume 86.7 fL (78.0-98.0); Mean Platelet Volume 7.8 fL (7.4-10.4); Platelet Count 394 thou/uL (130-400); RBC Distribution Width 12.5 % (11.5-14.5); Red Blood Cell (RBC) Count 4.31 mill/uL (4.20-5.40); White Blood Cell (WBC) Count 16.4 thou/uL (4.8-10.8)
[2020-10-03] MEDS: Famotidine 20 MG TAB PO SCH (09:08)
[2020-10-03 09:28] LABS: SARS-CoV-2 PCR by NAA Not Detected (NotDetected)
[2020-10-03 09:53] LABS: Anion Gap 18 mmol/L (10-20); BUN (Urea Nitrogen) 6 mg/dL (9.8-20.1); Calc. Creatinine Clearance 65 mL/min (70-130); Carbon Dioxide 18 mmol/L (23-31); Chloride 93 mmol/L (98-107); Glucose 107 mg/dL (83-110); Potassium 3.6 mmol/L (3.5-5.1); Sodium 125 mmol/L (136-145)
[2020-10-03] MEDS ORDERED: Lisinopril 10 MG TAB PO SCH (11:00)
[2020-10-03] MEDS ORDERED: Amlodipine 10 MG TAB PO SCH (11:00)
[2020-10-03 11:02] LABS: Troponin I 0.059 ng/mL (< 0.028)
[2020-10-03] MEDS: cloNIDine 0.2 MG TAB PO SCH ×2 (11:06→17:32)
[2020-10-03] MEDS: Levothyroxine Sodium 88 MCG TAB PO SCH (11:06)
[2020-10-03] MEDS: HumaLOG 300 UNITS/3 ML VIAL SC PRN (17:32)
[2020-10-03] MEDS: Gabapentin 300 MG CAP PO SCH (21:01)
[2020-10-03] MEDS: Atorvastatin Calcium 10 MG TAB PO SCH (21:02)
[2020-10-03] MEDS: Lisinopril 10 MG TAB PO SCH (21:02)
[2020-10-04] MEDS: Piperacillin/Tazobactam 3.375 GM in Sodium Chloride 0.9% 100 ML IVPB SCH ×4 (03:41→20:44)
[2020-10-04] MEDS ORDERED: hydrALAZINE 20 MG/ML VIAL SLOW IVP PRN (04:14)
[2020-10-04 04:36] LABS: #Basophils 0.1 thou/uL (0.0-0.2); #Eosinphils 0.1 thou/uL (0.0-0.7); #Lymphocytes 3.5 thou/uL (1.20-3.40); #Monocytes 1.2 thou/uL (0.11-0.59); #Neutrophils 7.4 thou/uL (1.40-6.50); %Basophils 0.7 % (0.0-1.0); %Eosinophils 0.8 % (0.0-10.0); %Lymphocytes 28.8 % (21.0-51.0); %Monocytes 9.9 % (0.0-10.0); %Neutrophils 59.9 % (42.0-75.0); Hemoglobin 13.5 g/dL (12.0-16.0); Mean Corpuscular HGB CONC 34.1 g/dL (32.0-36.0); Mean Corpuscular Hemoglobin 29.7 pg (27.0-31.0); Mean Corpuscular Volume 87.1 fL (78.0-98.0); Mean Platelet Volume 7.6 fL (7.4-10.4); Platelet Count 421 thou/uL (130-400); RBC Distribution Width 12.9 % (11.5-14.5); Red Blood Cell (RBC) Count 4.57 mill/uL (4.20-5.40); White Blood Cell (WBC) Count 12.3 thou/uL (4.8-10.8)
[2020-10-04 04:54] LABS: Anion Gap 14 mmol/L (10-20); BUN (Urea Nitrogen) 6 mg/dL (9.8-20.1); Calc. Creatinine Clearance 58 mL/min (70-130); Calcium 8.7 mg/dL (7.8-10.44); Carbon Dioxide 21 mmol/L (23-31); Chloride 98 mmol/L (98-107); Glucose 117 mg/dL (83-110); Potassium 3.4 mmol/L (3.5-5.1); Sodium 130 mmol/L (136-145)
[2020-10-04] MEDS: Lisinopril 10 MG TAB PO SCH ×2 (09:16→20:44)
[2020-10-04] MEDS: cloNIDine 0.2 MG TAB PO SCH ×3 (09:16→17:00)
[2020-10-04] MEDS: Famotidine 20 MG TAB PO SCH (09:17)
[2020-10-04] MEDS: metFORMIN 500 MG TAB PO SCH (09:17)
[2020-10-04] MEDS: Amlodipine 10 MG TAB PO SCH (09:17)
[2020-10-04] MEDS: Insulin Glargine 40 UNITS in Pre-Filled Syringe 1 EACH SC SCH (09:21)
[2020-10-04] MEDS ORDERED: Potassium Chloride 20 MEQ TAB PO SCH (10:00)
[2020-10-04] MEDS: Levothyroxine Sodium 88 MCG TAB PO SCH (11:25)
[2020-10-04] MEDS: HumaLOG 300 UNITS/3 ML VIAL SC PRN (17:58)
[2020-10-04] MEDS: Atorvastatin Calcium 10 MG TAB PO SCH (20:44)
[2020-10-04] MEDS: Gabapentin 300 MG CAP PO SCH (20:44)
[2020-10-05 03:03] LABS: #Basophils 0.1 thou/uL (0.0-0.2); #Eosinphils 0.1 thou/uL (0.0-0.7); #Lymphocytes 3.1 thou/uL (1.20-3.40); #Monocytes 1.1 thou/uL (0.11-0.59); #Neutrophils 6.3 thou/uL (1.40-6.50); %Basophils 0.7 % (0.0-1.0); %Eosinophils 1.2 % (0.0-10.0); %Lymphocytes 28.8 % (21.0-51.0); %Neutrophils 59.3 % (42.0-75.0); Hemoglobin 12.9 g/dL (12.0-16.0); Mean Corpuscular HGB CONC 35.6 g/dL (32.0-36.0); Mean Corpuscular Hemoglobin 31.6 pg (27.0-31.0); Mean Corpuscular Volume 88.8 fL (78.0-98.0); Platelet Count 387 thou/uL (130-400); Red Blood Cell (RBC) Count 4.07 mill/uL (4.20-5.40); White Blood Cell (WBC) Count 10.6 thou/uL (4.8-10.8)
[2020-10-05] MEDS: Piperacillin/Tazobactam 3.375 GM in Sodium Chloride 0.9% 100 ML IVPB SCH ×2 (03:21→08:17)
[2020-10-05 03:23] LABS: Vancomycin, Trough Less than 1.1 ug/mL
[2020-10-05 03:28] LABS: Anion Gap 15 mmol/L (10-20); BUN (Urea Nitrogen) 10 mg/dL (9.8-20.1); Calc. Creatinine Clearance 57 mL/min (70-130); Calcium 8.6 mg/dL (7.8-10.44); Carbon Dioxide 19 mmol/L (23-31); Chloride 98 mmol/L (98-107); Glucose 84 mg/dL (83-110); Potassium 4.1 mmol/L (3.5-5.1); Sodium 128 mmol/L (136-145)
[2020-10-05] MEDS: cloNIDine 0.2 MG TAB PO SCH ×3 (08:16→16:32)
[2020-10-05] MEDS: Lisinopril 10 MG TAB PO SCH ×2 (08:16→20:25)
[2020-10-05] MEDS: Famotidine 20 MG TAB PO SCH (08:16)
[2020-10-05] MEDS: Amlodipine 10 MG TAB PO SCH (08:17)
[2020-10-05] MEDS: metFORMIN 500 MG TAB PO SCH (08:17)
[2020-10-05 09:30] LABS: Anion Gap 16 mmol/L (10-20); BUN (Urea Nitrogen) 8 mg/dL (9.8-20.1); Calc. Creatinine Clearance 54 mL/min (70-130); Calcium 9.1 mg/dL (7.8-10.44); Carbon Dioxide 21 mmol/L (23-31); Chloride 98 mmol/L (98-107); Glucose 145 mg/dL (83-110); Sodium 131 mmol/L (136-145)
[2020-10-05] MEDS: Insulin Glargine 40 UNITS in Pre-Filled Syringe 1 EACH SC SCH (10:36)
[2020-10-05 11:01] VITALS: BMI 47.6
[2020-10-05] MEDS: Levothyroxine Sodium 88 MCG TAB PO SCH (12:35)
[2020-10-05] MEDS: Glimepiride 2 MG TAB PO SCH (12:35)
[2020-10-05] MEDS: HumaLOG 300 UNITS/3 ML VIAL SC PRN (17:53)
[2020-10-05] MEDS: Atorvastatin Calcium 10 MG TAB PO SCH (20:25)
[2020-10-05] MEDS: Gabapentin 300 MG CAP PO SCH (20:25)
[2020-10-06 05:40] LABS: #Basophils 0.1 thou/uL (0.0-0.2); #Eosinphils 0.3 thou/uL (0.0-0.7); #Lymphocytes 3.6 thou/uL (1.20-3.40); #Monocytes 1.2 thou/uL (0.11-0.59); #Neutrophils 7.9 thou/uL (1.40-6.50); %Basophils 0.6 % (0.0-1.0); %Neutrophils 60.4 % (42.0-75.0); Hemoglobin 13.5 g/dL (12.0-16.0); Mean Corpuscular HGB CONC 33.5 g/dL (32.0-36.0); Mean Corpuscular Hemoglobin 29.7 pg (27.0-31.0); Mean Corpuscular Volume 88.7 fL (78.0-98.0); Mean Platelet Volume 7.4 fL (7.4-10.4); Platelet Count 443 thou/uL (130-400); RBC Distribution Width 13.1 % (11.5-14.5); Red Blood Cell (RBC) Count 4.53 mill/uL (4.20-5.40)
[2020-10-06 05:56] LABS: Anion Gap 14 mmol/L (10-20); BUN (Urea Nitrogen) 10 mg/dL (9.8-20.1); Calc. Creatinine Clearance 59 mL/min (70-130); Carbon Dioxide 22 mmol/L (23-31); Chloride 100 mmol/L (98-107); Glucose 71 mg/dL (83-110); Potassium 4.3 mmol/L (3.5-5.1); Sodium 132 mmol/L (136-145)
[2020-10-06] MEDS: Lisinopril 10 MG TAB PO SCH (08:16)
[2020-10-06] MEDS: metFORMIN 500 MG TAB PO SCH (08:16)
[2020-10-06] MEDS: Amlodipine 10 MG TAB PO SCH (08:16)
[2020-10-06] MEDS: Famotidine 20 MG TAB PO SCH (08:17)
[2020-10-06] MEDS: cloNIDine 0.2 MG TAB PO SCH ×2 (08:17→11:30)
[2020-10-06 09:03] VITALS: TEMP 98.3
[2020-10-06 10:29] VITALS: BP 160/70
[2020-10-06] MEDS: Insulin Glargine 40 UNITS in Pre-Filled Syringe 1 EACH SC SCH (10:30)
[2020-10-06] MEDS: Glimepiride 2 MG TAB PO SCH (11:30)
[2020-10-06] MEDS: Levothyroxine Sodium 88 MCG TAB PO SCH (11:30)
== END 2020-10-06 11:35 | disposition home or self-care (01) | DRG 871 ==
LOC: ERS 22:53 → 2NO 10-03 01:06
PROVIDERS: ADMIT Student in an Organized Health Care Education/Training Program; ATTEND Internal Medicine
DX: A41.9 Sepsis, unspecified organism (principal); G93.41 Metabolic encephalopathy; E87.1 Hypo-osmolality and hyponatremia; E87.2 Acidosis; Z20.822 Contact with and (suspected) exposure to COVID-19; E78.5 Hyperlipidemia, unspecified; E03.9 Hypothyroidism, unspecified; E11.42 Type 2 diabetes mellitus with diabetic polyneuropathy; E11.51 Type 2 diabetes mellitus with diabetic peripheral angiopathy without gangrene; F17.210 Nicotine dependence, cigarettes, uncomplicated; N18.2 Chronic kidney disease, stage 2 (mild); I12.9 Hypertensive chronic kidney disease with stage 1 through stage 4 chronic kidney disease, or unspecified chronic kidney disease; E11.22 Type 2 diabetes mellitus with diabetic chronic kidney disease; Z79.890 Hormone replacement therapy; Z79.899 Other long term (current) drug therapy; Z79.4 Long term (current) use of insulin; Z89.611 Acquired absence of right leg above knee; Z89.512 Acquired absence of left leg below knee; Z87.440 Personal history of urinary (tract) infections
CPT/HCPCS: 36415; 36416; 70450; 71045; 80048; 80053; 80202; 81003; 81015; 82553; 83605; 83930; 83935; 84145; 84300; 84443; 84484; 85025; 87040; 87086; 87635; 93005; 96374; J0360; J1815; J2405; J2543; J3490; Q0162; U0003; U0005

== ENCOUNTER 2020-12-20 11:28 | Inpatient (IN) | payer MEDICARE ==
[2020-12-20 12:11] LABS: #Eosinphils 0.1 thou/uL (0.0-0.7); #Monocytes 0.9 thou/uL (0.11-0.59); #Neutrophils 8.7 thou/uL (1.40-6.50); %Basophils 0.3 % (0.0-1.0); %Eosinophils 1.1 % (0.0-10.0); %Lymphocytes 17.1 % (21.0-51.0); %Monocytes 7.8 % (0.0-10.0); %Neutrophils 73.7 % (42.0-75.0); Hemoglobin 13.3 g/dL (12.0-16.0); Mean Corpuscular HGB CONC 34.5 g/dL (32.0-36.0); Mean Corpuscular Hemoglobin 29.9 pg (27.0-31.0); Mean Corpuscular Volume 86.7 fL (78.0-98.0); Mean Platelet Volume 6.9 fL (7.4-10.4); Platelet Count 418 thou/uL (130-400); RBC Distribution Width 12.7 % (11.5-14.5); Red Blood Cell (RBC) Count 4.45 mill/uL (4.20-5.40); White Blood Cell (WBC) Count 11.8 thou/uL (4.8-10.8)
[2020-12-20 12:31] LABS: ALT (SGPT) 9 U/L (8-55); AST (SGOT) 14 U/L (5-34); Albumin 3.9 g/dL (3.4-4.8); Alkaline Phosphatase 114 U/L (40-110); Anion Gap 12 mmol/L (10-20); BUN (Urea Nitrogen) 14 mg/dL (9.8-20.1); Bilirubin, Total 0.4 mg/dL (0.2-1.2); Calc. Creatinine Clearance 0 mL/min (70-130); Calcium 8.7 mg/dL (7.8-10.44); Carbon Dioxide 22 mmol/L (23-31); Chloride 94 mmol/L (98-107); Globulin 3.2 g/dL (2.4-3.5); Glucose 282 mg/dL (83-110); Potassium 5.3 mmol/L (3.5-5.1); Protein, Total 7.1 g/dL (5.8-8.1); Sodium 123 mmol/L (136-145)
[2020-12-20 12:34] LABS: Bilirubin Negative (Negative); Blood, Urine Negative (Negative); Clarity Clear (Clear); Glucose, Urine (Dipstick) 500 mg/dL (Negative); Ketone, Urine Negative (Negative); Leukocyte Negative Leu/uL (Negative); Nitrite Negative (Negative); Protein, Urine (Dipstick) Negative (Neg-Trace); Specific Gravity, Urine 1.008 (1.002-1.036); Urobilinogen Normal mg/dL (Less than 2); pH, Urine 6.5 (5.0-9.0)
[2020-12-20] MEDS ORDERED: Ondansetron PF 4 MG/2 ML Vial IVP PRN (13:49)
[2020-12-20] MEDS ORDERED: GUAIFENESIN SF SOLN 200 MG/10 ML UDCUP PO PRN (13:49)
[2020-12-20] MEDS ORDERED: Guaifenesin DM 100-10/5 ML UDCUP PO PRN (13:49)
[2020-12-20] MEDS ORDERED: Senokot S 8.6-50 MG TAB PO PRN (13:49)
[2020-12-20] MEDS ORDERED: HYDROcodone/Acetaminophen 5/325 mg Tablet PO PRN (13:49)
[2020-12-20] MEDS ORDERED: Acetaminophen 325 MG TAB PO PRN (13:49)
[2020-12-20] MEDS ORDERED: Sodium Chloride 0.65% Nasal 44 ML BOT EA NARE PRN (13:49)
[2020-12-20] MEDS ORDERED: Bisacodyl 10 MG SUPP PR PRN (13:49)
[2020-12-20] MEDS ORDERED: Benzonatate 100 MG CAP PO PRN (13:49)
[2020-12-20] MEDS ORDERED: hydrALAZINE 20 MG/ML VIAL SLOW IVP PRN (13:49)
[2020-12-20] MEDS ORDERED: cloNIDine 0.1 MG TAB PO PRN (13:49)
[2020-12-20] MEDS ORDERED: Dextrose 5% in Water 1,000 ML IV PRN (13:49)
[2020-12-20] MEDS ORDERED: Cepastat Lozenges 1 LOZ PO PRN (13:49)
[2020-12-20] MEDS ORDERED: Ondansetron ODT 4 MG TAB PO PRN (13:49)
[2020-12-20] MEDS ORDERED: Loperamide HCl 2 MG CAP PO PRN (13:49)
[2020-12-20] MEDS ORDERED: Loratadine 10 MG TAB PO PRN (13:49)
[2020-12-20] MEDS ORDERED: Dextrose 50% Abboject 50 ML SYRINGE SLOW IVP PRN (13:49)
[2020-12-20] MEDS ORDERED: Calcium Carbonate 500 MG ChewTAB PO PRN (13:49)
[2020-12-20] MEDS ORDERED: HumaLOG 300 UNITS/3 ML VIAL SC PRN ×2 (13:49)
[2020-12-20 14:02] LABS: Anion Gap 11 mmol/L (10-20); BUN (Urea Nitrogen) 13 mg/dL (9.8-20.1); Calc. Creatinine Clearance 0 mL/min (70-130); Carbon Dioxide 21 mmol/L (23-31); Chloride 95 mmol/L (98-107); Glucose 189 mg/dL (83-110); Potassium 5.2 mmol/L (3.5-5.1); Sodium 122 mmol/L (136-145)
[2020-12-20 14:59] VITALS: BMI 69.9
[2020-12-20] MEDS: Sodium Chloride 0.9% 1,000 ML IV SCH (15:30)
[2020-12-20] MEDS: cloNIDine 0.2 MG TAB PO SCH (15:30)
[2020-12-20 20:38] LABS: SARS-CoV-2 PCR by NAA Not Detected (NotDetected)
[2020-12-20] MEDS: Atorvastatin Calcium 10 MG TAB PO SCH (21:11)
[2020-12-20] MEDS: Lisinopril 10 MG TAB PO SCH (21:11)
[2020-12-20] MEDS: Famotidine 20 MG TAB PO SCH (21:11)
[2020-12-20] MEDS: Gabapentin 300 MG CAP PO SCH (21:11)
[2020-12-21] MEDS: Sodium Chloride 0.9% 1,000 ML IV SCH ×2 (05:00→07:07)
[2020-12-21] MEDS: Levothyroxine Sodium 88 MCG TAB PO SCH (05:00)
[2020-12-21 06:55] LABS: ALT (SGPT) 13 U/L (8-55); AST (SGOT) 22 U/L (5-34); Albumin 4.1 g/dL (3.4-4.8); Alkaline Phosphatase 94 U/L (40-110); Anion Gap 15 mmol/L (10-20); BUN (Urea Nitrogen) 9 mg/dL (9.8-20.1); Bilirubin, Total 0.5 mg/dL (0.2-1.2); Calc. Creatinine Clearance 62 mL/min (70-130); Carbon Dioxide 15 mmol/L (23-31); Chloride 102 mmol/L (98-107); Globulin 3.3 g/dL (2.4-3.5); Glucose 93 mg/dL (83-110); Potassium 5.3 mmol/L (3.5-5.1); Protein, Total 7.4 g/dL (5.8-8.1); Sodium 127 mmol/L (136-145)
[2020-12-21] MEDS: cloNIDine 0.2 MG TAB PO SCH ×3 (07:51→16:44)
[2020-12-21] MEDS: Enoxaparin Sodium 40 MG/0.4 ML SYRINGE SC SCH (07:52)
[2020-12-21] MEDS: Lisinopril 10 MG TAB PO SCH ×2 (07:52→21:17)
[2020-12-21] MEDS: Famotidine 20 MG TAB PO SCH ×2 (07:52→21:16)
[2020-12-21] MEDS: Amlodipine 10 MG TAB PO SCH (07:52)
[2020-12-21] MEDS: metFORMIN 500 MG TAB PO SCH (07:52)
[2020-12-21 08:13] LABS: #Eosinphils 0.1 thou/uL (0.0-0.7); #Lymphocytes 2.5 thou/uL (1.20-3.40); #Monocytes 1.2 thou/uL (0.11-0.59); #Neutrophils 7.5 thou/uL (1.40-6.50); %Basophils 0.3 % (0.0-1.0); %Eosinophils 1.2 % (0.0-10.0); %Monocytes 10.3 % (0.0-10.0); %Neutrophils 66.2 % (42.0-75.0); Hemoglobin 13.6 g/dL (12.0-16.0); Mean Corpuscular Hemoglobin 28.9 pg (27.0-31.0); Mean Corpuscular Volume 87.5 fL (78.0-98.0); Mean Platelet Volume 8.8 fL (7.4-10.4); Platelet Count 276 thou/uL (130-400); Red Blood Cell (RBC) Count 4.72 mill/uL (4.20-5.40); White Blood Cell (WBC) Count 11.3 thou/uL (4.8-10.8)
[2020-12-21] MEDS: Lantus 1000 UNITS/10 ML VIAL SC SCH (11:40)
[2020-12-21] MEDS ORDERED: Glimepiride 2 MG TAB PO SCH (12:00)
[2020-12-21] MEDS: Atorvastatin Calcium 10 MG TAB PO SCH (21:16)
[2020-12-21] MEDS: Gabapentin 300 MG CAP PO SCH (21:17)
[2020-12-22] MEDS: Sodium Chloride 0.9% 1,000 ML IV SCH (00:29)
[2020-12-22 04:17] VITALS: TEMP 99.2
[2020-12-22] MEDS: Levothyroxine Sodium 88 MCG TAB PO SCH (05:56)
[2020-12-22 07:03] LABS: Anion Gap 10 mmol/L (10-20); BUN (Urea Nitrogen) 9 mg/dL (9.8-20.1); Calc. Creatinine Clearance 58 mL/min (70-130); Carbon Dioxide 21 mmol/L (23-31); Chloride 105 mmol/L (98-107); Glucose 128 mg/dL (83-110); Potassium 4.7 mmol/L (3.5-5.1); Sodium 131 mmol/L (136-145)
[2020-12-22 07:04] LABS: #Basophils 0.1 thou/uL (0.0-0.2); #Eosinphils 0.1 thou/uL (0.0-0.7); #Lymphocytes 2.5 thou/uL (1.20-3.40); #Neutrophils 3.5 thou/uL (1.40-6.50); %Basophils 1.6 % (0.0-1.0); %Eosinophils 1.7 % (0.0-10.0); %Lymphocytes 34.9 % (21.0-51.0); %Neutrophils 47.8 % (42.0-75.0); Hemoglobin 13.1 g/dL (12.0-16.0); Mean Corpuscular Hemoglobin 30.4 pg (27.0-31.0); Mean Corpuscular Volume 89.2 fL (78.0-98.0); Mean Platelet Volume 6.9 fL (7.4-10.4); Platelet Count 450 thou/uL (130-400); RBC Distribution Width 13.2 % (11.5-14.5); Red Blood Cell (RBC) Count 4.32 mill/uL (4.20-5.40); White Blood Cell (WBC) Count 7.3 thou/uL (4.8-10.8)
[2020-12-22] MEDS: metFORMIN 500 MG TAB PO SCH (08:14)
[2020-12-22] MEDS: cloNIDine 0.2 MG TAB PO SCH (08:14)
[2020-12-22] MEDS: Enoxaparin Sodium 40 MG/0.4 ML SYRINGE SC SCH (08:15)
[2020-12-22] MEDS: Lisinopril 10 MG TAB PO SCH (08:15)
[2020-12-22] MEDS: Amlodipine 10 MG TAB PO SCH (08:15)
[2020-12-22] MEDS: Famotidine 20 MG TAB PO SCH (08:15)
[2020-12-22] MEDS: Lantus 1000 UNITS/10 ML VIAL SC SCH (09:55)
[2020-12-22 11:07] VITALS: BP 150/64
== END 2020-12-22 11:05 | disposition home or self-care (01) | DRG 640 ==
LOC: ERS 11:28 → T4-A 13:17
PROVIDERS: ADMIT Internal Medicine; ATTEND Internal Medicine
DX: E87.1 Hypo-osmolality and hyponatremia (principal); G93.41 Metabolic encephalopathy; Z20.822 Contact with and (suspected) exposure to COVID-19; E78.5 Hyperlipidemia, unspecified; I10 Essential (primary) hypertension; E03.9 Hypothyroidism, unspecified; E11.51 Type 2 diabetes mellitus with diabetic peripheral angiopathy without gangrene; E87.5 Hyperkalemia; E11.65 Type 2 diabetes mellitus with hyperglycemia; F17.210 Nicotine dependence, cigarettes, uncomplicated; Z89.512 Acquired absence of left leg below knee; Z79.4 Long term (current) use of insulin; Z78.1 Physical restraint status; Z89.611 Acquired absence of right leg above knee
CPT/HCPCS: 36415; 36416; 80048; 80053; 81003; 85025; 87635; 93005; J0360; J1650; J1815; U0003; U0005

== ENCOUNTER 2020-12-27 22:23 | Inpatient (IN) | payer MEDICARE ==
[2020-12-27 23:11] LABS: #Basophils 0.1 thou/uL (0.0-0.2); #Eosinphils 0.1 thou/uL (0.0-0.7); #Lymphocytes 3.3 thou/uL (1.20-3.40); #Monocytes 0.8 thou/uL (0.11-0.59); #Neutrophils 9.1 thou/uL (1.40-6.50); %Basophils 0.7 % (0.0-1.0); %Eosinophils 0.9 % (0.0-10.0); %Lymphocytes 24.4 % (21.0-51.0); %Monocytes 5.9 % (0.0-10.0); %Neutrophils 68.2 % (42.0-75.0); Hemoglobin 14.2 g/dL (12.0-16.0); Mean Corpuscular HGB CONC 35.2 g/dL (32.0-36.0); Mean Corpuscular Hemoglobin 30.5 pg (27.0-31.0); Mean Corpuscular Volume 86.6 fL (78.0-98.0); Mean Platelet Volume 6.7 fL (7.4-10.4); Platelet Count 460 thou/uL (130-400); RBC Distribution Width 12.6 % (11.5-14.5); Red Blood Cell (RBC) Count 4.65 mill/uL (4.20-5.40); White Blood Cell (WBC) Count 13.4 thou/uL (4.8-10.8)
[2020-12-27 23:46] LABS: ALT (SGPT) 12 U/L (8-55); AST (SGOT) 16 U/L (5-34); Albumin 4.5 g/dL (3.4-4.8); Alkaline Phosphatase 97 U/L (40-110); Anion Gap 14 mmol/L (10-20); BUN (Urea Nitrogen) 9 mg/dL (9.8-20.1); Bilirubin, Total 0.5 mg/dL (0.2-1.2); Calc. Creatinine Clearance 0 mL/min (70-130); Calcium 9.1 mg/dL (7.8-10.44); Carbon Dioxide 20 mmol/L (23-31); Chloride 90 mmol/L (98-107); Globulin 3.2 g/dL (2.4-3.5); Lipase 29 U/L (8-78); Potassium 4.5 mmol/L (3.5-5.1); Protein, Total 7.7 g/dL (5.8-8.1)
[2020-12-27 23:51] LABS: Glucose 59 mg/dL (83-110); Sodium 119 mmol/L (136-145)
[2020-12-28] MEDS ORDERED: Labetalol HCl 100 MG/20 ML VIAL ONE
[2020-12-28] MEDS ORDERED: Acetaminophen 325 MG TAB PO PRN (01:34)
[2020-12-28] MEDS ORDERED: Dextrose 5% in Water 1,000 ML IV PRN (01:36)
[2020-12-28] MEDS ORDERED: Dextrose 50% Abboject 50 ML SYRINGE SLOW IVP PRN (01:36)
[2020-12-28 02:09] LABS: #Eosinphils 0.1 thou/uL (0.0-0.7); #Lymphocytes 3.3 thou/uL (1.20-3.40); #Monocytes 0.8 thou/uL (0.11-0.59); #Neutrophils 12.2 thou/uL (1.40-6.50); %Basophils 0.2 % (0.0-1.0); %Eosinophils 0.4 % (0.0-10.0); %Monocytes 4.8 % (0.0-10.0); %Neutrophils 74.6 % (42.0-75.0); Hemoglobin 13.8 g/dL (12.0-16.0); Mean Corpuscular HGB CONC 33.5 g/dL (32.0-36.0); Mean Corpuscular Hemoglobin 29.2 pg (27.0-31.0); Mean Corpuscular Volume 87.1 fL (78.0-98.0); Mean Platelet Volume 6.4 fL (7.4-10.4); Platelet Count 459 thou/uL (130-400); RBC Distribution Width 12.4 % (11.5-14.5); Red Blood Cell (RBC) Count 4.74 mill/uL (4.20-5.40); White Blood Cell (WBC) Count 16.4 thou/uL (4.8-10.8)
[2020-12-28 02:15] LABS: SARS-CoV-2 NAA Rapid Test Not Detected (NotDetected)
[2020-12-28] MEDS: Ondansetron PF 4 MG/2 ML Vial IVP PRN (02:50)
[2020-12-28 03:08] LABS: Anion Gap 12 mmol/L (10-20); BUN (Urea Nitrogen) 8 mg/dL (9.8-20.1); Calc. Creatinine Clearance 65 mL/min (70-130); Carbon Dioxide 17 mmol/L (23-31); Chloride 89 mmol/L (98-107); Glucose 189 mg/dL (83-110); Potassium 4.3 mmol/L (3.5-5.1)
[2020-12-28] MEDS: hydrALAZINE 20 MG/ML VIAL SLOW IVP PRN (03:12)
[2020-12-28 03:15] LABS: Sodium 114 mmol/L (136-145)
[2020-12-28 04:02] LABS: Bacteria/HPF None Seen HPF (None Seen); Bilirubin Negative (Negative); Blood, Urine Trace (Negative); Clarity Turbid (Clear); Glucose, Urine (Dipstick) 500 mg/dL (Negative); Ketone, Urine 10 mg/dL (Negative); Leukocyte 250 Leu/uL (Negative); Nitrite Negative (Negative); Protein, Urine (Dipstick) 50 mg/dL (Neg-Trace); Specific Gravity, Urine 1.012 (1.002-1.036); Squamous Epithelial 0-3 HPF (0-3); Urobilinogen Normal mg/dL (Less than 2); WBC/HPF 21-50 HPF (0-3); pH, Urine 7.5 (5.0-9.0)
[2020-12-28 04:03] LABS: Urine Culture Reflex Yes Yes
[2020-12-28] MEDS: cefTRIAXone\\ROCEPHIN 1 GM in Sodium Chloride 0.9% 100 ML IVPB SCH (05:13)
[2020-12-28 06:41] LABS: Anion Gap 15 mmol/L (10-20); BUN (Urea Nitrogen) 8 mg/dL (9.8-20.1); Calc. Creatinine Clearance 64 mL/min (70-130); Calcium 8.7 mg/dL (7.8-10.44); Carbon Dioxide 19 mmol/L (23-31); Chloride 89 mmol/L (98-107); Glucose 123 mg/dL (83-110); Potassium 4.5 mmol/L (3.5-5.1)
[2020-12-28 06:44] LABS: Sodium 118 mmol/L (136-145)
[2020-12-28] MEDS ORDERED: TOLVAPTAN 30 MG TAB PO SCH (07:45)
[2020-12-28] MEDS: Lisinopril 10 MG TAB PO SCH ×2 (08:38→19:24)
[2020-12-28] MEDS: Amlodipine 10 MG TAB PO SCH (08:38)
[2020-12-28] MEDS: Enoxaparin Sodium 40 MG/0.4 ML SYRINGE SC SCH (09:03)
[2020-12-28 13:05] LABS: Anion Gap 15 mmol/L (10-20); BUN (Urea Nitrogen) 8 mg/dL (9.8-20.1); Calc. Creatinine Clearance 60 mL/min (70-130); Calcium 9.1 mg/dL (7.8-10.44); Carbon Dioxide 19 mmol/L (23-31); Chloride 91 mmol/L (98-107); Glucose 127 mg/dL (83-110); Potassium 4.7 mmol/L (3.5-5.1); Sodium 120 mmol/L (136-145)
[2020-12-28] MEDS: cloNIDine 0.2 MG TAB PO SCH ×2 (15:46→19:24)
[2020-12-28 18:51] LABS: Anion Gap 15 mmol/L (10-20); BUN (Urea Nitrogen) 8 mg/dL (9.8-20.1); Calc. Creatinine Clearance 60 mL/min (70-130); Calcium 9.3 mg/dL (7.8-10.44); Carbon Dioxide 20 mmol/L (23-31); Chloride 93 mmol/L (98-107); Glucose 118 mg/dL (83-110); Potassium 4.6 mmol/L (3.5-5.1); Sodium 123 mmol/L (136-145)
[2020-12-28] MEDS: Gabapentin 300 MG CAP PO SCH (19:25)
[2020-12-29 03:42] LABS: #Basophils 0.1 thou/uL (0.0-0.2); #Lymphocytes 3.4 thou/uL (1.20-3.40); #Monocytes 1.2 thou/uL (0.11-0.59); #Neutrophils 7.7 thou/uL (1.40-6.50); %Basophils 0.4 % (0.0-1.0); %Eosinophils 0.3 % (0.0-10.0); %Lymphocytes 27.5 % (21.0-51.0); %Monocytes 9.6 % (0.0-10.0); %Neutrophils 62.2 % (42.0-75.0); Hemoglobin 13.6 g/dL (12.0-16.0); Mean Corpuscular HGB CONC 35.8 g/dL (32.0-36.0); Mean Corpuscular Volume 86.6 fL (78.0-98.0); Mean Platelet Volume 6.8 fL (7.4-10.4); Platelet Count 422 thou/uL (130-400); RBC Distribution Width 12.7 % (11.5-14.5); Red Blood Cell (RBC) Count 4.39 mill/uL (4.20-5.40); White Blood Cell (WBC) Count 12.3 thou/uL (4.8-10.8)
[2020-12-29 04:05] LABS: Anion Gap 13 mmol/L (10-20); BUN (Urea Nitrogen) 12 mg/dL (9.8-20.1); Calc. Creatinine Clearance 48 mL/min (70-130); Calcium 8.9 mg/dL (7.8-10.44); Carbon Dioxide 21 mmol/L (23-31); Chloride 93 mmol/L (98-107); Glucose 114 mg/dL (83-110); Potassium 4.4 mmol/L (3.5-5.1); Sodium 123 mmol/L (136-145)
[2020-12-29] MEDS: cefTRIAXone\\ROCEPHIN 1 GM in Sodium Chloride 0.9% 100 ML IVPB SCH (05:24)
[2020-12-29] MEDS: Levothyroxine Sodium 88 MCG TAB PO SCH (06:08)
[2020-12-29] MEDS: Lisinopril 10 MG TAB PO SCH ×2 (09:31→20:38)
[2020-12-29] MEDS: Enoxaparin Sodium 40 MG/0.4 ML SYRINGE SC SCH (09:32)
[2020-12-29] MEDS: Amlodipine 10 MG TAB PO SCH (09:32)
[2020-12-29] MEDS: cloNIDine 0.2 MG TAB PO SCH ×3 (09:32→20:38)
[2020-12-29] MEDS: TOLVAPTAN 30 MG TAB PO SCH (09:32)
[2020-12-29] MEDS: Gabapentin 300 MG CAP PO SCH (20:38)
[2020-12-29] MEDS: hydrALAZINE 20 MG/ML VIAL SLOW IVP PRN (21:09)
[2020-12-30] MEDS: hydrALAZINE 20 MG/ML VIAL SLOW IVP PRN (05:16)
[2020-12-30] MEDS: Levothyroxine Sodium 88 MCG TAB PO SCH (05:16)
[2020-12-30] MEDS: Ondansetron PF 4 MG/2 ML Vial IVP PRN (05:16)
[2020-12-30] MEDS: cefTRIAXone\\ROCEPHIN 1 GM in Sodium Chloride 0.9% 100 ML IVPB SCH (05:16)
[2020-12-30 06:17] LABS: #Basophils 0.1 thou/uL (0.0-0.2); #Eosinphils 0.2 thou/uL (0.0-0.7); #Lymphocytes 2.4 thou/uL (1.20-3.40); #Monocytes 0.8 thou/uL (0.11-0.59); #Neutrophils 7.7 thou/uL (1.40-6.50); %Basophils 0.6 % (0.0-1.0); %Eosinophils 1.9 % (0.0-10.0); %Lymphocytes 21.6 % (21.0-51.0); Hemoglobin 14.3 g/dL (12.0-16.0); Mean Corpuscular HGB CONC 33.4 g/dL (32.0-36.0); Mean Corpuscular Hemoglobin 29.2 pg (27.0-31.0); Mean Corpuscular Volume 87.3 fL (78.0-98.0); Mean Platelet Volume 6.7 fL (7.4-10.4); Platelet Count 489 thou/uL (130-400); Red Blood Cell (RBC) Count 4.89 mill/uL (4.20-5.40); White Blood Cell (WBC) Count 11.2 thou/uL (4.8-10.8)
[2020-12-30 06:34] LABS: Anion Gap 13 mmol/L (10-20); BUN (Urea Nitrogen) 13 mg/dL (9.8-20.1); Calc. Creatinine Clearance 54 mL/min (70-130); Calcium 9.3 mg/dL (7.8-10.44); Carbon Dioxide 20 mmol/L (23-31); Chloride 100 mmol/L (98-107); Glucose 216 mg/dL (83-110); Potassium 4.4 mmol/L (3.5-5.1); Sodium 129 mmol/L (136-145)
[2020-12-30] MEDS: cloNIDine 0.2 MG TAB PO SCH ×3 (08:46→20:16)
[2020-12-30] MEDS: Amlodipine 10 MG TAB PO SCH (08:47)
[2020-12-30] MEDS: Lisinopril 10 MG TAB PO SCH ×2 (08:47→20:16)
[2020-12-30] MEDS: Enoxaparin Sodium 40 MG/0.4 ML SYRINGE SC SCH (08:47)
[2020-12-30] MEDS: TOLVAPTAN 30 MG TAB PO SCH (08:57)
[2020-12-30] MEDS ORDERED: Lantus 1000 UNITS/10 ML VIAL SC SCH (10:15)
[2020-12-30] MEDS: Atorvastatin Calcium 10 MG TAB PO SCH ×2 (20:16→20:22)
[2020-12-30] MEDS: Gabapentin 300 MG CAP PO SCH (20:22)
[2020-12-30 23:45] LABS: Bilirubin Negative (Negative); Blood, Urine Trace (Negative); Clarity Turbid (Clear); Glucose, Urine (Dipstick) 50 mg/dL (Negative); Ketone, Urine Negative (Negative); Leukocyte 500 Leu/uL (Negative); Nitrite Negative (Negative); Protein, Urine (Dipstick) Negative (Neg-Trace); Specific Gravity, Urine 1.009 (1.002-1.036); Urobilinogen Normal mg/dL (Less than 2); pH, Urine 5.5 (5.0-9.0)
[2020-12-31] MEDS: cefTRIAXone\\ROCEPHIN 1 GM in Sodium Chloride 0.9% 100 ML IVPB SCH (04:25)
[2020-12-31] MEDS: Levothyroxine Sodium 88 MCG TAB PO SCH (05:17)
[2020-12-31 06:16] LABS: Hemoglobin A1c 6.7 % (4.0-6.0)
[2020-12-31 06:40] LABS: Anion Gap 14 mmol/L (10-20); BUN (Urea Nitrogen) 21 mg/dL (9.8-20.1); Calc. Creatinine Clearance 33 mL/min (70-130); Calcium 8.9 mg/dL (7.8-10.44); Carbon Dioxide 20 mmol/L (23-31); Chloride 99 mmol/L (98-107); Glucose 141 mg/dL (83-110); Potassium 4.8 mmol/L (3.5-5.1); Sodium 128 mmol/L (136-145)
[2020-12-31] MEDS: Amlodipine 10 MG TAB PO SCH (08:35)
[2020-12-31] MEDS: Lisinopril 10 MG TAB PO SCH ×2 (08:35→20:56)
[2020-12-31] MEDS: cloNIDine 0.2 MG TAB PO SCH ×3 (08:35→20:57)
[2020-12-31] MEDS: metFORMIN 500 MG TAB PO SCH (08:35)
[2020-12-31] MEDS: Enoxaparin Sodium 40 MG/0.4 ML SYRINGE SC SCH (08:36)
[2020-12-31] MEDS: Lantus 1000 UNITS/10 ML VIAL SC SCH (08:36)
[2020-12-31] MEDS: TOLVAPTAN 30 MG TAB PO SCH (08:39)
[2020-12-31] MEDS: Glimepiride 2 MG TAB PO SCH (12:19)
[2020-12-31] MEDS: Atorvastatin Calcium 10 MG TAB PO SCH (20:56)
[2020-12-31] MEDS: Gabapentin 300 MG CAP PO SCH (20:57)
[2021-01-01] MEDS: Levothyroxine Sodium 88 MCG TAB PO SCH (05:10)
[2021-01-01] MEDS: cefTRIAXone\\ROCEPHIN 1 GM in Sodium Chloride 0.9% 100 ML IVPB SCH (05:10)
[2021-01-01 06:10] LABS: Anion Gap 14 mmol/L (10-20); BUN (Urea Nitrogen) 25 mg/dL (9.8-20.1); Calc. Creatinine Clearance 35 mL/min (70-130); Calcium 9.2 mg/dL (7.8-10.44); Carbon Dioxide 21 mmol/L (23-31); Chloride 104 mmol/L (98-107); Glucose 123 mg/dL (83-110); Sodium 134 mmol/L (136-145)
[2021-01-01] MEDS: metFORMIN 500 MG TAB PO SCH (07:47)
[2021-01-01] MEDS: Amlodipine 10 MG TAB PO SCH (07:48)
[2021-01-01] MEDS: TOLVAPTAN 30 MG TAB PO SCH (07:49)
[2021-01-01] MEDS: Lisinopril 10 MG TAB PO SCH ×2 (07:49→21:21)
[2021-01-01] MEDS: cloNIDine 0.2 MG TAB PO SCH ×3 (07:49→21:20)
[2021-01-01] MEDS: Lantus 1000 UNITS/10 ML VIAL SC SCH (07:50)
[2021-01-01] MEDS: Enoxaparin Sodium 40 MG/0.4 ML SYRINGE SC SCH (07:51)
[2021-01-01] MEDS: Glimepiride 2 MG TAB PO SCH (12:23)
[2021-01-01] MEDS: HumaLOG 300 UNITS/3 ML VIAL SC PRN (13:02)
[2021-01-01] MEDS: Atorvastatin Calcium 10 MG TAB PO SCH (21:18)
[2021-01-01] MEDS: Gabapentin 300 MG CAP PO SCH (21:19)
[2021-01-02] MEDS: Levothyroxine Sodium 88 MCG TAB PO SCH (05:42)
[2021-01-02 06:42] LABS: Anion Gap 10 mmol/L (10-20); BUN (Urea Nitrogen) 21 mg/dL (9.8-20.1); Calc. Creatinine Clearance 51 mL/min (70-130); Calcium 8.9 mg/dL (7.8-10.44); Carbon Dioxide 24 mmol/L (23-31); Chloride 105 mmol/L (98-107); Glucose 92 mg/dL (83-110); Potassium 4.9 mmol/L (3.5-5.1); Sodium 134 mmol/L (136-145)
[2021-01-02] MEDS: metFORMIN 500 MG TAB PO SCH (08:20)
[2021-01-02] MEDS: cloNIDine 0.2 MG TAB PO SCH ×3 (08:21→19:53)
[2021-01-02] MEDS: Amlodipine 10 MG TAB PO SCH (08:21)
[2021-01-02] MEDS: Lisinopril 10 MG TAB PO SCH ×2 (08:21→19:54)
[2021-01-02] MEDS: Enoxaparin Sodium 40 MG/0.4 ML SYRINGE SC SCH (08:22)
[2021-01-02] MEDS: Lantus 1000 UNITS/10 ML VIAL SC SCH (08:27)
[2021-01-02] MEDS: HumaLOG 300 UNITS/3 ML VIAL SC PRN (12:02)
[2021-01-02] MEDS: Glimepiride 2 MG TAB PO SCH (12:03)
[2021-01-02] MEDS: Gabapentin 300 MG CAP PO SCH (19:55)
[2021-01-02] MEDS: Atorvastatin Calcium 10 MG TAB PO SCH (19:57)
[2021-01-03] MEDS: Levothyroxine Sodium 88 MCG TAB PO SCH (05:16)
[2021-01-03 06:30] LABS: #Basophils 0.1 thou/uL (0.0-0.2); #Eosinphils 0.5 thou/uL (0.0-0.7); #Lymphocytes 2.6 thou/uL (1.20-3.40); #Monocytes 0.7 thou/uL (0.11-0.59); #Neutrophils 6.3 thou/uL (1.40-6.50); %Basophils 0.9 % (0.0-1.0); %Eosinophils 4.8 % (0.0-10.0); %Lymphocytes 25.6 % (21.0-51.0); %Monocytes 7.1 % (0.0-10.0); %Neutrophils 61.6 % (42.0-75.0); Hemoglobin 12.4 g/dL (12.0-16.0); Mean Corpuscular Hemoglobin 30.7 pg (27.0-31.0); Mean Corpuscular Volume 90.4 fL (78.0-98.0); Mean Platelet Volume 6.5 fL (7.4-10.4); Platelet Count 432 thou/uL (130-400); RBC Distribution Width 12.9 % (11.5-14.5); Red Blood Cell (RBC) Count 4.06 mill/uL (4.20-5.40); White Blood Cell (WBC) Count 10.3 thou/uL (4.8-10.8)
[2021-01-03 06:46] LABS: Anion Gap 13 mmol/L (10-20); BUN (Urea Nitrogen) 19 mg/dL (9.8-20.1); Calc. Creatinine Clearance 53 mL/min (70-130); Calcium 9.1 mg/dL (7.8-10.44); Carbon Dioxide 23 mmol/L (23-31); Chloride 104 mmol/L (98-107); Glucose 84 mg/dL (83-110); Magnesium 1.8 mg/dL (1.6-2.6); Potassium 4.7 mmol/L (3.5-5.1); Sodium 135 mmol/L (136-145)
[2021-01-03] MEDS: metFORMIN 500 MG TAB PO SCH (07:29)
[2021-01-03] MEDS: cloNIDine 0.2 MG TAB PO SCH ×3 (07:29→20:37)
[2021-01-03] MEDS: Amlodipine 10 MG TAB PO SCH (07:30)
[2021-01-03] MEDS: Lisinopril 10 MG TAB PO SCH ×2 (07:31→20:38)
[2021-01-03] MEDS: Enoxaparin Sodium 40 MG/0.4 ML SYRINGE SC SCH (07:31)
[2021-01-03] MEDS: Lantus 1000 UNITS/10 ML VIAL SC SCH (10:01)
[2021-01-03] MEDS: Glimepiride 2 MG TAB PO SCH (12:02)
[2021-01-03] MEDS: Gabapentin 300 MG CAP PO SCH (20:37)
[2021-01-03] MEDS: Atorvastatin Calcium 10 MG TAB PO SCH (20:38)
[2021-01-04 06:09] LABS: #Eosinphils 0.4 thou/uL (0.0-0.7); #Lymphocytes 2.9 thou/uL (1.20-3.40); #Monocytes 0.7 thou/uL (0.11-0.59); #Neutrophils 6.2 thou/uL (1.40-6.50); %Basophils 0.4 % (0.0-1.0); %Eosinophils 3.6 % (0.0-10.0); %Lymphocytes 28.2 % (21.0-51.0); %Monocytes 6.5 % (0.0-10.0); %Neutrophils 61.4 % (42.0-75.0); Mean Corpuscular Hemoglobin 29.6 pg (27.0-31.0); Mean Corpuscular Volume 89.8 fL (78.0-98.0); Mean Platelet Volume 6.9 fL (7.4-10.4); Platelet Count 445 thou/uL (130-400); RBC Distribution Width 12.9 % (11.5-14.5); White Blood Cell (WBC) Count 10.1 thou/uL (4.8-10.8)
[2021-01-04] MEDS: Levothyroxine Sodium 88 MCG TAB PO SCH (06:15)
[2021-01-04 06:48] LABS: Anion Gap 15 mmol/L (10-20); BUN (Urea Nitrogen) 18 mg/dL (9.8-20.1); Calc. Creatinine Clearance 53 mL/min (70-130); Calcium 9.2 mg/dL (7.8-10.44); Carbon Dioxide 20 mmol/L (23-31); Chloride 105 mmol/L (98-107); Glucose 141 mg/dL (83-110); Magnesium 1.7 mg/dL (1.6-2.6); Potassium 4.6 mmol/L (3.5-5.1); Sodium 135 mmol/L (136-145)
[2021-01-04] MEDS: metFORMIN 500 MG TAB PO SCH (07:51)
[2021-01-04] MEDS: Enoxaparin Sodium 40 MG/0.4 ML SYRINGE SC SCH (07:52)
[2021-01-04] MEDS: Lisinopril 10 MG TAB PO SCH (07:52)
[2021-01-04] MEDS: cloNIDine 0.2 MG TAB PO SCH (07:52)
[2021-01-04] MEDS: Lantus 1000 UNITS/10 ML VIAL SC SCH (07:52)
[2021-01-04] MEDS: Amlodipine 10 MG TAB PO SCH (07:52)
[2021-01-04 12:54] VITALS: BP 148/54; TEMP 97.8
== END 2021-01-04 12:42 | disposition home or self-care (01) | DRG 643 ==
LOC: ERS 22:23 → IMCU/EMU 12-28 01:12 → T4-B 12-29 16:28
PROVIDERS: ADMIT Internal Medicine; ATTEND Internal Medicine
DX: E22.2 Syndrome of inappropriate secretion of antidiuretic hormone (principal); G93.41 Metabolic encephalopathy; N30.00 Acute cystitis without hematuria; E87.2 Acidosis; Z20.822 Contact with and (suspected) exposure to COVID-19; N18.30 Chronic kidney disease, stage 3 unspecified; E78.5 Hyperlipidemia, unspecified; I12.9 Hypertensive chronic kidney disease with stage 1 through stage 4 chronic kidney disease, or unspecified chronic kidney disease; E03.9 Hypothyroidism, unspecified; B95.7 Other staphylococcus as the cause of diseases classified elsewhere; E11.22 Type 2 diabetes mellitus with diabetic chronic kidney disease; F03.90 Unspecified dementia, unspecified severity, without behavioral disturbance, psychotic disturbance, mood disturbance, and anxiety; E11.649 Type 2 diabetes mellitus with hypoglycemia without coma; Z79.4 Long term (current) use of insulin; Z79.899 Other long term (current) drug therapy; Z89.611 Acquired absence of right leg above knee; Z87.891 Personal history of nicotine dependence
CPT/HCPCS: 36415; 36416; 71045; 80048; 80053; 81001; 81003; 83036; 83605; 83690; 83735; 83930; 83935; 84300; 84484; 85025; 87077; 87086; 87186; 93005; 96374; 96375; J0360; J0696; J1650; J1815; J2405; J3490; U0002; U0005

== ENCOUNTER 2021-03-07 13:32 | Inpatient (IN) | payer MEDICARE ==
[~2021-03-07 13:32] MED LIST: Iopamidol-370 76% 500 ML 1 ML ONE
[2021-03-07 14:14] LABS: Hemoglobin 12.7 g/dL (12.0-16.0); Mean Corpuscular HGB CONC 34.6 g/dL (32.0-36.0); Mean Corpuscular Hemoglobin 30.2 pg (27.0-31.0); Mean Corpuscular Volume 87.3 fL (78.0-98.0); Mean Platelet Volume 8.8 fL (7.4-10.4); Platelet Count 211 thou/uL (130-400); Red Blood Cell (RBC) Count 4.21 mill/uL (4.20-5.40)
[2021-03-07 14:16] LABS: #Lymphocytes 1.2 thou/uL (1.20-3.40); #Monocytes 0.6 thou/uL (0.11-0.59); #Neutrophils 11.7 thou/uL (1.40-6.50); %Basophils 0.2 % (0.0-1.0); %Eosinophils 0.1 % (0.0-10.0); %Lymphocytes 9.1 % (21.0-51.0); %Monocytes 4.7 % (0.0-10.0); %Neutrophils 85.9 % (42.0-75.0); White Blood Cell (WBC) Count 13.6 thou/uL (4.8-10.8)
[2021-03-07 14:24] LABS: Actual Bicarbonate (HCO3v) 18 mEq/L (22-28); Analyzer IN Cardio ER; Base Excess -4.6 mEq/L (-2.0 to +3.0); Calcium, Ionized (venous) 1.12 mmol/L (1.16-1.32); Chloride (VBG) 102 mmol/L (98-106); Hemoglobin (Hb) 13.7 g/dL (11.7-16.1); Potassium (VBG) 4.37 mmol/L (3.70-5.30); Sodium 130.6 mmol/L (133-146); pH (venous) 7.43 (7.32-7.43)
[2021-03-07 14:33] LABS: ALT (SGPT) 18 U/L (8-55); AST (SGOT) 21 U/L (5-34); Albumin 3.5 g/dL (3.4-4.8); Alkaline Phosphatase 86 U/L (40-110); Anion Gap 16 mmol/L (10-20); BUN (Urea Nitrogen) 57 mg/dL (9.8-20.1); Bilirubin, Total 0.3 mg/dL (0.2-1.2); Calc. Creatinine Clearance 0 mL/min (70-130); Calcium 8.6 mg/dL (7.8-10.44); Carbon Dioxide 21 mmol/L (23-31); Chloride 98 mmol/L (98-107); Globulin 2.8 g/dL (2.4-3.5); Glucose 282 mg/dL (83-110); Potassium 4.4 mmol/L (3.5-5.1); Protein, Total 6.3 g/dL (5.8-8.1); Sodium 131 mmol/L (136-145)
[2021-03-07 15:21] LABS: CKMB 1.5 ng/mL (0-6.6)
[2021-03-07] MEDS ORDERED: Vancomycin 1 GM/200 ML BAG ONE (15:39)
[2021-03-07] MEDS ORDERED: Cefepime 2 GM VIAL ONE (15:39)
[2021-03-07] MEDS ORDERED: Aspirin 300 MG Suppository ONE (15:39)
[2021-03-07 16:12] LABS: Bacteria/HPF None Seen HPF (None Seen); Bilirubin Negative (Negative); Blood, Urine 2+ (Negative); Clarity Turbid (Clear); Glucose, Urine (Dipstick) Normal (Negative); Ketone, Urine Negative (Negative); Leukocyte Negative Leu/uL (Negative); Nitrite Negative (Negative); Protein, Urine (Dipstick) 50 mg/dL (Neg-Trace); Specific Gravity, Urine 1.023 (1.002-1.036); Squamous Epithelial 0-3 HPF (0-3); Urobilinogen Normal mg/dL (Less than 2); WBC/HPF 0-3 HPF (0-3); pH, Urine 5.5 (5.0-9.0)
[2021-03-07 16:24] LABS: Magnesium 1.8 mg/dL (1.6-2.6)
[2021-03-07 16:27] LABS: Phosphorus 1.1 mg/dL (2.3-4.7)
[2021-03-07 16:39] LABS: INR-International Normal Ratio 0.9; Prothrombin Time 12.2 sec (12.0-14.7)
[2021-03-07 16:40] LABS: PTT 28.6 sec (22.9-36.1)
[2021-03-07 16:41] LABS: D-Dimer Test 1.28 *mcg/mL (0.27-0.43)
[2021-03-07 17:18] LABS: Lactic Acid 2.9 mmol/L (0.5-2.2)
[2021-03-07 17:33] LABS: Troponin I 1.015 ng/mL (< 0.028)
[2021-03-07] MEDS ORDERED: Dextrose 50% Abboject 50 ML SYRINGE SLOW IVP PRN (17:55)
[2021-03-07] MEDS ORDERED: Ondansetron PF 4 MG/2 ML Vial IVP PRN (17:55)
[2021-03-07] MEDS ORDERED: Acetaminophen 325 MG TAB PO PRN (17:55)
[2021-03-07] MEDS ORDERED: Dextrose 5% in Water 1,000 ML IV PRN (17:55)
[2021-03-07] MEDS ORDERED: Acetaminophen 650 MG Suppository PR PRN (17:55)
[2021-03-07] MEDS ORDERED: Dexamethasone 6 MG in Sodium Chloride 0.9% 50 ML IVPB SCH (18:15)
[2021-03-07] MEDS ORDERED: Heparin 10,000 UNITS/ 10 ML VIAL SLOW IVP SCH (18:15)
[2021-03-07] MEDS ORDERED: Electrolyte Replacement Protocol 1 EACH FS SCH (18:15)
[2021-03-07] MEDS ORDERED: hydrALAZINE 20 MG/ML VIAL SLOW IVP PRN (18:20)
[2021-03-07] MEDS ORDERED: Albuterol Sulfate 2.5 mg/3 ml Neb NEB PRN (18:20)
[2021-03-07] MEDS ORDERED: Electrolyte Replacement Protocol FS PRN (18:45)
[2021-03-07] MEDS ORDERED: Albuterol 200 PUFF (6.7GM INHALER) INH PRN (18:54)
[2021-03-07] MEDS ORDERED: Sodium Chloride 0.9% (PF) 10 ML VIAL FS PRN (19:00)
[2021-03-07 19:07] LABS: Hemoglobin 12.9 g/dL (12.0-16.0); Platelet Count 188 thou/uL (130-400)
[2021-03-07 19:35] LABS: Critical Call Chem Troponin I RESULT DECREASING; Troponin I 0.919 ng/mL (< 0.028)
[2021-03-07] MEDS ORDERED: Magnesium 2 GM/50 ML 2 GM in Premix Bag 1 BAG IVPB SCH (21:30)
[2021-03-07] MEDS ORDERED: Potassium Phosphate 22 MMOL in Sodium Chloride 0.9% 250 ML 250 ML IVPB SCH (22:00)
[2021-03-07] MEDS: Sodium Chloride 0.9% 1,000 ML IV SCH (22:00)
[2021-03-07] MEDS: Gabapentin 300 MG CAP PO SCH ×2 (22:26→23:17)
[2021-03-07] MEDS: cloNIDine 0.2 MG TAB PO SCH (22:26)
[2021-03-07] MEDS: Dexamethasone 4 mg/ml Vial SLOW IVP SCH (22:36)
[2021-03-07] MEDS: Atorvastatin Calcium 10 MG TAB PO SCH ×2 (22:37→23:16)
[2021-03-07] MEDS: Pantoprazole 40 MG VIAL IVP SCH (22:38)
[2021-03-07] MEDS: Heparin 25,000 units/D5W 500 ML IVPB SCH (23:39)
[2021-03-08 04:56] LABS: #Lymphocytes 1.6 thou/uL (1.20-3.40); #Monocytes 0.2 thou/uL (0.11-0.59); #Neutrophils 10.6 thou/uL (1.40-6.50); %Eosinophils 0.1 % (0.0-10.0); %Lymphocytes 12.8 % (21.0-51.0); %Monocytes 1.6 % (0.0-10.0); %Neutrophils 85.5 % (42.0-75.0); Hemoglobin 13.1 g/dL (12.0-16.0); Mean Corpuscular HGB CONC 33.6 g/dL (32.0-36.0); Mean Corpuscular Hemoglobin 29.5 pg (27.0-31.0); Mean Corpuscular Volume 87.9 fL (78.0-98.0); Mean Platelet Volume 9.4 fL (7.4-10.4); Platelet Count 202 thou/uL (130-400); RBC Distribution Width 13.1 % (11.5-14.5); Red Blood Cell (RBC) Count 4.42 mill/uL (4.20-5.40); White Blood Cell (WBC) Count 12.4 thou/uL (4.8-10.8)
[2021-03-08 05:16] LABS: Phosphorus 4.6 mg/dL (2.3-4.7)
[2021-03-08] MEDS: Levothyroxine Sodium 88 MCG TAB PO SCH (05:19)
[2021-03-08 05:22] LABS: Anion Gap 15 mmol/L (10-20); BUN (Urea Nitrogen) 47 mg/dL (9.8-20.1); Calc. Creatinine Clearance 46 mL/min (70-130); Calcium 7.7 mg/dL (7.8-10.44); Carbon Dioxide 18 mmol/L (23-31); Chloride 102 mmol/L (98-107); Glucose 249 mg/dL (83-110); Magnesium 2.6 mg/dL (1.6-2.6); Potassium 5.6 mmol/L (3.5-5.1); Sodium 129 mmol/L (136-145)
[2021-03-08] MEDS: HumaLOG 300 UNITS/3 ML VIAL SC PRN ×4 (06:24→21:56)
[2021-03-08 07:57] VITALS: BMI 21.8
[2021-03-08] MEDS ORDERED: Insulin Glargine 30 UNITS in Pre-Filled Syringe 1 EACH SC SCH (09:00)
[2021-03-08] MEDS: Sodium Chloride 0.9% 1,000 ML IV SCH (09:13)
[2021-03-08] MEDS ORDERED: Colchicine 0.6 MG TAB PO SCH (09:30)
[2021-03-08] MEDS: Aspirin 81 mg Enteric Coated Tablet PO SCH (11:04)
[2021-03-08] MEDS: Amlodipine 10 MG TAB PO SCH (11:06)
[2021-03-08] MEDS: cloNIDine 0.2 MG TAB PO SCH ×3 (12:07→21:56)
[2021-03-08] MEDS: Lantus 1000 UNITS/10 ML VIAL SC SCH (13:51)
[2021-03-08] MEDS: Carvedilol 6.25 MG TAB PO SCH (17:10)
[2021-03-08] MEDS: Dexamethasone 10 MG/ML VIAL SLOW IVP SCH (21:56)
[2021-03-08] MEDS ORDERED: Ivermectin 3 MG TAB PO SCH (22:15)
[2021-03-08 22:32] LABS: ALT (SGPT) 17 U/L (8-55); AST (SGOT) 23 U/L (5-34); Albumin 3.3 g/dL (3.4-4.8); Alkaline Phosphatase 80 U/L (40-110); Anion Gap 15 mmol/L (10-20); BUN (Urea Nitrogen) 34 mg/dL (9.8-20.1); Bilirubin, Total 0.2 mg/dL (0.2-1.2); Calc. Creatinine Clearance 39 mL/min (70-130); Calcium 7.8 mg/dL (7.8-10.44); Carbon Dioxide 17 mmol/L (23-31); Chloride 102 mmol/L (98-107); Globulin 3.2 g/dL (2.4-3.5); Glucose 447 mg/dL (83-110); Potassium 5.1 mmol/L (3.5-5.1); Protein, Total 6.5 g/dL (5.8-8.1)
[2021-03-08 22:33] LABS: Sodium 129 mmol/L (136-145)
[2021-03-08 22:35] LABS: CKMB 4.2 ng/mL (0-6.6)
[2021-03-08 22:54] LABS: #Lymphocytes 1.8 thou/uL (1.20-3.40); #Monocytes 0.7 thou/uL (0.11-0.59); #Neutrophils 15.6 thou/uL (1.40-6.50); %Eosinophils 0.1 % (0.0-10.0); %Neutrophils 85.9 % (42.0-75.0); Hemoglobin 13.2 g/dL (12.0-16.0); Mean Corpuscular HGB CONC 33.6 g/dL (32.0-36.0); Mean Corpuscular Volume 89.1 fL (78.0-98.0); Mean Platelet Volume 9.6 fL (7.4-10.4); Platelet Count 281 thou/uL (130-400); RBC Distribution Width 13.2 % (11.5-14.5); Red Blood Cell (RBC) Count 4.42 mill/uL (4.20-5.40); White Blood Cell (WBC) Count 18.2 thou/uL (4.8-10.8)
[2021-03-08 23:04] LABS: Prothrombin Time 13.3 sec (12.0-14.7)
[2021-03-08 23:05] LABS: PTT 60.9 sec (22.9-36.1)
[2021-03-08 23:06] LABS: Lactic Acid 2.9 mmol/L (0.5-2.2)
[2021-03-08 23:23] LABS: Troponin I 0.614 ng/mL (< 0.028)
[2021-03-08 23:30] LABS: CRP (Inflammatory) 8.01 mg/dL (= or < 0.5); Magnesium 2.5 mg/dL (1.6-2.6)
[2021-03-09] MEDS: Dexamethasone 4 mg/ml Vial SLOW IVP SCH (00:14)
[2021-03-09] MEDS: Pantoprazole 40 MG VIAL IVP SCH ×2 (00:16→20:26)
[2021-03-09] MEDS: Dexamethasone 10 MG/ML VIAL SLOW IVP SCH ×3 (00:16→20:28)
[2021-03-09] MEDS: Sodium Chloride 0.9% 1,000 ML IV SCH ×3 (00:19→23:21)
[2021-03-09] MEDS: Colchicine 0.6 MG TAB PO SCH ×3 (00:22→20:27)
[2021-03-09] MEDS: Gabapentin 300 MG CAP PO SCH ×2 (00:25→20:27)
[2021-03-09] MEDS: Atorvastatin Calcium 10 MG TAB PO SCH ×2 (00:25→20:27)
[2021-03-09] MEDS: cefTRIAXone\\ROCEPHIN 1 GM in Sodium Chloride 0.9% 100 ML IVPB SCH (00:49)
[2021-03-09 00:55] LABS: Actual Bicarbonate (HCO3a) 18.1 mEq/L (22-28); CO2 Tension 48.4 mmHg (35.0-45.0); Calcium, Ionized (arterial) 1.12 mmol/L (1.12-1.30); Carboxyhemoglobin (COHb) 0.5 gm% (0.0-3.0); Hemoglobin (Hb) 13.4 g/dL (12.0-16.0); O2 Tension (PaO2), arterial 60.4 mmHg (> 60.0); Potassium - ABG Lab 4.73 mmol/L (3.70-5.30)
[2021-03-09 00:57] LABS: Puncture Site RBA; pH, Arterial 7.19 (7.35-7.45)
[2021-03-09] MEDS: Azithromycin 500 MG in Sodium Chloride 0.9% 250 ML 250 ML IVPB SCH (01:31)
[2021-03-09] MEDS ORDERED: HumaLOG 300 UNITS/3 ML VIAL SC PRN (02:15)
[2021-03-09] MEDS: HumaLOG 300 UNITS/3 ML VIAL SC PRN (04:38)
[2021-03-09] MEDS: Levothyroxine Sodium 88 MCG TAB PO SCH (05:44)
[2021-03-09 06:04] LABS: Lactic Acid 1.8 mmol/L (0.5-2.2)
[2021-03-09] MEDS: Amlodipine 10 MG TAB PO SCH (08:36)
[2021-03-09] MEDS: Carvedilol 6.25 MG TAB PO SCH ×2 (08:36→17:14)
[2021-03-09] MEDS: cloNIDine 0.2 MG TAB PO SCH ×3 (08:37→20:27)
[2021-03-09] MEDS: Aspirin 81 mg Enteric Coated Tablet PO SCH (08:37)
[2021-03-09] MEDS: Ascorbic Acid 500 mg Chewable Tablet PO SCH (08:37)
[2021-03-09] MEDS: Zinc Sulfate 220 MG CAP PO SCH (08:38)
[2021-03-09] MEDS: Lantus 1000 UNITS/10 ML VIAL SC SCH (08:38)
[2021-03-09] MEDS: Ivermectin 3 MG TAB PO SCH ×2 (08:38→20:27)
[2021-03-09] MEDS: Heparin 25,000 units/D5W 500 ML IVPB SCH (08:42)
[2021-03-09] MEDS ORDERED: REMDESIVIR 200 MG in Sodium Chloride 0.9% 250 ML 210 ML IV SCH (10:45)
[2021-03-09] MEDS: Enoxaparin Sodium 40 MG/0.4 ML SYRINGE SC SCH ×2 (12:46→20:33)
[2021-03-09 18:27] LABS: Platelet Count 293 thou/uL (130-400)
[2021-03-09] MEDS: Morphine 2 MG/ML VIAL SLOW IVP PRN (20:28)
[2021-03-10] MEDS: cefTRIAXone\\ROCEPHIN 1 GM in Sodium Chloride 0.9% 100 ML IVPB SCH (00:26)
[2021-03-10] MEDS: Azithromycin 500 MG in Sodium Chloride 0.9% 250 ML 250 ML IVPB SCH (00:28)
[2021-03-10] MEDS: Morphine 2 MG/ML VIAL SLOW IVP PRN ×5 (01:56→18:37)
[2021-03-10] MEDS: Lorazepam 2 MG/ML VIAL SLOW IVP PRN ×5 (01:57→18:37)
[2021-03-10] MEDS ORDERED: Furosemide 40 MG/4 ML VIAL SLOW IVP SCH ×2 (02:30→08:15)
[2021-03-10] MEDS: Levothyroxine Sodium 88 MCG TAB PO SCH (05:48)
[2021-03-10] MEDS ORDERED: Amlodipine 10 MG TAB PO SCH (07:33)
[2021-03-10 08:47] VITALS: TEMP 99.1
[2021-03-10] MEDS ORDERED: Amlodipine 5 MG TAB PO SCH (09:00)
[2021-03-10] MEDS ORDERED: cloNIDine 0.2 MG TAB PO SCH (09:00)
[2021-03-10] MEDS ORDERED: cloNIDine 0.1 MG TAB PO SCH (09:00)
[2021-03-10] MEDS: Carvedilol 6.25 MG TAB PO SCH ×2 (10:06→16:46)
[2021-03-10] MEDS: Ascorbic Acid 500 mg Chewable Tablet PO SCH (10:10)
[2021-03-10] MEDS: Aspirin 81 mg Enteric Coated Tablet PO SCH (10:10)
[2021-03-10] MEDS: Lantus 1000 UNITS/10 ML VIAL SC SCH (10:11)
[2021-03-10] MEDS: Colchicine 0.6 MG TAB PO SCH (10:11)
[2021-03-10] MEDS: Zinc Sulfate 220 MG CAP PO SCH (10:11)
[2021-03-10] MEDS: Ivermectin 3 MG TAB PO SCH (10:11)
[2021-03-10] MEDS: Enoxaparin Sodium 40 MG/0.4 ML SYRINGE SC SCH (10:12)
[2021-03-10] MEDS: Dexamethasone 10 MG/ML VIAL SLOW IVP SCH (10:18)
[2021-03-10] MEDS ORDERED: REMDESIVIR 100 MG in Sodium Chloride 0.9% 250 ML 230 ML IV SCH (11:00)
[2021-03-10 11:11] VITALS: BP 147/67
[2021-03-10] MEDS: Sodium Chloride 0.9% 1,000 ML IV SCH (16:45)
== END 2021-03-10 19:10 | disposition hospice, home (50) | DRG 177 ==
LOC: ERS 13:32 → ERHOLD 16:08 → 2SW 20:41
PROVIDERS: ADMIT Internal Medicine; ATTEND Internal Medicine
PROC: 8E0ZXY6 Isolation (ICD-10-PCS; principal; 2021-03-07)
PROC: XW033E5 Introduction of Remdesivir Anti-infective into Peripheral Vein, Percutaneous Approach, New Technology Group 5 (ICD-10-PCS; 2021-03-09)
DX: U07.1 COVID-19 (principal); J12.82 Pneumonia due to coronavirus disease 2019; J96.01 Acute respiratory failure with hypoxia; I21.A1 Myocardial infarction type 2; F05 Delirium due to known physiological condition; E87.2 Acidosis; G93.49 Other encephalopathy; Z66 Do not resuscitate; E78.5 Hyperlipidemia, unspecified; I10 Essential (primary) hypertension; E03.9 Hypothyroidism, unspecified; F03.90 Unspecified dementia, unspecified severity, without behavioral disturbance, psychotic disturbance, mood disturbance, and anxiety; F17.210 Nicotine dependence, cigarettes, uncomplicated; E83.39 Other disorders of phosphorus metabolism; E11.65 Type 2 diabetes mellitus with hyperglycemia; R31.29 Other microscopic hematuria; I44.0 Atrioventricular block, first degree; K20.90 Esophagitis, unspecified without bleeding; E11.51 Type 2 diabetes mellitus with diabetic peripheral angiopathy without gangrene; Z79.899 Other long term (current) drug therapy; Z79.890 Hormone replacement therapy; Z79.4 Long term (current) use of insulin; Z89.512 Acquired absence of left leg below knee; Z89.611 Acquired absence of right leg above knee; Z98.890 Other specified postprocedural states; Z78.1 Physical restraint status; Z82.49 Family history of ischemic heart disease and other diseases of the circulatory system
CPT/HCPCS: 36415; 36416; 36600; 70450; 71045; 71275; 80048; 80053; 81003; 81015; 82553; 82728; 82805; 83605; 83735; 83880; 84100; 84145; 84484; 85014; 85018; 85025; 85049; 85379; 85610; 85730; 86140; 87040; 93005; 93010; 96365; 96366; 96367; C9113; J0456; J0692; J0696; J1100; J1644; J1650; J1815; J1940; J2060; J2270; J3370; J3475; J3490; J7050